=== PATIENT | male | born 1955 | race Caucasian/White ===

== ENCOUNTER 2017-04-04 09:39 | Outpatient (RCR) | payer MEDICARE, BC, OTHER ==
[~2017-04-04 09:39] MED LIST: /MUPINAS; ACET65TA OR; AMIT25TA2 OR; DIGESTIVE ADVANTAGE PO; HALOBETASOL; LISI20TA5 OR; MULTIVITAMIN PO; OMEP20TA7 OR; TRAM50TA2 OR; VITAMIN D50000 UNT OR; ZEST20TA4 OR
== END 2017-04-11 ==
LOC: M PT 09:39
PROVIDERS: ATTEND Orthopaedic Surgery
DX: Z51.89 Encounter for other specified aftercare (principal); M25.512 Pain in left shoulder
CPT/HCPCS: 97162; G8984; G8985

== ENCOUNTER 2017-04-12 09:11 | Outpatient (RCR) | payer MEDICARE, BC, OTHER | END 2017-05-11 | LOC: M PT 09:11 | PROVIDERS: ATTEND Orthopaedic Surgery | DX: Z51.89 Encounter for other specified aftercare (principal); M25.512 Pain in left shoulder | CPT/HCPCS: 97110; 97140; G0283 ==

== ENCOUNTER → 2017-04-25 | Outpatient (CLI) | payer OTHER, BC, MEDICARE ==
--- NOTE | 2017-05-05 00:03 | ECWPNPC ---
PATIENT NAME: BRANDY LINDQUIST : 1955 GENDER: MALE VISIT DATE: 04/25/2017 DISCHARGE DATE: 04/25/17 1528 VISIT LOCKED DATE TIME: PHYSICIAN: EVA BROWN RESOURCE: EVA BROWN REASON FOR APPOINTMENT 1. W/C LOW BACK HISTORY OF PRESENT ILLNESS HISTORY OF PRESENT ILLNESS: PAIN THE PATIENT DESCRIBES THE PAIN... 61 YEAR OLD MALE PATIENT WITH HISTORY OF CHRONIC BACK PAIN. PATIENT DESCRIBES THE PAIN ACHING, BURNING, SHARP, SHOOTING, AND HAVING IT ALL THE TIME WITH A PAIN SCORE OF 7-8/10 ON TODAY'S VISIT. 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 PATIENT REPORTS THAT HE WAS IN THE SUPPLY ROOM LIFTING A BOX ONTO A SHELF WHEN HE INJURED HIS BACK. PATIENT STATES THAT HE HAS TRIED PHYSICAL THERAPY IN THE PAST WITHOUT ANY IMPROVEMENT IN PAIN RELIEF. PATIENT DENIES HAVING ANY BACK SURGERY. PATIENT REPORTS THAT HE HAS TRIED GABAPENTIN IN THE PAST AND IT MADE HIM FOGGY. PATIENT REPORTS OF RADIATING PAIN DOWN BOTH LEGS WITH THE LEFT LEG RADIATING PAIN HURTING THE MOST. PATIENT REPORTS OF INCREASING PAIN IN THE BACK AND LEGS IN THE PAST THREE WEEKS THAT IS IMMOBILIZING CAUSING DIFFICULTIES WALKING AND STANDING AND DOING DAILY ACTIVITIES AND CHORES. PATIENT DENIES UNEXPLAINABLE WEIGHT LOSS, FEVER, CHILLS, NEW CHANGES ON HIS URINARY OR BOWEL CONTROL. FALL RISK SCREENING: SCREENING :NO FALLS IN THE PAST YEAR CURRENT MEDICATIONS TAKING SUCRALFATE 1 GM TABLET 1 TABLET ON AN EMPTY STOMACH ORALLY TWICE DAILY, NOTES: 10-11-161829 TAKING OMEPRAZOLE 20 MG CAPSULE DELAYED RELEASE 1 CAP ORALLY TWICE DAILY, NOTES: 10-11-161829 TAKING LISINOPRIL 20 MG TABLET 1 TABLET ORALLY ONCE A DAY, NOTES: 10-11-162199 TAKING VITAMIN D-3 1000 UNIT CAPSULE 1 CAPSULE ORALLY ONCE A DAY, NOTES: 10-11-16 1500 TAKING CYCLOBENZAPRINE HCL 5 MG TABLET 1 TABLET ORALLY THREE TIMES DAILY NEEDED, NOTES: NONE LATELY TAKING MULTIVITAMIN ADULT - TABLET ORALLY ONCE DAILY, NOTES: 10-11-16 1500 TAKING TYLENOL 325 MG CAPSULE 2 CAPSULES NEEDED ORALLY EVERY 6 HRS TAKING VALIUM 5 MG TABLET 1 TABLET ORALLY TAKE 2 TABS ON ARRIVAL TO CLINIC FOR PROCEDURE MDD=2, NOTES: 10/12/16 1002 NOT-TAKING TYLENOL EXTRA STRENGTH 500 MG TABLET 2 TABLETS NEEDED ORALLY EVERY 6 HRS NOT-TAKING TRAMADOL HCL 50 MG TABLET 1 TABLET ORALLY EVERY 6 HRS PRN PAIN MDD=4, NOTES: MADE HIM DIZZY NOT-TAKING ACETAMINOPHEN EXTRA STRENGTH 500 MG TABLET 2 TABLET NEEDED ORALLY EVERY 6 HRS NEEDED NOT-TAKING VALIUM 5 MG TABLET 1 TABLET ORALLY TAKE ON ARRIVAL TO CLINIC FOR PROCEDURE MDD=1 DISCONTINUED TYLENOL ARTHRITIS PAIN 650 MG TABLET EXTENDED RELEASE ORALLY THREE TIMES DAILY, NOTES: 10-11-162129 MEDICATION LIST REVIEWED AND RECONCILED WITH THE PATIENT PAST MEDICAL HISTORY GERD HYPERTENSION LOW BACK AFTER INJURY STRESS TEST CLEARED WITH DR OSBORNE FIBROMYLAGIA ALLERGIES ASPIRIN: FACE SWELLING: ALLERGY SULFA (FOR ALLERGY USE ONLY): NAUSEA/VOMITING: ALLERGY PLASTIC TAPE: RASH: SIDE EFFECTS PERCOCET: ITCHING: ALLERGY HYDROCODONE-ACETAMINOPHEN: ITCHIONG: ALLERGY LYRICA: DEPRESSION, ANXIETY: SIDE EFFECTS GABAPENTIN: MENTAL STATUS: SIDE EFFECTS SURGICAL HISTORY MULTIPLE SURGURIES TO LEFT LEG FAMILY HISTORY NO FAMILY HISTORY DOCUMENTED. SOCIAL HISTORY GENERAL: TOBACCO USE ARE YOU A:NONSMOKER LEARNING BARRIERS / SPECIAL NEEDS ORIENTED TO PLAN OF CARE: PATIENT, PAIN MANAGEMENT PATIENT, ORIENTED TO PLAN OF CARE: PATIENT, PAIN MANAGEMENT PATIENT. NEW PATIENT PAIN DIARY TODAY'S VISITNOTES FROM 0-10, WHAT LEVEL IS YOUR PAIN TODAY?0 PAIN CLINIC PFS, CLERGY, PUBLIC HEALTH REFERRALS PFS REFERRAL NEEDED?NO CLERGY REFERRAL NEEDED?NO PUBLIC HEALTH REFERRAL NEEDED?NO WAS THE PROVIDER NOTIFIED OF ANY PERTINENT INFO?NO PFS REFERRAL NEEDED?NO CLERGY REFERRAL NEEDED?NO PUBLIC HEALTH REFERRAL NEEDED?NO WAS THE PROVIDER NOTIFIED OF ANY PERTINENT INFO?NO HOSPITALIZATION/MAJOR DIAGNOSTIC PROCEDURE NO HOSPITALIZATION HISTORY. REVIEW OF SYSTEMS REVIEWED BY: PROVIDER: EVA BROWN MD . CONSTITUTIONAL: ANY CHANGE IN YOUR MEDICAL CONDITION? NO . CHILLS NO . FEVER NO . INFECTION: DO YOU HAVE NEW INFECTIONS? NO . DO YOU HAVE HISTORY OF MRSA? NO . MUSCULOSKELETAL: ANY NEW PATTERNS OF PAIN OR NUMBNESS? YES . GASTROENTEROLOGY: ANY NEW CHANGE IN BOWEL CONTROL? NO . GENITOURINARY: ANY NEW CHANGE IN BLADDER CONTROL? NO . IS THERE A CHANCE YOU COULD BE ? NO . HEMATOLOGY/LYMPH: DO YOU TAKE ANY BLOOD THINNERS? (FOR EXAMPLE- COUMADIN, PLAVIX, AGGRENOX, PLATEL, PRADAXA, OR XARELTO) NO . WHEN WAS YOUR LAST DOSE? DATE: TIME: . NEUROLOGY: HAVE YOU FALLEN IN THE PAST 6 MONTHS? NO . ANY NEW EXTREMITY NUMBNESS OR WEAKNESS? NO . CARDIOLOGY: DO YOU HAVE A PACEMAKER OR DEFIBRILLATOR? NO . RESPIRATORY: HAVE YOU BEEN SICK IN THE PAST WEEK? NO . FEVER NO . FLU LIKE SYMPTOMS? NO . COUGH NO . INTEGUMENTARY: DO YOU HAVE ANY RASHES OR OPEN SORES? NO . ALLERGIC/IMMUNO: ARE YOU ALLERGIC TO SHELLFISH OR IV DYE? NO . ANY NEW ALLERGIES? NO . PSYCHIATRIC: DO YOU HAVE THOUGHTS OF HURTING YOURSELF OR SOMEONE ELSE? NO . ARE YOU ABUSED, NEGLECTED, OR IN AN UNSAFE ENVIRONMENT? NO . ENDOCRINOLOGY: ARE YOU DIABETIC? NO . OTHER: DO YOU NEED ANY PRESCRIPTIONS? NO . IF YES, PLEASE LIST: ____ . ANY NEW PROBLEMS WITH YOUR MEDICATIONS? NO . WHEN DID YOU LAST EAT? ____ . WHEN DID YOU LAST DRINK? ____ . WHAT DID YOU LAST DRINK? ____ . NAME OF PERSON DRIVING YOU HOME? ____ . DO YOU HAVE ANY OTHER QUESTIONS OR CONCERNS YES LEFT LEG PAIN, NUMBNESS IN FOOT . . VITAL SIGNS WT 222.0 LBS, HT 69 IN, BMI 32.78 INDEX, BP 133/92 MM HG, HR 75 /MIN, RR 16 /MIN, TEMP 97.6 F, OXYGEN SAT % 96%, NA INITIALS [id number], REVIEWED BY: VD. EXAMINATION : PATIENT IS ALERT O X 3 AND COOPERATIVE. PATIENT AMBULATES WITH A LIMP ON THE LEFT LEG. THERE IS TENDERNESS IN THE LOW BACK. PATIENT LEFT LEG IS WEAKER AT FLEXION AND EXTENSION COMPARED TO THE RIGHT LEG. MRI DONE ON 05/20/15 SHOWS A DISC HERNIATION AT L3-L4, POST LAMINECTOMY CHANGES AT L4-L5 AND L5-S1. ASSESSMENTS INTERVERTEBRAL DISC DISORDERS WITH RADICULOPATHY, LUMBOSACRAL REGION - M51.17 (PRIMARY) TREATMENT INTERVERTEBRAL DISC DISORDERS WITH RADICULOPATHY, LUMBOSACRAL REGION NOTES: WE DISCUSSED SEVERAL ISSUES WITH MRS. LUCAS'S PAIN MANAGEMENT CASE. AT THIS TIME THE PATIENT WILL START ON GABAPENTIN FOR THE NEUROPATHIC PAIN. AFTER EXAMINING THE PATIENT AND REVIEWING THE MRI OF THE LUMBAR SPINE, PATIENT IS A GOOD CANDIDATE FOR A L5-S1 LUMBAR EPIDURAL, WE DISCUSSED THE RISK, BENEFITS, AND ALTERNATIVES AND THE PATIENT WOULD LIKE TO PROCEED. PATIENT WILL BE BOOKED PENDING APPROVAL. PATIENT WILL FOLLOW UP WITH ME IN 1 MONTH. INSTRUCTIONS WERE GIVEN, QUESTIONS WERE ANSWERED, PATIENT REPORTS UNDERSTANDING AND AGREES WITH THE PLAN. I, JASON DILLON, DOCUMENTED THE ABOVE INFORMATION ACTING A SCRIBE FOR DR. BROWN. I HAVE REVIEWED THE ABOVE DOCUMENT, WRITTEN BY JASON DILLON SCRIBE AND I VERIFY THAT IT IS ACCURATE. OTHERS START GABAPENTIN CAPSULE, 100 MG, DIRECTED, ORALLY, TID FOR PAIN MDD3, 30 DAY(S), 90, REFILLS 1 NOTES: LUMBAR EPIDURAL INJECTION: RECOVERY AT HOME MATERIAL WAS PRINTED,LUMBAR EPIDURAL INJECTION: YOUR PROCEDURE MATERIAL WAS PRINTED,LUMBAR EPIDURAL INJECTION: RECOVERY AT HOME MATERIAL WAS PRINTED. PROCEDURES PN WORKMANS' COMP OPINION IN YOUR OPINION, WAS THE INCIDENT THAT THE PATIENT DESCRIBED THE COMPETENT MEDICAL CAUSE OF THIS INJURY/ILLNESS? YES ARE THE PATIENT'S COMPLAINTS CONSISTENT WITH HIS/HER HISTORY OF THE INJURY/ILLNESS? YES IS THE PATIENT'S HISTORY OF THE INJURY/ILLNESS CONSISTENT WITH YOUR OBJECTIVE FINDING? YES WHAT IS THE PERCENTAGE OF TEMPORARY IMPAIRMENT? MODERATE TO MARKED = 66.7% IS THE PATIENT WORKING? NO DOCTOR ON SITE: EVA DEGROOT MD PROCEDURE CODES FA211 ESTABILISHED PATIENT [facility] FACILITY CHARGE G8730 PAIN ASSESS POS TOOL F/U PLAN DOC G8427 DOC MEDS VERIFIED W/PT OR RE DISPOSITION & COMMUNICATION FOLLOW UP 4 WEEKS ELECTRONICALLY SIGNED BY EVA BROWN MD ON 05/04/2017 AT 08:17 AM EDT DISCLAIMER : THIS IS A VISIT SUMMARY EXTRACTED FROM THE [employer] CHART. IT IS NOT A COPY OF THE [employer] PROGRESS NOTE. MTDD
== END | disposition home or self-care (01) ==
LOC: M PAIN 13:40
PROVIDERS: ATTEND Anesthesiology
DX: G89.29 Other chronic pain (principal); M51.17 Intervertebral disc disorders with radiculopathy, lumbosacral region; K21.9 Gastro-esophageal reflux disease without esophagitis; I10 Essential (primary) hypertension; M79.7 Fibromyalgia; Z79.899 Other long term (current) drug therapy; Z88.2 Allergy status to sulfonamides; Z88.5 Allergy status to narcotic agent; Z88.8 Allergy status to other drugs, medicaments and biological substances

== ENCOUNTER → 2017-06-13 | Outpatient (CLI) | payer OTHER, BC, MEDICARE ==
[~2017-06-13] MED LIST changes: +ISOVUE-M 300 61% 15ML VIAL (Q9967) As Ordered ONE; +LIDOCAINE 1% SDV INJ 30 ML VIAL As Ordered ONE; +diazePAM 5 MG TAB As Ordered ONE; +methylPREDNISolone SUSP 40 MG/ML (DEPO-medrol) VIAL (J1030) As Ordered ONE
--- NOTE | 2017-06-13 17:23 | REP ---
FLUOROSCOPIC GUIDED SPINAL INJECTION: The films were reviewed with Dr. Mata. The patient has a history of low back pain. The portable C-ARM was provided in the OR by Dr. Faulkner for fluoroscopic guidance. 3 intraoperative fluoroscopic spot films were obtained using last image hold technology for needle placement verification for lumbar epidural injection. The films are on the PACS system and are available for review. 4 seconds of fluoroscopic time was utilized for this procedure. Reviewed by JOSSELYN Vides 06/14/2017 05:45 PEdited and Signed by Luan Mata MD 06/14/2017 06:50 P
--- NOTE | 2017-06-26 00:34 | ECWPNPC ---
PATIENT NAME: BRANDY LINDQUIST : 1955 GENDER: MALE VISIT DATE: 06/13/2017 DISCHARGE DATE: 06/13/17 1039 VISIT LOCKED DATE TIME: PHYSICIAN: EVA BROWN RESOURCE: EVA BROWN REASON FOR APPOINTMENT 1. LESI HISTORY OF PRESENT ILLNESS HISTORY OF PRESENT ILLNESS: PAIN THE PATIENT DESCRIBES THE PAIN... FALL RISK SCREENING: SCREENING :NO FALLS IN THE PAST YEAR CURRENT MEDICATIONS TAKING SUCRALFATE 1 GM TABLET 1 TABLET ON AN EMPTY STOMACH ORALLY TWICE DAILY, NOTES: 06/12/17 1700 TAKING OMEPRAZOLE 20 MG CAPSULE DELAYED RELEASE 1 CAP ORALLY TWICE DAILY, NOTES: 06/12/17 1700 TAKING LISINOPRIL 20 MG TABLET 1 TABLET ORALLY ONCE A DAY, NOTES: 06/12/17 2200 TAKING VITAMIN D-3 1000 UNIT CAPSULE 1 CAPSULE ORALLY ONCE A DAY, NOTES: 06/10/17 1300 TAKING CYCLOBENZAPRINE HCL 5 MG TABLET 1 TABLET ORALLY THREE TIMES DAILY NEEDED, NOTES: > 2 MONTHS TAKING MULTIVITAMIN ADULT - TABLET ORALLY ONCE DAILY, NOTES: 06/10/17 1500 TAKING TYLENOL 325 MG CAPSULE 2 CAPSULES NEEDED ORALLY EVERY 6 HRS, NOTES: 06/12/17 1500 TAKING GABAPENTIN 100 MG CAPSULE DIRECTED ORALLY TID FOR PAIN MDD3, NOTES: 06/11/17 2100 TAKING TRAMADOL HCL 50 MG TABLET 1 TABLET ORALLY EVERY 6 HRS PRN PAIN MDD=4, NOTES: MADE HIM DIZZY NOT-TAKING VALIUM 5 MG TABLET 1 TABLET ORALLY TAKE 2 TABS ON ARRIVAL TO CLINIC FOR PROCEDURE MDD=2, NOTES: 10/12/16 1002 NOT-TAKING TYLENOL EXTRA STRENGTH 500 MG TABLET 2 TABLETS NEEDED ORALLY EVERY 6 HRS NOT-TAKING ACETAMINOPHEN EXTRA STRENGTH 500 MG TABLET 2 TABLET NEEDED ORALLY EVERY 6 HRS NEEDED NOT-TAKING VALIUM 5 MG TABLET 1 TABLET ORALLY TAKE ON ARRIVAL TO CLINIC FOR PROCEDURE MDD=1 MEDICATION LIST REVIEWED AND RECONCILED WITH THE PATIENT PAST MEDICAL HISTORY GERD HYPERTENSION LOW BACK AFTER INJURY STRESS TEST CLEARED WITH DR OSBORNE FIBROMYLAGIA ALLERGIES ASPIRIN: FACE SWELLING: ALLERGY SULFA (FOR ALLERGY USE ONLY): NAUSEA/VOMITING: ALLERGY PLASTIC TAPE: RASH: SIDE EFFECTS PERCOCET: ITCHING: ALLERGY HYDROCODONE-ACETAMINOPHEN: ITCHIONG: ALLERGY LYRICA: DEPRESSION, ANXIETY: SIDE EFFECTS GABAPENTIN: MENTAL STATUS: SIDE EFFECTS REVIEW OF SYSTEMS REVIEWED BY: PROVIDER: . CONSTITUTIONAL: ANY CHANGE IN YOUR MEDICAL CONDITION? YES PT REPORTS KNEE INJECTIONS X 3 AT [facility], LAST ONE 06/06. DR. BROWN NOTIFIED, OK TO PROCEED . CHILLS NO . FEVER NO . INFECTION: DO YOU HAVE NEW INFECTIONS? NO . DO YOU HAVE HISTORY OF MRSA? NO . MUSCULOSKELETAL: ANY NEW PATTERNS OF PAIN OR NUMBNESS? YES PT REPORTS NEW PAIN LEFT GROIN OVER THE PAST TWO WEEKS . GASTROENTEROLOGY: ANY NEW CHANGE IN BOWEL CONTROL? NO . GENITOURINARY: ANY NEW CHANGE IN BLADDER CONTROL? NO . IS THERE A CHANCE YOU COULD BE ? NO . HEMATOLOGY/LYMPH: DO YOU TAKE ANY BLOOD THINNERS? (FOR EXAMPLE- COUMADIN, PLAVIX, AGGRENOX, PLATEL, PRADAXA, OR XARELTO) NO . WHEN WAS YOUR LAST DOSE? DATE: TIME: . NEUROLOGY: HAVE YOU FALLEN IN THE PAST 6 MONTHS? NO . ANY NEW EXTREMITY NUMBNESS OR WEAKNESS? NO . CARDIOLOGY: DO YOU HAVE A PACEMAKER OR DEFIBRILLATOR? NO . RESPIRATORY: HAVE YOU BEEN SICK IN THE PAST WEEK? NO . FEVER NO . FLU LIKE SYMPTOMS? NO . COUGH NO . INTEGUMENTARY: DO YOU HAVE ANY RASHES OR OPEN SORES? NO . ALLERGIC/IMMUNO: ARE YOU ALLERGIC TO SHELLFISH OR IV DYE? NO . ANY NEW ALLERGIES? NO . PSYCHIATRIC: DO YOU HAVE THOUGHTS OF HURTING YOURSELF OR SOMEONE ELSE? NO . ARE YOU ABUSED, NEGLECTED, OR IN AN UNSAFE ENVIRONMENT? NO . ENDOCRINOLOGY: ARE YOU DIABETIC? NO . OTHER: DO YOU NEED ANY PRESCRIPTIONS? YES . IF YES, PLEASE LIST: ____TRAMADOL . ANY NEW PROBLEMS WITH YOUR MEDICATIONS? NO . WHEN DID YOU LAST EAT? ___06/12/171929_ . WHEN DID YOU LAST DRINK? 06/12/172199____ . WHAT DID YOU LAST DRINK? ____CRANBERRY JUICE . NAME OF PERSON DRIVING YOU HOME? ____SHARON . DO YOU HAVE ANY OTHER QUESTIONS OR CONCERNS YES QUESTION REGARDING DISCONTINUING GABAPENTIN . VITAL SIGNS WT 222 LBS, HT 69 IN, BMI 32.78 INDEX, BP 146/89 MM HG, HR 65 /MIN, RR 16 /MIN, TEMP 98.4 F, OXYGEN SAT % 97%, SAFE IN ENV? (Y/N) YES, NA INITIALS AW 0902, REVIEWED BY: LAS. ANDRADE INTERVERTEBRAL DISC DISORDERS WITH RADICULOPATHY, LUMBAR REGION - M51.16 (PRIMARY) TREATMENT OTHERS REFILL CYCLOBENZAPRINE HCL TABLET, 5 MG, 1 TABLET, ORALLY NEEDED FOR SPASMS AND PAIN, DAILY MAY REPEAT IN 5 HRS MDD2, 30 DAY(S), 45, REFILLS 2, NOTES: > 2 MONTHS REFILL TRAMADOL HCL TABLET, 50 MG, 1 TABLET, ORALLY, DAILY NEEDED FOR PAIN MDD1, 30 DAY(S), 20, REFILLS 0, NOTES: MADE HIM DIZZY PROCEDURES PRE PROCEDURE DIAGNOSIS LUMBAR DISC DISORDER WITH RADICULOPATHY POST PROCEDURE DIAGNOSIS LUMBAR DISC DISORDER WITH RADICULOPATHY PROCEDURE LUMBAR EPIDURAL STEROID INJECTION UNDER FLUOROSCOPIC GUIDANCE SURGEON DR. EVA BROWN FINANCIAL AID ADVISOR NONE ANESTHESIA LOCAL PRE PROCEDURE NOTE THE PATIENT HAS A HISTORY OF CHRONIC LOW BACK PAIN. I EVALUATE THE PATIENT AND REVIEWED THE CHART. I WENT OVER THE RISKS, ALTERNATIVES, AND BENEFITS ASSOCIATED WITH THIS PROCEDURE. THE PATIENT WOULD LIKE TO PROCEED AND GIVE CONSENT TO PERFORMED THE PROCEDURE. THE PATIENT DENIES UNEXPLAINABLE WEIGHT LOSS, FEVER, CHILLS, OR NEW CHANGES IN URINARY OR BOWEL CONTROL. DESCRIPTION OF PROCEDURE THE PATIENT WAS BROUGHT TO THE PROCEDURE ROOM AND PLACED IN THE PRONE POSITION. THE LUMBOSACRAL AREA WAS CLEANED WITH BETADINE SOLUTION AND DRAPED ASEPTICALLY. THE PROCEDURE WAS DONE UNDER STERILE CONDITIONS. I CHECKED LATERALITY AND THE LEVEL WHERE THE PROCEDURE WAS GOING TO BE PERFORMED WITH THE PATIENT AND THE SUPPORTING STAFF AT THE MOMENT OF THE TIME OUT IN THE PROCEDURE ROOM. UNDER FLUOROSCOPIC GUIDANCE, THE TARGET POINT WAS SELECTED AT THE INTERLAMINAR LEVEL OF L3-L4. LIDOCAINE WAS USED TO NUMB THE SKIN AND THE SUBCUTANEOUS TISSUE BELOW IT. EPIDURAL TUOHY NEEDLE, 17-GAUGE, WAS ADVANCED UNDER FLUOROSCOPIC GUIDANCE AND FOLLOWING PATIENT FEEDBACK UNTIL THE EPIDURAL SPACE WAS REACHED, 7 CM DEEP INTO THE SKIN BY THE LOSS OF RESISTANCE TECHNIQUE. ISOVUE M DYE 30%, 0.25 ML, WAS INJECTED SHOWING ADEQUATE SPREAD OF THE DYE. THEN, A SOLUTION OF 3 ML OF NORMAL SALINE WITH DEPO-MEDROL 60 MG WAS INJECTED SLOWLY FOLLOWING PATIENT FEEDBACK. THERE WAS NO EVIDENCE OF BLOOD, PARESTHESIA OR CEREBROSPINAL FLUID DURING THE PROCEDURE. THE PATIENT WAS SENT TO THE RECOVERY ROOM. THE PATIENT WAS MOVING THE EXTREMITIES AND DOING WELL. THERE WAS NO COMPLICATION DURING THE PROCEDURE. FLUOROSCOPY TIME WAS 4 SECONDS. POST PROCEDURE NOTE THE PATIENT WILL BE SEEN IN A FOLLOW UP IN THE NEXT FEW WEEKS. INSTRUCTIONS WERE GIVEN, QUESTIONS WERE ANSWERED, AND THE PATIENT EXPRESSED UNDERSTANDING AND AGREES WITH THE PLAN. I, HIEU HUDSON, DOCUMENTED THE ABOVE INFORMATION ACTING A SCRIBE FOR DR. BROWN. I HAVE REVIEWED THE ABOVE DOCUMENT, WRITTEN BY HIEU MOORE AND I VERIFY THAT IT IS ACCURATE PN WORKMANS' COMP OPINION IN YOUR OPINION, WAS THE INCIDENT THAT THE PATIENT DESCRIBED THE COMPETENT MEDICAL CAUSE OF THIS INJURY/ILLNESS? YES ARE THE PATIENT'S COMPLAINTS CONSISTENT WITH HIS/HER HISTORY OF THE INJURY/ILLNESS? YES IS THE PATIENT'S HISTORY OF THE INJURY/ILLNESS CONSISTENT WITH YOUR OBJECTIVE FINDING? YES WHAT IS THE PERCENTAGE OF TEMPORARY IMPAIRMENT? MODERATE TO MARKED = 66.7% IS THE PATIENT WORKING? NO DOCTOR ON SITE: EVA DEGROOT MD DIAGNOSTIC IMAGING [facility] FLUORO GUIDE SPINE INJECTION (PAIN)[id number] PROCEDURE CODES 27803 LUMBAR/SACRAL W/ IMAGING 6045F RADXPS IN END [id number] PXD DISPOSITION & COMMUNICATION FOLLOW UP 3 WEEKS ELECTRONICALLY SIGNED BY EVA BROWN MD ON 06/25/2017 AT 08:26 PM EDT DISCLAIMER : THIS IS A VISIT SUMMARY EXTRACTED FROM THE [employer] CHART. IT IS NOT A COPY OF THE [employer] PROGRESS NOTE. SOMMER
== END ==
LOC: M PAIN 09:00
PROVIDERS: ATTEND Anesthesiology
DX: G89.29 Other chronic pain (principal); M51.16 Intervertebral disc disorders with radiculopathy, lumbar region; K21.9 Gastro-esophageal reflux disease without esophagitis; I10 Essential (primary) hypertension; Z88.6 Allergy status to analgesic agent; Z88.2 Allergy status to sulfonamides; L23.1 Allergic contact dermatitis due to adhesives; Z88.5 Allergy status to narcotic agent; Z88.8 Allergy status to other drugs, medicaments and biological substances; Z79.891 Long term (current) use of opiate analgesic; Z79.899 Other long term (current) drug therapy
CPT/HCPCS: 62323; J1030; Q9967

== ENCOUNTER → 2017-07-02 | Outpatient (CLI) | payer OTHER, BC, MEDICARE ==
[~2017-07-02] MED LIST changes: -ISOVUE-M 300 61% 15ML VIAL (Q9967) As Ordered ONE; -LIDOCAINE 1% SDV INJ 30 ML VIAL As Ordered ONE; -diazePAM 5 MG TAB As Ordered ONE; -methylPREDNISolone SUSP 40 MG/ML (DEPO-medrol) VIAL (J1030) As Ordered ONE
--- NOTE | 2017-07-15 23:22 | ECWPNPC ---
PATIENT NAME: BRANDY LINDQUIST : 1955 GENDER: MALE VISIT DATE: 07/02/2017 DISCHARGE DATE: 07/02/17 0957 VISIT LOCKED DATE TIME: PHYSICIAN: RENA RAPP RESOURCE: RENA RAPP REASON FOR APPOINTMENT 1. POST PROCEDURE W/C HISTORY OF PRESENT ILLNESS HISTORY OF PRESENT ILLNESS: PAIN THE PATIENT DESCRIBES THE PAIN... FALL RISK SCREENING: SCREENING :NO FALLS IN THE PAST YEAR TODAY'S VISIT: NOTES: FOLLOWUP FOR LOW BACK. S/P LESB 06/13/17. REPORTS MINIMAL TO NO IMPROVEMENT AND THAT THE PAIN SEEMS TO BE WORSE IN THE LEFT LOWER BACK. IS HAVING A NEW LEFT HIP AREA PAIN . IS HAVING A GREAT DEAL OF DISCOMFORT OVER THE LAST FEW MONTHS. DESCRIBES THE PAIN CONSTANT, SHARP, STABBING SHOOTING , THROBBING AND SORE. PAIN IS WORSE ON THE LEFT SIDE WITH PAIN RADIATING FROM BACK INTO LEFT BUTTUCK AND DOWN THE LEFT LEG TO THE CALF. CURRENT MEDICATIONS TAKING SUCRALFATE 1 GM TABLET 1 TABLET ON AN EMPTY STOMACH ORALLY TWICE DAILY TAKING OMEPRAZOLE 20 MG CAPSULE DELAYED RELEASE 1 CAP ORALLY TWICE DAILY TAKING LISINOPRIL 20 MG TABLET 1 TABLET ORALLY ONCE A DAY TAKING VITAMIN D-3 1000 UNIT CAPSULE 1 CAPSULE ORALLY ONCE A DAY TAKING MULTIVITAMIN ADULT - TABLET ORALLY ONCE DAILY TAKING TYLENOL 325 MG CAPSULE 2 CAPSULES NEEDED ORALLY EVERY 6 HRS TAKING CYCLOBENZAPRINE HCL 5 MG TABLET 1 TABLET ORALLY NEEDED FOR SPASMS AND PAIN DAILY MAY REPEAT IN 5 HRS MDD2 TAKING TRAMADOL HCL 50 MG TABLET 1 TABLET ORALLY DAILY NEEDED FOR PAIN MDD1 NOT-TAKING GABAPENTIN 100 MG CAPSULE DIRECTED ORALLY TID FOR PAIN MDD3 NOT-TAKING VALIUM 5 MG TABLET 1 TABLET ORALLY TAKE 2 TABS ON ARRIVAL TO CLINIC FOR PROCEDURE MDD=2, NOTES: 10/12/16 1002 NOT-TAKING TYLENOL EXTRA STRENGTH 500 MG TABLET 2 TABLETS NEEDED ORALLY EVERY 6 HRS NOT-TAKING ACETAMINOPHEN EXTRA STRENGTH 500 MG TABLET 2 TABLET NEEDED ORALLY EVERY 6 HRS NEEDED NOT-TAKING VALIUM 5 MG TABLET 1 TABLET ORALLY TAKE ON ARRIVAL TO CLINIC FOR PROCEDURE MDD=1 MEDICATION LIST REVIEWED AND RECONCILED WITH THE PATIENT PAST MEDICAL HISTORY GERD HYPERTENSION LOW BACK AFTER INJURY STRESS TEST CLEARED WITH DR OSBORNE FIBROMYLAGIA ALLERGIES ASPIRIN: FACE SWELLING: ALLERGY SULFA (FOR ALLERGY USE ONLY): NAUSEA/VOMITING: ALLERGY PLASTIC TAPE: RASH: SIDE EFFECTS PERCOCET: ITCHING: ALLERGY HYDROCODONE-ACETAMINOPHEN: ITCHIONG: ALLERGY LYRICA: DEPRESSION, ANXIETY: SIDE EFFECTS GABAPENTIN: MENTAL STATUS: SIDE EFFECTS REVIEW OF SYSTEMS REVIEWED BY: PROVIDER: . CONSTITUTIONAL: ANY CHANGE IN YOUR MEDICAL CONDITION? NO . CHILLS NO . FEVER NO . INFECTION: DO YOU HAVE NEW INFECTIONS? NO . DO YOU HAVE HISTORY OF MRSA? NO . MUSCULOSKELETAL: ANY NEW PATTERNS OF PAIN OR NUMBNESS? MORE PAIN LEFT LEG / STARTS AT HIP AND CURLS AROUND INTO BUTTOCK THEN GOES DOWN LEG . GASTROENTEROLOGY: ANY NEW CHANGE IN BOWEL CONTROL? NO . GENITOURINARY: ANY NEW CHANGE IN BLADDER CONTROL? NO . IS THERE A CHANCE YOU COULD BE ? NO . HEMATOLOGY/LYMPH: DO YOU TAKE ANY BLOOD THINNERS? (FOR EXAMPLE- COUMADIN, PLAVIX, AGGRENOX, PLATEL, PRADAXA, OR XARELTO) NO . WHEN WAS YOUR LAST DOSE? DATE: TIME: . NEUROLOGY: HAVE YOU FALLEN IN THE PAST 6 MONTHS? NO . ANY NEW EXTREMITY NUMBNESS OR WEAKNESS? NO . CARDIOLOGY: DO YOU HAVE A PACEMAKER OR DEFIBRILLATOR? NO . RESPIRATORY: HAVE YOU BEEN SICK IN THE PAST WEEK? NO . FEVER NO . FLU LIKE SYMPTOMS? NO . COUGH NO . INTEGUMENTARY: DO YOU HAVE ANY RASHES OR OPEN SORES? NO . ALLERGIC/IMMUNO: ARE YOU ALLERGIC TO SHELLFISH OR IV DYE? NO . ANY NEW ALLERGIES? NO . PSYCHIATRIC: DO YOU HAVE THOUGHTS OF HURTING YOURSELF OR SOMEONE ELSE? NO . ARE YOU ABUSED, NEGLECTED, OR IN AN UNSAFE ENVIRONMENT? NO . ENDOCRINOLOGY: ARE YOU DIABETIC? NO . OTHER: DO YOU NEED ANY PRESCRIPTIONS? NO . IF YES, PLEASE LIST: ____ . ANY NEW PROBLEMS WITH YOUR MEDICATIONS? NO . WHEN DID YOU LAST EAT? ____ . WHEN DID YOU LAST DRINK? ____ . WHAT DID YOU LAST DRINK? ____ . NAME OF PERSON DRIVING YOU HOME? ____ . DO YOU HAVE ANY OTHER QUESTIONS OR CONCERNS WHAT NEXT?? . VITAL SIGNS WT 217 LBS, HT 69 IN, BMI 32.04 INDEX, BP 148/98 MM HG, HR 62 /MIN, RR 16 /MIN, TEMP 97.8 F, OXYGEN SAT % 97, REVIEWED BY: NL. EXAMINATION GENERAL EXAMINATION: LUNGS:CLEAR TO AUSCULTATION BILATERALLY. HEART:HEART RATE REGULAR. MUSCULOSKELETAL:MUSCLE STRENGTH TESTING 5/5 BILATERAL LOWER EXTREMITIES. POINT TENDERNESS LEFT SIDE LUMBAR PARASPINOUS MUSCLES AND OVER LEFT SACRUM. POINT TENDERNESS AT LEFT SACRALILIAC JOINT. TENDERNESS LEFT SIDE WITH HIP FLXION. ABLE TO RISE TO STANDING POSITION WITHOUT DIFFICULTY . POSTURE UPRIGHT. GAIT NONANTALGIC. ASSESSMENTS SACROILIITIS - M46.1 (PRIMARY) INTERVERTEBRAL DISC DISORDERS WITH RADICULOPATHY, LUMBAR REGION - M51.16 TREATMENT SACROILIITIS START PREDNISONE TABLET, 20 MG, 1 TABLET, ORALLY, TAKE 1 TAB TWICE A DAY WITH FOOD X 3 DAYS ATHEN 1/2 TAB TWICE A DAY X 3 DAYS, 30 DAY(S), 9, REFILLS 0 START DICLOFENAC SODIUM GEL, 1 %, DIRECTED, TRANSDERMAL, APPLY 4 GRAMS TO LOW BACK Q 6 HRS, 30 DAY(S), 3 TUBE, REFILLS 1 INJECTION ANESTHETIC SACROILIAC JOINTRENA RAPP 07/02/2017 9:42:17 AM > LEFT NOTES: WALK WAS TOLERATED. PROCEDURES PN WORKMANS' COMP OPINION IN YOUR OPINION, WAS THE INCIDENT THAT THE PATIENT DESCRIBED THE COMPETENT MEDICAL CAUSE OF THIS INJURY/ILLNESS? YES ARE THE PATIENT'S COMPLAINTS CONSISTENT WITH HIS/HER HISTORY OF THE INJURY/ILLNESS? YES IS THE PATIENT'S HISTORY OF THE INJURY/ILLNESS CONSISTENT WITH YOUR OBJECTIVE FINDING? YES WHAT IS THE PERCENTAGE OF TEMPORARY IMPAIRMENT? MODERATE TO MARKED = 66.7% IS THE PATIENT WORKING? NO DOCTOR ON SITE: EVA DEGROOT MD PREVENTIVE MEDICINE DISCUSSED SIJ AND PRE PROCEDURE CARE WITH PT EXPRESSING UNDERSTANDING. PROCEDURE CODES FA211 ESTABILISHED PATIENT [facility] FACILITY CHARGE DISPOSITION & COMMUNICATION FOLLOW UP 4-6 WEEKS (REASON: WC CHECK AUTH FOR LEFT SIJ) ELECTRONICALLY SIGNED BY CASSIE VACA ON 07/15/2017 AT 01:09 PM EDT DISCLAIMER : THIS IS A VISIT SUMMARY EXTRACTED FROM THE IT MOVES IT CHART. IT IS NOT A COPY OF THE IT MOVES IT PROGRESS NOTE. SOMMER
== END | disposition home or self-care (01) ==
LOC: M PAIN 09:00
PROVIDERS: ATTEND Nurse Practitioner Family
DX: G89.29 Other chronic pain (principal); M46.1 Sacroiliitis, not elsewhere classified; M51.16 Intervertebral disc disorders with radiculopathy, lumbar region; K21.9 Gastro-esophageal reflux disease without esophagitis; I10 Essential (primary) hypertension; M79.7 Fibromyalgia; Z79.899 Other long term (current) drug therapy; Z88.2 Allergy status to sulfonamides; Z88.5 Allergy status to narcotic agent; Z88.8 Allergy status to other drugs, medicaments and biological substances; L23.1 Allergic contact dermatitis due to adhesives

== ENCOUNTER → 2017-08-15 | Outpatient (CLI) | payer OTHER, BC, MEDICARE ==
[~2017-08-15] MED LIST changes: +BUPIVACAINE HCL 0.25% 30 ML VIAL As Ordered ONE; +ISOVUE-M 300 61% 15ML VIAL (Q9967) As Ordered ONE; +LIDOCAINE 1% SDV INJ 30 ML VIAL As Ordered ONE; +TRIAMCINOLONE ACETONIDE SUSP 40 MG/ML VIAL (J3301) As Ordered ONE; +diazePAM 5 MG TAB As Ordered ONE; +oxyCODONE 5MG TAB As Ordered ONE
--- NOTE | 2017-08-15 10:34 | REP ---
Partial SI joint series: Two views. History: Left SI joint injection for pain. 9 seconds of fluoroscopy time is reported. Findings: A sequence of two last image hold fluoroscopic spot radiographs of the left SI joint document needle positions and contrast injection associated with injection procedure. Signed by Ramesh Anguiano MD 08/15/2017 01:25 P
--- NOTE | 2017-08-21 00:24 | ECWPNPC ---
PATIENT NAME: BRANDY LINDQUIST : 1955 GENDER: MALE VISIT DATE: 08/15/2017 DISCHARGE DATE: 08/15/17 1025 VISIT LOCKED DATE TIME: PHYSICIAN: EVA BROWN RESOURCE: EVA BROWN REASON FOR APPOINTMENT 1. W/C LEFT SIJ HISTORY OF PRESENT ILLNESS HISTORY OF PRESENT ILLNESS: PAIN THE PATIENT DESCRIBES THE PAIN... FALL RISK SCREENING: SCREENING :NO FALLS IN THE PAST YEAR CURRENT MEDICATIONS TAKING SUCRALFATE 1 GM TABLET 1 TABLET ON AN EMPTY STOMACH ORALLY TWICE DAILY, NOTES: 08/14/17 1800 TAKING OMEPRAZOLE 20 MG CAPSULE DELAYED RELEASE 1 CAP ORALLY TWICE DAILY, NOTES: 08/14/171799 TAKING LISINOPRIL 20 MG TABLET 1 TABLET ORALLY ONCE A DAY, NOTES: 08/14/172199 TAKING VITAMIN D-3 1000 UNIT CAPSULE 1 CAPSULE ORALLY ONCE A DAY, NOTES: LAST WEEK TAKING MULTIVITAMIN ADULT - TABLET ORALLY ONCE DAILY, NOTES: 08/12/17 TAKING TYLENOL 325 MG CAPSULE 2 CAPSULES NEEDED ORALLY EVERY 6 HRS, NOTES: 08/14/172199 TAKING CYCLOBENZAPRINE HCL 5 MG TABLET 1 TABLET ORALLY NEEDED FOR SPASMS AND PAIN DAILY MAY REPEAT IN 5 HRS MDD2, NOTES: 3 WEEKS AGO TAKING TRAMADOL HCL 50 MG TABLET 1 TABLET ORALLY DAILY NEEDED FOR PAIN MDD1, NOTES: 3 WEEKS AGO TAKING PREDNISONE 20 MG TABLET 1 TABLET ORALLY TAKE 1 TAB TWICE A DAY WITH FOOD X 3 DAYS ATHEN 1/2 TAB TWICE A DAY X 3 DAYS, NOTES: FINISHED 07/09/17 NOT-TAKING DICLOFENAC SODIUM 1 % GEL DIRECTED TRANSDERMAL APPLY 4 GRAMS TO LOW BACK Q 6 HRS UNKNOWN GABAPENTIN 100 MG CAPSULE DIRECTED ORALLY TID FOR PAIN MDD3 UNKNOWN VALIUM 5 MG TABLET 1 TABLET ORALLY TAKE 2 TABS ON ARRIVAL TO CLINIC FOR PROCEDURE MDD=2, NOTES: 10/12/16 1002 UNKNOWN TYLENOL EXTRA STRENGTH 500 MG TABLET 2 TABLETS NEEDED ORALLY EVERY 6 HRS UNKNOWN ACETAMINOPHEN EXTRA STRENGTH 500 MG TABLET 2 TABLET NEEDED ORALLY EVERY 6 HRS NEEDED UNKNOWN VALIUM 5 MG TABLET 1 TABLET ORALLY TAKE ON ARRIVAL TO CLINIC FOR PROCEDURE MDD=1 MEDICATION LIST REVIEWED AND RECONCILED WITH THE PATIENT PAST MEDICAL HISTORY GERD HYPERTENSION LOW BACK AFTER INJURY STRESS TEST CLEARED WITH DR OSBORNE FIBROMYLAGIA ALLERGIES ASPIRIN: FACE SWELLING: ALLERGY SULFA (FOR ALLERGY USE ONLY): NAUSEA/VOMITING: ALLERGY PLASTIC TAPE: RASH: SIDE EFFECTS PERCOCET: ITCHING: ALLERGY HYDROCODONE-ACETAMINOPHEN: ITCHIONG: ALLERGY LYRICA: DEPRESSION, ANXIETY: SIDE EFFECTS GABAPENTIN: MENTAL STATUS: SIDE EFFECTS SURGICAL HISTORY MULTIPLE SURGURIES TO LEFT LEG SOCIAL HISTORY GENERAL: TOBACCO USE ARE YOU A:NONSMOKER LEARNING BARRIERS / SPECIAL NEEDS ORIENTED TO PLAN OF CARE: PATIENT, PAIN MANAGEMENT PATIENT, ORIENTED TO PLAN OF CARE: PATIENT, PAIN MANAGEMENT PATIENT. NEW PATIENT PAIN DIARY TODAY'S VISITNOTES FROM 0-10, WHAT LEVEL IS YOUR PAIN TODAY?0 PAIN CLINIC PFS, CLERGY, PUBLIC HEALTH REFERRALS PFS REFERRAL NEEDED?NO CLERGY REFERRAL NEEDED?NO PUBLIC HEALTH REFERRAL NEEDED?NO WAS THE PROVIDER NOTIFIED OF ANY PERTINENT INFO?NO HAS THE PATIENT BEEN EDUCATED REGARDING HIS/HER PLAN OF CARE?YES HAS THE PATIENT BEEN EDUCATED REGARDING PAIN, THE RISK FOR PAIN, THE IMPORTANCE OF EFFECTIVE PAIN MANAGEMENT, AND THE PAIN ASSESSMENT PROCESS?YES HOSPITALIZATION/MAJOR DIAGNOSTIC PROCEDURE SURGERY RELATED REVIEW OF SYSTEMS REVIEWED BY: PROVIDER: . CONSTITUTIONAL: ANY CHANGE IN YOUR MEDICAL CONDITION? NO . CHILLS NO . FEVER NO . INFECTION: DO YOU HAVE NEW INFECTIONS? NO . DO YOU HAVE HISTORY OF MRSA? NO . MUSCULOSKELETAL: ANY NEW PATTERNS OF PAIN OR NUMBNESS? NO . GASTROENTEROLOGY: ANY NEW CHANGE IN BOWEL CONTROL? NO . GENITOURINARY: ANY NEW CHANGE IN BLADDER CONTROL? NO . IS THERE A CHANCE YOU COULD BE ? NO . HEMATOLOGY/LYMPH: DO YOU TAKE ANY BLOOD THINNERS? (FOR EXAMPLE- COUMADIN, PLAVIX, AGGRENOX, PLATEL, PRADAXA, OR XARELTO) NO . WHEN WAS YOUR LAST DOSE? DATE: TIME: . NEUROLOGY: HAVE YOU FALLEN IN THE PAST 6 MONTHS? NO . ANY NEW EXTREMITY NUMBNESS OR WEAKNESS? NO . CARDIOLOGY: DO YOU HAVE A PACEMAKER OR DEFIBRILLATOR? NO . RESPIRATORY: HAVE YOU BEEN SICK IN THE PAST WEEK? NO . FEVER NO . FLU LIKE SYMPTOMS? NO . COUGH NO . INTEGUMENTARY: DO YOU HAVE ANY RASHES OR OPEN SORES? NO . ALLERGIC/IMMUNO: ARE YOU ALLERGIC TO SHELLFISH OR IV DYE? NO . ANY NEW ALLERGIES? NO . PSYCHIATRIC: DO YOU HAVE THOUGHTS OF HURTING YOURSELF OR SOMEONE ELSE? NO . ARE YOU ABUSED, NEGLECTED, OR IN AN UNSAFE ENVIRONMENT? NO . ENDOCRINOLOGY: ARE YOU DIABETIC? NO . OTHER: DO YOU NEED ANY PRESCRIPTIONS? NO . IF YES, PLEASE LIST: ____ . ANY NEW PROBLEMS WITH YOUR MEDICATIONS? NO . WHEN DID YOU LAST EAT? 08/14/17 . WHEN DID YOU LAST DRINK? 08/14/17 . WHAT DID YOU LAST DRINK? WATER . NAME OF PERSON DRIVING YOU HOME? ASHVIN . DO YOU HAVE ANY OTHER QUESTIONS OR CONCERNS NO . VITAL SIGNS WT 217 LBS, HT 69 IN, BMI 32.04 INDEX, BP 145/94 MM HG, HR 64 /MIN, RR 16 /MIN, TEMP 98.0 F, OXYGEN SAT % 96%, NA INITIALS AW 0839. ASSESSMENTS SACROILIITIS, NOT ELSEWHERE CLASSIFIED - M46.1 (PRIMARY) PROCEDURES PN SI PRE PROCEDURE DIAGNOSIS SACROILIITIS, SACROILIAC JOINT DYSFUNCTION POST PROCEDURE DIAGNOSIS SACROILIITIS, SACROILIAC JOINT DYSFUNCTION PROCEDURE LEFT SACROILIAC JOINT BLOCK SURGEON DR. EVA BROWN ENERGY DIRECTOR NONE ANESTHESIA LOCAL PRE PROCEDURE NOTE PATIENT WITH HISTORY OF CHRONIC LOW BACK PAIN. I EVALUATED THE PATIENT AND REVIEWED THE CHART. I WENT OVER THE RISKS, ALTERNATIVES, AND BENEFITS ASSOCIATED WITH THIS PROCEDURE. THE PATIENT WOULD LIKE TO PROCEED AND GAVE CONSENT TO PERFORM THE PROCEDURE. THE PATIENT DENIES UNEXPLAINABLE WEIGHT LOSS, FEVER, CHILLS, OR NEW CHANGES IN URINARY OR BOWEL CONTROL DESCRIPTION OF PROCEDURE THE PATIENT WAS BROUGHT TO THE PROCEDURE ROOM AND PLACED IN THE PRONE POSITION. THE LUMBOSACRAL AREA WAS CLEANED WITH CHLORAPREP SOLUTION AND DRAPED ASEPTICALLY. THE PROCEDURE WAS DONE UNDER STERILE CONDITIONS. I CHECKED LATERALITY AND THE LEVEL WHERE THE PROCEDURE WAS GOING TO BE PERFORMED WITH THE PATIENT AND THE SUPPORTING STAFF AT THE MOMENT OF THE TIME OUT IN THE PROCEDURE ROOM. UNDER FLUOROSCOPIC GUIDANCE, TARGET POINT WAS SELECTED AT THE LOWER BORDER OF THE LEFT SACROILIAC JOINT. TARGET POINT WAS SELECTED AFTER MEDIAL ROTATION AND TILT OF THE MAGNIFIER OF THE C-ARM. LIDOCAINE WAS USED TO NUMB THE SKIN AND SUBCUTANEOUS TISSUE BELOW IT. A SPINAL NEEDLE, 22-GAUGE, WAS ADVANCED UNDER FLUOROSCOPIC GUIDANCE AND FOLLOWING PATIENT FEEDBACK UNTIL THE TARGET AREA WAS TOUCHED. THE POSITION OF THE NEEDLE WAS VERIFIED WITH AP AND LATERAL VIEWS. AFTER PROPER POSITION OF THE NEEDLE WAS ACHIEVED, ISOVUE M DYE 30%, 0.25 ML, WAS INJECTED SHOWING SPREAD OF THE DYE. THEN, A SOLUTION OF 20 MG OF KENALOG WAS INJECTED IN RIGHT JOINT WITH 3 ML OF BUPIVACAINE 0.125%. THERE WAS NO EVIDENCE OF BLOOD, PARESTHESIA OR CEREBROSPINAL FLUID DURING THE PROCEDURE. THE PATIENT WAS SENT TO THE RECOVERY ROOM. THE PATIENT WAS MOVING THE EXTREMITIES AND DOING WELL. THERE WAS NO COMPLICATION DURING THE PROCEDURE. FLUOROSCOPY TIME WAS 9 SECONDS POST PROCEDURE NOTE THE PATIENT WILL BE SEEN IN A FOLLOW UP IN THE NEXT FEW WEEKS. INSTRUCTIONS WERE GIVEN, QUESTIONS WERE ANSWERED, AND THE PATIENT EXPRESSED UNDERSTANDING AND AGREED WITH THE PLAN. I, HIEU HUDSON, DOCUMENTED THE ABOVE INFORMATION ACTING A SCRIBE FOR DR. BROWN. I HAVE REVIEWED THE ABOVE DOCUMENT, WRITTEN BY HIEU CHANDLERIBTino AND I VERIFY THAT IT IS ACCURATE. PN WORKMANS' COMP OPINION IN YOUR OPINION, WAS THE INCIDENT THAT THE PATIENT DESCRIBED THE COMPETENT MEDICAL CAUSE OF THIS INJURY/ILLNESS? YES ARE THE PATIENT'S COMPLAINTS CONSISTENT WITH HIS/HER HISTORY OF THE INJURY/ILLNESS? YES IS THE PATIENT'S HISTORY OF THE INJURY/ILLNESS CONSISTENT WITH YOUR OBJECTIVE FINDING? YES WHAT IS THE PERCENTAGE OF TEMPORARY IMPAIRMENT? MODERATE TO MARKED = 66.7% IS THE PATIENT WORKING? NO DOCTOR ON SITE: EVA DEGROOT MD DIAGNOSTIC IMAGING [facility] FLUORO GUIDANCE (PAIN)[id number] PROCEDURE CODES 82038 INJECT SACROILIAC JOINT, MODIFIERS: LT 6045F RADXPS IN END [id number] PXD DISPOSITION & COMMUNICATION FOLLOW UP 3 WEEKS ELECTRONICALLY SIGNED BY EVA BROWN MD ON 08/20/2017 AT 03:40 PM EDT DISCLAIMER : THIS IS A VISIT SUMMARY EXTRACTED FROM THE [employer] CHART. IT IS NOT A COPY OF THE [employer] PROGRESS NOTE. MTDD
== END ==
LOC: M PAIN 08:45
PROVIDERS: ATTEND Anesthesiology
DX: G89.29 Other chronic pain (principal); M46.1 Sacroiliitis, not elsewhere classified; M54.5 Low back pain; I10 Essential (primary) hypertension; K21.9 Gastro-esophageal reflux disease without esophagitis; Z79.891 Long term (current) use of opiate analgesic; Z79.899 Other long term (current) drug therapy; Z88.6 Allergy status to analgesic agent; Z88.2 Allergy status to sulfonamides; Z88.8 Allergy status to other drugs, medicaments and biological substances; Z88.5 Allergy status to narcotic agent; Z91.048 Other nonmedicinal substance allergy status
CPT/HCPCS: G0260; J3301; Q9967

== ENCOUNTER → 2017-09-12 | Outpatient (CLI) | payer OTHER ==
[~2017-09-12] MED LIST changes: -BUPIVACAINE HCL 0.25% 30 ML VIAL As Ordered ONE; -ISOVUE-M 300 61% 15ML VIAL (Q9967) As Ordered ONE; -LIDOCAINE 1% SDV INJ 30 ML VIAL As Ordered ONE; -TRIAMCINOLONE ACETONIDE SUSP 40 MG/ML VIAL (J3301) As Ordered ONE; -diazePAM 5 MG TAB As Ordered ONE; -oxyCODONE 5MG TAB As Ordered ONE
--- NOTE | 2017-10-11 02:18 | ECWPNPC ---
PATIENT NAME: BRANDY LINDQUIST : 1955 GENDER: MALE VISIT DATE: 09/12/2017 DISCHARGE DATE: 09/12/17 0957 VISIT LOCKED DATE TIME: PHYSICIAN: RENA RAPP RESOURCE: RENA RAPP REASON FOR APPOINTMENT 1. W/C POST PROCEDURE HISTORY OF PRESENT ILLNESS HISTORY OF PRESENT ILLNESS: PAIN THE PATIENT DESCRIBES THE PAIN... FALL RISK SCREENING: SCREENING :NO FALLS IN THE PAST YEAR TODAY'S VISIT: NOTES: WORKERS COMP FOLLOWUP FOR LOW BACK PAIN.DOI: 12/15/2004. RATES PAIN TODAY 05/21. DESCRIBES PAIN CONSTANT AND SHARP WITH PAIN LOCATED ACROSS THE LOW BACK AND RADIATING INTO LEFT BUTTUCK AND DOWN LEFT LEG TO LEVEL OF MID CALF. . IS S/P LEFT SIJ INJECTION COMPLETED ON 08/15/17. THIS DECREASED PAIN AND SHARP SENSATION WHICH RADIATED TO LEFT HIP. HAS IMPROVED SLEEP BUT NOT ABILITY TO WALK OR SIT WITH COMFORT. HAD RECENT FALL DUE TO WEAKNESS IN LEFT FOOT AND LEG. THIS PRODUCED INCREASED BACK PAIN WHICH EVENTUALLY RETURNED TO BASELINE. . CURRENT MEDICATIONS TAKING SUCRALFATE 1 GM TABLET 1 TABLET ON AN EMPTY STOMACH ORALLY TWICE DAILY TAKING OMEPRAZOLE 20 MG CAPSULE DELAYED RELEASE 1 CAP ORALLY TWICE DAILY TAKING LISINOPRIL 20 MG TABLET 1 TABLET ORALLY ONCE A DAY TAKING VITAMIN D-3 1000 UNIT CAPSULE 1 CAPSULE ORALLY ONCE A DAY TAKING MULTIVITAMIN ADULT - TABLET ORALLY ONCE DAILY TAKING TYLENOL 325 MG CAPSULE 2 CAPSULES NEEDED ORALLY EVERY 6 HRS TAKING CYCLOBENZAPRINE HCL 5 MG TABLET 1 TABLET ORALLY NEEDED FOR SPASMS AND PAIN DAILY MAY REPEAT IN 5 HRS MDD2 TAKING TRAMADOL HCL 50 MG TABLET 1 TABLET ORALLY DAILY NEEDED FOR PAIN MDD1 NOT-TAKING PREDNISONE 20 MG TABLET 1 TABLET ORALLY TAKE 1 TAB TWICE A DAY WITH FOOD X 3 DAYS ATHEN 1/2 TAB TWICE A DAY X 3 DAYS, NOTES: FINISHED 07/09/17 NOT-TAKING DICLOFENAC SODIUM 1 % GEL DIRECTED TRANSDERMAL APPLY 4 GRAMS TO LOW BACK Q 6 HRS NOT-TAKING GABAPENTIN 100 MG CAPSULE DIRECTED ORALLY TID FOR PAIN MDD3 NOT-TAKING VALIUM 5 MG TABLET 1 TABLET ORALLY TAKE 2 TABS ON ARRIVAL TO CLINIC FOR PROCEDURE MDD=2, NOTES: 10/12/16 1002 NOT-TAKING TYLENOL EXTRA STRENGTH 500 MG TABLET 2 TABLETS NEEDED ORALLY EVERY 6 HRS NOT-TAKING ACETAMINOPHEN EXTRA STRENGTH 500 MG TABLET 2 TABLET NEEDED ORALLY EVERY 6 HRS NEEDED NOT-TAKING VALIUM 5 MG TABLET 1 TABLET ORALLY TAKE ON ARRIVAL TO CLINIC FOR PROCEDURE MDD=1 MEDICATION LIST REVIEWED AND RECONCILED WITH THE PATIENT PAST MEDICAL HISTORY GERD HYPERTENSION LOW BACK AFTER INJURY STRESS TEST CLEARED WITH DR OSBORNE FIBROMYLAGIA ALLERGIES ASPIRIN: FACE SWELLING: ALLERGY SULFA (FOR ALLERGY USE ONLY): NAUSEA/VOMITING: ALLERGY PLASTIC TAPE: RASH: SIDE EFFECTS PERCOCET: ITCHING: ALLERGY HYDROCODONE-ACETAMINOPHEN: ITCHIONG: ALLERGY LYRICA: DEPRESSION, ANXIETY: SIDE EFFECTS GABAPENTIN: MENTAL STATUS: SIDE EFFECTS SOCIAL HISTORY GENERAL: TOBACCO USE ARE YOU A:NONSMOKER ALCOHOL SCREENING POINTS4 INTERPRETATIONPOSITIVE RECREATIONAL DRUG USE DRUG USE?NO BAPTISM [id number] MANDAEISM LANGUAGE LANGUAGES SPOKEN:[place] LEARNING BARRIERS / SPECIAL NEEDS BARRIERS TO LEARNING?NO HEARING IMPAIRED?NO VISION IMPAIRED?YES :CORRECTIVE LENSES COGNITIVELY IMPAIRED?NO READINESS TO LEARN?YES LEARNING PREFERENCES?NO LEARNING CAPABILITIES PRESENT?YES EMOTIONAL BARRIERS?NO SPECIAL DEVICES?NO DULITE MACHINE BLUER NEEDED?NO NEW PATIENT PAIN DIARY TODAY'S VISITNOTES FROM 0-10, WHAT LEVEL IS YOUR PAIN TODAY?0 PAIN CLINIC PFS, CLERGY, PUBLIC HEALTH REFERRALS PFS REFERRAL NEEDED?NO CLERGY REFERRAL NEEDED?NO PUBLIC HEALTH REFERRAL NEEDED?NO WAS THE PROVIDER NOTIFIED OF ANY PERTINENT INFO?NO HAS THE PATIENT BEEN EDUCATED REGARDING HIS/HER PLAN OF CARE?YES HAS THE PATIENT BEEN EDUCATED REGARDING PAIN, THE RISK FOR PAIN, THE IMPORTANCE OF EFFECTIVE PAIN MANAGEMENT, AND THE PAIN ASSESSMENT PROCESS?YES REVIEW OF SYSTEMS REVIEWED BY: PROVIDER: RENA LEVIN . CONSTITUTIONAL: ANY CHANGE IN YOUR MEDICAL CONDITION? NO . CHILLS NO . FEVER NO . INFECTION: DO YOU HAVE NEW INFECTIONS? NO . DO YOU HAVE HISTORY OF MRSA? NO . MUSCULOSKELETAL: ANY NEW PATTERNS OF PAIN OR NUMBNESS? NO . GASTROENTEROLOGY: ANY NEW CHANGE IN BOWEL CONTROL? NO . GENITOURINARY: ANY NEW CHANGE IN BLADDER CONTROL? NO . IS THERE A CHANCE YOU COULD BE ? NO . HEMATOLOGY/LYMPH: DO YOU TAKE ANY BLOOD THINNERS? (FOR EXAMPLE- COUMADIN, PLAVIX, AGGRENOX, PLATEL, PRADAXA, OR XARELTO) NO . WHEN WAS YOUR LAST DOSE? DATE: TIME: . NEUROLOGY: HAVE YOU FALLEN IN THE PAST 6 MONTHS? YES . ANY NEW EXTREMITY NUMBNESS OR WEAKNESS? NO . CARDIOLOGY: DO YOU HAVE A PACEMAKER OR DEFIBRILLATOR? NO . RESPIRATORY: HAVE YOU BEEN SICK IN THE PAST WEEK? NO . FEVER NO . FLU LIKE SYMPTOMS? NO . COUGH NO . INTEGUMENTARY: DO YOU HAVE ANY RASHES OR OPEN SORES? NO . ALLERGIC/IMMUNO: ARE YOU ALLERGIC TO SHELLFISH OR IV DYE? NO . ANY NEW ALLERGIES? NO . PSYCHIATRIC: DO YOU HAVE THOUGHTS OF HURTING YOURSELF OR SOMEONE ELSE? NO . ARE YOU ABUSED, NEGLECTED, OR IN AN UNSAFE ENVIRONMENT? NO . ENDOCRINOLOGY: ARE YOU DIABETIC? NO . OTHER: DO YOU NEED ANY PRESCRIPTIONS? NO . IF YES, PLEASE LIST: ____ . ANY NEW PROBLEMS WITH YOUR MEDICATIONS? NO . WHEN DID YOU LAST EAT? ____ . WHEN DID YOU LAST DRINK? ____ . WHAT DID YOU LAST DRINK? ____ . NAME OF PERSON DRIVING YOU HOME? ____ . DO YOU HAVE ANY OTHER QUESTIONS OR CONCERNS NO . VITAL SIGNS WT 213.6 LBS, HT 69 IN, BMI 31.54 INDEX, BP 145/87 MM HG, HR 72 /MIN, RR 16 /MIN, TEMP 96.8 F, OXYGEN SAT % 96%, SAFE IN ENV? (Y/N) YES, NA INITIALS TL 0907, REVIEWED BY: CS. EXAMINATION GENERAL EXAMINATION: PSYCHALERT , ORIENTED X 3 , APPROPRIATE MOOD AND AFFECT . LUNGS:CLEAR TO AUSCULTATION BILATERALLY. HEART:HEART RATE REGULAR. MUSCULOSKELETAL:POINT TENDERNESS OVER LEFT LUMBOSACRAL AXIS AND SACRUM, PIRIFORMIS. MUSCLE STRENGTH TESTING, 4/5 LEFT LOWER EXTREMITY, 5/5/ RIGHT LOWER EXTREMITY. GAIT. ANTALGIC . ASSESSMENTS SACROILIITIS - M46.1 (PRIMARY) INTERVERTEBRAL DISC DISORDERS WITH RADICULOPATHY, LUMBAR REGION - M51.16 TREATMENT SACROILIITIS TRANSFORAMINAL LUMB RENA BARNETT 09/12/2017 9:38:01 AM > LEFT L4-5, LEFT L5-S1 NOTES: WALK DAILY AT LEAST 150 FEET. DO EVERCISES AND STRETCHES. HEAT/ICE TO LOW BACK. PROCEDURES PN WORKMANS' COMP OPINION IN YOUR OPINION, WAS THE INCIDENT THAT THE PATIENT DESCRIBED THE COMPETENT MEDICAL CAUSE OF THIS INJURY/ILLNESS? YES ARE THE PATIENT'S COMPLAINTS CONSISTENT WITH HIS/HER HISTORY OF THE INJURY/ILLNESS? YES IS THE PATIENT'S HISTORY OF THE INJURY/ILLNESS CONSISTENT WITH YOUR OBJECTIVE FINDING? YES WHAT IS THE PERCENTAGE OF TEMPORARY IMPAIRMENT? MODERATE TO MARKED = 66.7% IS THE PATIENT WORKING? NO DOCTOR ON SITE: EVA DEGROOT MD PREVENTIVE MEDICINE PAIN CLINIC TEACHING: PROCEDURE TEACHING PRE-PROCEDURE TEACHING DONE. QUESTIONS ANSWERED AND PATIENT VERBALIZES UNDERSTANDING.. PROCEDURE CODES FA211 ESTABILISHED PATIENT [facility] CHARGE DISPOSITION & COMMUNICATION FOLLOW UP IN 6 WEEKS (REASON: WC CHECK AUTH FOR LEFT TRANSFORAMINAL L4-5 AND L5-S1) ELECTRONICALLY SIGNED BY CASSIE VACA ON 10/08/2017 AT 08:51 AM EST DISCLAIMER : THIS IS A VISIT SUMMARY EXTRACTED FROM THE [employer] CHART. IT IS NOT A COPY OF THE [employer] PROGRESS NOTE. SOMMER
== END | disposition home or self-care (01) ==
LOC: M PAIN 09:00
PROVIDERS: ATTEND Nurse Practitioner Family
DX: G89.29 Other chronic pain (principal); M46.1 Sacroiliitis, not elsewhere classified; M51.16 Intervertebral disc disorders with radiculopathy, lumbar region; K21.9 Gastro-esophageal reflux disease without esophagitis; I10 Essential (primary) hypertension; M79.7 Fibromyalgia; Z79.899 Other long term (current) drug therapy; Z88.2 Allergy status to sulfonamides; Z88.5 Allergy status to narcotic agent; Z88.8 Allergy status to other drugs, medicaments and biological substances; L23.1 Allergic contact dermatitis due to adhesives

== ENCOUNTER → 2017-11-14 | Outpatient (CLI) | payer OTHER ==
[~2017-11-14] MED LIST changes: -/MUPINAS; -ACET65TA OR; -AMIT25TA2 OR; +BUPIVACAINE HCL 0.25% 30 ML VIAL As Ordered; -DIGESTIVE ADVANTAGE PO; -HALOBETASOL; +ISOVUE-M 300 61% 15ML VIAL (Q9967) As Ordered; +LIDOCAINE 1% SDV INJ 30 ML VIAL As Ordered; -LISI20TA5 OR; +MIDAZOLAM INJ 2 MG/2 ML VIAL (J2250) As Ordered; -MULTIVITAMIN PO; -OMEP20TA7 OR; -TRAM50TA2 OR; -VITAMIN D50000 UNT OR; -ZEST20TA4 OR; +dexameTHASONE 10 MG/1 ML VIAL PRES.FREE (J1100) As Ordered; +diphenhydrAMINE INJ 50MG/ML VIAL (J1200) As Ordered; +fentaNYL 100 MCG/2 ML INJECTION (J3010) As Ordered
== END ==
LOC: M PAIN 14:00
DX: G89.29 Other chronic pain (principal); M51.16 Intervertebral disc disorders with radiculopathy, lumbar region; M51.17 Intervertebral disc disorders with radiculopathy, lumbosacral region; K21.9 Gastro-esophageal reflux disease without esophagitis; I10 Essential (primary) hypertension; M79.7 Fibromyalgia; Z88.2 Allergy status to sulfonamides; Z88.6 Allergy status to analgesic agent; Z88.5 Allergy status to narcotic agent; Z88.8 Allergy status to other drugs, medicaments and biological substances; Z91.048 Other nonmedicinal substance allergy status; Z79.899 Other long term (current) drug therapy
CPT/HCPCS: J1100

== ENCOUNTER → 2017-11-28 | Outpatient (CLI) | payer OTHER | LOC: M PAIN 08:45 | DX: M51.16 Intervertebral disc disorders with radiculopathy, lumbar region (principal); M51.17 Intervertebral disc disorders with radiculopathy, lumbosacral region; I10 Essential (primary) hypertension; K21.9 Gastro-esophageal reflux disease without esophagitis; Z79.891 Long term (current) use of opiate analgesic; Z79.899 Other long term (current) drug therapy; Z88.8 Allergy status to other drugs, medicaments and biological substances; Z91.048 Other nonmedicinal substance allergy status | CPT/HCPCS: G0463 ==

== ENCOUNTER → 2017-12-12 | Outpatient (REF) | payer MEDICARE, OTHER ==
[2017-12-12 13:37] LABS: APPEARANCE, URINE CLEAR (CLEAR); BACTERIA, URINE AUTO NEGATIVE (NEGATIVE); BILIRUBIN, URINE AUTO NEGATIVE (NEGATIVE); BLOOD, URINE BLOOD NEGATIVE (NEGATIVE); COLOR, URINE YELLOW (YELLOW); GLUCOSE, URINE (UA) AUTO NEGATIVE (NEGATIVE); KETONE, URINE AUTO NEGATIVE (NEGATIVE); LEUKOCYTE ESTERASE, URINE AUTO NEGATIVE (NEGATIVE); NITRITE, URINE AUTO NEGATIVE (NEGATIVE); PROTEIN, URINE AUTO NEGATIVE (NEGATIVE); RBC, URINE AUTO 0 /HPF (0-3); SQUAMOUS EPITHELIAL CELL UR AU 0 /HPF (0-6); UROBILINOGEN, URINE AUTO 0.2 mg/dL (0.0-2.0); WBC, URINE AUTO 0 /HPF (0-3)
== END ==
LOC: M SMT 13:00
DX: R35.0 Frequency of micturition (principal)
CPT/HCPCS: 81001

== ENCOUNTER → 2018-01-16 | Outpatient (CLI) | payer OTHER ==
[~2018-01-16] MED LIST changes: -MIDAZOLAM INJ 2 MG/2 ML VIAL (J2250) As Ordered; +TRIAMCINOLONE ACETONIDE SUSP 40 MG/ML VIAL (J3301) As Ordered; -dexameTHASONE 10 MG/1 ML VIAL PRES.FREE (J1100) As Ordered; +diazePAM 5 MG TAB As Ordered; -diphenhydrAMINE INJ 50MG/ML VIAL (J1200) As Ordered; -fentaNYL 100 MCG/2 ML INJECTION (J3010) As Ordered
== END ==
LOC: M PAIN 08:45
DX: G89.29 Other chronic pain (principal); M47.816 Spondylosis without myelopathy or radiculopathy, lumbar region; M47.817 Spondylosis without myelopathy or radiculopathy, lumbosacral region; K21.9 Gastro-esophageal reflux disease without esophagitis; I10 Essential (primary) hypertension; M79.7 Fibromyalgia; N40.0 Benign prostatic hyperplasia without lower urinary tract symptoms; Z79.891 Long term (current) use of opiate analgesic; Z79.899 Other long term (current) drug therapy; Z88.6 Allergy status to analgesic agent; Z88.2 Allergy status to sulfonamides; Z88.5 Allergy status to narcotic agent; Z88.8 Allergy status to other drugs, medicaments and biological substances; Z91.048 Other nonmedicinal substance allergy status
CPT/HCPCS: J3301

== ENCOUNTER → 2018-01-30 | Outpatient (CLI) | payer MEDICARE, BC, OTHER ==
[2018-01-30 13:25] LABS: PSA SCREENING 0.47 NG/ML (< 4.0)
== END ==
LOC: M SMT 09:54
DX: Z12.5 Encounter for screening for malignant neoplasm of prostate (principal)
CPT/HCPCS: G0103

== ENCOUNTER → 2018-06-03 | Outpatient (CLI) | payer MEDICARE, BC, OTHER | LOC: M WHC 09:39 | DX: R39.9 Unspecified symptoms and signs involving the genitourinary system (principal); N40.0 Benign prostatic hyperplasia without lower urinary tract symptoms | CPT/HCPCS: 76857 ==

== ENCOUNTER → 2018-06-05 | Outpatient (CLI) | payer OTHER, MEDICARE | LOC: M PAIN 10:45 | DX: M47.816 Spondylosis without myelopathy or radiculopathy, lumbar region (principal); M47.817 Spondylosis without myelopathy or radiculopathy, lumbosacral region; G89.29 Other chronic pain; K21.9 Gastro-esophageal reflux disease without esophagitis; I10 Essential (primary) hypertension; M79.7 Fibromyalgia; Z79.899 Other long term (current) drug therapy; Z88.2 Allergy status to sulfonamides; Z88.5 Allergy status to narcotic agent; Z88.6 Allergy status to analgesic agent; Z88.8 Allergy status to other drugs, medicaments and biological substances; Z91.09 Other allergy status, other than to drugs and biological substances | CPT/HCPCS: G0463 ==

== ENCOUNTER → 2018-09-04 | Outpatient (CLI) | payer OTHER, MEDICARE | LOC: M PAIN 09:00 | DX: M47.816 Spondylosis without myelopathy or radiculopathy, lumbar region (principal); M47.817 Spondylosis without myelopathy or radiculopathy, lumbosacral region; K21.9 Gastro-esophageal reflux disease without esophagitis; I10 Essential (primary) hypertension; M79.7 Fibromyalgia; Z79.899 Other long term (current) drug therapy; Z88.2 Allergy status to sulfonamides; Z88.5 Allergy status to narcotic agent; Z88.6 Allergy status to analgesic agent; Z88.8 Allergy status to other drugs, medicaments and biological substances; Z91.09 Other allergy status, other than to drugs and biological substances | CPT/HCPCS: G0463 ==

== ENCOUNTER → 2018-10-29 | Outpatient (CLI) | payer MEDICARE, BC, OTHER ==
[~2018-10-29] MED LIST changes: +/MUPINAS; +ACET65TA OR; +AMIT25TA2 OR; -BUPIVACAINE HCL 0.25% 30 ML VIAL As Ordered; +DIGESTIVE ADVANTAGE PO; +HALOBETASOL; -ISOVUE-M 300 61% 15ML VIAL (Q9967) As Ordered; -LIDOCAINE 1% SDV INJ 30 ML VIAL As Ordered; +LISI20TA5 OR; +MULTIVITAMIN PO; +OMEP20TA7 OR; +TRAM50TA2 OR; -TRIAMCINOLONE ACETONIDE SUSP 40 MG/ML VIAL (J3301) As Ordered; +VITAMIN D50000 UNT OR; +ZEST20TA4 OR; -diazePAM 5 MG TAB As Ordered
== END ==
LOC: M SMT 11:50
PROVIDERS: ATTEND Physician Assistant
DX: M25.531 Pain in right wrist (principal)

== ENCOUNTER → 2018-12-06 | Outpatient (CLI) | payer OTHER, MEDICARE ==
--- NOTE | 2018-12-23 00:41 | ECWPNPC ---
PATIENT NAME: BRANDY LINDQUIST : 1955 GENDER: MALE VISIT DATE: 12/06/2018 DISCHARGE DATE: 12/06/18 0939 VISIT LOCKED DATE TIME: PHYSICIAN: EVA BROWN MD RESOURCE: EVA BROWN MD REASON FOR APPOINTMENT 1. W/C HISTORY OF PRESENT ILLNESS HISTORY OF PRESENT ILLNESS: PAIN THE PATIENT DESCRIBES THE PAIN... 63 YEAR OLD MALE PATIENT WITH A HISTORY OF CHRONIC LOW BACK PAIN. THE PATIENT DESCRIBES THE PAIN SORE, SHARP, AND CONTINUOUS WITH A PAIN SCORE OF 6-8/10 DEPENDING ON PHYSICAL ACTIVITY. 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 THE PATIENT SAYS THE PAIN STARTS IN HIS LOW BACK AND RADIATES DOWN HIS LEFT LEG. THE PATIENT IS CURRENTLY USING TRAMADOL NEEDED, CYCLOBENZAPRINE, AND TYLENOL TO AID IN PAIN RELIEF. THE PATIENT SAYS THAT THE USE OF THESE MEDICATIONS HELPS HIM REMAIN MOBILE AND FUNCTIONAL. PATIENT DENIES UNEXPLAINABLE WEIGHT LOSS, FEVER, CHILLS, NEW CHANGES ON HIS URINARY OR BOWEL CONTROL. FALL RISK SCREENING: SCREENING :NO FALLS IN THE PAST YEAR CURRENT MEDICATIONS TAKING SUCRALFATE 1 GM TABLET 1 TABLET ON AN EMPTY STOMACH ORALLY TWICE DAILY TAKING OMEPRAZOLE 20 MG CAPSULE DELAYED RELEASE 1 CAP ORALLY TWICE DAILY TAKING LISINOPRIL 20 MG TABLET 1 TABLET ORALLY ONCE A DAY TAKING VITAMIN D-3 1000 UNIT CAPSULE 2 CAPSULE ORALLY ONCE A DAY TAKING MULTIVITAMIN ADULT - TABLET ORALLY ONCE DAILY TAKING CYCLOBENZAPRINE HCL 5 MG TABLET 1 TABLET ORALLY NEEDED FOR SPASMS AND PAIN DAILY MAY REPEAT IN 5 HRS MDD2 TAKING TRAMADOL HCL 50 MG TABLET 1 TABLET ORALLY DAILY NEEDED FOR PAIN MDD1 TAKING TYLENOL 8 HOUR ARTHRITIS PAIN 650 MG TABLET EXTENDED RELEASE 2 TABLETS NEEDED ORALLY EVERY 8 HRS NOT-TAKING KEFLEX 500 MG CAPSULE 1 CAPSULE ORALLY TO START ONE HOUR BEFORE REZUM PROCEDURE EVERY 12 HRS NOT-TAKING CIPROFLOXACIN HCL 500 MG TABLET 1 TABLET 1 HOUR PRIOR TO YOUR CYSTOSCOPY ORALLY ONCE NOT-TAKING CIPRO 500 MG TABLET 1 TABLET ORALLY TWICE A DAY NOT-TAKING MYRBETRIQ 50 MG TABLET 1 TABLET ORALLY ONCE A DAY, NOTES: HAS NOT STARTED NOT-TAKING VIAGRA 25 MG TABLET 1 TABLET NEEDED ORALLY ONCE A DAY NOT-TAKING TYLENOL 325 MG CAPSULE 2 CAPSULES NEEDED ORALLY EVERY 6 HRS, NOTES: 11/12/17 1200 NOT-TAKING PREDNISONE 20 MG TABLET 1 TABLET ORALLY TAKE 1 TAB TWICE A DAY WITH FOOD X 3 DAYS ATHEN 1/2 TAB TWICE A DAY X 3 DAYS, NOTES: FINISHED 07/09/17 NOT-TAKING DICLOFENAC SODIUM 1 % GEL DIRECTED TRANSDERMAL APPLY 4 GRAMS TO LOW BACK Q 6 HRS NOT-TAKING GABAPENTIN 100 MG CAPSULE DIRECTED ORALLY TID FOR PAIN MDD3 NOT-TAKING VALIUM 5 MG TABLET 1 TABLET ORALLY TAKE 2 TABS ON ARRIVAL TO CLINIC FOR PROCEDURE MDD=2, NOTES: 10/12/16 1002 NOT-TAKING ACETAMINOPHEN EXTRA STRENGTH 500 MG TABLET 2 TABLET NEEDED ORALLY EVERY 6 HRS NEEDED, NOTES: DUPLICATE NOT-TAKING VALIUM 5 MG TABLET 1 TABLET ORALLY TAKE ON ARRIVAL TO CLINIC FOR PROCEDURE MDD=1, NOTES: DUPLICATE DISCONTINUED TYLENOL EXTRA STRENGTH 500 MG TABLET 2 TABLETS NEEDED ORALLY EVERY 6 HRS MEDICATION LIST REVIEWED AND RECONCILED WITH THE PATIENT PAST MEDICAL HISTORY GERD HYPERTENSION LOW BACK AFTER INJURY STRESS TEST CLEARED WITH DR OSBORNE FIBROMYLAGIA BPH ED ALLERGIES ASPIRIN: FACE SWELLING: ALLERGY SULFA (FOR ALLERGY USE ONLY): NAUSEA/VOMITING: ALLERGY PLASTIC TAPE: RASH: SIDE EFFECTS LYRICA: DEPRESSION, ANXIETY: SIDE EFFECTS GABAPENTIN: MENTAL STATUS: SIDE EFFECTS OXYBUTYNIN: DIARRHEA/ SEVERE STOMACH UPSET: SIDE EFFECTS DARIFENACIN HYDROBROMIDE: HEADACHE / STOMACH UPSET: SIDE EFFECTS MYRBETRIQ: SEVERE HEARTBURN / HEADACHE: SIDE EFFECTS CIPRO: HEADACHE/DIZZY: SIDE EFFECTS OXYCODONE HCL: ITCHING: SIDE EFFECTS HYDROCODONE: ITCHING: SIDE EFFECTS SURGICAL HISTORY MULTIPLE SURGURIES TO LEFT LEG FAMILY HISTORY FATHER: , DIAGNOSED WITH DIABETES, HYPERTENSION, HEART DISEASE MOTHER: ALIVE, DIAGNOSED WITH HYPERTENSION 2 SISTER(S) - HEALTHY. 1 SON(S) , 1 DAUGHTER(S) - HEALTHY. DENIES FAMILY HISTORY OF UROLOGICAL DISEASES. SOCIAL HISTORY GENERAL: TOBACCO USE ARE YOU A: NONSMOKER. ALCOHOL SCREENING DID YOU HAVE A DRINK CONTAINING ALCOHOL IN THE PAST YEAR?YES HOW OFTEN DID YOU HAVE A DRINK CONTAINING ALCOHOL IN THE PAST YEAR?TWO TO FOUR TIMES A MONTH (2 POINTS) HOW OFTEN DID YOU HAVE SIX OR MORE DRINKS ON ONE OCCASION IN THE PAST YEAR?LESS THAN MONTHLY (1 POINT) POINTS4 INTERPRETATIONPOSITIVE HOW MANY DRINKS DID YOU HAVE ON A TYPICAL DAY WHEN YOU WERE DRINKING IN THE PAST YEAR?3 OR 4 (1 POINT) RECREATIONAL DRUG USE DRUG USE?NO CAFFEINE CAFFEINE USE?YES COFFEE = 2-3 PER DAY TRIES TO DRINK DECAF SEXUAL HX HAD SEX IN THE LAST 12 MONTHS (VAGINAL, ORAL, OR ANAL)?YES WITHWOMEN ONLY USE PROTECTION?NO HAVE YOU EVER HAD AN STD?NO DRUZE [id number] RASTAFARIAN NO RESTORATION BELIEFS THAT WOULD IMPACT HEALTH CARE. LANGUAGE LANGUAGES SPOKEN:[place] ISLANDER LEARNING BARRIERS / SPECIAL NEEDS BARRIERS TO LEARNING?NO HEARING IMPAIRED?NO VISION IMPAIRED?YES :CORRECTIVE LENSES COGNITIVELY IMPAIRED?NO READINESS TO LEARN?YES LEARNING PREFERENCES?NO LEARNING CAPABILITIES PRESENT?YES EMOTIONAL BARRIERS?NO SPECIAL DEVICES?NO INTERNATIONAL ACCOUNT REPRESENTATIVE NEEDED?NO DOMESTIC VIOLENCE DO YOU FEEL SAFE IN YOUR ENVIRONMENT?YES DIET: REGULAR. EXERCISE: NO REGULAR EXERCISE. MARITAL STATUS: . NEW PATIENT PAIN DIARY FROM 0-10, WHAT LEVEL IS YOUR PAIN TODAY?6.5 PAIN CLINIC PFS, CLERGY, PUBLIC HEALTH REFERRALS PFS REFERRAL NEEDED?NO CLERGY REFERRAL NEEDED?NO PUBLIC HEALTH REFERRAL NEEDED?NO WAS THE PROVIDER NOTIFIED OF ANY PERTINENT INFO?NO HAS THE PATIENT BEEN EDUCATED REGARDING HIS/HER PLAN OF CARE?YES HAS THE PATIENT BEEN EDUCATED REGARDING PAIN, THE RISK FOR PAIN, THE IMPORTANCE OF EFFECTIVE PAIN MANAGEMENT, AND THE PAIN ASSESSMENT PROCESS?YES ADVANCE DIRECTIVE ADVANCE DIRECTIVE DISCUSSED WITH PATIENT:YES ASHVIN LINDQUIST IS HIS HCP HOSPITALIZATION/MAJOR DIAGNOSTIC PROCEDURE SURGERY RELATED REVIEW OF SYSTEMS REVIEWED BY: PROVIDER: EVA BROWN MD . CONSTITUTIONAL: ANY CHANGE IN YOUR MEDICAL CONDITION? NO . CHILLS NO . FEVER NO . INFECTION: DO YOU HAVE NEW INFECTIONS? NO . DO YOU HAVE HISTORY OF MRSA? NO . MUSCULOSKELETAL: ANY NEW PATTERNS OF PAIN OR NUMBNESS? NO . GASTROENTEROLOGY: ANY NEW CHANGE IN BOWEL CONTROL? NO . GENITOURINARY: ANY NEW CHANGE IN BLADDER CONTROL? NO . IS THERE A CHANCE YOU COULD BE ? NO . HEMATOLOGY/LYMPH: DO YOU TAKE ANY BLOOD THINNERS? (FOR EXAMPLE- COUMADIN, PLAVIX, AGGRENOX, PLATEL, PRADAXA, OR XARELTO) NO . WHEN WAS YOUR LAST DOSE? DATE: TIME: . NEUROLOGY: HAVE YOU FALLEN IN THE PAST 12 MONTHS? NO . ANY NEW EXTREMITY NUMBNESS OR WEAKNESS? NO . CARDIOLOGY: DO YOU HAVE A PACEMAKER OR DEFIBRILLATOR? NO . RESPIRATORY: HAVE YOU BEEN SICK IN THE PAST WEEK? NO . FEVER NO . FLU LIKE SYMPTOMS? NO . COUGH NO . INTEGUMENTARY: DO YOU HAVE ANY RASHES OR OPEN SORES? NO . ALLERGIC/IMMUNO: ARE YOU ALLERGIC TO IV DYE? NO . ANY NEW ALLERGIES? NO . PSYCHIATRIC: DO YOU HAVE THOUGHTS OF HURTING YOURSELF OR SOMEONE ELSE? NO . ARE YOU ABUSED, NEGLECTED, OR IN AN UNSAFE ENVIRONMENT? NO . ENDOCRINOLOGY: ARE YOU DIABETIC? NO . OTHER: DO YOU NEED ANY PRESCRIPTIONS? CYCLOBENZAPRINE AND TRAMDOL . IF YES, PLEASE LIST: ____ . ANY NEW PROBLEMS WITH YOUR MEDICATIONS? NO . WHEN DID YOU LAST EAT? ____ . WHEN DID YOU LAST DRINK? ____ . WHAT DID YOU LAST DRINK? ____ . NAME OF PERSON DRIVING YOU HOME? ____ . DO YOU HAVE ANY OTHER QUESTIONS OR CONCERNS NO . VITAL SIGNS WT 217.2 LBS, HT 69 IN, BMI 32.07 INDEX, BP 152/99 MM HG, HR 66 /MIN, RR 18 /MIN, TEMP 98.4 F, OXYGEN SAT % 97%, NA INITIALS AW 0842. EXAMINATION GENERAL EXAMINATION: PATIENT IS ALERT O X 3 AND COOPERATIVE. LEFT LEG IS WEAKER AT EXTENSION AND FLEXION. MRI OF THE LUMBAR SPINE DONE ON 05/31/2017 SHOWS BULGING DISCS AND STENOSIS AT MULTIPLE LEVELS. ASSESSMENTS INTERVERTEBRAL DISC DISORDER WITH RADICULOPATHY OF LUMBAR REGION - M51.16 (PRIMARY) TREATMENT INTERVERTEBRAL DISC DISORDER WITH RADICULOPATHY OF LUMBAR REGION CLINICAL NOTES: WE DISCUSSED SEVERAL ISSUES WITH MR. LINDQUIST'S PAIN MANAGEMENT CASE. THE PATIENT WILL CONTINUE WITH THE SAME MEDICATION REGIMENT. ISTOP _[id number] WAS REVIEWED. THE PATIENT WILL FOLLOW UP IN 3 MONTHS. INSTRUCTIONS WERE GIVEN, QUESTIONS WERE ANSWERED, PATIENT REPORTS UNDERSTANDING AND AGREES WITH THE PLAN. I, KRUPA BALDERRAMA, DOCUMENTED THE ABOVE INFORMATION ACTING A SCRIBE FOR DR. BROWN. I HAVE REVIEWED THE ABOVE DOCUMENT, WRITTEN BY KRUPA BALDERRAMA SCRIBTino AND I VERIFY THAT IT IS ACCURATE. OTHERS REFILL CYCLOBENZAPRINE HCL TABLET, 5 MG, 1 TABLET, ORALLY NEEDED FOR SPASMS AND PAIN, DAILY MAY REPEAT IN 5 HRS MDD2, 30 DAY(S), 45, REFILLS 2 REFILL TRAMADOL HCL TABLET, 50 MG, 1 TABLET, ORALLY, DAILY NEEDED FOR PAIN MDD1, 30 DAY(S), 20, REFILLS 0 PROCEDURES PN WORKMANS' COMP OPINION IN YOUR OPINION, WAS THE INCIDENT THAT THE PATIENT DESCRIBED THE COMPETENT MEDICAL CAUSE OF THIS INJURY/ILLNESS? YES ARE THE PATIENT'S COMPLAINTS CONSISTENT WITH HIS/HER HISTORY OF THE INJURY/ILLNESS? YES IS THE PATIENT'S HISTORY OF THE INJURY/ILLNESS CONSISTENT WITH YOUR OBJECTIVE FINDING? YES WHAT IS THE PERCENTAGE OF TEMPORARY IMPAIRMENT? MODERATE TO MARKED = 66.7% IS THE PATIENT WORKING? NO DOCTOR ON SITE: EVA DEGROOT MD PROCEDURE CODES FA211 ESTABILISHED PATIENT [facility] FACILITY CHARGE [id number] CURRENT MEDS W/DOSAGES DOCUMENTED [id number] PAIN ASSESS POS TOOL F/U PLAN DOC DISPOSITION & COMMUNICATION FOLLOW UP 3 MONTHS (REASON: W/C LOW BACK) ELECTRONICALLY SIGNED BY EVA BROWN MD, MD ON 12/22/2018 AT 03:13 PM EST DISCLAIMER : THIS IS A VISIT SUMMARY EXTRACTED FROM THE [employer] CHART. IT IS NOT A COPY OF THE [employer] PROGRESS NOTE. LESAD
== END ==
LOC: M PAIN 08:30
PROVIDERS: ATTEND Anesthesiology
DX: M51.16 Intervertebral disc disorders with radiculopathy, lumbar region (principal); G89.29 Other chronic pain; I10 Essential (primary) hypertension; K21.9 Gastro-esophageal reflux disease without esophagitis; M79.7 Fibromyalgia; Z79.899 Other long term (current) drug therapy; Z88.2 Allergy status to sulfonamides; Z88.5 Allergy status to narcotic agent; Z88.6 Allergy status to analgesic agent; Z88.8 Allergy status to other drugs, medicaments and biological substances; Z91.09 Other allergy status, other than to drugs and biological substances

== ENCOUNTER → 2019-07-01 | Outpatient (CLI) | payer OTHER, MEDICARE ==
[~2019-07-01] MED LIST changes: -/MUPINAS; +BACT2OIN12
--- NOTE | 2019-07-17 02:44 | ECWPNPC ---
PATIENT NAME: BRANDY LINDQUIST : 1955 GENDER: MALE VISIT DATE: 07/01/2019 DISCHARGE DATE: 07/01/19 1052 VISIT LOCKED DATE TIME: PHYSICIAN: MORENA JEAN RESOURCE: MORENA JEAN REASON FOR APPOINTMENT 1. W/C LOW BACK HISTORY OF PRESENT ILLNESS HISTORY OF PRESENT ILLNESS: PAIN THE PATIENT DESCRIBES THE PAIN... THE PATIENT DESCRIBES THE PAIN... 63 YEAR OLD MALE PATIENT WITH A HISTORY OF CHRONIC LOW BACK PAIN. THE PATIENT DESCRIBES THE PAIN SORE, SHARP, AND CONTINUOUS WITH A PAIN SCORE OF 6-8/10 DEPENDING ON PHYSICAL ACTIVITY. 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 THE PATIENT SAYS THE PAIN STARTS IN HIS LOW BACK AND RADIATES DOWN HIS LEFT LEG. THE PATIENT IS CURRENTLY USING TRAMADOL NEEDED, CYCLOBENZAPRINE, AND TYLENOL TO AID IN PAIN RELIEF. THE PATIENT SAYS THAT THE USE OF THESE MEDICATIONS HELPS HIM REMAIN MOBILE AND FUNCTIONAL. PATIENT DENIES UNEXPLAINABLE WEIGHT LOSS, FEVER, CHILLS, NEW CHANGES ON HIS URINARY OR BOWEL CONTROL. RATING PAIN VAS 6/10.CHIEF AREA OF PAIN IS LEFT LOW BACK WITH RADIATION INTO LEFT LEG.DISCUSSED TREATMENT OPTIONS TO INCLUDE INJECTIONS IE LEFT SIJ BUT PATIENT WOULD LIKE TO HOLD OFF AND POSSIBLY DISCUSS AT F/U IN 3 MONTHS. FALL RISK SCREENING: SCREENING :NO FALLS REPORTED IN THE LAST YEAR CURRENT MEDICATIONS TAKING CYCLOBENZAPRINE HCL 5 MG TABLET 1 TABLET ORALLY NEEDED FOR SPASMS AND PAIN DAILY MAY REPEAT IN 5 HRS MDD2 TAKING TRAMADOL HCL 50 MG TABLET 1 TABLET ORALLY DAILY NEEDED FOR PAIN MDD1 TAKING SUCRALFATE 1 GM TABLET 1 TABLET ON AN EMPTY STOMACH ORALLY TWICE DAILY TAKING OMEPRAZOLE 20 MG CAPSULE DELAYED RELEASE 1 CAP ORALLY TWICE DAILY TAKING LISINOPRIL 20 MG TABLET 1 TABLET ORALLY ONCE A DAY TAKING TYLENOL 8 HOUR ARTHRITIS PAIN 650 MG TABLET EXTENDED RELEASE 2 TABLETS NEEDED ORALLY EVERY 8 HRS NOT-TAKING VITAMIN D-3 1000 UNIT CAPSULE 2 CAPSULE ORALLY ONCE A DAY NOT-TAKING MULTIVITAMIN ADULT - TABLET ORALLY ONCE DAILY NOT-TAKING KEFLEX 500 MG CAPSULE 1 CAPSULE ORALLY TO START ONE HOUR BEFORE REZUM PROCEDURE EVERY 12 HRS NOT-TAKING CIPROFLOXACIN HCL 500 MG TABLET 1 TABLET 1 HOUR PRIOR TO YOUR CYSTOSCOPY ORALLY ONCE NOT-TAKING CIPRO 500 MG TABLET 1 TABLET ORALLY TWICE A DAY NOT-TAKING MYRBETRIQ 50 MG TABLET 1 TABLET ORALLY ONCE A DAY, NOTES: HAS NOT STARTED NOT-TAKING VIAGRA 25 MG TABLET 1 TABLET NEEDED ORALLY ONCE A DAY NOT-TAKING TYLENOL 325 MG CAPSULE 2 CAPSULES NEEDED ORALLY EVERY 6 HRS, NOTES: 11/12/17 1200 NOT-TAKING PREDNISONE 20 MG TABLET 1 TABLET ORALLY TAKE 1 TAB TWICE A DAY WITH FOOD X 3 DAYS ATHEN 1/2 TAB TWICE A DAY X 3 DAYS, NOTES: FINISHED 07/09/17 NOT-TAKING DICLOFENAC SODIUM 1 % GEL DIRECTED TRANSDERMAL APPLY 4 GRAMS TO LOW BACK Q 6 HRS NOT-TAKING GABAPENTIN 100 MG CAPSULE DIRECTED ORALLY TID FOR PAIN MDD3 NOT-TAKING VALIUM 5 MG TABLET 1 TABLET ORALLY TAKE 2 TABS ON ARRIVAL TO CLINIC FOR PROCEDURE MDD=2, NOTES: 10/12/16 1002 NOT-TAKING ACETAMINOPHEN EXTRA STRENGTH 500 MG TABLET 2 TABLET NEEDED ORALLY EVERY 6 HRS NEEDED, NOTES: DUPLICATE NOT-TAKING VALIUM 5 MG TABLET 1 TABLET ORALLY TAKE ON ARRIVAL TO CLINIC FOR PROCEDURE MDD=1, NOTES: DUPLICATE MEDICATION LIST REVIEWED AND RECONCILED WITH THE PATIENT PAST MEDICAL HISTORY GERD HYPERTENSION LOW BACK AFTER INJURY STRESS TEST CLEARED WITH DR OSBORNE FIBROMYLAGIA BPH ED CARPAL TUNNEL BILATERALLY ALLERGIES ASPIRIN: FACE SWELLING - ALLERGY SULFA (FOR ALLERGY USE ONLY): NAUSEA/VOMITING - ALLERGY PLASTIC TAPE: RASH - SIDE EFFECTS LYRICA: DEPRESSION, ANXIETY - SIDE EFFECTS GABAPENTIN: MENTAL STATUS - SIDE EFFECTS OXYBUTYNIN: DIARRHEA/ SEVERE STOMACH UPSET - SIDE EFFECTS DARIFENACIN HYDROBROMIDE: HEADACHE / STOMACH UPSET - SIDE EFFECTS MYRBETRIQ: SEVERE HEARTBURN / HEADACHE - SIDE EFFECTS CIPRO: HEADACHE/DIZZY - SIDE EFFECTS OXYCODONE HCL: ITCHING - SIDE EFFECTS HYDROCODONE: ITCHING - SIDE EFFECTS SURGICAL HISTORY MULTIPLE SURGURIES TO LEFT LEG FAMILY HISTORY FATHER: , DIAGNOSED WITH HYPERTENSION, HEART DISEASE, DIABETES MOTHER: ALIVE, HYPERTENSION SIBLINGS: ALIVE, BOTH SISTERS HISTORY OF CANCER 2 SISTER(S) - HEALTHY. 1 SON(S) , 1 DAUGHTER(S) - HEALTHY. DENIES FAMILY HISTORY OF UROLOGICAL DISEASES. SOCIAL HISTORY GENERAL: TOBACCO USE ARE YOU A: NONSMOKER. DIET: REGULAR. LANGUAGE LANGUAGES SPOKEN:CZECH DOMESTIC VIOLENCE DO YOU FEEL SAFE IN YOUR ENVIRONMENT?YES NEW PATIENT PAIN DIARY FROM 0-10, WHAT LEVEL IS YOUR PAIN TODAY?6 RECREATIONAL DRUG USE DRUG USE?NO EXERCISE: NO REGULAR EXERCISE. LEARNING BARRIERS / SPECIAL NEEDS BARRIERS TO LEARNING?NO HEARING IMPAIRED?NO VISION IMPAIRED?YES :CORRECTIVE LENSES COGNITIVELY IMPAIRED?NO READINESS TO LEARN?YES LEARNING PREFERENCES?NO LEARNING CAPABILITIES PRESENT?YES EMOTIONAL BARRIERS?NO SPECIAL DEVICES?NO ARTIFICIAL MARBLE WORKER NEEDED?NO PAIN CLINIC PFS, CLERGY, PUBLIC HEALTH REFERRALS PFS REFERRAL NEEDED?NO CLERGY REFERRAL NEEDED?NO PUBLIC HEALTH REFERRAL NEEDED?NO WAS THE PROVIDER NOTIFIED OF ANY PERTINENT INFO?NO HAS THE PATIENT BEEN EDUCATED REGARDING HIS/HER PLAN OF CARE?YES HAS THE PATIENT BEEN EDUCATED REGARDING PAIN, THE RISK FOR PAIN, THE IMPORTANCE OF EFFECTIVE PAIN MANAGEMENT, AND THE PAIN ASSESSMENT PROCESS?YES CAFFEINE CAFFEINE USE?YES COFFEE = 2-3 PER DAY TRIES TO DRINK DECAF ADVANCE DIRECTIVE ADVANCE DIRECTIVE DISCUSSED WITH PATIENT:YES ASHVIN LINDQUIST IS HIS HCP [facility] [id number] ORTHODOXY NO FAITH BELIEFS THAT WOULD IMPACT HEALTH CARE. MARITAL STATUS: . ALCOHOL SCREENING DID YOU HAVE A DRINK CONTAINING ALCOHOL IN THE PAST YEAR?YES HOW OFTEN DID YOU HAVE A DRINK CONTAINING ALCOHOL IN THE PAST YEAR?TWO TO FOUR TIMES A MONTH (2 POINTS) HOW OFTEN DID YOU HAVE SIX OR MORE DRINKS ON ONE OCCASION IN THE PAST YEAR?LESS THAN MONTHLY (1 POINT) POINTS4 INTERPRETATIONPOSITIVE HOW MANY DRINKS DID YOU HAVE ON A TYPICAL DAY WHEN YOU WERE DRINKING IN THE PAST YEAR?3 OR 4 (1 POINT) SEXUAL HX HAD SEX IN THE LAST 12 MONTHS (VAGINAL, ORAL, OR ANAL)?YES WITHWOMEN ONLY USE PROTECTION?NO HAVE YOU EVER HAD AN STD?NO HOSPITALIZATION/MAJOR DIAGNOSTIC PROCEDURE SURGERY RELATED REVIEW OF SYSTEMS REVIEWED BY: PROVIDER: MORENA LEVIN . CONSTITUTIONAL: ANY CHANGE IN YOUR MEDICAL CONDITION? NO . CHILLS NO . FEVER NO . INFECTION: DO YOU HAVE NEW INFECTIONS? NO . DO YOU HAVE HISTORY OF MRSA? NO . MUSCULOSKELETAL: ANY NEW PATTERNS OF PAIN OR NUMBNESS? NO . GASTROENTEROLOGY: ANY NEW CHANGE IN BOWEL CONTROL? NO . GENITOURINARY: ANY NEW CHANGE IN BLADDER CONTROL? NO . IS THERE A CHANCE YOU COULD BE ? NO . HEMATOLOGY/LYMPH: DO YOU TAKE ANY BLOOD THINNERS? (FOR EXAMPLE- COUMADIN, PLAVIX, AGGRENOX, PLATEL, PRADAXA, OR XARELTO) NO . WHEN WAS YOUR LAST DOSE? DATE: TIME: . NEUROLOGY: HAVE YOU FALLEN IN THE PAST 12 MONTHS? NO . ANY NEW EXTREMITY NUMBNESS OR WEAKNESS? YES . CARDIOLOGY: DO YOU HAVE A PACEMAKER OR DEFIBRILLATOR? NO . RESPIRATORY: HAVE YOU BEEN SICK IN THE PAST WEEK? NO . FEVER NO . FLU LIKE SYMPTOMS? NO . COUGH NO . INTEGUMENTARY: DO YOU HAVE ANY RASHES OR OPEN SORES? NO . ALLERGIC/IMMUNO: ARE YOU ALLERGIC TO IV DYE? NO . ANY NEW ALLERGIES? NO . PSYCHIATRIC: DO YOU HAVE THOUGHTS OF HURTING YOURSELF OR SOMEONE ELSE? NO . ARE YOU ABUSED, NEGLECTED, OR IN AN UNSAFE ENVIRONMENT? NO . ENDOCRINOLOGY: ARE YOU DIABETIC? NO . OTHER: DO YOU NEED ANY PRESCRIPTIONS? NO . IF YES, PLEASE LIST: ____ . ANY NEW PROBLEMS WITH YOUR MEDICATIONS? NO . WHEN DID YOU LAST EAT? ____ . WHEN DID YOU LAST DRINK? ____ . WHAT DID YOU LAST DRINK? ____ . NAME OF PERSON DRIVING YOU HOME? ____ . DO YOU HAVE ANY OTHER QUESTIONS OR CONCERNS NO . VITAL SIGNS WT 210 LBS, HT 69 IN, BMI 31.01 INDEX, BP 150/91 MM HG, HR 61 /MIN, RR 18 /MIN, TEMP 97.2 F, OXYGEN SAT % 98%, NA INITIALS AW 0957, REVIEWED BY: LS. EXAMINATION GENERAL EXAMINATION: GENERALAWAKE,ALERT ,PLEAASANT . PSYCHAFFECT NORMAL . LUNGS:LUNG GUSMAN ARE CLEAR TO AUSCULTATION BILATERALLY. GOOD MOVEMENT OF AIR . HEART:S1, S2 IN A REGULAR RATE AND RHYTHM. NO SIGNIFICANT MURMURS, RUBS OR GALLOPS NOTED . ASSESSMENTS INTERVERTEBRAL DISC DISORDER WITH RADICULOPATHY OF LUMBAR REGION - M51.16 (PRIMARY) TREATMENT INTERVERTEBRAL DISC DISORDER WITH RADICULOPATHY OF LUMBAR REGION NOTES: CONTINUE CONSERVATIVE CARE. PROCEDURES PN WORKMANS' COMP OPINION IN YOUR OPINION, WAS THE INCIDENT THAT THE PATIENT DESCRIBED THE COMPETENT MEDICAL CAUSE OF THIS INJURY/ILLNESS? YES ARE THE PATIENT'S COMPLAINTS CONSISTENT WITH HIS/HER HISTORY OF THE INJURY/ILLNESS? YES IS THE PATIENT'S HISTORY OF THE INJURY/ILLNESS CONSISTENT WITH YOUR OBJECTIVE FINDING? YES WHAT IS THE PERCENTAGE OF TEMPORARY IMPAIRMENT? MODERATE TO MARKED = 66.7% IS THE PATIENT WORKING? NO DOCTOR ON SITE: EVA DEGROOT MD PROCEDURE CODES FA211 ESTABILISHED PATIENT [facility] FACILITY CHARGE DISPOSITION & COMMUNICATION FOLLOW UP 3 MONTHS W ROXY (REASON: W/C LBP) ELECTRONICALLY SIGNED BY OLLIE PERRY ON 07/16/2019 AT 04:18 PM EDT DISCLAIMER : THIS IS A VISIT SUMMARY EXTRACTED FROM THE [employer] CHART. IT IS NOT A COPY OF THE [employer] PROGRESS NOTE. SOMMER
== END ==
LOC: M PAIN 10:00
PROVIDERS: ATTEND Nurse Practitioner Family
DX: M51.16 Intervertebral disc disorders with radiculopathy, lumbar region (principal); G89.29 Other chronic pain; K21.9 Gastro-esophageal reflux disease without esophagitis; I10 Essential (primary) hypertension; M79.7 Fibromyalgia; Z88.2 Allergy status to sulfonamides; Z88.5 Allergy status to narcotic agent; Z88.6 Allergy status to analgesic agent; Z88.8 Allergy status to other drugs, medicaments and biological substances; Z91.09 Other allergy status, other than to drugs and biological substances; Z79.899 Other long term (current) drug therapy

== ENCOUNTER 2019-08-26 11:40 | Emergency (ER) | payer MEDICARE, OTHER ==
[~2019-08-26] VITALS: Ht 172.7 cm; Wt 100.0 kg
[2019-08-26] MEDS ORDERED: SUCR1TAB56 PO (11:46)
[2019-08-26] MEDS ORDERED: predniSONE 20 MG TAB PO ONE (13:00)
[2019-08-26] MEDS ORDERED: MORPHINE 10 MG/ML 1ML VIAL (J2270) IM ONE (13:00)
--- NOTE | 2019-08-26 13:44 | REP ---
CT lumbar spine: 08/26/2019. Indication: Lumbar trauma. Comparison: MRI lumbar spine dated 09/07/2006. Findings: There is no acute fracture, subluxation or dislocation. Vertebral body alignment is within anatomical limits. Disc space narrowing is noted particularly at L2/L3 and L5/S1. No acute soft tissue injuries are detected. Aortoiliac atherosclerotic disease is present. Multilevel spondylosis is present without severe spinal canal narrowing detected. Neural foraminal narrowing is most pronounced on the right at L5/S1. Multiple small chronic appearing Schmorl's nodes are present most pronounced within the superior aspect of L3 . Impression: No acute post traumatic injury of the lumbar spine detected. Electronically Signed by Rosendo Jennings DO 08/26/2019 01:36 P
[2019-08-26] MEDS ORDERED: PRED10TA2 PO (14:07)
[2019-08-26 14:18] VITALS: BP 166/92
== END 2019-08-26 14:17 | disposition home or self-care (01) ==
LOC: M ED 11:40
DX: G89.29 Other chronic pain (principal); M54.5 Low back pain; I10 Essential (primary) hypertension; K21.9 Gastro-esophageal reflux disease without esophagitis; Z87.891 Personal history of nicotine dependence; Z79.899 Other long term (current) drug therapy; Z88.2 Allergy status to sulfonamides; Z88.8 Allergy status to other drugs, medicaments and biological substances; Z88.5 Allergy status to narcotic agent
CPT/HCPCS: 72131; 81001; 96372; 99283; J2270

== ENCOUNTER → 2019-09-02 | Outpatient (CLI) | payer OTHER ==
[~2019-09-02] MED LIST changes: +PRED10TA2 PO; +SUCR1TAB56 PO
--- NOTE | 2019-09-16 00:29 | ECWPNPC ---
PATIENT NAME: BRANDY LINDQUIST : 1955 GENDER: MALE VISIT DATE: 09/02/2019 DISCHARGE DATE: 09/02/19 1533 VISIT LOCKED DATE TIME: PHYSICIAN: MORENA JEAN RESOURCE: MORENA JEAN REASON FOR APPOINTMENT 1. W/C INCREASED PAIN-OK PER ARIK HISTORY OF PRESENT ILLNESS HISTORY OF PRESENT ILLNESS: PAIN THE PATIENT DESCRIBES THE PAIN... THE PATIENT DESCRIBES THE PAIN... THE PATIENT DESCRIBES THE PAIN... PAIN THE PATIENT DESCRIBES THE PAIN... THE PATIENT DESCRIBES THE PAIN... THE PATIENT DESCRIBES THE PAIN... 63 YEAR OLD MALE PATIENT WITH A HISTORY OF CHRONIC LOW BACK PAIN. THE PATIENT DESCRIBES THE PAIN SORE, SHARP, AND CONTINUOUS WITH A PAIN SCORE OF 6-8/10 DEPENDING ON PHYSICAL ACTIVITY. 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 THE PATIENT SAYS THE PAIN STARTS IN HIS LOW BACK AND RADIATES DOWN HIS LEFT LEG. THE PATIENT IS CURRENTLY USING TRAMADOL NEEDED, CYCLOBENZAPRINE, AND TYLENOL TO AID IN PAIN RELIEF. THE PATIENT SAYS THAT THE USE OF THESE MEDICATIONS HELPS HIM REMAIN MOBILE AND FUNCTIONAL. PATIENT DENIES UNEXPLAINABLE WEIGHT LOSS, FEVER, CHILLS, NEW CHANGES ON HIS URINARY OR BOWEL CONTROL. RATING PAIN VAS 6/10.CHIEF AREA OF PAIN IS LEFT LOW BACK WITH RADIATION INTO LEFT LEG.DISCUSSED TREATMENT OPTIONS TO INCLUDE INJECTIONS IE LEFT SIJ BUT PATIENT WOULD LIKE TO HOLD OFF AND POSSIBLY DISCUSS AT F/U IN 3 MONTHS. FALL RISK SCREENING: SCREENING :NO FALLS REPORTED IN THE LAST YEAR CURRENT MEDICATIONS TAKING CYCLOBENZAPRINE HCL 5 MG TABLET 1 TABLET ORALLY NEEDED FOR SPASMS AND PAIN DAILY MAY REPEAT IN 5 HRS MDD2 TAKING TRAMADOL HCL 50 MG TABLET 1 TABLET ORALLY DAILY NEEDED FOR PAIN MDD1 TAKING SUCRALFATE 1 GM TABLET 1 TABLET ON AN EMPTY STOMACH ORALLY TWICE DAILY TAKING OMEPRAZOLE 20 MG CAPSULE DELAYED RELEASE 1 CAP ORALLY TWICE DAILY TAKING LISINOPRIL 20 MG TABLET 1 TABLET ORALLY ONCE A DAY TAKING TYLENOL 8 HOUR ARTHRITIS PAIN 650 MG TABLET EXTENDED RELEASE 2 TABLETS NEEDED ORALLY EVERY 8 HRS NOT-TAKING VITAMIN D-3 1000 UNIT CAPSULE 2 CAPSULE ORALLY ONCE A DAY NOT-TAKING MULTIVITAMIN ADULT - TABLET ORALLY ONCE DAILY NOT-TAKING KEFLEX 500 MG CAPSULE 1 CAPSULE ORALLY TO START ONE HOUR BEFORE REZUM PROCEDURE EVERY 12 HRS NOT-TAKING CIPROFLOXACIN HCL 500 MG TABLET 1 TABLET 1 HOUR PRIOR TO YOUR CYSTOSCOPY ORALLY ONCE NOT-TAKING CIPRO 500 MG TABLET 1 TABLET ORALLY TWICE A DAY NOT-TAKING MYRBETRIQ 50 MG TABLET 1 TABLET ORALLY ONCE A DAY, NOTES: HAS NOT STARTED NOT-TAKING VIAGRA 25 MG TABLET 1 TABLET NEEDED ORALLY ONCE A DAY NOT-TAKING TYLENOL 325 MG CAPSULE 2 CAPSULES NEEDED ORALLY EVERY 6 HRS, NOTES: 11/12/17 1200 NOT-TAKING PREDNISONE 20 MG TABLET 1 TABLET ORALLY TAKE 1 TAB TWICE A DAY WITH FOOD X 3 DAYS ATHEN /2 TAB TWICE A DAY X 3 DAYS, NOTES: FINISHED 07/09/17 NOT-TAKING DICLOFENAC SODIUM 1 % GEL DIRECTED TRANSDERMAL APPLY 4 GRAMS TO LOW BACK Q 6 HRS NOT-TAKING GABAPENTIN 100 MG CAPSULE DIRECTED ORALLY TID FOR PAIN MDD3 NOT-TAKING VALIUM 5 MG TABLET 1 TABLET ORALLY TAKE 2 TABS ON ARRIVAL TO CLINIC FOR PROCEDURE MDD=2, NOTES: 10/12/16 1002 NOT-TAKING ACETAMINOPHEN EXTRA STRENGTH 500 MG TABLET 2 TABLET NEEDED ORALLY EVERY 6 HRS NEEDED, NOTES: DUPLICATE NOT-TAKING VALIUM 5 MG TABLET 1 TABLET ORALLY TAKE ON ARRIVAL TO CLINIC FOR PROCEDURE MDD=1, NOTES: DUPLICATE MEDICATION LIST REVIEWED AND RECONCILED WITH THE PATIENT PAST MEDICAL HISTORY GERD HYPERTENSION LOW BACK AFTER INJURY STRESS TEST CLEARED WITH DR OSBORNE FIBROMYLAGIA BPH ED CARPAL TUNNEL BILATERALLY ALLERGIES ASPIRIN: FACE SWELLING - ALLERGY SULFA (FOR ALLERGY USE ONLY): NAUSEA/VOMITING - ALLERGY PLASTIC TAPE: RASH - SIDE EFFECTS LYRICA: DEPRESSION, ANXIETY - SIDE EFFECTS GABAPENTIN: MENTAL STATUS - SIDE EFFECTS OXYBUTYNIN: DIARRHEA/ SEVERE STOMACH UPSET - SIDE EFFECTS DARIFENACIN HYDROBROMIDE: HEADACHE / STOMACH UPSET - SIDE EFFECTS MYRBETRIQ: SEVERE HEARTBURN / HEADACHE - SIDE EFFECTS CIPRO: HEADACHE/DIZZY - SIDE EFFECTS OXYCODONE HCL: ITCHING - SIDE EFFECTS HYDROCODONE: ITCHING - SIDE EFFECTS SURGICAL HISTORY MULTIPLE SURGURIES TO LEFT LEG FAMILY HISTORY FATHER: , DIAGNOSED WITH DIABETES, HYPERTENSION, UNSPECIFIED HEART DISEASE MOTHER: ALIVE, HYPERTENSION SIBLINGS: ALIVE, BOTH SISTERS HISTORY OF CANCER 2 SISTER(S) - HEALTHY. 1 SON(S) , 1 DAUGHTER(S) - HEALTHY. DENIES FAMILY HISTORY OF UROLOGICAL DISEASES. SOCIAL HISTORY GENERAL: TOBACCO USE ARE YOU A: NONSMOKER. DIET: REGULAR. LANGUAGE LANGUAGES SPOKEN:SETSWANA DOMESTIC VIOLENCE DO YOU FEEL SAFE IN YOUR ENVIRONMENT?YES NEW PATIENT PAIN DIARY FROM 0-10, WHAT LEVEL IS YOUR PAIN TODAY?6 RECREATIONAL DRUG USE DRUG USE?NO EXERCISE: NO REGULAR EXERCISE. LEARNING BARRIERS / SPECIAL NEEDS BARRIERS TO LEARNING?NO HEARING IMPAIRED?NO VISION IMPAIRED?YES COGNITIVELY IMPAIRED?NO :CORRECTIVE LENSES READINESS TO LEARN?YES LEARNING PREFERENCES?NO LEARNING CAPABILITIES PRESENT?YES EMOTIONAL BARRIERS?NO SPECIAL DEVICES?NO ADJUNCT SPANISH INSTRUCTOR NEEDED?NO PAIN CLINIC PFS, CLERGY, PUBLIC HEALTH REFERRALS PFS REFERRAL NEEDED?NO CLERGY REFERRAL NEEDED?NO PUBLIC HEALTH REFERRAL NEEDED?NO WAS THE PROVIDER NOTIFIED OF ANY PERTINENT INFO?NO HAS THE PATIENT BEEN EDUCATED REGARDING HIS/HER PLAN OF CARE?YES HAS THE PATIENT BEEN EDUCATED REGARDING PAIN, THE RISK FOR PAIN, THE IMPORTANCE OF EFFECTIVE PAIN MANAGEMENT, AND THE PAIN ASSESSMENT PROCESS?YES LATEX QUESTIONNAIRE LATEX ALLERGY : HAVE YOU EVER DEVELOPED ANY TYPE OF REACTION AFTER HANDLING LATEX PRODUCTS SUCH RUBBER GLOVES, CONDOMS, DIAPHRAGMS, BALLOONS, SOCKS, OR UNDERWEAR?NO JUST PLASTIC TAPE LATEX ALLERGY : HAVE YOU EVER DEVELOPED ANY TYPE OF REACTION DURING OR AFTER DENTAL APPOINTMENT, VAGINAL/RECTAL EXAMINATION, SURGICAL PROCEDURE, OR ANY OTHER EXPOSURE?NO LATEX RISK : HAVE YOU EVER HAD ANY DIFFICULTY BREATHING OR HIVES AFTER EATING OR HANDLING ANY FRUITS, OR VEGETABLES; SUCH KIWI, BANANAS, STONE FRUITS, OR CHESTNUTSNO LATEX RISK : DO YOU HAVE A PREVIOUS PERSONAL HISTORY OF MORE THAN NINE SURGERIES, SPINA BIFIDA, OR REPEATED CATHERIZATIONS? NO LATEX RISK : ARE YOU FREQUENTLY EXPOSED TO LATEX PRODUCTS IN YOUR OCCUPATION?NO DATE ASKED : 09/02/2019 CAFFEINE CAFFEINE USE?YES COFFEE = 2-3 PER DAY TRIES TO DRINK DECAF ADVANCE DIRECTIVE ADVANCE DIRECTIVE DISCUSSED WITH PATIENT:YES ASHVIN LINDQUIST IS HIS HCP DRUZE [id number] EPISCOPAL NO GNOSTICISM BELIEFS THAT WOULD IMPACT HEALTH CARE. MARITAL STATUS: . ALCOHOL SCREENING DID YOU HAVE A DRINK CONTAINING ALCOHOL IN THE PAST YEAR?YES HOW OFTEN DID YOU HAVE SIX OR MORE DRINKS ON ONE OCCASION IN THE PAST YEAR?LESS THAN MONTHLY (1 POINT) HOW MANY DRINKS DID YOU HAVE ON A TYPICAL DAY WHEN YOU WERE DRINKING IN THE PAST YEAR?3 OR 4 (1 POINT) HOW OFTEN DID YOU HAVE A DRINK CONTAINING ALCOHOL IN THE PAST YEAR?TWO TO FOUR TIMES A MONTH (2 POINTS) POINTS4 INTERPRETATIONPOSITIVE SEXUAL HX HAD SEX IN THE LAST 12 MONTHS (VAGINAL, ORAL, OR ANAL)?YES WITHWOMEN ONLY USE PROTECTION?NO HAVE YOU EVER HAD AN STD?NO REVIEWED WITH PATIENT 09/02/19 9933 JS. HOSPITALIZATION/MAJOR DIAGNOSTIC PROCEDURE SURGERY RELATED REVIEW OF SYSTEMS REVIEWED BY: PROVIDER: MORENA LEVIN . CONSTITUTIONAL: ANY CHANGE IN YOUR MEDICAL CONDITION? NO . CHILLS NO . FEVER NO . INFECTION: DO YOU HAVE NEW INFECTIONS? NO . DO YOU HAVE HISTORY OF MRSA? NO . MUSCULOSKELETAL: ANY NEW PATTERNS OF PAIN OR NUMBNESS? YES, STATES NEW PAIN TO LEFT GROIN AND HIP/LOW BACK, RADIATING DOWN LEFT LEG. THINKS HE MAY HAVE PULLED SOMETHING IN HIS GROIN, FEELS LIKE THERE IS A KNOT IN HIS LEFT LOW BACK. WENT TO THE ER LAST SUNDAY AND THEY PRESCRIBED HIM PREDNISONE, VERY LITTLE RELIEF WITH THIS . GASTROENTEROLOGY: ANY NEW CHANGE IN BOWEL CONTROL? NO . GENITOURINARY: ANY NEW CHANGE IN BLADDER CONTROL? YES, URINARY URGENCY . IS THERE A CHANCE YOU COULD BE ? NO . HEMATOLOGY/LYMPH: DO YOU TAKE ANY BLOOD THINNERS? (FOR EXAMPLE- COUMADIN, PLAVIX, AGGRENOX, PLATEL, PRADAXA, OR XARELTO) NO . WHEN WAS YOUR LAST DOSE? DATE: TIME: . NEUROLOGY: HAVE YOU FALLEN IN THE PAST 12 MONTHS? NO . ANY NEW EXTREMITY NUMBNESS OR WEAKNESS? YES, STATES WEAKNESS TO LEFT LEG SINCE LAST SUNDAY . CARDIOLOGY: DO YOU HAVE A PACEMAKER OR DEFIBRILLATOR? NO . RESPIRATORY: HAVE YOU BEEN SICK IN THE PAST WEEK? NO . FEVER NO . FLU LIKE SYMPTOMS? NO . COUGH NO . INTEGUMENTARY: DO YOU HAVE ANY RASHES OR OPEN SORES? NO . ALLERGIC/IMMUNO: ARE YOU ALLERGIC TO IV DYE? NO . ANY NEW ALLERGIES? NO . PSYCHIATRIC: DO YOU HAVE THOUGHTS OF HURTING YOURSELF OR SOMEONE ELSE? NO . ARE YOU ABUSED, NEGLECTED, OR IN AN UNSAFE ENVIRONMENT? NO . ENDOCRINOLOGY: ARE YOU DIABETIC? NO . OTHER: DO YOU NEED ANY PRESCRIPTIONS? NO . IF YES, PLEASE LIST: ____ . ANY NEW PROBLEMS WITH YOUR MEDICATIONS? NO . WHEN DID YOU LAST EAT? ____ . WHEN DID YOU LAST DRINK? ____ . WHAT DID YOU LAST DRINK? ____ . NAME OF PERSON DRIVING YOU HOME? ____ . DO YOU HAVE ANY OTHER QUESTIONS OR CONCERNS YES, WENT TO THE ER LAST SUNDAY AND THEY PRESCRIBED HIM PREDNISONE, VERY LITTLE RELIEF WITH THIS. STATES THIS IS THE WORSE PAIN HE HAS EVER HAD, CAN'T GET COMFORTABLE IN ANY POSITION. IF HE SITS DOWN FOR MORE THAN 5 OR 10 MINUTES IT IS VERY DIFFICULT FOR HIM TO GET BACK UP . VITAL SIGNS WT 208.2 LBS, HT 69 IN, BMI 30.74 INDEX, BP 161/92 MM HG, HR 85 /MIN, RR 17 /MIN, TEMP 97.6 F, OXYGEN SAT % 97%, SAFE IN ENV? (Y/N) YES, NA INITIALS SC 14:13, REVIEWED BY: ARCADIO. EXAMINATION GENERAL EXAMINATION: GENERAL AWAKE,ALERT ,PLEAASANT . PSYCH AFFECT NORMAL . LUNGS: LUNG GUSMAN ARE CLEAR TO AUSCULTATION BILATERALLY. GOOD MOVEMENT OF AIR . HEART: S1, S2 IN A REGULAR RATE AND RHYTHM. NO SIGNIFICANT MURMURS, RUBS OR GALLOPS NOTED . MUSCULOSKELETAL:SLIGHT WEAKNESS NOTED OVER LEFT LEG.. LUMBAR SACRAL SPINE PALPATION: + FOR PAIN OVER L/S SPINE. + FOR PAIN OVER L/S PARASPINALS POSITIVE SLR OVER LEFT LEG. NEUROLOGIC EXAM: NORMAL SENSATION LIGHT TOUCH BILAT. LOWER EXTREMITIES. DIAGNOSTIC TESTS REVIEWED MRI LS SPINE-05/31/17-REVIEWED. ASSESSMENTS INTERVERTEBRAL DISC DISORDERS WITH RADICULOPATHY, LUMBAR REGION - M51.16 (PRIMARY) TREATMENT INTERVERTEBRAL DISC DISORDERS WITH RADICULOPATHY, LUMBAR REGION CONTINUE CYCLOBENZAPRINE HCL TABLET, 5 MG, 1 TABLET, ORALLY NEEDED FOR SPASMS AND PAIN, DAILY MAY REPEAT IN 5 HRS MDD2 REFILL TRAMADOL HCL TABLET, 50 MG, 1 TABLET, ORALLY, DAILY NEEDED FOR PAIN MDD1, 30 DAY(S), 20, REFILLS 0 NOTES: L3/4 LESI LEFT W/C. PROCEDURES PN WORKMANS' COMP OPINION IN YOUR OPINION, WAS THE INCIDENT THAT THE PATIENT DESCRIBED THE COMPETENT MEDICAL CAUSE OF THIS INJURY/ILLNESS? YES ARE THE PATIENT'S COMPLAINTS CONSISTENT WITH HIS/HER HISTORY OF THE INJURY/ILLNESS? YES IS THE PATIENT'S HISTORY OF THE INJURY/ILLNESS CONSISTENT WITH YOUR OBJECTIVE FINDING? YES WHAT IS THE PERCENTAGE OF TEMPORARY IMPAIRMENT? MODERATE TO MARKED = 66.7% IS THE PATIENT WORKING? NO DOCTOR ON SITE: EVA DEGROOT MD PREVENTIVE MEDICINE PAIN CLINIC TEACHING: PROCEDURE TEACHING PRINTED AND REVIEWED INFORMATION ON LUMBAR EPIDURAL STEROID INJECTION WITH PATIENT. ALSO REVIEWED PRE-PROCEDURE INSTRUCTIONS. PATIENT VERBALIZED AN UNDERSTANDING. WALKER NGUYỄN Tami 09/02/2019 3:34:28 PM > . PROCEDURE CODES FA211 ESTABILISHED PATIENT [facility] CHARGE DISPOSITION & COMMUNICATION FOLLOW UP POST (REASON: L3/4 LESI LEFT W/C) ELECTRONICALLY SIGNED BY OLLIE PERRY ON 09/15/2019 AT 03:50 PM EST DISCLAIMER : THIS IS A VISIT SUMMARY EXTRACTED FROM THE [employer] CHART. IT IS NOT A COPY OF THE [facility] [place] PROGRESS NOTE. SOMMER
== END ==
LOC: M PAIN 13:45
PROVIDERS: ATTEND Nurse Practitioner Family
DX: M51.16 Intervertebral disc disorders with radiculopathy, lumbar region (principal); G89.29 Other chronic pain; K21.9 Gastro-esophageal reflux disease without esophagitis; I10 Essential (primary) hypertension; M79.7 Fibromyalgia; Z88.1 Allergy status to other antibiotic agents; Z88.2 Allergy status to sulfonamides; Z88.5 Allergy status to narcotic agent; Z88.6 Allergy status to analgesic agent; Z88.8 Allergy status to other drugs, medicaments and biological substances; Z91.09 Other allergy status, other than to drugs and biological substances; Z79.899 Other long term (current) drug therapy

== ENCOUNTER → 2019-10-02 | Outpatient (CLI) | payer OTHER ==
[~2019-10-02] MED LIST changes: +ISOVUE-M 300 61% 15ML VIAL (Q9967) As Ordered ONE; +LIDOCAINE 1% SDV INJ 30 ML VIAL As Ordered ONE; +diazePAM 5 MG TAB As Ordered ONE; +methylPREDNISolone SUSP 40 MG/ML (DEPO-medrol) VIAL (J1030) As Ordered ONE
--- NOTE | 2019-10-02 13:08 | REP ---
Two fluoroscopic images: 10/02/2019. Indication: Operative/procedural guidance. Findings: Two spot fluoroscopic images were obtained for operative/procedural guidance. Please see operative/procedural report for details. Impression: Fluoroscopy provided for operative/procedural guidance. 10 seconds of fluoroscopy time was utilized. Electronically Signed by Rosendo Jennings DO 10/02/2019 01:00 P
--- NOTE | 2019-10-22 03:17 | ECWPNPC ---
PATIENT NAME: BRANDY LINDQUIST : 1955 GENDER: MALE VISIT DATE: 10/02/2019 DISCHARGE DATE: 10/02/19 1319 VISIT LOCKED DATE TIME: PHYSICIAN: EVA BROWN MD RESOURCE: EVA BROWN MD REASON FOR APPOINTMENT 1. W/C L3/4 LESI HISTORY OF PRESENT ILLNESS HISTORY OF PRESENT ILLNESS: PAIN THE PATIENT DESCRIBES THE PAIN... FALL RISK SCREENING: SCREENING :NO FALLS REPORTED IN THE LAST YEAR CURRENT MEDICATIONS TAKING SUCRALFATE 1 GM TABLET 1 TABLET ON AN EMPTY STOMACH ORALLY TWICE DAILY, NOTES: 10/01/19 1800 TAKING OMEPRAZOLE 20 MG CAPSULE DELAYED RELEASE 1 CAP ORALLY TWICE DAILY, NOTES: 10/01/19 1800 TAKING LISINOPRIL 20 MG TABLET 1 TABLET ORALLY ONCE A DAY, NOTES: 10/01/190 TAKING CYCLOBENZAPRINE HCL 5 MG TABLET 1 TABLET ORALLY NEEDED FOR SPASMS AND PAIN DAILY MAY REPEAT IN 5 HRS MDD2, NOTES: > 3 WEEKS TAKING TRAMADOL HCL 50 MG TABLET 1 TABLET ORALLY DAILY NEEDED FOR PAIN MDD1, NOTES: > 3 WEEKS TAKING VITAMIN D-3 1000 UNIT CAPSULE 2 CAPSULE ORALLY ONCE A DAY, NOTES: 10/02/19 NOT-TAKING TYLENOL 8 HOUR ARTHRITIS PAIN 650 MG TABLET EXTENDED RELEASE 2 TABLETS NEEDED ORALLY EVERY 8 HRS NOT-TAKING MULTIVITAMIN ADULT - TABLET ORALLY ONCE DAILY NOT-TAKING KEFLEX 500 MG CAPSULE 1 CAPSULE ORALLY TO START ONE HOUR BEFORE REZUM PROCEDURE EVERY 12 HRS NOT-TAKING CIPROFLOXACIN HCL 500 MG TABLET 1 TABLET 1 HOUR PRIOR TO YOUR CYSTOSCOPY ORALLY ONCE NOT-TAKING CIPRO 500 MG TABLET 1 TABLET ORALLY TWICE A DAY NOT-TAKING MYRBETRIQ 50 MG TABLET 1 TABLET ORALLY ONCE A DAY, NOTES: HAS NOT STARTED NOT-TAKING VIAGRA 25 MG TABLET 1 TABLET NEEDED ORALLY ONCE A DAY NOT-TAKING TYLENOL 325 MG CAPSULE 2 CAPSULES NEEDED ORALLY EVERY 6 HRS, NOTES: 11/12/17 1200 NOT-TAKING PREDNISONE 20 MG TABLET 1 TABLET ORALLY TAKE 1 TAB TWICE A DAY WITH FOOD X 3 DAYS ATHEN 1/2 TAB TWICE A DAY X 3 DAYS, NOTES: FINISHED 07/09/17 NOT-TAKING DICLOFENAC SODIUM 1 % GEL DIRECTED TRANSDERMAL APPLY 4 GRAMS TO LOW BACK Q 6 HRS NOT-TAKING GABAPENTIN 100 MG CAPSULE DIRECTED ORALLY TID FOR PAIN MDD3 NOT-TAKING VALIUM 5 MG TABLET 1 TABLET ORALLY TAKE 2 TABS ON ARRIVAL TO CLINIC FOR PROCEDURE MDD=2, NOTES: 10/12/16 1002 NOT-TAKING ACETAMINOPHEN EXTRA STRENGTH 500 MG TABLET 2 TABLET NEEDED ORALLY EVERY 6 HRS NEEDED, NOTES: 10/02/19 0800 NOT-TAKING VALIUM 5 MG TABLET 1 TABLET ORALLY TAKE ON ARRIVAL TO CLINIC FOR PROCEDURE MDD=1, NOTES: DUPLICATE MEDICATION LIST REVIEWED AND RECONCILED WITH THE PATIENT PAST MEDICAL HISTORY GERD HYPERTENSION LOW BACK AFTER INJURY STRESS TEST CLEARED WITH DR OSBORNE FIBROMYLAGIA BPH ED CARPAL TUNNEL BILATERALLY ALLERGIES ASPIRIN: FACE SWELLING - ALLERGY SULFA (FOR ALLERGY USE ONLY): NAUSEA/VOMITING - ALLERGY PLASTIC TAPE: RASH - SIDE EFFECTS LYRICA: DEPRESSION, ANXIETY - SIDE EFFECTS GABAPENTIN: MENTAL STATUS - SIDE EFFECTS OXYBUTYNIN: DIARRHEA/ SEVERE STOMACH UPSET - SIDE EFFECTS DARIFENACIN HYDROBROMIDE: HEADACHE / STOMACH UPSET - SIDE EFFECTS MYRBETRIQ: SEVERE HEARTBURN / HEADACHE - SIDE EFFECTS CIPRO: HEADACHE/DIZZY - SIDE EFFECTS OXYCODONE HCL: ITCHING - SIDE EFFECTS HYDROCODONE: ITCHING - SIDE EFFECTS SURGICAL HISTORY MULTIPLE SURGURIES TO LEFT LEG FAMILY HISTORY FATHER: , DIAGNOSED WITH DIABETES, HYPERTENSION, UNSPECIFIED HEART DISEASE MOTHER: ALIVE, HYPERTENSION SIBLINGS: ALIVE, BOTH SISTERS HISTORY OF CANCER 2 SISTER(S) - HEALTHY. 1 SON(S) , 1 DAUGHTER(S) - HEALTHY. DENIES FAMILY HISTORY OF UROLOGICAL DISEASES. SOCIAL HISTORY GENERAL: TOBACCO USE ARE YOU A: NONSMOKER. DIET: REGULAR. LANGUAGE LANGUAGES SPOKEN:ICELANDIC DOMESTIC VIOLENCE DO YOU FEEL SAFE IN YOUR ENVIRONMENT?YES NEW PATIENT PAIN DIARY FROM 0-10, WHAT LEVEL IS YOUR PAIN TODAY?6 RECREATIONAL DRUG USE DRUG USE?NO EXERCISE: NO REGULAR EXERCISE. LEARNING BARRIERS / SPECIAL NEEDS BARRIERS TO LEARNING?NO HEARING IMPAIRED?NO VISION IMPAIRED?YES COGNITIVELY IMPAIRED?NO :CORRECTIVE LENSES READINESS TO LEARN?YES LEARNING PREFERENCES?NO LEARNING CAPABILITIES PRESENT?YES EMOTIONAL BARRIERS?NO SPECIAL DEVICES?NO SCOOPING MACHINE TENDER NEEDED?NO PAIN CLINIC PFS, CLERGY, PUBLIC HEALTH REFERRALS PFS REFERRAL NEEDED?NO CLERGY REFERRAL NEEDED?NO PUBLIC HEALTH REFERRAL NEEDED?NO WAS THE PROVIDER NOTIFIED OF ANY PERTINENT INFO?NO HAS THE PATIENT BEEN EDUCATED REGARDING HIS/HER PLAN OF CARE?YES HAS THE PATIENT BEEN EDUCATED REGARDING PAIN, THE RISK FOR PAIN, THE IMPORTANCE OF EFFECTIVE PAIN MANAGEMENT, AND THE PAIN ASSESSMENT PROCESS?YES LATEX QUESTIONNAIRE LATEX ALLERGY : HAVE YOU EVER DEVELOPED ANY TYPE OF REACTION AFTER HANDLING LATEX PRODUCTS SUCH RUBBER GLOVES, CONDOMS, DIAPHRAGMS, BALLOONS, SOCKS, OR UNDERWEAR?NO JUST PLASTIC TAPE LATEX ALLERGY : HAVE YOU EVER DEVELOPED ANY TYPE OF REACTION DURING OR AFTER DENTAL APPOINTMENT, VAGINAL/RECTAL EXAMINATION, SURGICAL PROCEDURE, OR ANY OTHER EXPOSURE?NO DATE ASKED : 09/02/2019 LATEX RISK : HAVE YOU EVER HAD ANY DIFFICULTY BREATHING OR HIVES AFTER EATING OR HANDLING ANY FRUITS, OR VEGETABLES; SUCH KIWI, BANANAS, STONE FRUITS, OR CHESTNUTSNO LATEX RISK : DO YOU HAVE A PREVIOUS PERSONAL HISTORY OF MORE THAN NINE SURGERIES, SPINA BIFIDA, OR REPEATED CATHERIZATIONS? NO LATEX RISK : ARE YOU FREQUENTLY EXPOSED TO LATEX PRODUCTS IN YOUR OCCUPATION?NO CAFFEINE CAFFEINE USE?YES COFFEE = 2-3 PER DAY TRIES TO DRINK DECAF ADVANCE DIRECTIVE ADVANCE DIRECTIVE DISCUSSED WITH PATIENT:YES ASHVIN LINDQUIST IS HIS HCP CONGREGATION [id number] HOAHAOISM NO UATSDIN BELIEFS THAT WOULD IMPACT HEALTH CARE. MARITAL STATUS: . ALCOHOL SCREENING DID YOU HAVE A DRINK CONTAINING ALCOHOL IN THE PAST YEAR?YES HOW OFTEN DID YOU HAVE SIX OR MORE DRINKS ON ONE OCCASION IN THE PAST YEAR?LESS THAN MONTHLY (1 POINT) HOW MANY DRINKS DID YOU HAVE ON A TYPICAL DAY WHEN YOU WERE DRINKING IN THE PAST YEAR?3 OR 4 (1 POINT) HOW OFTEN DID YOU HAVE A DRINK CONTAINING ALCOHOL IN THE PAST YEAR?TWO TO FOUR TIMES A MONTH (2 POINTS) POINTS4 INTERPRETATIONPOSITIVE SEXUAL HX HAD SEX IN THE LAST 12 MONTHS (VAGINAL, ORAL, OR ANAL)?YES WITHWOMEN ONLY USE PROTECTION?NO HAVE YOU EVER HAD AN STD?NO REVIEWED WITH PATIENT 09/02/19 1448 JSREVIEWED WITH PATIENT 10/02/19 1114 LAS. HOSPITALIZATION/MAJOR DIAGNOSTIC PROCEDURE SURGERY RELATED REVIEW OF SYSTEMS REVIEWED BY: PROVIDER: . CONSTITUTIONAL: ANY CHANGE IN YOUR MEDICAL CONDITION? NO . CHILLS NO . FEVER NO . INFECTION: DO YOU HAVE NEW INFECTIONS? NO . DO YOU HAVE HISTORY OF MRSA? NO . MUSCULOSKELETAL: ANY NEW PATTERNS OF PAIN OR NUMBNESS? YES PT REPORTS PAIN IS NOW RADIATING DOWN LEFT HIP, WENT TO ED 08/26 FOR THIS, TREATED WITH MORPHINE INJECTION, DID A CT SCAN WHICH WAS NEGATIVE PER PATIENT . GASTROENTEROLOGY: ANY NEW CHANGE IN BOWEL CONTROL? NO . GENITOURINARY: ANY NEW CHANGE IN BLADDER CONTROL? NO . IS THERE A CHANCE YOU COULD BE ? NO . HEMATOLOGY/LYMPH: DO YOU TAKE ANY BLOOD THINNERS? (FOR EXAMPLE- COUMADIN, PLAVIX, AGGRENOX, PLATEL, PRADAXA, OR XARELTO) NO . WHEN WAS YOUR LAST DOSE? DATE: TIME: . NEUROLOGY: HAVE YOU FALLEN IN THE PAST 12 MONTHS? NO . ANY NEW EXTREMITY NUMBNESS OR WEAKNESS? NO . CARDIOLOGY: DO YOU HAVE A PACEMAKER OR DEFIBRILLATOR? NO . RESPIRATORY: HAVE YOU BEEN SICK IN THE PAST WEEK? NO . FEVER NO . FLU LIKE SYMPTOMS? NO . COUGH NO . INTEGUMENTARY: DO YOU HAVE ANY RASHES OR OPEN SORES? NO . ALLERGIC/IMMUNO: ARE YOU ALLERGIC TO IV DYE? NO . ANY NEW ALLERGIES? NO . PSYCHIATRIC: DO YOU HAVE THOUGHTS OF HURTING YOURSELF OR SOMEONE ELSE? NO . ARE YOU ABUSED, NEGLECTED, OR IN AN UNSAFE ENVIRONMENT? NO . ENDOCRINOLOGY: ARE YOU DIABETIC? NO . OTHER: DO YOU NEED ANY PRESCRIPTIONS? NO . IF YES, PLEASE LIST: ____ . ANY NEW PROBLEMS WITH YOUR MEDICATIONS? NO . WHEN DID YOU LAST EAT? ____10/01/19 2400 . WHEN DID YOU LAST DRINK? ____10/02/19 0815 . WHAT DID YOU LAST DRINK? ____WATER . NAME OF PERSON DRIVING YOU HOME? ____SHARON . DO YOU HAVE ANY OTHER QUESTIONS OR CONCERNS NO PT HAS NOT HAD ANY VACCINES IN THE PAST 30 DAYS . VITAL SIGNS WT 211.6 LBS, HT 69 IN, BMI 31.24 INDEX, BP 179/96 MM HG, HR 64 /MIN, RR 18 /MIN, TEMP 97.6 F, OXYGEN SAT % 99%, NA INITIALS AW 1046. ASSESSMENTS INTERVERTEBRAL DISC DISORDERS WITH RADICULOPATHY, LUMBAR REGION - M51.16 (PRIMARY) TREATMENT INTERVERTEBRAL DISC DISORDERS WITH RADICULOPATHY, LUMBAR REGION [facility] FLUORO GUIDE SPINE INJECTION (PAIN)[id number] PROCEDURES PN WORKMANS' COMP OPINION IN YOUR OPINION, WAS THE INCIDENT THAT THE PATIENT DESCRIBED THE COMPETENT MEDICAL CAUSE OF THIS INJURY/ILLNESS? YES ARE THE PATIENT'S COMPLAINTS CONSISTENT WITH HIS/HER HISTORY OF THE INJURY/ILLNESS? YES IS THE PATIENT'S HISTORY OF THE INJURY/ILLNESS CONSISTENT WITH YOUR OBJECTIVE FINDING? YES WHAT IS THE PERCENTAGE OF TEMPORARY IMPAIRMENT? MODERATE TO MARKED = 66.7% IS THE PATIENT WORKING? NO DOCTOR ON SITE: EVA DEGROOT MD PRE PROCEDURE DIAGNOSIS LUMBAR DISC DISORDER WITH RADICULOPATHY POST PROCEDURE DIAGNOSIS LUMBAR DISC DISORDER WITH RADICULOPATHY PROCEDURE LUMBAR EPIDURAL STEROID INJECTION UNDER FLUOROSCOPIC GUIDANCE SURGEON DR. EVA BROWN GENERAL MAINTENANCE TECHNICIAN NONE ANESTHESIA LOCAL PRE PROCEDURE NOTE THE PATIENT HAS A HISTORY OF CHRONIC LOW BACK PAIN. I EVALUATED THE PATIENT AND REVIEWED THE CHART. I WENT OVER THE RISKS, ALTERNATIVES, AND BENEFITS ASSOCIATED WITH THIS PROCEDURE. THE PATIENT WOULD LIKE TO PROCEED AND GIVES CONSENT TO PERFORM THE PROCEDURE. THE PATIENT DENIES UNEXPLAINABLE WEIGHT LOSS, FEVER, CHILLS, OR NEW CHANGES IN URINARY OR BOWEL CONTROL. DESCRIPTION OF PROCEDURE THE PATIENT WAS BROUGHT TO THE PROCEDURE ROOM AND PLACED IN THE PRONE POSITION. THE LUMBOSACRAL AREA WAS CLEANED WITH BETADINE SOLUTION AND DRAPED ASEPTICALLY. THE PROCEDURE WAS DONE UNDER STERILE CONDITIONS. I CHECKED LATERALITY AND THE LEVEL WHERE THE PROCEDURE WAS GOING TO BE PERFORMED WITH THE PATIENT AND THE SUPPORTING STAFF AT THE MOMENT OF THE TIME OUT IN THE PROCEDURE ROOM. UNDER FLUOROSCOPIC GUIDANCE, THE TARGET POINT WAS SELECTED AT THE INTERLAMINAR LEVEL OF L3-L4. LIDOCAINE WAS USED TO NUMB THE SKIN AND THE SUBCUTANEOUS TISSUE BELOW IT. EPIDURAL TUOHY NEEDLE, 17-GAUGE, WAS ADVANCED UNDER FLUOROSCOPIC GUIDANCE AND FOLLOWING PATIENT FEEDBACK UNTIL THE EPIDURAL SPACE WAS REACHED, 7 CM DEEP INTO THE SKIN BY THE LOSS OF RESISTANCE TECHNIQUE. ISOVUE M DYE 30%, 0.25 ML, WAS INJECTED SHOWING ADEQUATE SPREAD OF THE DYE. THEN, A SOLUTION OF 3 ML OF NORMAL SALINE WITH DEPO-MEDROL 60 MG WAS INJECTED SLOWLY FOLLOWING PATIENT FEEDBACK. THERE WAS NO EVIDENCE OF BLOOD, PARESTHESIA OR CEREBROSPINAL FLUID DURING THE PROCEDURE. THE PATIENT WAS SENT TO THE RECOVERY ROOM. THE PATIENT WAS MOVING THE EXTREMITIES AND DOING WELL. THERE WAS NO COMPLICATION DURING THE PROCEDURE. FLUOROSCOPY TIME WAS 10 SECONDS. POST PROCEDURE NOTE THE PATIENT WILL BE SEEN IN A FOLLOW UP IN THE NEXT FEW WEEKS. I AM LOOKING FOR LONG LASTING PAIN RELIEF WITH THIS PROCEDURE FOR THE PATIENT. INSTRUCTIONS WERE GIVEN, QUESTIONS WERE ANSWERED, AND THE PATIENT EXPRESSED UNDERSTANDING AND AGREES WITH THE PLAN. I, JEREMY GUTIÉRREZ, DOCUMENTED THE ABOVE INFORMATION ACTING A SCRIBE FOR DR. BROWN. I HAVE REVIEWED THE ABOVE DOCUMENT, WRITTEN BY JEREMY HEMRIC SCRIBE AND I VERIFY THAT IT IS ACCURATE. PROCEDURE CODES 45753 LUMBAR/SACRAL W/ IMAGING [id number] RADXPS IN END [id number] PXD DISPOSITION & COMMUNICATION FOLLOW UP 2 WEEKS ELECTRONICALLY SIGNED BY EVA BROWN MD, MD ON 10/21/2019 AT 04:47 PM EST DISCLAIMER : THIS IS A VISIT SUMMARY EXTRACTED FROM THE [employer] CHART. IT IS NOT A COPY OF THE [employer] PROGRESS NOTE. MTDD
== END ==
LOC: M PAIN 10:45
PROVIDERS: ATTEND Anesthesiology
DX: M51.16 Intervertebral disc disorders with radiculopathy, lumbar region (principal); K21.9 Gastro-esophageal reflux disease without esophagitis; I10 Essential (primary) hypertension; M79.7 Fibromyalgia; Z88.1 Allergy status to other antibiotic agents; Z88.2 Allergy status to sulfonamides; Z88.5 Allergy status to narcotic agent; Z88.6 Allergy status to analgesic agent; Z88.8 Allergy status to other drugs, medicaments and biological substances; Z91.040 Latex allergy status; Z91.09 Other allergy status, other than to drugs and biological substances; Z79.899 Other long term (current) drug therapy
CPT/HCPCS: 62323; J1030; Q9967

== ENCOUNTER → 2019-10-22 | Outpatient (CLI) | payer OTHER ==
[~2019-10-22] MED LIST changes: -ISOVUE-M 300 61% 15ML VIAL (Q9967) As Ordered ONE; -LIDOCAINE 1% SDV INJ 30 ML VIAL As Ordered ONE; -diazePAM 5 MG TAB As Ordered ONE; -methylPREDNISolone SUSP 40 MG/ML (DEPO-medrol) VIAL (J1030) As Ordered ONE
--- NOTE | 2019-10-24 03:46 | ECWPNPC ---
PATIENT NAME: BRANDY LINDQUIST : 1955 GENDER: MALE VISIT DATE: 10/22/2019 DISCHARGE DATE: 10/22/19 1236 VISIT LOCKED DATE TIME: PHYSICIAN: ROXY OCHOA RESOURCE: ROXY OCHOA REASON FOR APPOINTMENT 1. W/C POST LESI HISTORY OF PRESENT ILLNESS HISTORY OF PRESENT ILLNESS: PAIN THE PATIENT DESCRIBES THE PAIN... THE PATIENT DESCRIBES THE PAIN... THE PATIENT DESCRIBES THE PAIN... 63 YEAR OLD MALE PATIENT WITH A HISTORY OF CHRONIC LOW BACK PAIN. THE PATIENT DESCRIBES THE PAIN SORE, SHARP,TENDER, AND CONTINUOUS WITH A PAIN SCORE OF 6/10 DEPENDING ON PHYSICAL ACTIVITY. 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 THE PATIENT SAYS THE PAIN STARTS IN HIS LOW BACK AND RADIATES DOWN HIS LEFT LEG. THE PATIENT IS CURRENTLY USING TRAMADOL NEEDED, CYCLOBENZAPRINE, AND TYLENOL TO AID IN PAIN RELIEF. THE PATIENT SAYS THAT THE USE OF THESE MEDICATIONS HELPS HIM REMAIN MOBILE AND FUNCTIONAL. PATIENT DENIES UNEXPLAINABLE WEIGHT LOSS, FEVER, CHILLS, NEW CHANGES ON HIS URINARY OR BOWEL CONTROL. PATIENT HAD A TRANSFORAMINAL DONE IN 11/2017 AND REPORTS DECREASED PAIN AND INCREASED FUNCTIONALITY WITH PROCEDURE AND WOULD LIKE TO HAVE A REPEAT DONE TO ATTAIN THE SAME GOALS. FALL RISK SCREENING: SCREENING :NO FALLS REPORTED IN THE LAST YEAR CURRENT MEDICATIONS TAKING SUCRALFATE 1 GM TABLET 1 TABLET ON AN EMPTY STOMACH ORALLY TWICE DAILY TAKING OMEPRAZOLE 20 MG CAPSULE DELAYED RELEASE 1 CAP ORALLY TWICE DAILY TAKING LISINOPRIL 20 MG TABLET 1 TABLET ORALLY ONCE A DAY TAKING CYCLOBENZAPRINE HCL 5 MG TABLET 1 TABLET ORALLY NEEDED FOR SPASMS AND PAIN DAILY MAY REPEAT IN 5 HRS MDD2 TAKING TRAMADOL HCL 50 MG TABLET 1 TABLET ORALLY DAILY NEEDED FOR PAIN MDD1 TAKING VITAMIN D-3 1000 UNIT CAPSULE 2 CAPSULE ORALLY ONCE A DAY TAKING TYLENOL 8 HOUR ARTHRITIS PAIN 650 MG TABLET EXTENDED RELEASE 2 TABLETS NEEDED ORALLY EVERY 8 HRS NOT-TAKING MULTIVITAMIN ADULT - TABLET ORALLY ONCE DAILY NOT-TAKING KEFLEX 500 MG CAPSULE 1 CAPSULE ORALLY TO START ONE HOUR BEFORE REZUM PROCEDURE EVERY 12 HRS NOT-TAKING CIPROFLOXACIN HCL 500 MG TABLET 1 TABLET 1 HOUR PRIOR TO YOUR CYSTOSCOPY ORALLY ONCE NOT-TAKING CIPRO 500 MG TABLET 1 TABLET ORALLY TWICE A DAY NOT-TAKING MYRBETRIQ 50 MG TABLET 1 TABLET ORALLY ONCE A DAY, NOTES: HAS NOT STARTED NOT-TAKING VIAGRA 25 MG TABLET 1 TABLET NEEDED ORALLY ONCE A DAY NOT-TAKING TYLENOL 325 MG CAPSULE 2 CAPSULES NEEDED ORALLY EVERY 6 HRS, NOTES: 11/12/17 1200 NOT-TAKING PREDNISONE 20 MG TABLET 1 TABLET ORALLY TAKE 1 TAB TWICE A DAY WITH FOOD X 3 DAYS ATHEN 1/2 TAB TWICE A DAY X 3 DAYS, NOTES: FINISHED 07/09/17 NOT-TAKING DICLOFENAC SODIUM 1 % GEL DIRECTED TRANSDERMAL APPLY 4 GRAMS TO LOW BACK Q 6 HRS NOT-TAKING GABAPENTIN 100 MG CAPSULE DIRECTED ORALLY TID FOR PAIN MDD3 NOT-TAKING VALIUM 5 MG TABLET 1 TABLET ORALLY TAKE 2 TABS ON ARRIVAL TO CLINIC FOR PROCEDURE MDD=2, NOTES: 10/12/16 1002 NOT-TAKING ACETAMINOPHEN EXTRA STRENGTH 500 MG TABLET 2 TABLET NEEDED ORALLY EVERY 6 HRS NEEDED, NOTES: 10/02/19 0800 NOT-TAKING VALIUM 5 MG TABLET 1 TABLET ORALLY TAKE ON ARRIVAL TO CLINIC FOR PROCEDURE MDD=1, NOTES: DUPLICATE MEDICATION LIST REVIEWED AND RECONCILED WITH THE PATIENT PAST MEDICAL HISTORY GERD HYPERTENSION LOW BACK AFTER INJURY STRESS TEST CLEARED WITH DR OSBORNE FIBROMYLAGIA BPH ED CARPAL TUNNEL BILATERALLY ALLERGIES ASPIRIN: FACE SWELLING - ALLERGY SULFA (FOR ALLERGY USE ONLY): NAUSEA/VOMITING - ALLERGY PLASTIC TAPE: RASH - SIDE EFFECTS LYRICA: DEPRESSION, ANXIETY - SIDE EFFECTS GABAPENTIN: MENTAL STATUS - SIDE EFFECTS OXYBUTYNIN: DIARRHEA/ SEVERE STOMACH UPSET - SIDE EFFECTS DARIFENACIN HYDROBROMIDE: HEADACHE / STOMACH UPSET - SIDE EFFECTS MYRBETRIQ: SEVERE HEARTBURN / HEADACHE - SIDE EFFECTS CIPRO: HEADACHE/DIZZY - SIDE EFFECTS OXYCODONE HCL: ITCHING - SIDE EFFECTS HYDROCODONE: ITCHING - SIDE EFFECTS SURGICAL HISTORY MULTIPLE SURGURIES TO LEFT LEG FAMILY HISTORY FATHER: , DIAGNOSED WITH DIABETES, HYPERTENSION, UNSPECIFIED HEART DISEASE MOTHER: ALIVE, HYPERTENSION SIBLINGS: ALIVE, BOTH SISTERS HISTORY OF CANCER 2 SISTER(S) - HEALTHY. 1 SON(S) , 1 DAUGHTER(S) - HEALTHY. DENIES FAMILY HISTORY OF UROLOGICAL DISEASES. SOCIAL HISTORY GENERAL: TOBACCO USE ARE YOU A: NONSMOKER. DIET: REGULAR. LANGUAGE LANGUAGES SPOKEN:DANISH DOMESTIC VIOLENCE DO YOU FEEL SAFE IN YOUR ENVIRONMENT?YES RECREATIONAL DRUG USE DRUG USE?NO EXERCISE: NO REGULAR EXERCISE. LEARNING BARRIERS / SPECIAL NEEDS BARRIERS TO LEARNING?NO HEARING IMPAIRED?NO VISION IMPAIRED?YES COGNITIVELY IMPAIRED?NO :CORRECTIVE LENSES READINESS TO LEARN?YES LEARNING PREFERENCES?NO LEARNING CAPABILITIES PRESENT?YES EMOTIONAL BARRIERS?NO SPECIAL DEVICES?NO CONTENT STRATEGY LEAD NEEDED?NO PAIN CLINIC PFS, CLERGY, PUBLIC HEALTH REFERRALS PFS REFERRAL NEEDED?NO CLERGY REFERRAL NEEDED?NO PUBLIC HEALTH REFERRAL NEEDED?NO WAS THE PROVIDER NOTIFIED OF ANY PERTINENT INFO?NO HAS THE PATIENT BEEN EDUCATED REGARDING HIS/HER PLAN OF CARE?YES HAS THE PATIENT BEEN EDUCATED REGARDING PAIN, THE RISK FOR PAIN, THE IMPORTANCE OF EFFECTIVE PAIN MANAGEMENT, AND THE PAIN ASSESSMENT PROCESS?YES LATEX QUESTIONNAIRE LATEX ALLERGY : HAVE YOU EVER DEVELOPED ANY TYPE OF REACTION AFTER HANDLING LATEX PRODUCTS SUCH RUBBER GLOVES, CONDOMS, DIAPHRAGMS, BALLOONS, SOCKS, OR UNDERWEAR?NO JUST PLASTIC TAPE LATEX ALLERGY : HAVE YOU EVER DEVELOPED ANY TYPE OF REACTION DURING OR AFTER DENTAL APPOINTMENT, VAGINAL/RECTAL EXAMINATION, SURGICAL PROCEDURE, OR ANY OTHER EXPOSURE?NO LATEX RISK : HAVE YOU EVER HAD ANY DIFFICULTY BREATHING OR HIVES AFTER EATING OR HANDLING ANY FRUITS, OR VEGETABLES; SUCH KIWI, BANANAS, STONE FRUITS, OR CHESTNUTSNO LATEX RISK : DO YOU HAVE A PREVIOUS PERSONAL HISTORY OF MORE THAN NINE SURGERIES, SPINA BIFIDA, OR REPEATED CATHERIZATIONS? NO LATEX RISK : ARE YOU FREQUENTLY EXPOSED TO LATEX PRODUCTS IN YOUR OCCUPATION?NO DATE ASKED : 10/22/2019 CAFFEINE CAFFEINE USE?YES COFFEE = 2-3 PER DAY TRIES TO DRINK DECAF ADVANCE DIRECTIVE ADVANCE DIRECTIVE DISCUSSED WITH PATIENT:YES ASHVIN LINDQUIST IS HIS HCP JEWISH [id number] [place] NO [employer] BELIEFS THAT WOULD IMPACT HEALTH CARE. MARITAL STATUS: . ALCOHOL SCREENING DID YOU HAVE A DRINK CONTAINING ALCOHOL IN THE PAST YEAR?YES HOW OFTEN DID YOU HAVE SIX OR MORE DRINKS ON ONE OCCASION IN THE PAST YEAR?LESS THAN MONTHLY (1 POINT) HOW MANY DRINKS DID YOU HAVE ON A TYPICAL DAY WHEN YOU WERE DRINKING IN THE PAST YEAR?3 OR 4 (1 POINT) HOW OFTEN DID YOU HAVE A DRINK CONTAINING ALCOHOL IN THE PAST YEAR?TWO TO FOUR TIMES A MONTH (2 POINTS) POINTS4 INTERPRETATIONPOSITIVE SEXUAL HX HAD SEX IN THE LAST 12 MONTHS (VAGINAL, ORAL, OR ANAL)?YES WITHWOMEN ONLY USE PROTECTION?NO HAVE YOU EVER HAD AN STD?NO REVIEWED WITH PATIENT 09/02/19 1448 JSREVIEWED WITH PATIENT 10/02/19 1114 LAS REVIEWED WITH PATIENT 10/22/19 1216 BV. HOSPITALIZATION/MAJOR DIAGNOSTIC PROCEDURE SURGERY RELATED REVIEW OF SYSTEMS REVIEWED BY: PROVIDER: ANA PAULA MATTHEWS . CONSTITUTIONAL: ANY CHANGE IN YOUR MEDICAL CONDITION? NO . CHILLS NO . FEVER NO . INFECTION: DO YOU HAVE NEW INFECTIONS? NO . DO YOU HAVE HISTORY OF MRSA? NO . MUSCULOSKELETAL: ANY NEW PATTERNS OF PAIN OR NUMBNESS? NO . GASTROENTEROLOGY: ANY NEW CHANGE IN BOWEL CONTROL? NO . GENITOURINARY: ANY NEW CHANGE IN BLADDER CONTROL? NO . IS THERE A CHANCE YOU COULD BE ? NO . HEMATOLOGY/LYMPH: DO YOU TAKE ANY BLOOD THINNERS? (FOR EXAMPLE- COUMADIN, PLAVIX, AGGRENOX, PLATEL, PRADAXA, OR XARELTO) NO . WHEN WAS YOUR LAST DOSE? DATE: TIME: . NEUROLOGY: HAVE YOU FALLEN IN THE PAST 12 MONTHS? NO . ANY NEW EXTREMITY NUMBNESS OR WEAKNESS? NO . CARDIOLOGY: DO YOU HAVE A PACEMAKER OR DEFIBRILLATOR? NO . RESPIRATORY: HAVE YOU BEEN SICK IN THE PAST WEEK? NO . FEVER NO . FLU LIKE SYMPTOMS? NO . COUGH NO . INTEGUMENTARY: DO YOU HAVE ANY RASHES OR OPEN SORES? NO . ALLERGIC/IMMUNO: ARE YOU ALLERGIC TO IV DYE? NO . ANY NEW ALLERGIES? NO . PSYCHIATRIC: DO YOU HAVE THOUGHTS OF HURTING YOURSELF OR SOMEONE ELSE? NO . ARE YOU ABUSED, NEGLECTED, OR IN AN UNSAFE ENVIRONMENT? NO . ENDOCRINOLOGY: ARE YOU DIABETIC? NO . OTHER: DO YOU NEED ANY PRESCRIPTIONS? NO . IF YES, PLEASE LIST: ____ . ANY NEW PROBLEMS WITH YOUR MEDICATIONS? NO . WHEN DID YOU LAST EAT? ____ . WHEN DID YOU LAST DRINK? ____ . WHAT DID YOU LAST DRINK? ____ . NAME OF PERSON DRIVING YOU HOME? ____ . DO YOU HAVE ANY OTHER QUESTIONS OR CONCERNS NO . VITAL SIGNS WT 212.4 LBS, HT 69 IN, BMI 31.36 INDEX, BP 142/98 MM HG, HR 67 /MIN, RR 18 /MIN, TEMP 97.3 F, OXYGEN SAT % 100%, NA INITIALS AW 1138, REVIEWED BY: BV. EXAMINATION GENERAL EXAMINATION: GENERALNO ACUTE DISTRESS, WELL NOURISHED AND HYDRATED. PSYCHAPPROPRIATE MOOD AND AFFECT . LUNGS:CLEAR TO AUSCULTATION BILATERALLY, NO WHEEZES, RHONCHI, RALES. HEART:NO MURMURS, REGULAR RATE AND RHYTHM. BACK:POINT TENDER ALONG LUMBAR SPINE, SURROUNDING SKIN SHOWS NO ERYTHEMA, ECCHYMOSIS, INCREASED WARMTH, AND/OR SKIN ERUPTIONS NOTED. POSITIVE MODIFIED SLR RIGHT GREATER THAN LEFT . MUSCULOSKELETAL:EQUAL STRENGTH OF LOWER EXTREMITIES BILATERALLY . 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 CLINICAL NOTES: 64-YEAR-OLD MALE IN FOR POST LESI FOLLOW-UP GIVEN PRESENTING SYMPTOMS AND RESULTS OF PHYSICAL EXAMINATION RECOMMENDED TRANSFORAMINAL L5-S1 WITH IV SEDATION AND POST PROCEDURAL FOLLOW-UP. PATIENT HAS EXPRESSED UNDERSTANDING OF AND WAS IN AGREEMENT WITH TREATMENT PLAN. GIVEN TIME TO ASK QUESTIONS AND EXPRESS CONCERNS., ISTOP REGISTRY REVIEWED AND DEMONSTRATES COMPLLIANCE. (REF #[id number] ) BRINGS IN MEDICATIONS WHICH IS APPROPRIATE FOR WHAT WAS DISPENSED. RECENT URINE TOXICOLOGY REVIEWED. NO UNAUTHORIZED MEDICATIONS. NO ILLICIT SUBSTANCES AND PRESCRIBED MEDICATIONS WERE PRESENT. PROCEDURES PN WORKMANS' COMP OPINION IN YOUR OPINION, WAS THE INCIDENT THAT THE PATIENT DESCRIBED THE COMPETENT MEDICAL CAUSE OF THIS INJURY/ILLNESS? YES ARE THE PATIENT'S COMPLAINTS CONSISTENT WITH HIS/HER HISTORY OF THE INJURY/ILLNESS? YES IS THE PATIENT'S HISTORY OF THE INJURY/ILLNESS CONSISTENT WITH YOUR OBJECTIVE FINDING? YES WHAT IS THE PERCENTAGE OF TEMPORARY IMPAIRMENT? MODERATE TO MARKED = 66.7% IS THE PATIENT WORKING? NO DOCTOR ON SITE: EVA DEGROOT MD PREVENTIVE MEDICINE PAIN CLINIC TEACHING: PROCEDURE TEACHING PT GIVEN WRITTEN AND VERBAL EDUCATION ON TRANSFORAMINAL INJECTION. PT ALSO GIVEN WRITTEN AND VERBAL PRE PROCEDURE INSTRUCTIONS. PT VERBALIZES UNDERSTANDING OF ALL EDUCATION AND INSTRUCTIONS. AMOL MAURICIO 10/22/2019 12:23:33 PM > . PROCEDURE CODES FA211 ESTABILISHED PATIENT [facility] CHARGE DISPOSITION & COMMUNICATION FOLLOW UP POSTPROCEDURE (REASON: TRANSFORAMINAL L5-S1 WITH IV SEDATION) ELECTRONICALLY SIGNED BY OLLIE LOPEZ ON 10/23/2019 AT 08:49 AM EST DISCLAIMER : THIS IS A VISIT SUMMARY EXTRACTED FROM THE [employer] CHART. IT IS NOT A COPY OF THE [facility] PROGRESS NOTE. MTDD
== END ==
LOC: M PAIN 11:15
PROVIDERS: ATTEND Family Medicine
DX: M51.14 Intervertebral disc disorders with radiculopathy, thoracic region (principal); G89.29 Other chronic pain; K21.9 Gastro-esophageal reflux disease without esophagitis; I10 Essential (primary) hypertension; M79.7 Fibromyalgia; Z88.1 Allergy status to other antibiotic agents; Z88.2 Allergy status to sulfonamides; Z88.5 Allergy status to narcotic agent; Z88.6 Allergy status to analgesic agent; Z88.8 Allergy status to other drugs, medicaments and biological substances; Z91.09 Other allergy status, other than to drugs and biological substances; Z79.899 Other long term (current) drug therapy

== ENCOUNTER → 2019-11-19 | Outpatient (REF) | payer OTHER ==
[2019-11-19 14:29] LABS: APPEARANCE, URINE CLEAR (CLEAR); BACTERIA, URINE AUTO NEGATIVE (NEGATIVE); BILIRUBIN, URINE AUTO NEGATIVE (NEGATIVE); BLOOD, URINE BLOOD 1+ (NEGATIVE); COLOR, URINE YELLOW (YELLOW); GLUCOSE, URINE (UA) AUTO NEGATIVE (NEGATIVE); KETONE, URINE AUTO NEGATIVE (NEGATIVE); LEUKOCYTE ESTERASE, URINE AUTO NEGATIVE (NEGATIVE); MUCUS, URINE SMALL (NEGATIVE); NITRITE, URINE AUTO NEGATIVE (NEGATIVE); PROTEIN, URINE AUTO NEGATIVE (NEGATIVE); RBC, URINE AUTO 2 /HPF (0-3); SPECIFIC GRAVITY URINE AUTO 1.029 (1.002-1.035); SQUAMOUS EPITHELIAL CELL UR AU 0 /HPF (0-6); UROBILINOGEN, URINE AUTO 0.2 mg/dL (0.0-2.0); WBC, URINE AUTO 1 /HPF (0-3)
== END ==
LOC: M LAB REF 12:26
PROVIDERS: ATTEND Family Medicine
DX: R31.9 Hematuria, unspecified (principal)

== ENCOUNTER → 2019-12-03 | Outpatient (CLI) | payer MEDICARE, OTHER | LOC: M PLALAB 12:37 | PROVIDERS: ATTEND Nurse Practitioner Family | DX: Z12.5 Encounter for screening for malignant neoplasm of prostate (principal) | CPT/HCPCS: 36415; G0103 ==

== ENCOUNTER → 2019-12-09 | Outpatient (CLI) | payer MEDICARE, BC, OTHER ==
[~2019-12-09] MED LIST changes: +ISOVUE-370 76% 100ML VIAL (Q9967) As Ordered ONE
--- NOTE | 2019-12-09 13:18 | REP ---
Ultrasound for testicular discomfort: The right testis measures 4.7 x 2.7 x 3.5 cm. Left testis measures 4.8 x 2.6 x 3.2 cm. The testes are normal size. There are no testicular masses or cysts. There is vascular flow in both testes. The Doppler resistive index of the parenchymal arteries in the right testis is 0.57 and left testis 0.57. The right and left epididymi are unremarkable. Impression: Essentially negative scrotal ultrasound. Electronically Signed by Greyson Kam MD 12/09/2019 01:09 P
--- NOTE | 2019-12-09 13:26 | REP ---
CT of the abdomen and pelvis without and with IV contrast with multiphase imaging after IV contrast, CT urogram protocol for testicular discomfort: There are no comparisons. The visualized lung wooten are unremarkable. The hepatic parenchyma, gallbladder, pancreas and spleen are normal size and unremarkable. The adrenals are unremarkable. There are no renal solid or cystic masses. There is no hydronephrosis. There are no renal calculi. There is no perinephric stranding. The abdominal aorta is unremarkable. The bowel and mesentery are unremarkable. Pelvis: The appendix is unremarkable. The pelvic bowel loops are unremarkable. There is no ascites or adenopathy. The bladder is unremarkable. There is degenerative disc disease in the lumbar spine at multiple levels from L2-S1. Impression: Essentially negative CT study of the abdomen and pelvis except for multilevel lumbar degenerative disc disease. Electronically Signed by Greyson Kam MD 12/09/2019 01:18 P
== END ==
LOC: M RAD 10:29
PROVIDERS: ATTEND Nurse Practitioner Family
DX: N50.819 Testicular pain, unspecified (principal)
CPT/HCPCS: 74178; 76870; 93976; Q9967

== ENCOUNTER → 2019-12-19 | Outpatient (CLI) | payer OTHER, MEDICARE ==
[~2019-12-19] MED LIST changes: -ISOVUE-370 76% 100ML VIAL (Q9967) As Ordered ONE
--- NOTE | 2019-12-26 03:28 | ECWPNPC ---
PATIENT NAME: BRANDY LINDQUIST : 1955 GENDER: MALE VISIT DATE: 12/19/2019 DISCHARGE DATE: 12/19/19 1101 VISIT LOCKED DATE TIME: PHYSICIAN: EVA BROWN MD RESOURCE: EVA BROWN MD REASON FOR APPOINTMENT 1. W/C, PRE-SEDATE HISTORY OF PRESENT ILLNESS HISTORY OF PRESENT ILLNESS: PAIN THE PATIENT DESCRIBES THE PAIN... 64 YEAR OLD MALE PATIENT WITH A HISTORY OF CHRONIC LOW BACK AND LEG PAIN. THE PATIENT DESCRIBES THE PAIN ACHING, SORE, TENDER, SHARP, AND CONTINUOUS WITH A PAIN SCORE OF 5-9/10 DEPENDING ON PHYSICAL ACTIVITY. 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 THE PATIENT SAYS HIS PAIN BEGINS IN HIS LOW BACK AND RADIATES DOWN MAINLY HIS LEFT LEG. THE PATIENT SAYS HIS PAIN IS AFFECTING HIS ABILITY TO PERFORM HIS DAILY ACTIVITIES SUCH WALKING, GROCERY SHOPPING, AND CLEANING HIS HOUSE. THE PATIENT RECEIVED A LUMBAR EPIDURAL ON 10/02/2019, WHICH HE SAYS HELPED WITH HIS BACK AND LEG PAIN. PATIENT DENIES UNEXPLAINABLE WEIGHT LOSS, FEVER, CHILLS, NEW CHANGES ON HIS URINARY OR BOWEL CONTROL. FALL RISK SCREENING: SCREENING :NO FALLS REPORTED IN THE LAST YEAR CURRENT MEDICATIONS TAKING SUCRALFATE 1 GM TABLET 1 TABLET ON AN EMPTY STOMACH ORALLY TWICE DAILY TAKING OMEPRAZOLE 20 MG CAPSULE DELAYED RELEASE 1 CAP ORALLY TWICE DAILY TAKING LISINOPRIL 20 MG TABLET 1 TABLET ORALLY ONCE A DAY TAKING CYCLOBENZAPRINE HCL 5 MG TABLET 1 TABLET ORALLY NEEDED FOR SPASMS AND PAIN DAILY MAY REPEAT IN 5 HRS MDD2 TAKING TRAMADOL HCL 50 MG TABLET 1 TABLET ORALLY DAILY NEEDED FOR PAIN MDD1 TAKING VITAMIN D-3 1000 UNIT CAPSULE 2 CAPSULE ORALLY ONCE A DAY TAKING TYLENOL 8 HOUR ARTHRITIS PAIN 650 MG TABLET EXTENDED RELEASE 2 TABLETS NEEDED ORALLY EVERY 8 HRS NOT-TAKING KEFLEX 500 MG CAPSULE 1 CAPSULE 1 HOUR PRIOR TO YOUR CYSTOSCOPY ORALLY ONCE NOT-TAKING MULTIVITAMIN ADULT - TABLET ORALLY ONCE DAILY NOT-TAKING KEFLEX 500 MG CAPSULE 1 CAPSULE ORALLY TO START ONE HOUR BEFORE REZUM PROCEDURE EVERY 12 HRS NOT-TAKING CIPROFLOXACIN HCL 500 MG TABLET 1 TABLET 1 HOUR PRIOR TO YOUR CYSTOSCOPY ORALLY ONCE NOT-TAKING CIPRO 500 MG TABLET 1 TABLET ORALLY TWICE A DAY NOT-TAKING MYRBETRIQ 50 MG TABLET 1 TABLET ORALLY ONCE A DAY, NOTES: HAS NOT STARTED NOT-TAKING VIAGRA 25 MG TABLET 1 TABLET NEEDED ORALLY ONCE A DAY NOT-TAKING TYLENOL 325 MG CAPSULE 2 CAPSULES NEEDED ORALLY EVERY 6 HRS, NOTES: 11/12/17 1200 NOT-TAKING PREDNISONE 20 MG TABLET 1 TABLET ORALLY TAKE 1 TAB TWICE A DAY WITH FOOD X 3 DAYS ATHEN 1/2 TAB TWICE A DAY X 3 DAYS, NOTES: FINISHED 07/09/17 NOT-TAKING DICLOFENAC SODIUM 1 % GEL DIRECTED TRANSDERMAL APPLY 4 GRAMS TO LOW BACK Q 6 HRS NOT-TAKING GABAPENTIN 100 MG CAPSULE DIRECTED ORALLY TID FOR PAIN MDD3 NOT-TAKING VALIUM 5 MG TABLET 1 TABLET ORALLY TAKE 2 TABS ON ARRIVAL TO CLINIC FOR PROCEDURE MDD=2, NOTES: 10/12/16 1002 NOT-TAKING ACETAMINOPHEN EXTRA STRENGTH 500 MG TABLET 2 TABLET NEEDED ORALLY EVERY 6 HRS NEEDED, NOTES: 10/02/19 0800 NOT-TAKING VALIUM 5 MG TABLET 1 TABLET ORALLY TAKE ON ARRIVAL TO CLINIC FOR PROCEDURE MDD=1, NOTES: DUPLICATE MEDICATION LIST REVIEWED AND RECONCILED WITH THE PATIENT PAST MEDICAL HISTORY GERD HYPERTENSION LOW BACK AFTER INJURY STRESS TEST CLEARED WITH DR OSBORNE FIBROMYLAGIA BPH ED CARPAL TUNNEL BILATERALLY ALLERGIES ASPIRIN: FACE SWELLING - ALLERGY SULFA (FOR ALLERGY USE ONLY): NAUSEA/VOMITING - ALLERGY PLASTIC TAPE: RASH - SIDE EFFECTS LYRICA: DEPRESSION, ANXIETY - SIDE EFFECTS GABAPENTIN: MENTAL STATUS - SIDE EFFECTS OXYBUTYNIN: DIARRHEA/ SEVERE STOMACH UPSET - SIDE EFFECTS DARIFENACIN HYDROBROMIDE: HEADACHE / STOMACH UPSET - SIDE EFFECTS MYRBETRIQ: SEVERE HEARTBURN / HEADACHE - SIDE EFFECTS CIPRO: HEADACHE/DIZZY - SIDE EFFECTS OXYCODONE HCL: ITCHING - SIDE EFFECTS HYDROCODONE: ITCHING - SIDE EFFECTS SURGICAL HISTORY MULTIPLE SURGURIES TO LEFT LEG LEFT KNEE ARTHOSCOPIC 2005 FAMILY HISTORY FATHER: , DIAGNOSED WITH UNSPECIFIED HEART DISEASE, HYPERTENSION, DIABETES MOTHER: ALIVE, HYPERTENSION SIBLINGS: ALIVE, BOTH SISTERS HISTORY OF CANCER 2 SISTER(S) - HEALTHY. 1 SON(S) , 1 DAUGHTER(S) - HEALTHY. DENIES FAMILY HISTORY OF UROLOGICAL DISEASES. SOCIAL HISTORY GENERAL: TOBACCO USE ARE YOU A: NONSMOKER. DIET: REGULAR. LANGUAGE LANGUAGES SPOKEN:KITTITIAN DOMESTIC VIOLENCE DO YOU FEEL SAFE IN YOUR ENVIRONMENT?YES RECREATIONAL DRUG USE DRUG USE?NO EXERCISE: NO REGULAR EXERCISE. LEARNING BARRIERS / SPECIAL NEEDS BARRIERS TO LEARNING?NO HEARING IMPAIRED?NO VISION IMPAIRED?YES COGNITIVELY IMPAIRED?NO :CORRECTIVE LENSES READINESS TO LEARN?YES LEARNING PREFERENCES?NO LEARNING CAPABILITIES PRESENT?YES EMOTIONAL BARRIERS?NO SPECIAL DEVICES?NO SENIOR LEAD JAVA DEVELOPER NEEDED?NO PAIN CLINIC PFS, CLERGY, PUBLIC HEALTH REFERRALS PFS REFERRAL NEEDED?NO CLERGY REFERRAL NEEDED?NO PUBLIC HEALTH REFERRAL NEEDED?NO WAS THE PROVIDER NOTIFIED OF ANY PERTINENT INFO?NO HAS THE PATIENT BEEN EDUCATED REGARDING HIS/HER PLAN OF CARE?YES HAS THE PATIENT BEEN EDUCATED REGARDING PAIN, THE RISK FOR PAIN, THE IMPORTANCE OF EFFECTIVE PAIN MANAGEMENT, AND THE PAIN ASSESSMENT PROCESS?YES LATEX QUESTIONNAIRE LATEX ALLERGY : HAVE YOU EVER DEVELOPED ANY TYPE OF REACTION AFTER HANDLING LATEX PRODUCTS SUCH RUBBER GLOVES, CONDOMS, DIAPHRAGMS, BALLOONS, SOCKS, OR UNDERWEAR?NO JUST PLASTIC TAPE LATEX ALLERGY : HAVE YOU EVER DEVELOPED ANY TYPE OF REACTION DURING OR AFTER DENTAL APPOINTMENT, VAGINAL/RECTAL EXAMINATION, SURGICAL PROCEDURE, OR ANY OTHER EXPOSURE?NO DATE ASKED : 12/01/2019 LATEX RISK : HAVE YOU EVER HAD ANY DIFFICULTY BREATHING OR HIVES AFTER EATING OR HANDLING ANY FRUITS, OR VEGETABLES; SUCH KIWI, BANANAS, STONE FRUITS, OR CHESTNUTSNO LATEX RISK : DO YOU HAVE A PREVIOUS PERSONAL HISTORY OF MORE THAN NINE SURGERIES, SPINA BIFIDA, OR REPEATED CATHERIZATIONS? NO LATEX RISK : ARE YOU FREQUENTLY EXPOSED TO LATEX PRODUCTS IN YOUR OCCUPATION?NO CAFFEINE CAFFEINE USE?YES COFFEE = 2-3 PER DAY TRIES TO DRINK DECAF ADVANCE DIRECTIVE ADVANCE DIRECTIVE DISCUSSED WITH PATIENT:YES ASHVIN LINDQUIST IS HIS HCP WORSHIP [id number] RESTORATIONISM NO ZOROASTRIANISM BELIEFS THAT WOULD IMPACT HEALTH CARE. MARITAL STATUS: . ALCOHOL SCREENING DID YOU HAVE A DRINK CONTAINING ALCOHOL IN THE PAST YEAR?YES HOW OFTEN DID YOU HAVE SIX OR MORE DRINKS ON ONE OCCASION IN THE PAST YEAR?LESS THAN MONTHLY (1 POINT) HOW MANY DRINKS DID YOU HAVE ON A TYPICAL DAY WHEN YOU WERE DRINKING IN THE PAST YEAR?3 OR 4 (1 POINT) HOW OFTEN DID YOU HAVE A DRINK CONTAINING ALCOHOL IN THE PAST YEAR?TWO TO FOUR TIMES A MONTH (2 POINTS) POINTS4 INTERPRETATIONPOSITIVE SEXUAL HX HAD SEX IN THE LAST 12 MONTHS (VAGINAL, ORAL, OR ANAL)?YES WITHWOMEN ONLY USE PROTECTION?NO HAVE YOU EVER HAD AN STD?NO REVIEWED WITH PATIENT 09/02/19 1448 JSREVIEWED WITH PATIENT 10/02/19 1114 LAS REVIEWED WITH PATIENT 10/22/19 1216 BV. HOSPITALIZATION/MAJOR DIAGNOSTIC PROCEDURE SURGERY RELATED REVIEW OF SYSTEMS REVIEWED BY: PROVIDER: EVA BROWN MD . CONSTITUTIONAL: ANY CHANGE IN YOUR MEDICAL CONDITION? NO . CHILLS NO . FEVER NO . INFECTION: DO YOU HAVE NEW INFECTIONS? NO . DO YOU HAVE HISTORY OF MRSA? NO . MUSCULOSKELETAL: ANY NEW PATTERNS OF PAIN OR NUMBNESS? NO . GASTROENTEROLOGY: ANY NEW CHANGE IN BOWEL CONTROL? NO . GENITOURINARY: ANY NEW CHANGE IN BLADDER CONTROL? NO . IS THERE A CHANCE YOU COULD BE ? NO . HEMATOLOGY/LYMPH: DO YOU TAKE ANY BLOOD THINNERS? (FOR EXAMPLE- COUMADIN, PLAVIX, AGGRENOX, PLATEL, PRADAXA, OR XARELTO) NO . WHEN WAS YOUR LAST DOSE? DATE: TIME: . NEUROLOGY: HAVE YOU FALLEN IN THE PAST 12 MONTHS? NO . ANY NEW EXTREMITY NUMBNESS OR WEAKNESS? NO . CARDIOLOGY: DO YOU HAVE A PACEMAKER OR DEFIBRILLATOR? NO . RESPIRATORY: HAVE YOU BEEN SICK IN THE PAST WEEK? NO . FEVER NO . FLU LIKE SYMPTOMS? NO . COUGH NO . INTEGUMENTARY: DO YOU HAVE ANY RASHES OR OPEN SORES? NO . ALLERGIC/IMMUNO: ARE YOU ALLERGIC TO IV DYE? NO . ANY NEW ALLERGIES? NO . PSYCHIATRIC: DO YOU HAVE THOUGHTS OF HURTING YOURSELF OR SOMEONE ELSE? NO . ARE YOU ABUSED, NEGLECTED, OR IN AN UNSAFE ENVIRONMENT? NO . ENDOCRINOLOGY: ARE YOU DIABETIC? NO . OTHER: DO YOU NEED ANY PRESCRIPTIONS? NO . IF YES, PLEASE LIST: ____ . ANY NEW PROBLEMS WITH YOUR MEDICATIONS? NO . WHEN DID YOU LAST EAT? ____ . WHEN DID YOU LAST DRINK? ____ . WHAT DID YOU LAST DRINK? ____ . NAME OF PERSON DRIVING YOU HOME? ____ . DO YOU HAVE ANY OTHER QUESTIONS OR CONCERNS NO . VITAL SIGNS WT 275.0 LBS, HT 69 IN, BMI 40.61 INDEX, BP 150/101 MM HG, HR 87 /MIN, RR 18 /MIN, TEMP 96.0 F, OXYGEN SAT % 97%, SAFE IN ENV? (Y/N) YES, NA INITIALS AW 1003, REVIEWED BY: KG. EXAMINATION GENERAL EXAMINATION: PATIENT IS ALERT O X 3 AND COOPERATIVE. LUNGS CLEAR, TO AUSCULTATION. HEART: NO MURMURS OR GALLOPS; FACIAL CRANIAL NERVES ARE GROSSLY NORMAL. GOOD SYMMETRY OF FACIAL MUSCLE MOVEMENT. NORMAL VISUAL GUSMAN. ANTALGIC GAIT. PATIENT IS LIMPING FROM HIS LEFT LEG, WHICH IS WEAKER AT EXTENSION AND FLEXION. STRAIGHT LEG RAISE OF THE LEFT LEG IS POSITIVE AT 45 DEGREES FOR RADICULOPATHY. MRI OF THE LUMBAR SPINE DONE ON 05/31/2017 SHOWS BULGING DISC AND CENTRAL CANAL STENOSIS AT MULTIPLE LEVELS AND COMPRESSION OF L4 NERVE IN THE NEURAL FORAMINA. ASSESSMENTS INTERVERTEBRAL DISC DISORDERS WITH RADICULOPATHY, LUMBAR REGION - M51.16 (PRIMARY) TREATMENT INTERVERTEBRAL DISC DISORDERS WITH RADICULOPATHY, LUMBAR REGION CLINICAL NOTES: WE DISCUSSED SEVERAL ISSUES WITH MR. LINDQUIST'S PAIN MANAGEMENT CASE. DUE TO THE LUMBAR RADICULOPATHY, I WOULD LIKE TO MOVE FORWARD WITH A TRANSFORAMINAL L5-S1 LUMBAR EPIDURAL STEROID INJECTION AT THIS TIME. THE PATIENT WOULD LIKE TO MOVE FORWARD WITH IV SEDATION DUE TO DISCOMFORT, PAIN, AND ANXIETY ASSOCIATED WITH THE PROCEDURE. WE DISCUSSED THE BENEFITS, RISKS, AND ALTERNATIVES OF THE INJECTION AND THE PATIENT WOULD LIKE TO PROCEED. I AM LOOKING FOR LONG LASTING PAIN RELIEF FROM THIS INJECTION FOR THE PATIENT. THE PATIENT WILL FOLLOW UP IN SEVERAL WEEKS AFTER HIS INJECTION TO SEE HOW IT IS HELPING WITH HIS PAIN. DEPENDING ON THE EPIDURAL RESULTS, I MAY CONSIDER REQUESTING FOR AN UPDATED LUMBAR EPIDURAL IN THE FUTURE. INSTRUCTIONS WERE GIVEN, QUESTIONS WERE ANSWERED, PATIENT REPORTS UNDERSTANDING AND AGREES WITH THE PLAN. I, JEREMY GUTIÉRREZ, DOCUMENTED THE ABOVE INFORMATION ACTING A SCRIBE FOR DR. BROWN. I HAVE REVIEWED THE ABOVE DOCUMENT, WRITTEN BY JEREMY GUTIÉRREZ SCRIBTino AND I VERIFY THAT IT IS ACCURATE. . PROCEDURES PN WORKMANS' COMP OPINION IN YOUR OPINION, WAS THE INCIDENT THAT THE PATIENT DESCRIBED THE COMPETENT MEDICAL CAUSE OF THIS INJURY/ILLNESS? YES ARE THE PATIENT'S COMPLAINTS CONSISTENT WITH HIS/HER HISTORY OF THE INJURY/ILLNESS? YES IS THE PATIENT'S HISTORY OF THE INJURY/ILLNESS CONSISTENT WITH YOUR OBJECTIVE FINDING? YES WHAT IS THE PERCENTAGE OF TEMPORARY IMPAIRMENT? MODERATE TO MARKED = 66.7% IS THE PATIENT WORKING? NO DOCTOR ON SITE: EVA DEGROOT MD PROCEDURE CODES G8427 CURRENT MEDS W/DOSAGES DOCUMENTED [id number] PAIN ASSESS POS TOOL F/U PLAN DOC FA211 ESTABILISHED PATIENT [facility] CHARGE DISPOSITION & COMMUNICATION FOLLOW UP 3 WEEKS (REASON: LESI W/ IV SEDATE) ELECTRONICALLY SIGNED BY EVA BROWN MD, MD ON 12/25/2019 AT 01:55 PM EST DISCLAIMER : THIS IS A VISIT SUMMARY EXTRACTED FROM THE [employer] CHART. IT IS NOT A COPY OF THE [employer] PROGRESS NOTE. MTDD
== END ==
LOC: M PAIN 10:00
PROVIDERS: ATTEND Anesthesiology
DX: M51.16 Intervertebral disc disorders with radiculopathy, lumbar region (principal); G89.29 Other chronic pain; K21.9 Gastro-esophageal reflux disease without esophagitis; I10 Essential (primary) hypertension; M79.7 Fibromyalgia; Z88.1 Allergy status to other antibiotic agents; Z88.2 Allergy status to sulfonamides; Z88.5 Allergy status to narcotic agent; Z88.6 Allergy status to analgesic agent; Z88.8 Allergy status to other drugs, medicaments and biological substances; Z91.09 Other allergy status, other than to drugs and biological substances; E66.01 Morbid (severe) obesity due to excess calories; Z68.41 Body mass index [BMI] 40.0-44.9, adult; Z79.899 Other long term (current) drug therapy

== ENCOUNTER → 2019-12-25 | Outpatient (CLI) | payer OTHER, MEDICARE ==
[~2019-12-25] MED LIST changes: +BUPIVACAINE HCL 0.25% 30 ML VIAL As Ordered ONE; +ISOVUE-M 300 61% 15ML VIAL (Q9967) As Ordered ONE; +LIDOCAINE 1% SDV INJ 30 ML VIAL As Ordered ONE; +MIDAZOLAM INJ 2 MG/2 ML VIAL (J2250) As Ordered ONE; +dexameTHASONE 10 MG/1 ML VIAL PRES.FREE (J1100) As Ordered ONE; +fentaNYL 100 MCG/2 ML INJECTION (J3010) As Ordered ONE
--- NOTE | 2019-12-25 13:08 | REP ---
Partial lumbar spine series: 65 views . History: Injection procedure for pain. 1 minute 55 seconds of fluoroscopy time is reported. Findings: A sequence of 65 fluoroscopically obtained last image hold procedural spot radiographs of the lumbar spine document needle position and contrast injection associated with injection procedure. Electronically Signed by Ramesh Anguiano MD 12/25/2019 01:00 P
--- NOTE | 2020-01-13 06:01 | ECWPNPC ---
PATIENT NAME: BRANDY LINDQUIST : 1955 GENDER: MALE VISIT DATE: 12/25/2019 DISCHARGE DATE: 12/25/19 1314 VISIT LOCKED DATE TIME: PHYSICIAN: EVA BROWN MD RESOURCE: EVA BROWN MD REASON FOR APPOINTMENT 1. W/C, TRANSFORAMINAL HISTORY OF PRESENT ILLNESS HISTORY OF PRESENT ILLNESS: PAIN THE PATIENT DESCRIBES THE PAIN... FALL RISK SCREENING: SCREENING :NO FALLS REPORTED IN THE LAST YEAR CURRENT MEDICATIONS TAKING SUCRALFATE 1 GM TABLET 1 TABLET ON AN EMPTY STOMACH ORALLY TWICE DAILY, NOTES: 12-24-192099 TAKING OMEPRAZOLE 20 MG CAPSULE DELAYED RELEASE 1 CAP ORALLY TWICE DAILY, NOTES: 12-24-19 1800 TAKING LISINOPRIL 20 MG TABLET 1 TABLET ORALLY ONCE A DAY, NOTES: 12-24-192199 TAKING CYCLOBENZAPRINE HCL 5 MG TABLET 1 TABLET ORALLY NEEDED FOR SPASMS AND PAIN DAILY MAY REPEAT IN 5 HRS MDD2, NOTES: NOT LATELY TAKING TRAMADOL HCL 50 MG TABLET 1 TABLET ORALLY DAILY NEEDED FOR PAIN MDD1, NOTES: BEEN A WHILE TAKING VITAMIN D-3 1000 UNIT CAPSULE 2 CAPSULE ORALLY ONCE A DAY, NOTES: 12-24-19 0800 TAKING TYLENOL 8 HOUR ARTHRITIS PAIN 650 MG TABLET EXTENDED RELEASE 2 TABLETS NEEDED ORALLY EVERY 8 HRS, NOTES: 12-25-19 0700 NOT-TAKING KEFLEX 500 MG CAPSULE 1 CAPSULE 1 HOUR PRIOR TO YOUR CYSTOSCOPY ORALLY ONCE NOT-TAKING MULTIVITAMIN ADULT - TABLET ORALLY ONCE DAILY NOT-TAKING KEFLEX 500 MG CAPSULE 1 CAPSULE ORALLY TO START ONE HOUR BEFORE REZUM PROCEDURE EVERY 12 HRS NOT-TAKING CIPROFLOXACIN HCL 500 MG TABLET 1 TABLET 1 HOUR PRIOR TO YOUR CYSTOSCOPY ORALLY ONCE NOT-TAKING CIPRO 500 MG TABLET 1 TABLET ORALLY TWICE A DAY NOT-TAKING MYRBETRIQ 50 MG TABLET 1 TABLET ORALLY ONCE A DAY, NOTES: HAS NOT STARTED NOT-TAKING VIAGRA 25 MG TABLET 1 TABLET NEEDED ORALLY ONCE A DAY NOT-TAKING TYLENOL 325 MG CAPSULE 2 CAPSULES NEEDED ORALLY EVERY 6 HRS, NOTES: 11/12/17 1200 NOT-TAKING PREDNISONE 20 MG TABLET 1 TABLET ORALLY TAKE 1 TAB TWICE A DAY WITH FOOD X 3 DAYS ATHEN 1/2 TAB TWICE A DAY X 3 DAYS, NOTES: FINISHED 07/09/17 NOT-TAKING DICLOFENAC SODIUM 1 % GEL DIRECTED TRANSDERMAL APPLY 4 GRAMS TO LOW BACK Q 6 HRS NOT-TAKING GABAPENTIN 100 MG CAPSULE DIRECTED ORALLY TID FOR PAIN MDD3 NOT-TAKING VALIUM 5 MG TABLET 1 TABLET ORALLY TAKE 2 TABS ON ARRIVAL TO CLINIC FOR PROCEDURE MDD=2, NOTES: 10/12/16 1002 NOT-TAKING ACETAMINOPHEN EXTRA STRENGTH 500 MG TABLET 2 TABLET NEEDED ORALLY EVERY 6 HRS NEEDED, NOTES: 10/02/19 0800 UNKNOWN VALIUM 5 MG TABLET 1 TABLET ORALLY TAKE ON ARRIVAL TO CLINIC FOR PROCEDURE MDD=1, NOTES: DUPLICATE MEDICATION LIST REVIEWED AND RECONCILED WITH THE PATIENT PAST MEDICAL HISTORY GERD HYPERTENSION LOW BACK AFTER INJURY STRESS TEST CLEARED WITH DR OSBORNE FIBROMYLAGIA BPH ED CARPAL TUNNEL BILATERALLY ALLERGIES ASPIRIN: FACE SWELLING - ALLERGY SULFA (FOR ALLERGY USE ONLY): NAUSEA/VOMITING - ALLERGY PLASTIC TAPE: RASH - SIDE EFFECTS LYRICA: DEPRESSION, ANXIETY - SIDE EFFECTS GABAPENTIN: MENTAL STATUS - SIDE EFFECTS OXYBUTYNIN: DIARRHEA/ SEVERE STOMACH UPSET - SIDE EFFECTS DARIFENACIN HYDROBROMIDE: HEADACHE / STOMACH UPSET - SIDE EFFECTS MYRBETRIQ: SEVERE HEARTBURN / HEADACHE - SIDE EFFECTS CIPRO: HEADACHE/DIZZY - SIDE EFFECTS OXYCODONE HCL: ITCHING - SIDE EFFECTS HYDROCODONE: ITCHING - SIDE EFFECTS SURGICAL HISTORY MULTIPLE SURGURIES TO LEFT LEG LEFT KNEE ARTHOSCOPIC 2006 FAMILY HISTORY FATHER: , DIAGNOSED WITH HYPERTENSION, UNSPECIFIED HEART DISEASE, DIABETES MOTHER: ALIVE, HYPERTENSION SIBLINGS: ALIVE, BOTH SISTERS HISTORY OF CANCER 2 SISTER(S) - HEALTHY. 1 SON(S) , 1 DAUGHTER(S) - HEALTHY. DENIES FAMILY HISTORY OF UROLOGICAL DISEASES. SOCIAL HISTORY GENERAL: TOBACCO USE ARE YOU A: NONSMOKER. DIET: REGULAR. LANGUAGE LANGUAGES SPOKEN:IRISH DOMESTIC VIOLENCE DO YOU FEEL SAFE IN YOUR ENVIRONMENT?YES RECREATIONAL DRUG USE DRUG USE?NO EXERCISE: NO REGULAR EXERCISE. LEARNING BARRIERS / SPECIAL NEEDS BARRIERS TO LEARNING?NO HEARING IMPAIRED?NO VISION IMPAIRED?YES COGNITIVELY IMPAIRED?NO :CORRECTIVE LENSES READINESS TO LEARN?YES LEARNING PREFERENCES?NO LEARNING CAPABILITIES PRESENT?YES EMOTIONAL BARRIERS?NO SPECIAL DEVICES?NO DETONATOR MAKER NEEDED?NO PAIN CLINIC PFS, CLERGY, PUBLIC HEALTH REFERRALS PFS REFERRAL NEEDED?NO CLERGY REFERRAL NEEDED?NO PUBLIC HEALTH REFERRAL NEEDED?NO WAS THE PROVIDER NOTIFIED OF ANY PERTINENT INFO?NO HAS THE PATIENT BEEN EDUCATED REGARDING HIS/HER PLAN OF CARE?YES HAS THE PATIENT BEEN EDUCATED REGARDING PAIN, THE RISK FOR PAIN, THE IMPORTANCE OF EFFECTIVE PAIN MANAGEMENT, AND THE PAIN ASSESSMENT PROCESS?YES LATEX QUESTIONNAIRE LATEX ALLERGY : HAVE YOU EVER DEVELOPED ANY TYPE OF REACTION AFTER HANDLING LATEX PRODUCTS SUCH RUBBER GLOVES, CONDOMS, DIAPHRAGMS, BALLOONS, SOCKS, OR UNDERWEAR?NO JUST PLASTIC TAPE LATEX ALLERGY : HAVE YOU EVER DEVELOPED ANY TYPE OF REACTION DURING OR AFTER DENTAL APPOINTMENT, VAGINAL/RECTAL EXAMINATION, SURGICAL PROCEDURE, OR ANY OTHER EXPOSURE?NO DATE ASKED : 12/01/2019 LATEX RISK : HAVE YOU EVER HAD ANY DIFFICULTY BREATHING OR HIVES AFTER EATING OR HANDLING ANY FRUITS, OR VEGETABLES; SUCH KIWI, BANANAS, STONE FRUITS, OR CHESTNUTSNO LATEX RISK : DO YOU HAVE A PREVIOUS PERSONAL HISTORY OF MORE THAN NINE SURGERIES, SPINA BIFIDA, OR REPEATED CATHERIZATIONS? NO LATEX RISK : ARE YOU FREQUENTLY EXPOSED TO LATEX PRODUCTS IN YOUR OCCUPATION?NO CAFFEINE CAFFEINE USE?YES COFFEE = 2-3 PER DAY TRIES TO DRINK DECAF ADVANCE DIRECTIVE ADVANCE DIRECTIVE DISCUSSED WITH PATIENT:YES ASHVIN LINDQUIST IS HIS HCP JEWISH [id number] EVANGELICAL NO SPIRITISM BELIEFS THAT WOULD IMPACT HEALTH CARE. MARITAL STATUS: . ALCOHOL SCREENING DID YOU HAVE A DRINK CONTAINING ALCOHOL IN THE PAST YEAR?YES HOW OFTEN DID YOU HAVE SIX OR MORE DRINKS ON ONE OCCASION IN THE PAST YEAR?LESS THAN MONTHLY (1 POINT) HOW MANY DRINKS DID YOU HAVE ON A TYPICAL DAY WHEN YOU WERE DRINKING IN THE PAST YEAR?3 OR 4 (1 POINT) HOW OFTEN DID YOU HAVE A DRINK CONTAINING ALCOHOL IN THE PAST YEAR?TWO TO FOUR TIMES A MONTH (2 POINTS) POINTS4 INTERPRETATIONPOSITIVE SEXUAL HX HAD SEX IN THE LAST 12 MONTHS (VAGINAL, ORAL, OR ANAL)?YES WITHWOMEN ONLY USE PROTECTION?NO HAVE YOU EVER HAD AN STD?NO REVIEWED WITH PATIENT 09/02/19 1448 JSREVIEWED WITH PATIENT 10/02/19 1114 LAS REVIEWED WITH PATIENT 10/22/19 1216 BV. HOSPITALIZATION/MAJOR DIAGNOSTIC PROCEDURE SURGERY RELATED REVIEW OF SYSTEMS REVIEWED BY: PROVIDER: . CONSTITUTIONAL: ANY CHANGE IN YOUR MEDICAL CONDITION? NO . CHILLS NO . FEVER NO . INFECTION: DO YOU HAVE NEW INFECTIONS? NO . DO YOU HAVE HISTORY OF MRSA? NO . MUSCULOSKELETAL: ANY NEW PATTERNS OF PAIN OR NUMBNESS? NO . GASTROENTEROLOGY: ANY NEW CHANGE IN BOWEL CONTROL? NO . GENITOURINARY: ANY NEW CHANGE IN BLADDER CONTROL? NO . IS THERE A CHANCE YOU COULD BE ? NO . HEMATOLOGY/LYMPH: DO YOU TAKE ANY BLOOD THINNERS? (FOR EXAMPLE- COUMADIN, PLAVIX, AGGRENOX, PLATEL, PRADAXA, OR XARELTO) NO . WHEN WAS YOUR LAST DOSE? DATE: TIME: . NEUROLOGY: HAVE YOU FALLEN IN THE PAST 12 MONTHS? NO . ANY NEW EXTREMITY NUMBNESS OR WEAKNESS? NO . CARDIOLOGY: DO YOU HAVE A PACEMAKER OR DEFIBRILLATOR? NO . RESPIRATORY: HAVE YOU BEEN SICK IN THE PAST WEEK? NO . FEVER NO . FLU LIKE SYMPTOMS? NO . COUGH NO . INTEGUMENTARY: DO YOU HAVE ANY RASHES OR OPEN SORES? NO . ALLERGIC/IMMUNO: ARE YOU ALLERGIC TO IV DYE? NO . ANY NEW ALLERGIES? NO . PSYCHIATRIC: DO YOU HAVE THOUGHTS OF HURTING YOURSELF OR SOMEONE ELSE? NO . ARE YOU ABUSED, NEGLECTED, OR IN AN UNSAFE ENVIRONMENT? NO . ENDOCRINOLOGY: ARE YOU DIABETIC? NO . OTHER: DO YOU NEED ANY PRESCRIPTIONS? NO . IF YES, PLEASE LIST: ____ . ANY NEW PROBLEMS WITH YOUR MEDICATIONS? NO . WHEN DID YOU LAST EAT? ____T NIGHT 6 PM . WHEN DID YOU LAST DRINK? ____0800 TODAY . WHAT DID YOU LAST DRINK? ____WATER . NAME OF PERSON DRIVING YOU HOME? ____SHARON . DO YOU HAVE ANY OTHER QUESTIONS OR CONCERNS NO . VITAL SIGNS WT 212 LBS, HT 69 IN, BMI 31.30 INDEX, BP 159/97 MM HG, HR 72 /MIN, RR 18 /MIN, TEMP 97.4 F, OXYGEN SAT % 94%, NA INITIALS AW 1102. ASSESSMENTS INTERVERTEBRAL DISC DISORDER WITH RADICULOPATHY OF LUMBAR REGION - M51.16 (PRIMARY) TREATMENT INTERVERTEBRAL DISC DISORDER WITH RADICULOPATHY OF LUMBAR REGION [facility] FLUORO GUIDE SPINE INJECTION (PAIN)[id number] PROCEDURES PN LUMBAR TRANSFORAMINAL BLOCKS PRE PROCEDURE DIAGNOSIS LUMBAR SPINAL STENOSIS, LUMBAR DISC DISORDER WITH RADICULOPATHY POST PROCEDURE DIAGNOSIS LUMBAR DISC DISORDER WITH RADICULOPATHY, LUMBAR SPINAL STENOSIS PROCEDURE LEFT L4 AND LEFT L5 TRANSFORAMINAL EPIDURAL STEROID INJECTION UNDER FLUOROSCOPIC GUIDANCE SURGEON DR [facility] T[facility] SERVICE WORKER NONE ANESTHESIA LOCAL PRE PROCEDURE NOTE PATIENT WITH HISTORY OF CHRONIC LOW BACK PAIN. I EVALUATE THE PATIENT AND REVIEWED THE CHART. I WENT OVER THE RISKS, ALTERNATIVES, AND BENEFITS ASSOCIATED WITH THIS PROCEDURE. THE PATIENT WOULD LIKE TO PROCEED AND GIVE CONSENT TO PERFORMED THE PROCEDURE. THE PATIENT WOULD LIKE TO MOVE FORWARD WITH IV SEDATION DUE TO DISCOMFORT, PAIN, AND ANXIETY ASSOCIATED WITH THE PROCEDURE. THE PATIENT DENIES UNEXPLAINABLE WEIGHT LOSS, FEVER, CHILLS, OR CHANGES IN URINARY OR BOWEL CONTROL DESCRIPTION OF PROCEDURE THE PATIENT WAS BROUGHT TO THE PROCEDURE ROOM AND PLACED IN THE PRONE POSITION. THE LUMBOSACRAL AREA WAS CLEANED WITH BETADINE SOLUTION AND DRAPED ASEPTICALLY. THE PROCEDURE WAS DONE UNDER STERILE CONDITIONS. I CHECKED LATERALITY AND THE LEVEL WHERE THE PROCEDURE WAS GOING TO BE PERFORMED WITH THE PATIENT AND THE SUPPORTING STAFF AT THE MOMENT OF THE TIME OUT IN THE PROCEDURE ROOM. UNDER FLUOROSCOPIC GUIDANCE, TARGETS WERE SELECTED AT THE LEFT TRANSFORAMINAL OPENING OF L4 AND L5. TARGET POINT WAS SELECTED AFTER LATERAL ROTATION AND TILT OF THE MAGNIFIER OF THE C-ARM. LIDOCAINE 0.5% WAS USED TO NUMB THE SKIN AND THE SUBCUTANEOUS TISSUE BELOW IT. AN EPIMED INTRODUCER 18-GAUGE WAS ADVANCED UNTIL WE WENT CLOSE TO THE SELECTED TRANSFORAMINAL OPENINGS. AFTER PROPER POSITION OF THE NEEDLES WAS ACHIEVED, A 22-GAUGE EPIMED NEEDLE WAS PLACED INSIDE OF THE INTRODUCER AND ADVANCED TO THE TRANSFORAMINAL OPENING OF THE SELECTED SITES. WHEN PROPER POSITION OF THE NEEDLE WAS ACHIEVED, ISOVUE M DYE 30%, 0.25 ML, WAS INJECTED SHOWING ADEQUATE SPREAD OF THE DYE. THIS WAS DONE UNDER DIGITAL SUBTRACTION AND ANGIOGRAPHY. THERE WAS NO VASCULAR UPDATE. THEN, A SOLUTION OF 2 ML OF BUPIVACAINE 0.25% AND DEXAMETHASONE 10 MG WAS INJECTED AT EACH SITE. THERE WAS NO EVIDENCE OF BLOOD, PARESTHESIA OR CEREBROSPINAL FLUID DURING THE PROCEDURE. THE PATIENT WAS SENT TO THE RECOVERY ROOM. THE PATIENT WAS MOVING THE EXTREMITIES AND DOING WELL. THERE WAS NO COMPLICATION DURING THE PROCEDURE. PATIENT RECEIVED VERSED 2 MG AND FENTANYL 100 MCG IV DIVIDED DOSES. FACE TO FACE TIME WAS 28 MINUTES. FLUOROSCOPY TIME WAS 1 MINUTE 55 SECONDS POST PROCEDURE NOTE THE PROCEDURE DONE WAS DISCUSSED WITH THE PATIENT. THE PATIENT WILL BE SEEN IN A FOLLOW UP IN THE NEXT FEW WEEKS. INSTRUCTIONS WERE GIVEN, QUESTIONS WERE ANSWERED, AND THE PATIENT EXPRESSED UNDERSTANDING AND AGREES WITH THE PLAN. I, JEREMY GUTIÉRREZ, DOCUMENTED THE ABOVE INFORMATION ACTING A SCRIBE FOR DR. BROWN. I HAVE REVIEWED THE ABOVE DOCUMENT, WRITTEN BY JEREMY GUTIÉRREZ SCRIBTino AND I VERIFY THAT IT IS ACCURATE. PN WORKMANS' COMP OPINION IN YOUR OPINION, WAS THE INCIDENT THAT THE PATIENT DESCRIBED THE COMPETENT MEDICAL CAUSE OF THIS INJURY/ILLNESS? YES ARE THE PATIENT'S COMPLAINTS CONSISTENT WITH HIS/HER HISTORY OF THE INJURY/ILLNESS? YES IS THE PATIENT'S HISTORY OF THE INJURY/ILLNESS CONSISTENT WITH YOUR OBJECTIVE FINDING? YES WHAT IS THE PERCENTAGE OF TEMPORARY IMPAIRMENT? MODERATE TO MARKED = 66.7% IS THE PATIENT WORKING? NO DOCTOR ON SITE: EVA DEGROOT MD , EVA DEGROOT MD PROCEDURE CODES 35673 INJ FORAMEN EPIDURAL L/S, [place]: [place] [address] INJ FORAMEN EPIDURAL ADD-ON, MODIFIERS: LT 6045F RADXPS IN END [id number] PXD DISPOSITION & COMMUNICATION FOLLOW UP 3 WEEKS ELECTRONICALLY SIGNED BY EVA BROWN MD, MD ON 01/12/2020 AT 09:57 AM EST DISCLAIMER : THIS IS A VISIT SUMMARY EXTRACTED FROM THE [employer] CHART. IT IS NOT A COPY OF THE [employer] PROGRESS NOTE. [facility]
== END ==
LOC: M PAIN 11:00
PROVIDERS: ATTEND Anesthesiology
DX: M51.16 Intervertebral disc disorders with radiculopathy, lumbar region (principal)
CPT/HCPCS: 64483; 64484; J1100; J2250; J3010; Q9967

== ENCOUNTER → 2020-01-12 | Outpatient (CLI) | payer OTHER, MEDICARE ==
[~2020-01-12] MED LIST changes: -BUPIVACAINE HCL 0.25% 30 ML VIAL As Ordered ONE; -ISOVUE-M 300 61% 15ML VIAL (Q9967) As Ordered ONE; -LIDOCAINE 1% SDV INJ 30 ML VIAL As Ordered ONE; -MIDAZOLAM INJ 2 MG/2 ML VIAL (J2250) As Ordered ONE; -dexameTHASONE 10 MG/1 ML VIAL PRES.FREE (J1100) As Ordered ONE; -fentaNYL 100 MCG/2 ML INJECTION (J3010) As Ordered ONE
--- NOTE | 2020-01-15 03:49 | ECWPNPC ---
PATIENT NAME: BRANDY LINDQUIST : 1955 GENDER: MALE VISIT DATE: 01/12/2020 DISCHARGE DATE: 01/12/20 1016 VISIT LOCKED DATE TIME: PHYSICIAN: ROXY OCHOA RESOURCE: ROXY OCHOA REASON FOR APPOINTMENT 1. W/C, POST PROCEDURE HISTORY OF PRESENT ILLNESS HISTORY OF PRESENT ILLNESS: PAIN THE PATIENT DESCRIBES THE PAIN... 64-YEAR-OLD MALE IN FOR POST TRANSFORAMINAL FOLLOW-UP. PATIENT FEELS THE PROCEDURE WAS INEFFECTIVE. HE RATES HIS PAIN CURRENTLY AT A 6 OUT OF 10 AND DESCRIBES IT SHARP, SORE, TENDER, AND GRABBING. 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 THE PATIENT SAYS THE PAIN STARTS IN HIS LOW BACK AND RADIATES DOWN HIS LEFT LEG. FALL RISK SCREENING: SCREENING :NO FALLS REPORTED IN THE LAST YEAR CURRENT MEDICATIONS TAKING SUCRALFATE 1 GM TABLET 1 TABLET ON AN EMPTY STOMACH ORALLY TWICE DAILY TAKING OMEPRAZOLE 20 MG CAPSULE DELAYED RELEASE 1 CAP ORALLY TWICE DAILY TAKING LISINOPRIL 20 MG TABLET 1 TABLET ORALLY ONCE A DAY TAKING CYCLOBENZAPRINE HCL 5 MG TABLET 1 TABLET ORALLY NEEDED FOR SPASMS AND PAIN DAILY MAY REPEAT IN 5 HRS MDD2 TAKING TRAMADOL HCL 50 MG TABLET 1 TABLET ORALLY DAILY NEEDED FOR PAIN MDD1 TAKING VITAMIN D-3 1000 UNIT CAPSULE 2 CAPSULE ORALLY ONCE A DAY TAKING TYLENOL EXTRA STRENGTH 500 MG TABLET 1 TABLET NEEDED ORALLY EVERY 6 HRS NOT-TAKING TYLENOL 8 HOUR ARTHRITIS PAIN 650 MG TABLET EXTENDED RELEASE 2 TABLETS NEEDED ORALLY EVERY 8 HRS NOT-TAKING KEFLEX 500 MG CAPSULE 1 CAPSULE 1 HOUR PRIOR TO YOUR CYSTOSCOPY ORALLY ONCE NOT-TAKING MULTIVITAMIN ADULT - TABLET ORALLY ONCE DAILY NOT-TAKING KEFLEX 500 MG CAPSULE 1 CAPSULE ORALLY TO START ONE HOUR BEFORE REZUM PROCEDURE EVERY 12 HRS NOT-TAKING CIPROFLOXACIN HCL 500 MG TABLET 1 TABLET 1 HOUR PRIOR TO YOUR CYSTOSCOPY ORALLY ONCE NOT-TAKING CIPRO 500 MG TABLET 1 TABLET ORALLY TWICE A DAY NOT-TAKING MYRBETRIQ 50 MG TABLET 1 TABLET ORALLY ONCE A DAY, NOTES: HAS NOT STARTED NOT-TAKING VIAGRA 25 MG TABLET 1 TABLET NEEDED ORALLY ONCE A DAY NOT-TAKING TYLENOL 325 MG CAPSULE 2 CAPSULES NEEDED ORALLY EVERY 6 HRS, NOTES: 1/1/18 1200 NOT-TAKING PREDNISONE 20 MG TABLET 1 TABLET ORALLY TAKE 1 TAB TWICE A DAY WITH FOOD X 3 DAYS ATHEN 1/2 TAB TWICE A DAY X 3 DAYS, NOTES: FINISHED 07/09/17 NOT-TAKING DICLOFENAC SODIUM 1 % GEL DIRECTED TRANSDERMAL APPLY 4 GRAMS TO LOW BACK Q 6 HRS NOT-TAKING GABAPENTIN 100 MG CAPSULE DIRECTED ORALLY TID FOR PAIN MDD3 NOT-TAKING VALIUM 5 MG TABLET 1 TABLET ORALLY TAKE 2 TABS ON ARRIVAL TO CLINIC FOR PROCEDURE MDD=2, NOTES: 10/12/16 1002 NOT-TAKING ACETAMINOPHEN EXTRA STRENGTH 500 MG TABLET 2 TABLET NEEDED ORALLY EVERY 6 HRS NEEDED, NOTES: 10/02/19 0800 NOT-TAKING VALIUM 5 MG TABLET 1 TABLET ORALLY TAKE ON ARRIVAL TO CLINIC FOR PROCEDURE MDD=1, NOTES: DUPLICATE MEDICATION LIST REVIEWED AND RECONCILED WITH THE PATIENT PAST MEDICAL HISTORY GERD HYPERTENSION LOW BACK AFTER INJURY STRESS TEST CLEARED WITH DR OSBORNE FIBROMYLAGIA BPH ED CARPAL TUNNEL BILATERALLY ALLERGIES ASPIRIN: FACE SWELLING - ALLERGY SULFA (FOR ALLERGY USE ONLY): NAUSEA/VOMITING - ALLERGY PLASTIC TAPE: RASH - SIDE EFFECTS LYRICA: DEPRESSION, ANXIETY - SIDE EFFECTS GABAPENTIN: MENTAL STATUS - SIDE EFFECTS OXYBUTYNIN: DIARRHEA/ SEVERE STOMACH UPSET - SIDE EFFECTS DARIFENACIN HYDROBROMIDE: HEADACHE / STOMACH UPSET - SIDE EFFECTS MYRBETRIQ: SEVERE HEARTBURN / HEADACHE - SIDE EFFECTS CIPRO: HEADACHE/DIZZY - SIDE EFFECTS OXYCODONE HCL: ITCHING - SIDE EFFECTS HYDROCODONE: ITCHING - SIDE EFFECTS SURGICAL HISTORY MULTIPLE SURGURIES TO LEFT LEG LEFT KNEE ARTHOSCOPIC 2005 FAMILY HISTORY FATHER: , DIAGNOSED WITH DIABETES, HYPERTENSION, UNSPECIFIED HEART DISEASE MOTHER: ALIVE, HYPERTENSION SIBLINGS: ALIVE, BOTH SISTERS HISTORY OF CANCER 2 SISTER(S) - HEALTHY. 1 SON(S) , 1 DAUGHTER(S) - HEALTHY. DENIES FAMILY HISTORY OF UROLOGICAL DISEASES. SOCIAL HISTORY GENERAL: TOBACCO USE ARE YOU A: NONSMOKER. DIET: REGULAR. LANGUAGE LANGUAGES SPOKEN:BERMUDIAN DOMESTIC VIOLENCE DO YOU FEEL SAFE IN YOUR ENVIRONMENT?YES RECREATIONAL DRUG USE DRUG USE?NO EXERCISE: NO REGULAR EXERCISE. LEARNING BARRIERS / SPECIAL NEEDS BARRIERS TO LEARNING?NO HEARING IMPAIRED?NO VISION IMPAIRED?YES COGNITIVELY IMPAIRED?NO :CORRECTIVE LENSES READINESS TO LEARN?YES LEARNING PREFERENCES?NO LEARNING CAPABILITIES PRESENT?YES EMOTIONAL BARRIERS?NO SPECIAL DEVICES?NO ELECTRONICS TECHNICIAN NEEDED?NO PAIN CLINIC PFS, CLERGY, PUBLIC HEALTH REFERRALS PFS REFERRAL NEEDED?NO CLERGY REFERRAL NEEDED?NO PUBLIC HEALTH REFERRAL NEEDED?NO WAS THE PROVIDER NOTIFIED OF ANY PERTINENT INFO?NO HAS THE PATIENT BEEN EDUCATED REGARDING HIS/HER PLAN OF CARE?YES HAS THE PATIENT BEEN EDUCATED REGARDING PAIN, THE RISK FOR PAIN, THE IMPORTANCE OF EFFECTIVE PAIN MANAGEMENT, AND THE PAIN ASSESSMENT PROCESS?YES LATEX QUESTIONNAIRE LATEX ALLERGY : HAVE YOU EVER DEVELOPED ANY TYPE OF REACTION AFTER HANDLING LATEX PRODUCTS SUCH RUBBER GLOVES, CONDOMS, DIAPHRAGMS, BALLOONS, SOCKS, OR UNDERWEAR?NO JUST PLASTIC TAPE LATEX ALLERGY : HAVE YOU EVER DEVELOPED ANY TYPE OF REACTION DURING OR AFTER DENTAL APPOINTMENT, VAGINAL/RECTAL EXAMINATION, SURGICAL PROCEDURE, OR ANY OTHER EXPOSURE?NO LATEX RISK : HAVE YOU EVER HAD ANY DIFFICULTY BREATHING OR HIVES AFTER EATING OR HANDLING ANY FRUITS, OR VEGETABLES; SUCH KIWI, BANANAS, STONE FRUITS, OR CHESTNUTSNO LATEX RISK : DO YOU HAVE A PREVIOUS PERSONAL HISTORY OF MORE THAN NINE SURGERIES, SPINA BIFIDA, OR REPEATED CATHERIZATIONS? NO LATEX RISK : ARE YOU FREQUENTLY EXPOSED TO LATEX PRODUCTS IN YOUR OCCUPATION?NO DATE ASKED : 12/01/2019 CAFFEINE CAFFEINE USE?YES COFFEE = 2-3 PER DAY TRIES TO DRINK DECAF ADVANCE DIRECTIVE ADVANCE DIRECTIVE DISCUSSED WITH PATIENT:YES ASHVIN LINDQUIST IS HIS HCP MU-ISM [id number] SABIANISM NO PRESYBETERIAN BELIEFS THAT WOULD IMPACT HEALTH CARE. MARITAL STATUS: . ALCOHOL SCREENING DID YOU HAVE A DRINK CONTAINING ALCOHOL IN THE PAST YEAR?YES HOW OFTEN DID YOU HAVE SIX OR MORE DRINKS ON ONE OCCASION IN THE PAST YEAR?LESS THAN MONTHLY (1 POINT) HOW MANY DRINKS DID YOU HAVE ON A TYPICAL DAY WHEN YOU WERE DRINKING IN THE PAST YEAR?3 OR 4 (1 POINT) HOW OFTEN DID YOU HAVE A DRINK CONTAINING ALCOHOL IN THE PAST YEAR?TWO TO FOUR TIMES A MONTH (2 POINTS) POINTS4 INTERPRETATIONPOSITIVE SEXUAL HX HAD SEX IN THE LAST 12 MONTHS (VAGINAL, ORAL, OR ANAL)?YES WITHWOMEN ONLY USE PROTECTION?NO HAVE YOU EVER HAD AN STD?NO REVIEWED WITH PATIENT 09/02/19 1448 JSREVIEWED WITH PATIENT 10/02/19 1114 LAS REVIEWED WITH PATIENT 10/22/19 1216 BVREVIEWED WITH PATIENT 01/12/2020 0949 JS. HOSPITALIZATION/MAJOR DIAGNOSTIC PROCEDURE SURGERY RELATED REVIEW OF SYSTEMS REVIEWED BY: PROVIDER: ANA PAULA OCHOA AUTOTRANSFUSIONIST-C . CONSTITUTIONAL: ANY CHANGE IN YOUR MEDICAL CONDITION? NO . CHILLS NO . FEVER NO . INFECTION: DO YOU HAVE NEW INFECTIONS? NO . DO YOU HAVE HISTORY OF MRSA? NO . MUSCULOSKELETAL: ANY NEW PATTERNS OF PAIN OR NUMBNESS? YES, STATES INCREASED SCIATIC PAIN . GASTROENTEROLOGY: ANY NEW CHANGE IN BOWEL CONTROL? NO . GENITOURINARY: ANY NEW CHANGE IN BLADDER CONTROL? NO . IS THERE A CHANCE YOU COULD BE ? NO . HEMATOLOGY/LYMPH: DO YOU TAKE ANY BLOOD THINNERS? (FOR EXAMPLE- COUMADIN, PLAVIX, AGGRENOX, PLATEL, PRADAXA, OR XARELTO) NO . WHEN WAS YOUR LAST DOSE? DATE: TIME: . NEUROLOGY: HAVE YOU FALLEN IN THE PAST 12 MONTHS? YES, STATES PRIOR TO LAST VISIT, DISCUSSED AT PREVIOUS VISIT . ANY NEW EXTREMITY NUMBNESS OR WEAKNESS? YES, STATES LEFT LEG WEAKNESS AT TIMES SINCE PROCEDURE - FEELS LIKE IT COULD GIVE OUT AT TIMES . CARDIOLOGY: DO YOU HAVE A PACEMAKER OR DEFIBRILLATOR? NO . RESPIRATORY: HAVE YOU BEEN SICK IN THE PAST WEEK? NO . FEVER NO . FLU LIKE SYMPTOMS? NO . COUGH YES . INTEGUMENTARY: DO YOU HAVE ANY RASHES OR OPEN SORES? NO . ALLERGIC/IMMUNO: ARE YOU ALLERGIC TO IV DYE? NO . ANY NEW ALLERGIES? NO . PSYCHIATRIC: DO YOU HAVE THOUGHTS OF HURTING YOURSELF OR SOMEONE ELSE? NO . ARE YOU ABUSED, NEGLECTED, OR IN AN UNSAFE ENVIRONMENT? NO . ENDOCRINOLOGY: ARE YOU DIABETIC? NO . OTHER: DO YOU NEED ANY PRESCRIPTIONS? NO . IF YES, PLEASE LIST: ____ . ANY NEW PROBLEMS WITH YOUR MEDICATIONS? NO . WHEN DID YOU LAST EAT? ____ . WHEN DID YOU LAST DRINK? ____ . WHAT DID YOU LAST DRINK? ____ . NAME OF PERSON DRIVING YOU HOME? ____ . DO YOU HAVE ANY OTHER QUESTIONS OR CONCERNS YES, STATES LEFT LEG SCIATIC PAIN INCREASE AND A "GRABBING" PAIN THAT COMES AND GOES SINCE THE PROCEDURE . VITAL SIGNS WT 210.2 LBS, HT 69 IN, BMI 31.04 INDEX, BP 167/93 MM HG, HR 65 /MIN, RR 18 /MIN, TEMP 97.1 F, OXYGEN SAT % 98%, SAFE IN ENV? (Y/N) YES, NA INITIALS AW 0849, REVIEWED BY: ARCADIO01/12/2020 STATES HE DISCUSSED HIS INCREASED BP WITH HIS PCP WHO IS NOT CONCERNED AT THIS TIME IT IS ONLY OCCASSIONAL. JS. EXAMINATION GENERAL EXAMINATION: GENERALNO ACUTE DISTRESS, WELL NOURISHED AND HYDRATED. PSYCHAPPROPRIATE MOOD AND AFFECT . LUNGS:CLEAR TO AUSCULTATION BILATERALLY, NO WHEEZES, RHONCHI, RALES. HEART:NO MURMURS, REGULAR RATE AND RHYTHM. ASSESSMENTS INTERVERTEBRAL DISC DISORDER WITH RADICULOPATHY OF LUMBAR REGION - M51.16 (PRIMARY) TREATMENT INTERVERTEBRAL DISC DISORDER WITH RADICULOPATHY OF LUMBAR REGION [facility] MRI LUMBAR W/O CONTRAST (CPT [id number] CLINICAL NOTES: 64-YEAR-OLD MALE IN FOR POST TRANSFORAMINAL FOLLOW-UP. PATIENT ADMITS TO INCREASED BACK PAIN WITH RADICULAR SYMPTOMS. GIVEN PRESENTING SYMPTOMS RECOMMENDED MRI FOR FURTHER EVALUATION. PATIENT HAS EXPRESSED UNDERSTANDING OF AND WAS IN AGREEMENT WITH TREATMENT PLAN. GIVEN TIME TO ASK QUESTIONS AND EXPRESS CONCERNS. PROCEDURES PN WORKMANS' COMP OPINION IN YOUR OPINION, WAS THE INCIDENT THAT THE PATIENT DESCRIBED THE COMPETENT MEDICAL CAUSE OF THIS INJURY/ILLNESS? YES ARE THE PATIENT'S COMPLAINTS CONSISTENT WITH HIS/HER HISTORY OF THE INJURY/ILLNESS? YES IS THE PATIENT'S HISTORY OF THE INJURY/ILLNESS CONSISTENT WITH YOUR OBJECTIVE FINDING? YES WHAT IS THE PERCENTAGE OF TEMPORARY IMPAIRMENT? MODERATE TO MARKED = 66.7% IS THE PATIENT WORKING? NO DOCTOR ON SITE: EVA DEGROOT MD , EVA DEGROOT MD PROCEDURE CODES FA211 ESTABILISHED PATIENT [facility] FACILITY CHARGE DISPOSITION & COMMUNICATION FOLLOW UP POST DIAGNOSTIC IMAGING (REASON: LUMBAR MRI) ELECTRONICALLY SIGNED BY OLLIE LOPEZ ON 01/14/2020 AT 12:31 PM EST DISCLAIMER : THIS IS A VISIT SUMMARY EXTRACTED FROM THE [employer] CHART. IT IS NOT A COPY OF THE [employer] PROGRESS NOTE. SOMMER
== END ==
LOC: M PAIN 09:15
PROVIDERS: ATTEND Family Medicine
DX: M51.16 Intervertebral disc disorders with radiculopathy, lumbar region (principal); K21.9 Gastro-esophageal reflux disease without esophagitis; I10 Essential (primary) hypertension; M79.7 Fibromyalgia; Z88.1 Allergy status to other antibiotic agents; Z88.2 Allergy status to sulfonamides; Z88.5 Allergy status to narcotic agent; Z88.6 Allergy status to analgesic agent; Z88.8 Allergy status to other drugs, medicaments and biological substances; Z91.09 Other allergy status, other than to drugs and biological substances; Z79.899 Other long term (current) drug therapy

== ENCOUNTER → 2020-02-20 | Outpatient (CLI) | payer OTHER ==
--- NOTE | 2020-02-20 14:55 | REP ---
MRI LUMBAR SPINE WITHOUT CONTRAST: HISTORY: Lumbar radiculopathy. Disc disorder. Low back and bilateral hip pain, left greater than right. Comparison CT lumbar spine study August 26, 2019. Comparison MRI study of the lumbar spine is from April 17, 2018. TECHNIQUE: Sagittal and axial T1- and T2-weighted scans are acquired in the usual fashion with and without fat saturation. Sequences include spin echo, turbo spin echo, and STIR imaging sequences. FINDINGS: Lumbar vertebral body heights are preserved. Alignment is normal. The tip of the conus medullaris is normal in position and appearance at T12-L1. No extra vertebral abnormalities observed. Axial and sagittal images at the L1-L2 disc level again demonstrate a left foraminal left lateral disc bulge or protrusion unchanged from comparison MRI study April 17, 2018. There is mild diffuse disc bulging. Canal size is borderline. Midline AP dimension of the thecal sac at L1-2 is 10.3 mm. No change at the L1-2 level is observed from the prior study of 2018. At L2-L3, there is degenerative disc narrowing with reactive marrow changes and anterior osteophyte formation. This is stable from April 17, 2018 as well. There is mild diffuse disc bulging. Discogenic spurring narrows the inferior aspect of each neural foramen, right more so than left. This is unchanged. No actual nerve root compression is visible. At L3-4, there is mild degenerative narrowing. Diffuse disc bulging indents the ventral margin of the thecal sac. There is mild central canal stenosis due to this in addition to ligamentum flavum and mild facet hypertrophy. The mid line AP dimension of the thecal sac at L3-4 is 9 mm. There is mild bilateral neural foraminal narrowing due to facet hypertrophy and disc bulging. The foraminal narrowing appears a little more prominent than on the 2018 prior MRI study. At L4-5, there is central disc bulging. There is bilateral neural foraminal narrowing due to disc bulging and facet hypertrophy. Canal size is unchanged. The foraminal narrowing is unchanged. At L5-S1, there are reactive marrow changes associated with degenerative disc disease. There is mild left-sided neural foraminal narrowing at L5-S1 due to facet hypertrophy and discogenic spurring. This is slightly more prominent. No disc protrusion is seen. Facet hypertrophy is noted unchanged. IMPRESSION: Degenerative spondylosis changes. Neural foraminal narrowing at L4-5 and L5-S1 as above slightly more prominent than the prior study. A left foraminal and left lateral disc bulge and L1-2 is unchanged. Electronically Signed by Ramesh Anguiano MD 02/20/2020 03:29 P
== END ==
LOC: M RAD 11:12
PROVIDERS: ATTEND Family Medicine
DX: M51.16 Intervertebral disc disorders with radiculopathy, lumbar region (principal); M51.26 Other intervertebral disc displacement, lumbar region; M51.37 Other intervertebral disc degeneration, lumbosacral region

== ENCOUNTER → 2020-03-09 | Outpatient (CLI) | payer OTHER, MEDICARE ==
--- NOTE | 2020-03-11 02:23 | ECWPNPC ---
PATIENT NAME: BRANDY LINDQUIST : 1955 GENDER: MALE VISIT DATE: 03/09/2020 DISCHARGE DATE: 03/09/20 1101 VISIT LOCKED DATE TIME: PHYSICIAN: ROXY OCHOA RESOURCE: ROXY OCHOA REASON FOR APPOINTMENT 1. [phone] W/C REVIEW MRI HISTORY OF PRESENT ILLNESS HISTORY OF PRESENT ILLNESS: PAIN THE PATIENT DESCRIBES THE PAIN... PERMISSION REQUESTED AND RECEIVED FROM PATIENT TO PERFORM TELEPHONE VISIT. 64-YEAR-OLD MALE IN FOR CHRONIC PAIN FOLLOW-UP. HE RATES HIS PAIN CURRENTLY AT A 7 OUT OF 10 AND DESCRIBES IT SHOOTING. HE HAS BEEN USING TRAMADOL TO HELP ALLEVIATE HIS SYMPTOMS HOWEVER HE ADMITS TO HEADACHES WITH USE OF THIS MEDICATION. PATIENT HAD A RECENT MRI WHICH WILL BE REVIEWED WITH PATIENT TODAY. FALL RISK SCREENING: SCREENING :NO FALLS REPORTED IN THE LAST YEAR CURRENT MEDICATIONS UNKNOWN SUCRALFATE 1 GM TABLET 1 TABLET ON AN EMPTY STOMACH ORALLY TWICE DAILY UNKNOWN OMEPRAZOLE 20 MG CAPSULE DELAYED RELEASE 1 CAP ORALLY TWICE DAILY UNKNOWN LISINOPRIL 20 MG TABLET 1 TABLET ORALLY ONCE A DAY UNKNOWN CYCLOBENZAPRINE HCL 5 MG TABLET 1 TABLET ORALLY NEEDED FOR SPASMS AND PAIN DAILY MAY REPEAT IN 5 HRS MDD2 UNKNOWN TRAMADOL HCL 50 MG TABLET 1 TABLET ORALLY DAILY NEEDED FOR PAIN MDD1 UNKNOWN VITAMIN D-3 1000 UNIT CAPSULE 2 CAPSULE ORALLY ONCE A DAY UNKNOWN TYLENOL EXTRA STRENGTH 500 MG TABLET 1 TABLET NEEDED ORALLY EVERY 6 HRS UNKNOWN PROBIOTIC - CAPSULE DIRECTED ORALLY UNKNOWN MUCINEX 600 MG TABLET EXTENDED RELEASE 12 HOUR 1 TABLET NEEDED ORALLY EVERY 12 HRS UNKNOWN TYLENOL 8 HOUR ARTHRITIS PAIN 650 MG TABLET EXTENDED RELEASE 2 TABLETS NEEDED ORALLY EVERY 8 HRS UNKNOWN KEFLEX 500 MG CAPSULE 1 CAPSULE 1 HOUR PRIOR TO YOUR CYSTOSCOPY ORALLY ONCE UNKNOWN MULTIVITAMIN ADULT - TABLET ORALLY ONCE DAILY UNKNOWN KEFLEX 500 MG CAPSULE 1 CAPSULE ORALLY TO START ONE HOUR BEFORE REZUM PROCEDURE EVERY 12 HRS UNKNOWN CIPROFLOXACIN HCL 500 MG TABLET 1 TABLET 1 HOUR PRIOR TO YOUR CYSTOSCOPY ORALLY ONCE UNKNOWN CIPRO 500 MG TABLET 1 TABLET ORALLY TWICE A DAY UNKNOWN MYRBETRIQ 50 MG TABLET 1 TABLET ORALLY ONCE A DAY, NOTES: HAS NOT STARTED UNKNOWN VIAGRA 25 MG TABLET 1 TABLET NEEDED ORALLY ONCE A DAY UNKNOWN TYLENOL 325 MG CAPSULE 2 CAPSULES NEEDED ORALLY EVERY 6 HRS, NOTES: 11/12/17 1200 UNKNOWN PREDNISONE 20 MG TABLET 1 TABLET ORALLY TAKE 1 TAB TWICE A DAY WITH FOOD X 3 DAYS ATHEN 1/2 TAB TWICE A DAY X 3 DAYS, NOTES: FINISHED 07/09/17 UNKNOWN DICLOFENAC SODIUM 1 % GEL DIRECTED TRANSDERMAL APPLY 4 GRAMS TO LOW BACK Q 6 HRS UNKNOWN GABAPENTIN 100 MG CAPSULE DIRECTED ORALLY TID FOR PAIN MDD3 UNKNOWN VALIUM 5 MG TABLET 1 TABLET ORALLY TAKE 2 TABS ON ARRIVAL TO CLINIC FOR PROCEDURE MDD=2, NOTES: 10/12/16 1002 UNKNOWN ACETAMINOPHEN EXTRA STRENGTH 500 MG TABLET 2 TABLET NEEDED ORALLY EVERY 6 HRS NEEDED, NOTES: 10/02/19 0800 UNKNOWN VALIUM 5 MG TABLET 1 TABLET ORALLY TAKE ON ARRIVAL TO CLINIC FOR PROCEDURE MDD=1, NOTES: DUPLICATE MEDICATION LIST REVIEWED AND RECONCILED WITH THE PATIENT PAST MEDICAL HISTORY GERD HYPERTENSION LOW BACK AFTER INJURY STRESS TEST CLEARED WITH DR OSBORNE FIBROMYLAGIA BPH ED CARPAL TUNNEL BILATERALLY ALLERGIES ASPIRIN: FACE SWELLING - ALLERGY SULFA (FOR ALLERGY USE ONLY): NAUSEA/VOMITING - ALLERGY PLASTIC TAPE: RASH - SIDE EFFECTS LYRICA: DEPRESSION, ANXIETY - SIDE EFFECTS GABAPENTIN: MENTAL STATUS - SIDE EFFECTS OXYBUTYNIN: DIARRHEA/ SEVERE STOMACH UPSET - SIDE EFFECTS DARIFENACIN HYDROBROMIDE: HEADACHE / STOMACH UPSET - SIDE EFFECTS MYRBETRIQ: SEVERE HEARTBURN / HEADACHE - SIDE EFFECTS CIPRO: HEADACHE/DIZZY - SIDE EFFECTS OXYCODONE HCL: ITCHING - SIDE EFFECTS HYDROCODONE: ITCHING - SIDE EFFECTS SURGICAL HISTORY MULTIPLE SURGURIES TO LEFT LEG LEFT KNEE ARTHOSCOPIC 2006 FAMILY HISTORY FATHER: , DIAGNOSED WITH HYPERTENSION, UNSPECIFIED HEART DISEASE, DIABETES MOTHER: ALIVE, HYPERTENSION SIBLINGS: ALIVE, BOTH SISTERS HISTORY OF CANCER 2 SISTER(S) - HEALTHY. 1 SON(S) , 1 DAUGHTER(S) - HEALTHY. DENIES FAMILY HISTORY OF UROLOGICAL DISEASES. SOCIAL HISTORY GENERAL: TOBACCO USE ARE YOU A: NONSMOKER. LATEX QUESTIONNAIRE LATEX ALLERGY : HAVE YOU EVER DEVELOPED ANY TYPE OF REACTION AFTER HANDLING LATEX PRODUCTS SUCH RUBBER GLOVES, CONDOMS, DIAPHRAGMS, BALLOONS, SOCKS, OR UNDERWEAR?NO JUST PLASTIC TAPE LATEX ALLERGY : HAVE YOU EVER DEVELOPED ANY TYPE OF REACTION DURING OR AFTER DENTAL APPOINTMENT, VAGINAL/RECTAL EXAMINATION, SURGICAL PROCEDURE, OR ANY OTHER EXPOSURE?NO LATEX RISK : HAVE YOU EVER HAD ANY DIFFICULTY BREATHING OR HIVES AFTER EATING OR HANDLING ANY FRUITS, OR VEGETABLES; SUCH KIWI, BANANAS, STONE FRUITS, OR CHESTNUTSNO LATEX RISK : DO YOU HAVE A PREVIOUS PERSONAL HISTORY OF MORE THAN NINE SURGERIES, SPINA BIFIDA, OR REPEATED CATHERIZATIONS? NO LATEX RISK : ARE YOU FREQUENTLY EXPOSED TO LATEX PRODUCTS IN YOUR OCCUPATION?NO DATE ASKED : 03/08/2020 ALCOHOL SCREENING DID YOU HAVE A DRINK CONTAINING ALCOHOL IN THE PAST YEAR?YES HOW OFTEN DID YOU HAVE SIX OR MORE DRINKS ON ONE OCCASION IN THE PAST YEAR?LESS THAN MONTHLY (1 POINT) HOW MANY DRINKS DID YOU HAVE ON A TYPICAL DAY WHEN YOU WERE DRINKING IN THE PAST YEAR?3 OR 4 (1 POINT) HOW OFTEN DID YOU HAVE A DRINK CONTAINING ALCOHOL IN THE PAST YEAR?TWO TO FOUR TIMES A MONTH (2 POINTS) POINTS4 INTERPRETATIONPOSITIVE RECREATIONAL DRUG USE DRUG USE?NO CAFFEINE CAFFEINE USE?YES COFFEE = 2-3 PER DAY TRIES TO DRINK DECAF SEXUAL HX HAD SEX IN THE LAST 12 MONTHS (VAGINAL, ORAL, OR ANAL)?YES WITHWOMEN ONLY USE PROTECTION?NO HAVE YOU EVER HAD AN STD?NO SIKH [id number] EPISCOPALIAN NO YAZIDI BELIEFS THAT WOULD IMPACT HEALTH CARE. LANGUAGE LANGUAGES SPOKEN:FAROESE LEARNING BARRIERS / SPECIAL NEEDS BARRIERS TO LEARNING?NO HEARING IMPAIRED?NO VISION IMPAIRED?YES COGNITIVELY IMPAIRED?NO :CORRECTIVE LENSES READINESS TO LEARN?YES LEARNING PREFERENCES?NO LEARNING CAPABILITIES PRESENT?YES EMOTIONAL BARRIERS?NO SPECIAL DEVICES?NO HAIRCUTTER NEEDED?NO DOMESTIC VIOLENCE DO YOU FEEL SAFE IN YOUR ENVIRONMENT?YES DIET: REGULAR. EXERCISE: NO REGULAR EXERCISE. MARITAL STATUS: . NEW PATIENT PAIN DIARY TODAY'S VISIT 03/08/2020 PATIENT DESCRIBES PAIN :ACHING, HAVE IT ALL THE TIME, SHARP, STABBING, TENDER, SORE, SHOOTING FROM 0-10, WHAT LEVEL IS YOUR PAIN TODAY?7 PAIN CLINIC PFS, CLERGY, PUBLIC HEALTH REFERRALS PFS REFERRAL NEEDED?NO CLERGY REFERRAL NEEDED?NO PUBLIC HEALTH REFERRAL NEEDED?NO WAS THE PROVIDER NOTIFIED OF ANY PERTINENT INFO?YES HAS THE PATIENT BEEN EDUCATED REGARDING HIS/HER PLAN OF CARE?YES HAS THE PATIENT BEEN EDUCATED REGARDING PAIN, THE RISK FOR PAIN, THE IMPORTANCE OF EFFECTIVE PAIN MANAGEMENT, AND THE PAIN ASSESSMENT PROCESS?YES ADVANCE DIRECTIVE ADVANCE DIRECTIVE DISCUSSED WITH PATIENT:YES ASHVIN LINDQUIST IS HIS HCP HOSPITALIZATION/MAJOR DIAGNOSTIC PROCEDURE SURGERY RELATED REVIEW OF SYSTEMS REVIEWED BY: PROVIDER: ANA PAULA OCHOA ROUTE AIDE-C . CONSTITUTIONAL: ANY CHANGE IN YOUR MEDICAL CONDITION? PT STATES THAT HE WAS SCHEDULED TO GO IN TO HAVE PROSTATE CHECKED, POSTPONED APPOINTMENT. NOW HAVING ISSUES WITH URINE URGENCY. ENCOURAGED PT TO CONTACT PRIMARY MD . CHILLS NO . FEVER NO . INFECTION: DO YOU HAVE NEW INFECTIONS? NO . DO YOU HAVE HISTORY OF MRSA? NO . MUSCULOSKELETAL: ANY NEW PATTERNS OF PAIN OR NUMBNESS? NO . GASTROENTEROLOGY: ANY NEW CHANGE IN BOWEL CONTROL? NO . GENITOURINARY: ANY NEW CHANGE IN BLADDER CONTROL? URINE URGENCY, POSSIBLE ENLARGED PROSTATE . IS THERE A CHANCE YOU COULD BE ? NO . HEMATOLOGY/LYMPH: DO YOU TAKE ANY BLOOD THINNERS? (FOR EXAMPLE- COUMADIN, PLAVIX, AGGRENOX, PLATEL, PRADAXA, OR XARELTO) NO . WHEN WAS YOUR LAST DOSE? DATE: TIME: . NEUROLOGY: HAVE YOU FALLEN IN THE PAST 12 MONTHS? PT STATES THAT HE FELL WHILE AT HOME, IN THE YARD, NO INJURY. NO REPORT TO ED. DS . ANY NEW EXTREMITY NUMBNESS OR WEAKNESS? NO . CARDIOLOGY: DO YOU HAVE A PACEMAKER OR DEFIBRILLATOR? NO . RESPIRATORY: HAVE YOU BEEN SICK IN THE PAST WEEK? PT STATES THAT HE HAS BEEN HAVING ISSUES WITH SINUS CONGESTION, ALLERGIES POSSIBLE STATED BY PATIENT . FEVER NO . FLU LIKE SYMPTOMS? NO . COUGH NO . INTEGUMENTARY: DO YOU HAVE ANY RASHES OR OPEN SORES? NO . ALLERGIC/IMMUNO: ARE YOU ALLERGIC TO IV DYE? NO . ANY NEW ALLERGIES? NO . PSYCHIATRIC: DO YOU HAVE THOUGHTS OF HURTING YOURSELF OR SOMEONE ELSE? NO . ARE YOU ABUSED, NEGLECTED, OR IN AN UNSAFE ENVIRONMENT? NO . ENDOCRINOLOGY: ARE YOU DIABETIC? NO . OTHER: DO YOU NEED ANY PRESCRIPTIONS? NO . IF YES, PLEASE LIST: ____ . ANY NEW PROBLEMS WITH YOUR MEDICATIONS? NO . WHEN DID YOU LAST EAT? ____ . WHEN DID YOU LAST DRINK? ____ . WHAT DID YOU LAST DRINK? ____ . NAME OF PERSON DRIVING YOU HOME? ____ . DO YOU HAVE ANY OTHER QUESTIONS OR CONCERNS NO . EXAMINATION GENERAL EXAMINATION: PSYCHAPPROPRIATE MOOD AND AFFECT , ORIENTED X 3. ASSESSMENTS INTERVERTEBRAL DISC DISORDERS WITH RADICULOPATHY, LUMBOSACRAL REGION - M51.17 (PRIMARY) TREATMENT INTERVERTEBRAL DISC DISORDERS WITH RADICULOPATHY, LUMBOSACRAL REGION STOP TRAMADOL HCL TABLET, 50 MG, 1 TABLET, ORALLY, DAILY NEEDED FOR PAIN MDD1 START ACETAMINOPHEN-CODEINE #4 TABLET, 300-60 MG, 1 TABLET NEEDED, ORALLY, BID, 7 DAYS, 14 TABLET CLINICAL NOTES: 64-YEAR-OLD MALE IN FOR CHRONIC PAIN FOLLOW-UP. GIVEN PRESENTING SYMPTOMS RECOMMENDED STOPPING TRAMADOL AND STARTING TYLENOL WITH CODEINE WITH FOLLOW-UP IN ONE MONTH TO DETERMINE EFFICACY OF TREATMENT AND DID DISCUSS POTENTIAL RF PROCEDURE. PATIENT HAS EXPRESSED UNDERSTANDING OF AND WAS IN AGREEMENT WITH TREATMENT PLAN. GIVEN TIME TO ASK QUESTIONS AND EXPRESS CONCERNS. [employer]STOP REGISTRY REVIEWED AND DEMONSTRATES COMPLLIANCE. (REF # [id number] ) BRINGS IN MEDICATIONS WHICH IS APPROPRIATE FOR WHAT WAS DISPENSED. RECENT URINE TOXICOLOGY REVIEWED. NO UNAUTHORIZED MEDICATIONS. NO ILLICIT SUBSTANCES AND PRESCRIBED MEDICATIONS WERE PRESENT. , VISIT TO BE BILLED BASED ON TIME SPENT WITH PATIENT. TIME SPENT WITH PATIENT 15 MINUTES. PROCEDURES PN WORKMANS' COMP OPINION IN YOUR OPINION, WAS THE INCIDENT THAT THE PATIENT DESCRIBED THE COMPETENT MEDICAL CAUSE OF THIS INJURY/ILLNESS? YES ARE THE PATIENT'S COMPLAINTS CONSISTENT WITH HIS/HER HISTORY OF THE INJURY/ILLNESS? YES IS THE PATIENT'S HISTORY OF THE INJURY/ILLNESS CONSISTENT WITH YOUR OBJECTIVE FINDING? YES WHAT IS THE PERCENTAGE OF TEMPORARY IMPAIRMENT? MODERATE TO MARKED = 66.7% IS THE PATIENT WORKING? NO DOCTOR ON SITE: EVA DEGROOT MD , EVA DEGROOT MD PREVENTIVE MEDICINE PAIN CLINIC TEACHING: THE PATIENT HAS BEEN EDUCATED REGARDING PAIN, THE RISK FOR PAIN, THE IMPORTANCE OF EFFECTIVE PAIN MANAGEMENT, AND THE PAIN ASSESSMENT PROCESS. : PT HAS GIVEN CONSENT TO CONDUCT PHONE VISIT, PT CONSENTS TO ACCESS AND DISCUSS MEDICAL INFORMATION WITH RN AND SENIOR LOGISTICS MANAGER. DS UNABLE TO OBTAIN VITAL SIGNS DUE TO PHONE VISIT. DS DISPOSITION & COMMUNICATION FOLLOW UP 4 WEEKS (REASON: BACK PAIN ) ELECTRONICALLY SIGNED BY OLLIE LOPEZ ON 03/10/2020 AT 10:49 AM EDT DISCLAIMER : THIS IS A VISIT SUMMARY EXTRACTED FROM THE [employer] CHART. IT IS NOT A COPY OF THE [employer] PROGRESS NOTE. SOMMER
== END ==
LOC: M PAIN 09:30
PROVIDERS: ATTEND Family Medicine
DX: M51.17 Intervertebral disc disorders with radiculopathy, lumbosacral region (principal); I10 Essential (primary) hypertension; Z79.891 Long term (current) use of opiate analgesic; Z79.899 Other long term (current) drug therapy; Z88.1 Allergy status to other antibiotic agents; Z88.2 Allergy status to sulfonamides; Z88.5 Allergy status to narcotic agent; Z88.8 Allergy status to other drugs, medicaments and biological substances; Z91.048 Other nonmedicinal substance allergy status

== ENCOUNTER → 2020-03-24 | Outpatient (REF) | payer MEDICARE, OTHER ==
[2020-03-24 17:09] LABS: INR 1.03; PARTIAL THROMBOPLASTIN TIME 29.2 SECONDS (25.0-38.4); PROTHROMBIN TIME 13.2 SECONDS (11.8-14.0)
== END ==
LOC: M LAB REF 16:12
PROVIDERS: ATTEND Family Medicine
DX: Z01.818 Encounter for other preprocedural examination (principal); N40.1 Benign prostatic hyperplasia with lower urinary tract symptoms

== ENCOUNTER → 2020-03-24 | Outpatient (CLI) | payer MEDICARE, OTHER ==
--- NOTE | 2020-03-24 10:19 | REPPI ---
CHEST, TWO VIEWS: Two views of the chest performed and compared to a prior study of 11/03/2015. There is no acute infiltrate. The heart is not enlarged. There is some tortuosity of the thoracic aorta. Cardiomediastinal silhouette is unchanged. There are mild degenerative changes of the spine. IMPRESSION: No active pulmonary disease. Electronically Signed by Greyson Saleem MD 03/24/2020 12:46 P
== END ==
LOC: M PLAIMG 08:28
PROVIDERS: ATTEND Urology
DX: Z01.818 Encounter for other preprocedural examination (principal); N40.1 Benign prostatic hyperplasia with lower urinary tract symptoms

== ENCOUNTER → 2020-03-26 | Outpatient (CLI) | payer OTHER ==
[~2020-03-26] MED LIST changes: +ALLE60TA69 PO; +FLON1SPR; +LISI-538 PO; +MUCI600T31 PO; +OMEP-218 PO; +VITAD1000T PO
--- NOTE | 2020-03-30 00:08 | ECWPNPC ---
PATIENT NAME: BRANDY LINDQUIST : 1955 GENDER: MALE VISIT DATE: 03/26/2020 DISCHARGE DATE: 03/26/20 1103 VISIT LOCKED DATE TIME: PHYSICIAN: ROXY OCHOA RESOURCE: ROXY OCHOA REASON FOR APPOINTMENT 1. BACK PAIN -PHYSICAL VISIT TO ORDER PROCEDURE PAT PHONE CALL COMPLETED HISTORY OF PRESENT ILLNESS HISTORY OF PRESENT ILLNESS: PAIN THE PATIENT DESCRIBES THE PAIN... 64-YEAR-OLD MALE IN FOR CHRONIC PAIN FOLLOW-UP. HE RATES HIS PAIN CURRENTLY AT A 6 OUT OF 10 AND DESCRIBES IT A CONSTANT ACHY PAIN. FALL RISK SCREENING: SCREENING :NO FALLS REPORTED IN THE LAST YEAR CURRENT MEDICATIONS TAKING ACETAMINOPHEN-CODEINE #4 300-60 MG TABLET 1 TABLET NEEDED ORALLY BID TAKING VIAGRA 100 MG TABLET 1 TABLET NEEDED ORALLY ONCE A DAY TAKING SUCRALFATE 1 GM TABLET 1 TABLET ON AN EMPTY STOMACH ORALLY TWICE DAILY TAKING OMEPRAZOLE 20 MG CAPSULE DELAYED RELEASE 1 CAP ORALLY TWICE DAILY TAKING LISINOPRIL 20 MG TABLET 1 TABLET ORALLY ONCE A DAY TAKING CYCLOBENZAPRINE HCL 5 MG TABLET 1 TABLET ORALLY NEEDED FOR SPASMS AND PAIN DAILY MAY REPEAT IN 5 HRS MDD2 TAKING VITAMIN D-3 1000 UNIT CAPSULE 2 CAPSULE ORALLY ONCE A DAY TAKING TYLENOL EXTRA STRENGTH 500 MG TABLET 1 TABLET NEEDED ORALLY EVERY 6 HRS TAKING MUCINEX 600 MG TABLET EXTENDED RELEASE 12 HOUR 1 TABLET NEEDED ORALLY EVERY 12 HRS TAKING TYLENOL 8 HOUR ARTHRITIS PAIN 650 MG TABLET EXTENDED RELEASE 2 TABLETS NEEDED ORALLY EVERY 8 HRS TAKING BASILIA TAKING FLONASE NOT-TAKING PROBIOTIC - CAPSULE DIRECTED ORALLY NOT-TAKING KEFLEX 500 MG CAPSULE 1 CAPSULE 1 HOUR PRIOR TO YOUR CYSTOSCOPY ORALLY ONCE NOT-TAKING MULTIVITAMIN ADULT - TABLET ORALLY ONCE DAILY NOT-TAKING KEFLEX 500 MG CAPSULE 1 CAPSULE ORALLY TO START ONE HOUR BEFORE REZUM PROCEDURE EVERY 12 HRS NOT-TAKING CIPROFLOXACIN HCL 500 MG TABLET 1 TABLET 1 HOUR PRIOR TO YOUR CYSTOSCOPY ORALLY ONCE NOT-TAKING CIPRO 500 MG TABLET 1 TABLET ORALLY TWICE A DAY NOT-TAKING MYRBETRIQ 50 MG TABLET 1 TABLET ORALLY ONCE A DAY, NOTES: HAS NOT STARTED NOT-TAKING TYLENOL 325 MG CAPSULE 2 CAPSULES NEEDED ORALLY EVERY 6 HRS, NOTES: 11/12/17 1200 NOT-TAKING PREDNISONE 20 MG TABLET 1 TABLET ORALLY TAKE 1 TAB TWICE A DAY WITH FOOD X 3 DAYS ATHEN 1/2 TAB TWICE A DAY X 3 DAYS, NOTES: FINISHED 07/09/17 NOT-TAKING DICLOFENAC SODIUM 1 % GEL DIRECTED TRANSDERMAL APPLY 4 GRAMS TO LOW BACK Q 6 HRS NOT-TAKING GABAPENTIN 100 MG CAPSULE DIRECTED ORALLY TID FOR PAIN MDD3 NOT-TAKING VALIUM 5 MG TABLET 1 TABLET ORALLY TAKE 2 TABS ON ARRIVAL TO CLINIC FOR PROCEDURE MDD=2, NOTES: 10/12/16 1002 NOT-TAKING ACETAMINOPHEN EXTRA STRENGTH 500 MG TABLET 2 TABLET NEEDED ORALLY EVERY 6 HRS NEEDED, NOTES: 10/02/19 0800 NOT-TAKING VALIUM 5 MG TABLET 1 TABLET ORALLY TAKE ON ARRIVAL TO CLINIC FOR PROCEDURE MDD=1, NOTES: DUPLICATE MEDICATION LIST REVIEWED AND RECONCILED WITH THE PATIENT PAST MEDICAL HISTORY GERD HYPERTENSION LOW BACK AFTER INJURY STRESS TEST CLEARED WITH DR OSBORNE FIBROMYLAGIA BPH ED CARPAL TUNNEL BILATERALLY ALLERGIES ASPIRIN: FACE SWELLING - ALLERGY SULFA (FOR ALLERGY USE ONLY): NAUSEA/VOMITING - ALLERGY PLASTIC TAPE: RASH - SIDE EFFECTS LYRICA: DEPRESSION, ANXIETY - SIDE EFFECTS GABAPENTIN: MENTAL STATUS - SIDE EFFECTS OXYBUTYNIN: DIARRHEA/ SEVERE STOMACH UPSET - SIDE EFFECTS DARIFENACIN HYDROBROMIDE: HEADACHE / STOMACH UPSET - SIDE EFFECTS MYRBETRIQ: SEVERE HEARTBURN / HEADACHE - SIDE EFFECTS CIPRO: HEADACHE/DIZZY - SIDE EFFECTS OXYCODONE HCL: ITCHING - SIDE EFFECTS HYDROCODONE: ITCHING - SIDE EFFECTS SURGICAL HISTORY MULTIPLE SURGURIES TO LEFT LEG LEFT KNEE ARTHOSCOPIC 2005 CYSTOSCOPY 03/15/2020 FAMILY HISTORY FATHER: , DIAGNOSED WITH UNSPECIFIED HEART DISEASE, DIABETES, HYPERTENSION MOTHER: ALIVE, HYPERTENSION SIBLINGS: ALIVE, BOTH SISTERS HISTORY OF CANCER 2 SISTER(S) - HEALTHY. 1 SON(S) , 1 DAUGHTER(S) - HEALTHY. DENIES FAMILY HISTORY OF UROLOGICAL DISEASES. SOCIAL HISTORY GENERAL: TOBACCO USE ARE YOU A: NONSMOKER. LATEX QUESTIONNAIRE LATEX ALLERGY : HAVE YOU EVER DEVELOPED ANY TYPE OF REACTION AFTER HANDLING LATEX PRODUCTS SUCH RUBBER GLOVES, CONDOMS, DIAPHRAGMS, BALLOONS, SOCKS, OR UNDERWEAR?NO LATEX ALLERGY : HAVE YOU EVER DEVELOPED ANY TYPE OF REACTION DURING OR AFTER DENTAL APPOINTMENT, VAGINAL/RECTAL EXAMINATION, SURGICAL PROCEDURE, OR ANY OTHER EXPOSURE?NO DATE ASKED : 03/15/2020 LATEX RISK : HAVE YOU EVER HAD ANY DIFFICULTY BREATHING OR HIVES AFTER EATING OR HANDLING ANY FRUITS, OR VEGETABLES; SUCH KIWI, BANANAS, STONE FRUITS, OR CHESTNUTSNO LATEX RISK : DO YOU HAVE A PREVIOUS PERSONAL HISTORY OF MORE THAN NINE SURGERIES, SPINA BIFIDA, OR REPEATED CATHERIZATIONS? NO LATEX RISK : ARE YOU FREQUENTLY EXPOSED TO LATEX PRODUCTS IN YOUR OCCUPATION?NO ALCOHOL SCREENING DID YOU HAVE A DRINK CONTAINING ALCOHOL IN THE PAST YEAR?YES HOW OFTEN DID YOU HAVE SIX OR MORE DRINKS ON ONE OCCASION IN THE PAST YEAR?LESS THAN MONTHLY (1 POINT) HOW MANY DRINKS DID YOU HAVE ON A TYPICAL DAY WHEN YOU WERE DRINKING IN THE PAST YEAR?3 OR 4 (1 POINT) HOW OFTEN DID YOU HAVE A DRINK CONTAINING ALCOHOL IN THE PAST YEAR?TWO TO FOUR TIMES A MONTH (2 POINTS) POINTS4 INTERPRETATIONPOSITIVE RECREATIONAL DRUG USE DRUG USE?NO CAFFEINE CAFFEINE USE?YES COFFEE = 2-3 PER DAY TRIES TO DRINK DECAF SEXUAL HX HAD SEX IN THE LAST 12 MONTHS (VAGINAL, ORAL, OR ANAL)?YES WITHWOMEN ONLY USE PROTECTION?NO HAVE YOU EVER HAD AN STD?NO MANDAEN [id number] MANDAEISM NO FAITH BELIEFS THAT WOULD IMPACT HEALTH CARE. LANGUAGE LANGUAGES SPOKEN:SL[place] LEARNING BARRIERS / SPECIAL NEEDS BARRIERS TO LEARNING?NO HEARING IMPAIRED?NO VISION IMPAIRED?YES COGNITIVELY IMPAIRED?NO :CORRECTIVE LENSES READINESS TO LEARN?YES LEARNING PREFERENCES?NO LEARNING CAPABILITIES PRESENT?YES EMOTIONAL BARRIERS?NO SPECIAL DEVICES?NO INFORMATION TECHNOLOGY AUDITOR NEEDED?NO DOMESTIC VIOLENCE DO YOU FEEL SAFE IN YOUR ENVIRONMENT?YES DIET: REGULAR. EXERCISE: NO REGULAR EXERCISE. MARITAL STATUS: . NEW PATIENT PAIN DIARY TODAY'S VISIT 03/25/2020 PATIENT DESCRIBES PAIN :ACHING, HAVE IT ALL THE TIME, SHARP, STABBING, TENDER, SORE, SHOOTING FROM 0-10, WHAT LEVEL IS YOUR PAIN TODAY?7 PRECIPITATING FACTORS BENDING, CERTAIN POSITIONS, PROLONGED SITTING ALLEVIATING FACTORS NOTHING PAIN CLINIC PFS, CLERGY, PUBLIC HEALTH REFERRALS PFS REFERRAL NEEDED?NO CLERGY REFERRAL NEEDED?NO PUBLIC HEALTH REFERRAL NEEDED?NO WAS THE PROVIDER NOTIFIED OF ANY PERTINENT INFO?YES HAS THE PATIENT BEEN EDUCATED REGARDING HIS/HER PLAN OF CARE?YES HAS THE PATIENT BEEN EDUCATED REGARDING PAIN, THE RISK FOR PAIN, THE IMPORTANCE OF EFFECTIVE PAIN MANAGEMENT, AND THE PAIN ASSESSMENT PROCESS?YES ADVANCE DIRECTIVE ADVANCE DIRECTIVE DISCUSSED WITH PATIENT:YES ASHVIN LINDQUIST IS HIS HCP HOSPITALIZATION/MAJOR DIAGNOSTIC PROCEDURE SURGERY RELATED REVIEW OF SYSTEMS REVIEWED BY: PROVIDER: ANA PAULA OCHOA [employer] DRIVER-C . CONSTITUTIONAL: ANY CHANGE IN YOUR MEDICAL CONDITION? YES FOR TUR-P 04/07 . CHILLS NO . FEVER NO . INFECTION: DO YOU HAVE NEW INFECTIONS? NO . DO YOU HAVE HISTORY OF MRSA? NO . MUSCULOSKELETAL: ANY NEW PATTERNS OF PAIN OR NUMBNESS? YES PT REPORTS A SHOOTING PAIN TOWARDS BOTH BUTTOCKS, LEFT > RIGHT, SINCE ABOUT LAST AUGUST WHEN HE WENT TO ED WITH THIS. . GASTROENTEROLOGY: ANY NEW CHANGE IN BOWEL CONTROL? NO . GENITOURINARY: ANY NEW CHANGE IN BLADDER CONTROL? NO . IS THERE A CHANCE YOU COULD BE ? NO . HEMATOLOGY/LYMPH: DO YOU TAKE ANY BLOOD THINNERS? (FOR EXAMPLE- COUMADIN, PLAVIX, AGGRENOX, PLATEL, PRADAXA, OR XARELTO) NO . WHEN WAS YOUR LAST DOSE? DATE: TIME: . NEUROLOGY: HAVE YOU FALLEN IN THE PAST 12 MONTHS? NO . ANY NEW EXTREMITY NUMBNESS OR WEAKNESS? NO . CARDIOLOGY: DO YOU HAVE A PACEMAKER OR DEFIBRILLATOR? NO . RESPIRATORY: HAVE YOU BEEN SICK IN THE PAST WEEK? NO . FEVER NO . FLU LIKE SYMPTOMS? NO . COUGH NO . INTEGUMENTARY: DO YOU HAVE ANY RASHES OR OPEN SORES? NO . ALLERGIC/IMMUNO: ARE YOU ALLERGIC TO IV DYE? NO . ANY NEW ALLERGIES? NO . PSYCHIATRIC: DO YOU HAVE THOUGHTS OF HURTING YOURSELF OR SOMEONE ELSE? NO . ARE YOU ABUSED, NEGLECTED, OR IN AN UNSAFE ENVIRONMENT? NO . ENDOCRINOLOGY: ARE YOU DIABETIC? NO . OTHER: DO YOU NEED ANY PRESCRIPTIONS? NO . IF YES, PLEASE LIST: ____ . ANY NEW PROBLEMS WITH YOUR MEDICATIONS? NO . WHEN DID YOU LAST EAT? ____ . WHEN DID YOU LAST DRINK? ____ . WHAT DID YOU LAST DRINK? ____ . NAME OF PERSON DRIVING YOU HOME? ____ . DO YOU HAVE ANY OTHER QUESTIONS OR CONCERNS NO . VITAL SIGNS WT 209.4 LBS, HT 69 IN, BMI 30.92 INDEX, BP 151/85 MM HG, HR 75 /MIN, RR 18 /MIN, TEMP 97.5 F, OXYGEN SAT % 97%, NA INITIALS AW 1030, REVIEWED BY: REYNA. EXAMINATION GENERAL EXAMINATION: GENERALNO ACUTE DISTRESS, WELL NOURISHED AND HYDRATED. PSYCHAPPROPRIATE MOOD AND AFFECT . LUNGS:CLEAR TO AUSCULTATION BILATERALLY, NO WHEEZES, RHONCHI, RALES. HEART:NO MURMURS, REGULAR RATE AND RHYTHM. BACK:POINT TENDER ALONG LUMBAR SPINE, SURROUNDING SKIN SHOWS NO ERYTHEMA, ECCHYMOSIS, INCREASED WARMTH, AND/OR SKIN ERUPTIONS NOTED. . MUSCULOSKELETAL:EQUAL STRENGTH OF LOWER EXTREMITIES BILATERALLY . ASSESSMENTS SPONDYLOSIS WITHOUT MYELOPATHY OR RADICULOPATHY, LUMBOSACRAL REGION - M47.817 (PRIMARY) TREATMENT SPONDYLOSIS WITHOUT MYELOPATHY OR RADICULOPATHY, LUMBOSACRAL REGION NOTES: DIAGNOSTIC FACET BLOCK #1 L4-L5 L5-S1. CLINICAL NOTES: 54-YEAR-OLD MALE IN FOR CHRONIC PAIN FOLLOW-UP. GIVEN PRESENTING SYMPTOMS AND RESULTS OF PHYSICAL EXAMINATION RECOMMENDED DIAGNOSTIC FACET BLOCK #1 L4-L5 L5-S1 WITH POSTPROCEDURAL FOLLOW-UP. PATIENT HAS EXPRESSED UNDERSTANDING OF AND WAS IN AGREEMENT WITH TREATMENT PLAN. GIVEN TIME TO ASK QUESTIONS AND EXPRESS CONCERNS. OTHERS NOTES: FACET JOINT INJECTION MATERIAL WAS PRINTED. DISPOSITION & COMMUNICATION FOLLOW UP PROCEDURE (REASON: DIAGNOSTIC FACET BLOCK #1 L4-L5 L5-S1) ELECTRONICALLY SIGNED BY OLLIE LOPEZ ON 03/29/2020 AT 08:38 AM EDT DISCLAIMER : THIS IS A VISIT SUMMARY EXTRACTED FROM THE [employer] CHART. IT IS NOT A COPY OF THE [employer] PROGRESS NOTE. SOMMER
== END ==
LOC: M PAIN 10:30
PROVIDERS: ATTEND Family Medicine
DX: M47.817 Spondylosis without myelopathy or radiculopathy, lumbosacral region (principal); I10 Essential (primary) hypertension; Z79.899 Other long term (current) drug therapy; Z88.2 Allergy status to sulfonamides; Z88.1 Allergy status to other antibiotic agents; Z88.5 Allergy status to narcotic agent; Z88.8 Allergy status to other drugs, medicaments and biological substances; Z91.048 Other nonmedicinal substance allergy status

== ENCOUNTER → 2020-03-31 | Outpatient (REF) | payer MEDICARE, OTHER ==
[~2020-03-31] MED LIST changes: +D31000TA2 PO; -VITAD1000T PO
== END ==
LOC: M SMT 15:02
PROVIDERS: ATTEND Urology
DX: Z01.818 Encounter for other preprocedural examination (principal); N40.1 Benign prostatic hyperplasia with lower urinary tract symptoms; N39.0 Urinary tract infection, site not specified

== ENCOUNTER → 2020-04-04 | Outpatient (CLI) | payer OTHER ==
[~2020-04-04] MED LIST changes: -D31000TA2 PO; +VITAD1000T PO
== END ==
LOC: M LABSMTC 09:20
PROVIDERS: ATTEND Anesthesiology
DX: Z01.812 Encounter for preprocedural laboratory examination (principal); Z11.59 Encounter for screening for other viral diseases

== ENCOUNTER 2020-04-07 12:00 | Day surgery (SDC) | payer MEDICARE, BC, OTHER ==
[~2020-04-07] VITALS: Ht 172.7 cm; Wt 92.5 kg
[~2020-04-07 12:00] MED LIST changes: +LR 1,000 ML IV ONE; +ceFAZolin SOD 2 GM in IV 1 EA IV ONE
[2020-04-07] MEDS ORDERED: propofoL 200 MG/20 ML VIAL As Ordered ONE (14:13)
[2020-04-07] MEDS ORDERED: ACETAMINOPHEN 1000MG 100ML IV BTL (OFIRMEV) (J0131 PER 10MG) As Ordered ONE (14:13)
[2020-04-07] MEDS ORDERED: ONDANSETRON 4MG/2ML VIAL As Ordered ONE (14:13)
[2020-04-07] MEDS ORDERED: MIDAZOLAM INJ 2MG/2ML VIAL (J2250 PER 1MG) As Ordered ONE (14:13)
[2020-04-07] MEDS ORDERED: LIDOCAINE 2% 100MG/5ML SDV (FOR ANES.) As Ordered ONE (14:13)
[2020-04-07] MEDS ORDERED: dexameTHASONE 4 MG/ML 1ML VIAL (J1100 PER 1MG) As Ordered ONE (14:13)
[2020-04-07] MEDS ORDERED: fentaNYL 100 MCG/2 ML INJECTION (J3010) As Ordered ONE ×2 (14:13→16:12)
[2020-04-07] MEDS ORDERED: PHENYLephrine HCL 500 MCG/5 ML (100MCG/ML) SYRINGE (J2370) As Ordered ONE (14:51)
[2020-04-07] MEDS ORDERED: FUROSEMIDE 100MG/10ML VIAL (J1940) As Ordered ONE (16:12)
--- NOTE | 2020-04-07 16:37 | ROOPDOC ---
[facility] Report Of Operation Report of Operation DATE OF PROCEDURE: 04/07/20 PREPROCEDURE DIAGNOSIS: Benign prostatic hyperplasia. POSTPROCEDURE DIAGNOSIS: Benign prostatic hyperplasia. PROCEDURE: Cystoscopy, button transurethral electrovaporization of the prostate. SURGEON: Sergio Garcia MD BACKREST ASSEMBLER: None. ANESTHESIA: General. OPERATIVE INDICATIONS: This is a 64-year-old male with benign prostatic hyperplasia and lower urinary tract symptoms refractory to medical therapy. He was brought to the operating room today for treatment. DESCRIPTION OF PROCEDURE: The patient was brought to the operating room and general anesthesia was induced. Prophylactic antibiotics were infused. He was placed in the dorsal lithotomy position and prepped and draped in the usual sterile fashion. At this point, I inserted a resectoscope into the urethral meatus using a visual obturator. Of note, the patient had trilobar benign prostatic hyperplasia. I made note of the location of both ureteral orifices, as well as the verumontanum. At this point, I began vaporizing hyperplastic tissue on the median lobe and then circumferentially at the bladder neck. I then vaporized hyperplastic tissue on both lateral lobes. I kept doing this until there was a clear channel established. Once there was a clear channel established, hemostasis was obtained using the coagulation current. Once satisfied with hemostasis, the resectoscope was removed and an 18-Frisian Wu catheter was inserted into the bladder. The balloon was filled with 15 mL of sterile water and then the catheter was connected to gravity drainage. This marked the conclusion of the procedure. The patient was taken out of the dorsal lithotomy position, awakened from anesthesia and transported to the recovery room in stable condition. Estimated blood loss: 20 mL. Complications: None. Specimens: None. PLAN: The patient will followup in the clinic in approximately 1 week for catheter removal and a voiding trial. SERGIO GARCIA MD April 07, 2020 16:37
[2020-04-07] MEDS ORDERED: ACETAMINOPHEN TAB 650MG DOSE (2X325MG) PO PRN (17:00)
[2020-04-07] MEDS ORDERED: fentaNYL 100 MCG/2 ML INJECTION (J3010) IV PRN (17:00)
[2020-04-07] MEDS ORDERED: ONDANSETRON 4MG/2ML VIAL IV PRN (17:00)
[2020-04-07] MEDS ORDERED: METOCLOPRAMIDE INJ 10MG/2ML VIAL (J2765 PER 1) IV PRN (17:00)
[2020-04-07] MEDS ORDERED: PERCOCET 5MG/325MG TAB PO PRN (17:00)
[2020-04-07] MEDS ORDERED: LR 1,000 ML IV SCH (17:00)
[2020-04-07] MEDS ORDERED: oxyBUTYnin 5 MG TAB PO SCH (18:00)
[2020-04-07 18:42] VITALS: BP 128/89
== END 2020-04-07 19:00 | disposition home or self-care (01) ==
LOC: M SDC 12:00
PROVIDERS: ATTEND Urology
DX: N40.1 Benign prostatic hyperplasia with lower urinary tract symptoms (principal); R35.0 Frequency of micturition; I10 Essential (primary) hypertension; J30.9 Allergic rhinitis, unspecified; K21.9 Gastro-esophageal reflux disease without esophagitis; E55.9 Vitamin D deficiency, unspecified; F41.9 Anxiety disorder, unspecified; M54.5 Low back pain; M89.29 Other disorders of bone development and growth, multiple sites; E78.5 Hyperlipidemia, unspecified; Z79.899 Other long term (current) drug therapy; Z88.2 Allergy status to sulfonamides; Z88.5 Allergy status to narcotic agent; Z88.8 Allergy status to other drugs, medicaments and biological substances
CPT/HCPCS: 52601; J0131; J0690; J1100; J1940; J2250; J2370; J2405; J3010

== ENCOUNTER → 2020-04-22 | Outpatient (REF) | payer MEDICARE, OTHER ==
[~2020-04-22] MED LIST changes: -LR 1,000 ML IV ONE; -ceFAZolin SOD 2 GM in IV 1 EA IV ONE
[2020-04-22 13:50] LABS: APPEARANCE, URINE CLOUDY (CLEAR); BACTERIA, URINE AUTO NEGATIVE (NEGATIVE); BILIRUBIN, URINE AUTO NEGATIVE (NEGATIVE); BLOOD, URINE BLOOD 3+ (NEGATIVE); COLOR, URINE YELLOW (YELLOW); GLUCOSE, URINE (UA) AUTO NEGATIVE (NEGATIVE); KETONE, URINE AUTO NEGATIVE (NEGATIVE); LEUKOCYTE ESTERASE, URINE AUTO 2+ (NEGATIVE); NITRITE, URINE AUTO NEGATIVE (NEGATIVE); PROTEIN, URINE AUTO 2+ mg/dL (NEGATIVE); RBC, URINE AUTO TNTC /HPF (0-3); SPECIFIC GRAVITY URINE AUTO 1.023 (1.002-1.035); SQUAMOUS EPITHELIAL CELL UR AU 0 /HPF (0-6); UROBILINOGEN, URINE AUTO 0.2 mg/dL (0.0-2.0); WBC, URINE AUTO 155 /HPF (0-3)
== END ==
LOC: M SMT 13:20
PROVIDERS: ATTEND Nurse Practitioner Family
DX: N40.1 Benign prostatic hyperplasia with lower urinary tract symptoms (principal)

== ENCOUNTER → 2020-05-04 | Outpatient (CLI) | payer MEDICARE, OTHER | LOC: M LABSMTC 11:23 | PROVIDERS: ATTEND Anesthesiology | DX: Z03.818 Encounter for observation for suspected exposure to other biological agents ruled out (principal); Z11.59 Encounter for screening for other viral diseases | CPT/HCPCS: C9803; U0003 ==

== ENCOUNTER → 2020-05-07 | Outpatient (CLI) | payer OTHER ==
[~2020-05-07] MED LIST changes: +BUPIVACAINE HCL 0.25% 30ML VIAL As Ordered ONE; +ISOVUE-M 300 61% 15ML VIAL As Ordered ONE; +LIDOCAINE 1% SDV 30ML VIAL As Ordered ONE
--- NOTE | 2020-05-07 12:55 | REP ---
Partial lumbar spine series: Four views . History: Injection procedure for pain. 24.8 seconds of fluoroscopy time is reported. Findings: A sequence of four fluoroscopically obtained last image hold procedural spot radiographs of the lumbar spine document needle position and contrast injection associated with injection procedure. Electronically Signed by Ramesh Anguiano MD 05/07/2020 12:47 P
--- NOTE | 2020-05-08 00:33 | ECWPNPC ---
PATIENT NAME: BRANDY LINDQUIST : 1955 GENDER: MALE VISIT DATE: 05/07/2020 DISCHARGE DATE: 05/07/20 1258 VISIT LOCKED DATE TIME: PHYSICIAN: EVA BROWN MD RESOURCE: EVA BROWN MD REASON FOR APPOINTMENT 1. W/C ANA DX L4/L5, L5/S1 #1 PAT COMPLETE HISTORY OF PRESENT ILLNESS GENERAL: -. FALL RISK SCREENING: SCREENING :NO FALLS REPORTED IN THE LAST YEAR PAIN SCREENING: PATIENT HAS A COMPLAINT OF ACUTE OR CHRONIC PAIN :NO NURSING NOTE: -. PAIN CENTER INTAKE QUESTIONS: DO YOU HAVE A HISTORY OF MRSA? :NO DO YOU TAKE A BLOOD THINNERS? :NO DO YOU HAVE ANY BLEEDING DISORDERS? :NO ANY NEW NUMBNESS OR WEAKNESS IN YOUR LEGS OR ARMS? :NO ANY PACEMAKER,DEFIBRILLATOR, OR DORSAL COLUMN STIMULATOR? :NO DO YOU HAVE ANY RASHES OR OPEN SORES? :NO ARE YOU ALLERGIC TO IV DYE? :NO ARE YOU DIABETIC? :NO ANY NEW PROBLEMS WITH YOUR MEDICATIONS? :NO HAVE YOU RECEIVED A VACCINE IN THE PAST 30 DAYS? :NO DO YOU PLAN TO RECEIVE A VACCINE IN THE NEXT 21 DAYS? :NO DO YOU TAKE ANY IMMUNOSUPPRESSIVE MEDICATIONS? :NO ANY HISTORY OF SEIZURES? :NO ANY HISTORY OF CARDIAC ISSUES OR EVENTS? :NO DO YOU HAVE SLEEP APNEA? :NO ANY RECENT HEAD INJURY? :NO DO YOU HAVE ANY NEW INFECTIONS? :NO JUSTFINISHED ANTIBIOTIC FROM [place] INFECTION IS THERE A CHANCE YOU COULD BE ? :NO ARE YOU BREAST FEEDING? :NO WHEN DID YOU LAST EAT? : LAST NIGHT WHEN DID YOU LAST DRINK? : -THIS MORNING 09 WHAT DID YOU LAST DRINK? : -BLACK COFFEE NAME OF PERSON DRIVING YOU HOME? : - WILL BE DRIVING HOME DO YOU HAVE ANY OTHER QUESTIONS OR CONCERNS? : - CURRENT MEDICATIONS TAKING ACETAMINOPHEN-CODEINE #4 300-60 MG TABLET 1 TABLET NEEDED ORALLY BID, NOTES: NOT TAKEN TAKING VIAGRA 100 MG TABLET 1 TABLET NEEDED ORALLY ONCE A DAY TAKING SUCRALFATE 1 GM TABLET 1 TABLET ON AN EMPTY STOMACH ORALLY TWICE DAILY, NOTES: LAST NIGHT 2099 TAKING OMEPRAZOLE 20 MG CAPSULE DELAYED RELEASE 1 CAP ORALLY TWICE DAILY, NOTES: 05-06-202099 TAKING LISINOPRIL 20 MG TABLET 1 TABLET ORALLY ONCE A DAY, NOTES: 2099 TAKING CYCLOBENZAPRINE HCL 5 MG TABLET 1 TABLET ORALLY NEEDED FOR SPASMS AND PAIN DAILY MAY REPEAT IN 5 HRS MDD2, NOTES: A COUPLE WEEKS TAKING VITAMIN D-3 1000 UNIT CAPSULE 2 CAPSULE ORALLY ONCE A DAY, NOTES: WINTER TAKING TYLENOL EXTRA STRENGTH 500 MG TABLET 1 TABLET NEEDED ORALLY EVERY 6 HRS, NOTES: 05-06-202099 TAKING MUCINEX 600 MG TABLET EXTENDED RELEASE 12 HOUR 1 TABLET NEEDED ORALLY EVERY 12 HRS, NOTES: A COUPLE WEEKS TAKING TYLENOL 8 HOUR ARTHRITIS PAIN 650 MG TABLET EXTENDED RELEASE 2 TABLETS NEEDED ORALLY EVERY 8 HRS, NOTES: NOT LATELY TAKING BASILIA , NOTES: A COUPLE DAYS TAKING FLONASE , NOTES: NOT LATELY TAKING CLINDAMYCIN HCL 150 MG CAPSULE 1 CAP ORALLY QID, NOTES: THIS MORNING LAST DOSE NOT-TAKING CEFDINIR 300 MG CAPSULE 1 CAP ORALLY BID NOT-TAKING OXYBUTYNIN CHLORIDE 5 MG TABLET 1 TAB(S) ORALLY EVERY 8 HOURS NEEDED FOR BLADDER SPASMS NOT-TAKING CIPROFLOXACIN HCL 500 MG TABLET 1 TABLET ORALLY EVERY 12 HRS NOT-TAKING PROBIOTIC - CAPSULE DIRECTED ORALLY NOT-TAKING KEFLEX 500 MG CAPSULE 1 CAPSULE 1 HOUR PRIOR TO YOUR CYSTOSCOPY ORALLY ONCE NOT-TAKING MULTIVITAMIN ADULT - TABLET ORALLY ONCE DAILY NOT-TAKING KEFLEX 500 MG CAPSULE 1 CAPSULE ORALLY TO START ONE HOUR BEFORE REZUM PROCEDURE EVERY 12 HRS NOT-TAKING CIPROFLOXACIN HCL 500 MG TABLET 1 TABLET 1 HOUR PRIOR TO YOUR CYSTOSCOPY ORALLY ONCE NOT-TAKING CIPRO 500 MG TABLET 1 TABLET ORALLY TWICE A DAY NOT-TAKING MYRBETRIQ 50 MG TABLET 1 TABLET ORALLY ONCE A DAY, NOTES: HAS NOT STARTED NOT-TAKING TYLENOL 325 MG CAPSULE 2 CAPSULES NEEDED ORALLY EVERY 6 HRS, NOTES: 11/12/17 1200 NOT-TAKING PREDNISONE 20 MG TABLET 1 TABLET ORALLY TAKE 1 TAB TWICE A DAY WITH FOOD X 3 DAYS ATHEN 1/2 TAB TWICE A DAY X 3 DAYS, NOTES: FINISHED 07/09/17 NOT-TAKING DICLOFENAC SODIUM 1 % GEL DIRECTED TRANSDERMAL APPLY 4 GRAMS TO LOW BACK Q 6 HRS NOT-TAKING GABAPENTIN 100 MG CAPSULE DIRECTED ORALLY TID FOR PAIN MDD3 NOT-TAKING VALIUM 5 MG TABLET 1 TABLET ORALLY TAKE 2 TABS ON ARRIVAL TO CLINIC FOR PROCEDURE MDD=2, NOTES: 10/12/16 1002 NOT-TAKING ACETAMINOPHEN EXTRA STRENGTH 500 MG TABLET 2 TABLET NEEDED ORALLY EVERY 6 HRS NEEDED, NOTES: 10/02/19 0800 NOT-TAKING VALIUM 5 MG TABLET 1 TABLET ORALLY TAKE ON ARRIVAL TO CLINIC FOR PROCEDURE MDD=1, NOTES: DUPLICATE MEDICATION LIST REVIEWED AND RECONCILED WITH THE PATIENT PAST MEDICAL HISTORY GERD HYPERTENSION LOW BACK AFTER INJURY STRESS TEST CLEARED WITH DR OSBORNE FIBROMYLAGIA BPH ED CARPAL TUNNEL BILATERALLY ALLERGIES ASPIRIN: FACE SWELLING - ALLERGY SULFA (FOR ALLERGY USE ONLY): NAUSEA/VOMITING - ALLERGY PLASTIC TAPE: RASH - SIDE EFFECTS LYRICA: DEPRESSION, ANXIETY - SIDE EFFECTS GABAPENTIN: MENTAL STATUS - SIDE EFFECTS OXYBUTYNIN: DIARRHEA/ SEVERE STOMACH UPSET - SIDE EFFECTS DARIFENACIN HYDROBROMIDE: HEADACHE / STOMACH UPSET - SIDE EFFECTS MYRBETRIQ: SEVERE HEARTBURN / HEADACHE - SIDE EFFECTS CIPRO: HEADACHE/DIZZY - SIDE EFFECTS OXYCODONE HCL: ITCHING - SIDE EFFECTS HYDROCODONE: ITCHING - SIDE EFFECTS SURGICAL HISTORY MULTIPLE SURGURIES TO LEFT LEG LEFT KNEE ARTHOSCOPIC 2005 CYSTOSCOPY 03/15/2020 TURP 04/07/2020 FAMILY HISTORY FATHER: , DIAGNOSED WITH HYPERTENSION, UNSPECIFIED HEART DISEASE, DIABETES MOTHER: ALIVE, HYPERTENSION SIBLINGS: ALIVE, BOTH SISTERS HISTORY OF CANCER 2 SISTER(S) - HEALTHY. 1 SON(S) , 1 DAUGHTER(S) - HEALTHY. DENIES FAMILY HISTORY OF UROLOGICAL DISEASES. SOCIAL HISTORY GENERAL: TOBACCO USE ARE YOU A: NONSMOKER. LATEX QUESTIONNAIRE LATEX ALLERGY : HAVE YOU EVER DEVELOPED ANY TYPE OF REACTION AFTER HANDLING LATEX PRODUCTS SUCH RUBBER GLOVES, CONDOMS, DIAPHRAGMS, BALLOONS, SOCKS, OR UNDERWEAR?NO LATEX ALLERGY : HAVE YOU EVER DEVELOPED ANY TYPE OF REACTION DURING OR AFTER DENTAL APPOINTMENT, VAGINAL/RECTAL EXAMINATION, SURGICAL PROCEDURE, OR ANY OTHER EXPOSURE?NO DATE ASKED : 05/03/2020 LATEX RISK : HAVE YOU EVER HAD ANY DIFFICULTY BREATHING OR HIVES AFTER EATING OR HANDLING ANY FRUITS, OR VEGETABLES; SUCH KIWI, BANANAS, STONE FRUITS, OR CHESTNUTSNO LATEX RISK : DO YOU HAVE A PREVIOUS PERSONAL HISTORY OF MORE THAN NINE SURGERIES, SPINA BIFIDA, OR REPEATED CATHERIZATIONS? NO LATEX RISK : ARE YOU FREQUENTLY EXPOSED TO LATEX PRODUCTS IN YOUR OCCUPATION?NO ALCOHOL SCREENING DID YOU HAVE A DRINK CONTAINING ALCOHOL IN THE PAST YEAR?YES HOW OFTEN DID YOU HAVE SIX OR MORE DRINKS ON ONE OCCASION IN THE PAST YEAR?LESS THAN MONTHLY (1 POINT) HOW MANY DRINKS DID YOU HAVE ON A TYPICAL DAY WHEN YOU WERE DRINKING IN THE PAST YEAR?3 OR 4 (1 POINT) HOW OFTEN DID YOU HAVE A DRINK CONTAINING ALCOHOL IN THE PAST YEAR?TWO TO FOUR TIMES A MONTH (2 POINTS) POINTS4 INTERPRETATIONPOSITIVE RECREATIONAL DRUG USE DRUG USE?NO CAFFEINE CAFFEINE USE?YES COFFEE = 2-3 PER DAY TRIES TO DRINK DECAF SEXUAL HX HAD SEX IN THE LAST 12 MONTHS (VAGINAL, ORAL, OR ANAL)?YES WITHWOMEN ONLY USE PROTECTION?NO HAVE YOU EVER HAD AN STD?NO UATSDIN [id number] ANGLICAN NO MORMON BELIEFS THAT WOULD IMPACT HEALTH CARE. LANGUAGE LANGUAGES SPOKEN:JAPANESE LEARNING BARRIERS / SPECIAL NEEDS BARRIERS TO LEARNING?NO HEARING IMPAIRED?NO VISION IMPAIRED?YES COGNITIVELY IMPAIRED?NO :CORRECTIVE LENSES READINESS TO LEARN?YES LEARNING PREFERENCES?NO LEARNING CAPABILITIES PRESENT?YES EMOTIONAL BARRIERS?NO SPECIAL DEVICES?NO MAXILLOFACIAL SURGEON NEEDED?NO DOMESTIC VIOLENCE DO YOU FEEL SAFE IN YOUR ENVIRONMENT?YES DIET: REGULAR. EXERCISE: NO REGULAR EXERCISE. MARITAL STATUS: . NEW PATIENT PAIN DIARY TODAY'S VISIT 03/25/2020 PATIENT DESCRIBES PAIN :ACHING, HAVE IT ALL THE TIME, SHARP, STABBING, TENDER, SORE, SHOOTING FROM 0-10, WHAT LEVEL IS YOUR PAIN TODAY?7 PRECIPITATING FACTORS BENDING, CERTAIN POSITIONS, PROLONGED SITTING ALLEVIATING FACTORS NOTHING PAIN CLINIC PFS, CLERGY, PUBLIC HEALTH REFERRALS PFS REFERRAL NEEDED?NO CLERGY REFERRAL NEEDED?NO PUBLIC HEALTH REFERRAL NEEDED?NO WAS THE PROVIDER NOTIFIED OF ANY PERTINENT INFO?YES HAS THE PATIENT BEEN EDUCATED REGARDING HIS/HER PLAN OF CARE?YES HAS THE PATIENT BEEN EDUCATED REGARDING PAIN, THE RISK FOR PAIN, THE IMPORTANCE OF EFFECTIVE PAIN MANAGEMENT, AND THE PAIN ASSESSMENT PROCESS?YES ADVANCE DIRECTIVE ADVANCE DIRECTIVE DISCUSSED WITH PATIENT:YES ASHVIN LINDQUIST IS HIS HCP HOSPITALIZATION/MAJOR DIAGNOSTIC PROCEDURE SURGERY RELATED VITAL SIGNS WT 205.8 LBS, HT 69 IN, BMI 30.39 INDEX, BP 145/87 MM HG, HR 69 /MIN, RR 18 /MIN, TEMP 97.7 F, OXYGEN SAT % 100%, NA INITIALS SC 11:32. EXAMINATION GENERAL EXAMINATION: THE PATIENT IS ALERT, ORIENTED TIMES THREE AND COOPERATIVE. HEART SHOWS REGULAR RHYTHM, NO MURMURS AND NO GALLOPS. LUNGS ARE CLEAR TO AUSCULTATION. ASSESSMENTS SPONDYLOSIS OF LUMBAR REGION WITHOUT MYELOPATHY OR RADICULOPATHY - M47.816 (PRIMARY) SPONDYLOSIS OF LUMBOSACRAL REGION WITHOUT MYELOPATHY OR RADICULOPATHY - M47.817 TREATMENT SPONDYLOSIS OF LUMBAR REGION WITHOUT MYELOPATHY OR RADICULOPATHY [facility] FACET BLOCK (PAIN)[id number] SPONDYLOSIS OF LUMBOSACRAL REGION WITHOUT MYELOPATHY OR RADICULOPATHY [facility] FACET BLOCK (PAIN)[id number] PROCEDURES PAIN NURSING RECORD PROCEDURE IN ROOM 1220, PHYSICIAN IN ROOM 1225, START 1230, FINISH 1239, PHYSICIAN OUT OF ROOM 1242, STEROID NO STEROID, O2 ROOM AIR, ECG NORMAL SINUS, PATIENT SHIELDED YES, SAFETY STRAP YES, PREP KGULLO RN, DRESSING TEGADERM LOC: 1. ALERT, ORIENTED RESP: 1. REGULAR, NO DYSPNEA COLOR: 1. PINK SKIN: 1. WARM, DRY POSITION: 1. PRONE VITALS: 1225 155/93 73 99% 18 ON ROOM AIR 1245 156/65 77 99% 18 ON ROOM AIR 136/65 66 99% 18 RR AT DC 1251 DISCHARGE: DRESSING SITE DRY AND INTACT WHICH WAS APPLIED BY DR BROWN, TEACHING COMPLETED, PATIENT ACKNOWLEDGES UNDERSTANDING YES WENT OVER ENTIRE DC INCLUDING THE PAIN DIARY PT VERBALIZES UNDERSTANDING, PATIENT DISCHARGED AT 1256 PN WORKMANS' COMP OPINION IN YOUR OPINION, WAS THE INCIDENT THAT THE PATIENT DESCRIBED THE COMPETENT MEDICAL CAUSE OF THIS INJURY/ILLNESS? YES ARE THE PATIENT'S COMPLAINTS CONSISTENT WITH HIS/HER HISTORY OF THE INJURY/ILLNESS? YES IS THE PATIENT'S HISTORY OF THE INJURY/ILLNESS CONSISTENT WITH YOUR OBJECTIVE FINDING? YES WHAT IS THE PERCENTAGE OF TEMPORARY IMPAIRMENT? MODERATE TO MARKED = 66.7% . IS THE PATIENT WORKING? NO . DOCTOR ON SITE: EVA DEGROOT MD PN LUMBAR FACET BLOCK DIAGNOSTIC PRE PROCEDURE DIAGNOSIS LUMBAR SPONDYLOSIS, LUMBOSACRAL SPONDYLOSIS POST PROCEDURE DIAGNOSIS LUMBAR SPONDYLOSIS, LUMBOSACRAL SPONDYLOSIS PROCEDURE BILATERAL L4-L5 AND BILATERAL L5-S1 FACET BLOCK DIAGNOSTIC NUMBER [address] EVA BROWN SUPERVISOR SILVERING DEPARTMENT NONE ANESTHESIA LOCAL PRE PROCEDURE NOTE THE PATIENT WITH HISTORY OF CHRONIC LOW BACK PAIN. I EVALUATED THE PATIENT AND REVIEWED THE CHART. I WENT OVER THE RISKS, ALTERNATIVES, AND BENEFITS ASSOCIATED WITH THIS PROCEDURE. THE PATIENT WOULD LIKE TO PROCEED AND GAVE CONSENT TO PERFORM THE PROCEDURE. AGREED WITH THE PATIENT WE ARE DOING THIS PROCEDURE TO DETERMINE IF THE PATIENT IS A CANDIDATE FOR A RADIOFREQUENCY ABLATION OF THE FACETS JOINTS. THE PATIENT DENIES UNEXPLAINABLE WEIGHT LOSS, FEVER, CHILLS, OR NEW CHANGES IN URINARY OR BOWEL CONTROL. THE PATIENT IS COVID-19 NEGATIVE DESCRIPTION OF PROCEDURE THE PATIENT WAS BROUGHT TO THE PROCEDURE ROOM AND PLACED IN THE PRONE POSITION. THE LUMBOSACRAL AREA WAS CLEANED WITH CHLORAPREP SOLUTION AND DRAPED ASEPTICALLY. THE PROCEDURE WAS DONE UNDER STERILE CONDITIONS. I CHECKED LATERALITY AND THE LEVEL WHERE THE PROCEDURE WAS GOING TO BE PERFORMED WITH THE PATIENT AND THE SUPPORTING STAFF AT THE MOMENT OF THE TIME OUT IN THE PROCEDURE ROOM. UNDER FLUOROSCOPIC GUIDANCE, TARGETS WERE SELECTED AT THE INTERSECTION OF THE LEFT AND RIGHT TRANSVERSE PROCESS OF L4, L5 AND ALA OF S1 WITH ITS RESPECTIVE SUPERIOR ARTICULAR PROCESS. LIDOCAINE WAS USED TO NUMB THE SKIN AND THE SUBCUTANEOUS TISSUE BELOW IT. SPINAL NEEDLE, 22-GAUGE, WAS ADVANCED UNDER FLUOROSCOPIC GUIDANCE AND FOLLOWING PATIENT FEEDBACK UNTIL THE TARGETS WERE REACHED. POSITION OF THE NEEDLES WAS VERIFIED WITH AP AND LATERAL VIEWS. AFTER PROPER POSITION OF THE NEEDLES WAS ACHIEVED, ISOVUE-M DYE 30%, 0.1 ML, WAS INJECTED AT EACH SITE SHOWING ADEQUATE SPREAD OF THE DYE. THEN A SOLUTION OF 0.4 ML OF BUPIVACAINE 0.25% WAS INJECTED AT EACH SITE. THERE WAS NO EVIDENCE OF BLOOD, PARESTHESIA OR CEREBROSPINAL FLUID DURING THE PROCEDURE. THE PATIENT WAS SENT TO THE RECOVERY ROOM. THE PATIENT WAS MOVING THE EXTREMITIES AND DOING WELL. THERE WAS NO COMPLICATION DURING THE PROCEDURE. EBL LESS THAN 5 ML. FLUOROSCOPY TIME WAS 24 SECONDS POST PROCEDURE NOTE THE PATIENT WILL DOCUMENT HIS PAIN LEVEL AND RESPONSE TO THIS PROCEDURE EVERY HOUR. THE PATIENT WILL BE SEEN IN A FOLLOW UP IN THE NEXT FEW WEEKS. FURTHER DETERMINATION FOR HIS CASE WILL BE DONE AT THE NEXT VISIT. INSTRUCTIONS WERE GIVEN, QUESTIONS WERE ANSWERED, AND THE PATIENT EXPRESSED UNDERSTANDING AND AGREED WITH THE PLAN. I, CORTEZ MCKINNON, DOCUMENTED THE ABOVE INFORMATION ACTING A SCRIBE FOR DR. BROWN. I HAVE REVIEWED THE ABOVE DOCUMENT, WRITTEN BY CORTEZ MCKINNON, MEDICAL AND HEALTH SERVICES MANAGER, AND I VERIFY THAT IT IS ACCURATE PROCEDURE CODES 34339 INJ PARAVERT F JNT L/S 1 LEV, MODIFIERS: 50 [id number] INJ PARAVERT F JNT L/S 2 LEV, MODIFIERS: 50 DISPOSITION & COMMUNICATION FOLLOW UP F/UP WITH CASE THERAPIST (REASON: W/C POST LFBD #1 ANA L4-L5, L5-S1) ELECTRONICALLY SIGNED BY EVA BROWN MD, MD ON 05/07/2020 AT 05:18 PM EDT DISCLAIMER : THIS IS A VISIT SUMMARY EXTRACTED FROM THE [employer] CHART. IT IS NOT A COPY OF THE [employer] PROGRESS NOTE. SOMMER
== END ==
LOC: M PAIN 11:30
PROVIDERS: ATTEND Anesthesiology
DX: M47.816 Spondylosis without myelopathy or radiculopathy, lumbar region (principal); M47.817 Spondylosis without myelopathy or radiculopathy, lumbosacral region; I10 Essential (primary) hypertension; Z79.899 Other long term (current) drug therapy; Z88.1 Allergy status to other antibiotic agents; Z88.2 Allergy status to sulfonamides; Z88.5 Allergy status to narcotic agent; Z88.6 Allergy status to analgesic agent; Z91.048 Other nonmedicinal substance allergy status
CPT/HCPCS: 64493; 64494; Q9967

== ENCOUNTER → 2020-05-12 | Outpatient (REF) | payer MEDICARE ==
[~2020-05-12] MED LIST changes: -BUPIVACAINE HCL 0.25% 30ML VIAL As Ordered ONE; -ISOVUE-M 300 61% 15ML VIAL As Ordered ONE; -LIDOCAINE 1% SDV 30ML VIAL As Ordered ONE
[2020-05-12 17:45] LABS: APPEARANCE, URINE CLOUDY (CLEAR); BACTERIA, URINE AUTO NEGATIVE (NEGATIVE); BILIRUBIN, URINE AUTO NEGATIVE (NEGATIVE); BLOOD, URINE BLOOD 3+ (NEGATIVE); COLOR, URINE YELLOW (YELLOW); GLUCOSE, URINE (UA) AUTO NEGATIVE (NEGATIVE); KETONE, URINE AUTO NEGATIVE (NEGATIVE); LEUKOCYTE ESTERASE, URINE AUTO 3+ (NEGATIVE); MUCUS, URINE SMALL (NEGATIVE); NITRITE, URINE AUTO NEGATIVE (NEGATIVE); PROTEIN, URINE AUTO 2+ mg/dL (NEGATIVE); RBC, URINE AUTO TNTC /HPF (0-3); SPECIFIC GRAVITY URINE AUTO 1.028 (1.002-1.035); SQUAMOUS EPITHELIAL CELL UR AU 0 /HPF (0-6); UROBILINOGEN, URINE AUTO 0.2 mg/dL (0.0-2.0); WBC, URINE AUTO TNTC /HPF (0-3)
== END ==
LOC: M SMT 16:46
PROVIDERS: ATTEND Nurse Practitioner Family
DX: N39.0 Urinary tract infection, site not specified (principal)

== ENCOUNTER → 2020-05-24 | Outpatient (CLI) | payer OTHER ==
[~2020-05-24] MED LIST changes: +D31000TA2 PO; -VITAD1000T PO
--- NOTE | 2020-05-26 00:43 | ECWPNPC ---
PATIENT NAME: BRANDY LINDQUIST : 1955 GENDER: MALE VISIT DATE: 05/24/2020 DISCHARGE DATE: 05/24/20 1020 VISIT LOCKED DATE TIME: PHYSICIAN: ROXY OCHOA RESOURCE: ROXY OCHOA REASON FOR APPOINTMENT 1. POST DX FACET HISTORY OF PRESENT ILLNESS GENERAL: - 64-YEAR-OLD MALE IN FOR POST DIAGNOSTIC FACET BLOCK FOLLOW-UP. PATIENT FEELS THE PROCEDURE WAS UNSUCCESSFUL FURTHER STATING THAT HE HAS HAD INCREASED PAIN SINCE PROCEDURE. HE RATES PAIN CURRENTLY AT A 7 OUT OF 10 AND DESCRIBES IT ACHING, CONTINUOUS, SHARP, STABBING, TENDER, THROBBING, SORE, SHOOTING, AND STINGING. FALL RISK SCREENING: SCREENING :NO FALLS REPORTED IN THE LAST YEAR PAIN SCREENING: PATIENT HAS A COMPLAINT OF ACUTE OR CHRONIC PAIN :YES LOCATION OF PAIN:LOW BACK, LEG(S) INTENSITY OF PAIN (SCALE OF 1 TO 10):7 WHAT DOES YOUR PAIN FEEL LIKE:ACHING, CONTINOUS, SHARP, STABBING, TENDER, THROBBING, SORE, SHOOTING, OTHER STINGING, SHOOTING IS DOWN LEFT POSTERIOR THIGH AND LEFT CALF DURATION:CONTINOUS, CONSTANT, STEADY, AWAKENS FROM SLEEP PAIN IS INCREASED BY: ANY ACTIVITY PAIN IS DECREASED BY: NOTHING NURSING NOTE: -. PAIN CENTER INTAKE QUESTIONS: DO YOU HAVE A HISTORY OF MRSA? :NO DO YOU TAKE A BLOOD THINNERS? :NO DO YOU HAVE ANY BLEEDING DISORDERS? :NO ANY NEW NUMBNESS OR WEAKNESS IN YOUR LEGS OR ARMS? :NO ANY PACEMAKER,DEFIBRILLATOR, OR DORSAL COLUMN STIMULATOR? :NO DO YOU HAVE ANY RASHES OR OPEN SORES? :NO ARE YOU ALLERGIC TO IV DYE? :NO ARE YOU DIABETIC? :NO ANY NEW PROBLEMS WITH YOUR MEDICATIONS? :NO HAVE YOU RECEIVED A VACCINE IN THE PAST 30 DAYS? :NO DO YOU PLAN TO RECEIVE A VACCINE IN THE NEXT 21 DAYS? :NO DO YOU NEED ANY PRESCRIPTION? :NO DO YOU TAKE ANY IMMUNOSUPPRESSIVE MEDICATIONS? :NO IS THERE A CHANCE YOU COULD BE ? :NO ARE YOU BREAST FEEDING? :NO CURRENT MEDICATIONS TAKING ACETAMINOPHEN-CODEINE #4 300-60 MG TABLET 1 TABLET NEEDED ORALLY BID TAKING VIAGRA 100 MG TABLET 1 TABLET NEEDED ORALLY ONCE A DAY TAKING SUCRALFATE 1 GM TABLET 1 TABLET ON AN EMPTY STOMACH ORALLY TWICE DAILY TAKING OMEPRAZOLE 20 MG CAPSULE DELAYED RELEASE 1 CAP ORALLY TWICE DAILY TAKING LISINOPRIL 20 MG TABLET 1 TABLET ORALLY ONCE A DAY TAKING CYCLOBENZAPRINE HCL 5 MG TABLET 1 TABLET ORALLY NEEDED FOR SPASMS AND PAIN DAILY MAY REPEAT IN 5 HRS MDD2 TAKING VITAMIN D-3 1000 UNIT CAPSULE 2 CAPSULE ORALLY ONCE A DAY, NOTES: DOESN'T TAKE DURING THE SUMMER TAKING TYLENOL EXTRA STRENGTH 500 MG TABLET 1 TABLET NEEDED ORALLY EVERY 6 HRS TAKING MUCINEX 600 MG TABLET EXTENDED RELEASE 12 HOUR 1 TABLET NEEDED ORALLY EVERY 12 HRS TAKING TYLENOL 8 HOUR ARTHRITIS PAIN 650 MG TABLET EXTENDED RELEASE 2 TABLETS NEEDED ORALLY EVERY 8 HRS TAKING BASILIA 1 CAP ORALLY ONCE DAILY NEEDED TAKING FLONASE 1 SPRAY IN EACH NOSTRIL DAILY NOT-TAKING CLINDAMYCIN HCL 150 MG CAPSULE 1 CAP ORALLY QID NOT-TAKING CEFDINIR 300 MG CAPSULE 1 CAP ORALLY BID NOT-TAKING OXYBUTYNIN CHLORIDE 5 MG TABLET 1 TAB(S) ORALLY EVERY 8 HOURS NEEDED FOR BLADDER SPASMS NOT-TAKING CIPROFLOXACIN HCL 500 MG TABLET 1 TABLET ORALLY EVERY 12 HRS NOT-TAKING PROBIOTIC - CAPSULE DIRECTED ORALLY NOT-TAKING KEFLEX 500 MG CAPSULE 1 CAPSULE 1 HOUR PRIOR TO YOUR CYSTOSCOPY ORALLY ONCE NOT-TAKING MULTIVITAMIN ADULT - TABLET ORALLY ONCE DAILY NOT-TAKING KEFLEX 500 MG CAPSULE 1 CAPSULE ORALLY TO START ONE HOUR BEFORE REZUM PROCEDURE EVERY 12 HRS NOT-TAKING CIPROFLOXACIN HCL 500 MG TABLET 1 TABLET 1 HOUR PRIOR TO YOUR CYSTOSCOPY ORALLY ONCE NOT-TAKING CIPRO 500 MG TABLET 1 TABLET ORALLY TWICE A DAY NOT-TAKING MYRBETRIQ 50 MG TABLET 1 TABLET ORALLY ONCE A DAY, NOTES: HAS NOT STARTED NOT-TAKING TYLENOL 325 MG CAPSULE 2 CAPSULES NEEDED ORALLY EVERY 6 HRS, NOTES: 11/12/17 1200 NOT-TAKING PREDNISONE 20 MG TABLET 1 TABLET ORALLY TAKE 1 TAB TWICE A DAY WITH FOOD X 3 DAYS ATHEN 1/2 TAB TWICE A DAY X 3 DAYS, NOTES: FINISHED 07/09/17 NOT-TAKING DICLOFENAC SODIUM 1 % GEL DIRECTED TRANSDERMAL APPLY 4 GRAMS TO LOW BACK Q 6 HRS NOT-TAKING GABAPENTIN 100 MG CAPSULE DIRECTED ORALLY TID FOR PAIN MDD3 NOT-TAKING VALIUM 5 MG TABLET 1 TABLET ORALLY TAKE 2 TABS ON ARRIVAL TO CLINIC FOR PROCEDURE MDD=2, NOTES: 10/12/16 1002 NOT-TAKING ACETAMINOPHEN EXTRA STRENGTH 500 MG TABLET 2 TABLET NEEDED ORALLY EVERY 6 HRS NEEDED, NOTES: 10/02/19 0800 NOT-TAKING VALIUM 5 MG TABLET 1 TABLET ORALLY TAKE ON ARRIVAL TO CLINIC FOR PROCEDURE MDD=1, NOTES: DUPLICATE MEDICATION LIST REVIEWED AND RECONCILED WITH THE PATIENT PAST MEDICAL HISTORY GERD HYPERTENSION LOW BACK PAIN AFTER INJURY STRESS TEST CLEARED WITH DR OSBORNE FIBROMYLAGIA BPH ED CARPAL TUNNEL BILATERALLY ALLERGIES ASPIRIN: FACE SWELLING - ALLERGY SULFA (FOR ALLERGY USE ONLY): NAUSEA/VOMITING - ALLERGY PLASTIC TAPE: RASH - SIDE EFFECTS LYRICA: DEPRESSION, ANXIETY - SIDE EFFECTS GABAPENTIN: MENTAL STATUS - SIDE EFFECTS OXYBUTYNIN: DIARRHEA/ SEVERE STOMACH UPSET - SIDE EFFECTS DARIFENACIN HYDROBROMIDE: HEADACHE / STOMACH UPSET - SIDE EFFECTS MYRBETRIQ: SEVERE HEARTBURN / HEADACHE - SIDE EFFECTS CIPRO: HEADACHE/DIZZY - SIDE EFFECTS OXYCODONE HCL: ITCHING - SIDE EFFECTS HYDROCODONE: ITCHING - SIDE EFFECTS SURGICAL HISTORY MULTIPLE SURGURIES TO LEFT LEG LEFT KNEE ARTHOSCOPIC 2005 CYSTOSCOPY 03/15/2020 TURP 04/07/2020 FAMILY HISTORY FATHER: , DIAGNOSED WITH HYPERTENSION, UNSPECIFIED HEART DISEASE, DIABETES MOTHER: ALIVE, HYPERTENSION SIBLINGS: ALIVE, BOTH SISTERS HISTORY OF CANCER 2 SISTER(S) - HEALTHY. 1 SON(S) , 1 DAUGHTER(S) - HEALTHY. DENIES FAMILY HISTORY OF UROLOGICAL DISEASES. SOCIAL HISTORY GENERAL: TOBACCO USE ARE YOU A: NONSMOKER. LATEX QUESTIONNAIRE LATEX ALLERGY : HAVE YOU EVER DEVELOPED ANY TYPE OF REACTION AFTER HANDLING LATEX PRODUCTS SUCH RUBBER GLOVES, CONDOMS, DIAPHRAGMS, BALLOONS, SOCKS, OR UNDERWEAR?NO PLASTIC TAPE BREAKES HIM OUT LATEX ALLERGY : HAVE YOU EVER DEVELOPED ANY TYPE OF REACTION DURING OR AFTER DENTAL APPOINTMENT, VAGINAL/RECTAL EXAMINATION, SURGICAL PROCEDURE, OR ANY OTHER EXPOSURE?NO LATEX RISK : HAVE YOU EVER HAD ANY DIFFICULTY BREATHING OR HIVES AFTER EATING OR HANDLING ANY FRUITS, OR VEGETABLES; SUCH KIWI, BANANAS, STONE FRUITS, OR CHESTNUTSNO LATEX RISK : DO YOU HAVE A PREVIOUS PERSONAL HISTORY OF MORE THAN NINE SURGERIES, SPINA BIFIDA, OR REPEATED CATHERIZATIONS? NO LATEX RISK : ARE YOU FREQUENTLY EXPOSED TO LATEX PRODUCTS IN YOUR OCCUPATION?NO DATE ASKED : 05/24/2020 ALCOHOL SCREENING DID YOU HAVE A DRINK CONTAINING ALCOHOL IN THE PAST YEAR?YES HOW OFTEN DID YOU HAVE SIX OR MORE DRINKS ON ONE OCCASION IN THE PAST YEAR?LESS THAN MONTHLY (1 POINT) HOW MANY DRINKS DID YOU HAVE ON A TYPICAL DAY WHEN YOU WERE DRINKING IN THE PAST YEAR?3 OR 4 (1 POINT) HOW OFTEN DID YOU HAVE A DRINK CONTAINING ALCOHOL IN THE PAST YEAR?TWO TO FOUR TIMES A MONTH (2 POINTS) POINTS4 INTERPRETATIONPOSITIVE RECREATIONAL DRUG USE DRUG USE?NO CAFFEINE CAFFEINE USE?YES COFFEE = 2-3 PER DAY TRIES TO DRINK DECAF SEXUAL HX HAD SEX IN THE LAST 12 MONTHS (VAGINAL, ORAL, OR ANAL)?YES WITHWOMEN ONLY USE PROTECTION?NO HAVE YOU EVER HAD AN STD?NO CONFUCIANISM [id number] AMISH NO PRESYBETERIAN BELIEFS THAT WOULD IMPACT HEALTH CARE. LANGUAGE LANGUAGES SPOKEN:NAMIBIAN LEARNING BARRIERS / SPECIAL NEEDS BARRIERS TO LEARNING?NO HEARING IMPAIRED?NO VISION IMPAIRED?YES :CORRECTIVE LENSES COGNITIVELY IMPAIRED?NO READINESS TO LEARN?YES LEARNING PREFERENCES?NO LEARNING CAPABILITIES PRESENT?YES EMOTIONAL BARRIERS?NO SPECIAL DEVICES?NO JUDICIAL LAW CLERK NEEDED?NO DOMESTIC VIOLENCE DO YOU FEEL SAFE IN YOUR ENVIRONMENT?YES DIET: REGULAR. EXERCISE: NO REGULAR EXERCISE. MARITAL STATUS: . NEW PATIENT PAIN DIARY TODAY'S VISIT 03/25/2020, PATIENT DESCRIBES PAIN : ACHING, HAVE IT ALL THE TIME, SHARP, STABBING, TENDER, SORE, SHOOTING, FROM 0-10, WHAT LEVEL IS YOUR PAIN TODAY? 7, PRECIPITATING FACTORS BENDING, CERTAIN POSITIONS, PROLONGED SITTING, ALLEVIATING FACTORS NOTHING. PAIN CLINIC PFS, CLERGY, PUBLIC HEALTH REFERRALS PFS REFERRAL NEEDED?NO CLERGY REFERRAL NEEDED?NO PUBLIC HEALTH REFERRAL NEEDED?NO HAS THE PATIENT BEEN EDUCATED REGARDING HIS/HER PLAN OF CARE?YES HAS THE PATIENT BEEN EDUCATED REGARDING PAIN, THE RISK FOR PAIN, THE IMPORTANCE OF EFFECTIVE PAIN MANAGEMENT, AND THE PAIN ASSESSMENT PROCESS?YES ADVANCE DIRECTIVE ADVANCE DIRECTIVE DISCUSSED WITH PATIENT:YES ASHVIN LINDQUIST IS HIS HCP HOSPITALIZATION/MAJOR DIAGNOSTIC PROCEDURE SURGERY RELATED REVIEW OF SYSTEMS CONSTITUTIONAL: ANY RECENT FEVER NO . CHILLS NO . WEIGHT CHANGE OF UNKNOWN REASONS NO . GASTROENTEROLOGY: NEW UNEXPLAINABLE CHANGES IN BOWEL CONTROL NO . CONSTIPATION NO . GENITOURINARY: ANY NEW CHANGE IN BLADDER CONTROL? NO . NEUROLOGY: NEW ONSET DIZZINESS OR NEUROLOGICAL CHANGES NOT MENTIONED NO . NEW NUMBNESS OR PAIN PATTERNS NOT MENTIONED AND PERTINENT TO TODAY'S VISIT NO . CARDIOLOGY: NEW CHEST PRESSURE NO . NEW CHEST PAIN NO . RESPIRATORY: UNEXPLAINABLE COUGH NO . NEW SHORTNESS OF BREATH NO . VITAL SIGNS WT 204.6 LBS, HT 69 IN, BMI 30.21 INDEX, BP 136/86 MM HG, HR 68 /MIN, RR 18 /MIN, TEMP 98.1 F, OXYGEN SAT % 97%, SAFE IN ENV? (Y/N) Y, NA INITIALS AW [id number], REVIEWED BY: GEOFFREY. EXAMINATION GENERAL EXAMINATION: GENERALNO ACUTE DISTRESS, WELL NOURISHED AND HYDRATED. PSYCHAPPROPRIATE MOOD AND AFFECT . LUNGS:CLEAR TO AUSCULTATION BILATERALLY, NO WHEEZES, RHONCHI, RALES. HEART:NO MURMURS, REGULAR RATE AND RHYTHM. BACK:POINT TENDER LOW BACK NEAR INJECTION SITES, SURROUNDING SKIN SHOWS NO ERYTHEMA, ECCHYMOSIS, INCREASED WARMTH, AND/OR SKIN ERUPTIONS NOTED. . ASSESSMENTS SPONDYLOSIS OF LUMBOSACRAL REGION WITHOUT MYELOPATHY OR RADICULOPATHY - M47.817 (PRIMARY) TREATMENT SPONDYLOSIS OF LUMBOSACRAL REGION WITHOUT MYELOPATHY OR RADICULOPATHY START SOMA TABLET, 350 MG, 1 TABLET NEEDED, ORALLY, AT BEDTIME, 5 DAYS, 5 CLINICAL NOTES: 64-YEAR-OLD MALE IN FOR POST DIAGNOSTIC FACET BLOCK FOLLOW-UP. GIVEN PRESENTING SYMPTOMS RECOMMEND FIVE-DAY COURSE OF SOMA WITH FOLLOW-UP IN 2 WEEKS. POTENTIAL SEDATION FROM SOMA DISCUSSED WITH PATIENT AND HE WAS ENCOURAGED TO TAKE MEDICATION PRIOR TO BED. PATIENT HAS EXPRESSED UNDERSTANDING OF AND WAS IN AGREEMENT WITH TREATMENT PLAN. GIVEN TIME TO ASK QUESTIONS AND EXPRESS CONCERNS. PROCEDURE CODES [id number] ESTABILISHED PATIENT [facility] CHARGE DISPOSITION & COMMUNICATION FOLLOW UP 2 WEEKS (REASON: INCREASED BACK PAIN) ELECTRONICALLY SIGNED BY OLLIE LOPEZ ON 05/25/2020 AT 08:31 AM EDT DISCLAIMER : THIS IS A VISIT SUMMARY EXTRACTED FROM THE [employer] CHART. IT IS NOT A COPY OF THE [employer] PROGRESS NOTE. MTDD
== END ==
LOC: M PAIN 09:45
PROVIDERS: ATTEND Family Medicine
DX: M47.817 Spondylosis without myelopathy or radiculopathy, lumbosacral region (principal)

== ENCOUNTER → 2020-06-07 | Outpatient (CLI) | payer MEDICARE, OTHER | LOC: M PAIN 10:15 | PROVIDERS: ATTEND Family Medicine | DX: M46.1 Sacroiliitis, not elsewhere classified (principal) ==

== ENCOUNTER → 2020-07-09 | Outpatient (REF) | payer MEDICARE, OTHER ==
[2020-07-09 17:43] LABS: APPEARANCE, URINE CLEAR (CLEAR); BACTERIA, URINE AUTO NEGATIVE (NEGATIVE); BILIRUBIN, URINE AUTO NEGATIVE (NEGATIVE); BLOOD, URINE BLOOD 1+ (NEGATIVE); COLOR, URINE YELLOW (YELLOW); GLUCOSE, URINE (UA) AUTO NEGATIVE (NEGATIVE); KETONE, URINE AUTO NEGATIVE (NEGATIVE); LEUKOCYTE ESTERASE, URINE AUTO NEGATIVE (NEGATIVE); MUCUS, URINE SMALL (NEGATIVE); NITRITE, URINE AUTO NEGATIVE (NEGATIVE); PROTEIN, URINE AUTO NEGATIVE (NEGATIVE); RBC, URINE AUTO 0 /HPF (0-3); SPECIFIC GRAVITY URINE AUTO 1.024 (1.002-1.035); SQUAMOUS EPITHELIAL CELL UR AU 0 /HPF (0-6); UROBILINOGEN, URINE AUTO 0.2 mg/dL (0.0-2.0); WBC, URINE AUTO 3 /HPF (0-3)
== END ==
LOC: M SMT 17:01
PROVIDERS: ATTEND Nurse Practitioner Women's Health
DX: N39.0 Urinary tract infection, site not specified (principal)

== ENCOUNTER → 2020-09-09 | Outpatient (CLI) | payer MEDICARE, OTHER | LOC: M LABSMTC 09:37 | PROVIDERS: ATTEND Anesthesiology | DX: Z11.59 Encounter for screening for other viral diseases (principal); Z20.828 Contact with and (suspected) exposure to other viral communicable diseases | CPT/HCPCS: C9803; U0003 ==

== ENCOUNTER → 2020-09-14 | Outpatient (CLI) | payer OTHER ==
[~2020-09-14] MED LIST changes: +BUPIVACAINE HCL 0.25% 30ML VIAL As Ordered ONE; +ISOVUE-M 300 61% 15ML VIAL As Ordered ONE; +LIDOCAINE 1% SDV 30ML VIAL As Ordered ONE; +TRIAMCINOLONE ACETONIDE SUSP 40 MG/ML VIAL (J3301) As Ordered ONE; +diazePAM 5 MG TAB As Ordered ONE; +diphenhydrAMINE 25MG CAP As Ordered ONE
--- NOTE | 2020-09-14 12:18 | REP ---
INDICATION: BILATERAL SIJ'S. COMPARISON: 08/15/2017 TECHNIQUE: Two images from C-arm fluoroscopy [facility] to [facility]. FINDINGS: Single image over the lower aspect of each SI joint provided with the needle projecting into the lower 1/3 of the joint on each side. Fluoroscopy time: 17.4 seconds IMPRESSION: Status post fluoroscopic guided bilateral SI joint injection. <Electronically signed by Luan Mata > 09/14/20 [id number]
--- NOTE | 2020-09-22 02:31 | ECWPNPC ---
PATIENT NAME: BRANDY LINDQUIST : 1955 GENDER: MALE VISIT DATE: 09/14/2020 DISCHARGE DATE: 09/14/20 1242 VISIT LOCKED DATE TIME: PHYSICIAN: EVA BROWN MD RESOURCE: EVA BROWN MD REASON FOR APPOINTMENT 1. W/C BILATERAL SIJ HISTORY OF PRESENT ILLNESS GENERAL: -. FALL RISK SCREENING: SCREENING :NO FALLS REPORTED IN THE LAST YEAR PAIN SCREENING: PATIENT HAS A COMPLAINT OF ACUTE OR CHRONIC PAIN :YES LOCATION OF PAIN:LOW BACK INTENSITY OF PAIN (SCALE OF 1 TO 10):7 WHAT DOES YOUR PAIN FEEL LIKE:ACHING, SHOOTING DURATION:CONTINOUS, CONSTANT PAIN IS INCREASED BY:ACTIVITIES PAIN IS DECREASED BY:OTHERS CHANGING POSITIONS TREATMENT/MEDICATIONS USED TO MANAGE PAIN: CYCLOBENZAPRINE LEVEL OF RELIEF FROM PAIN TREATMENTS IN THE PAST:25% PAIN HAS INTERFERED WITH THE FOLLOWING:BATHING/DRESSING, WALKING ABILITY, HOUSEWORK, SLEEP, TRANSPORTATION, TOILETING NURSING NOTE: -. PAIN CENTER INTAKE QUESTIONS: DO YOU HAVE A HISTORY OF MRSA? :NO DO YOU TAKE A BLOOD THINNERS? :NO DO YOU HAVE ANY BLEEDING DISORDERS? :NO ANY NEW NUMBNESS OR WEAKNESS IN YOUR LEGS OR ARMS? :YES LEFT SHOULDER PAIN ANY PACEMAKER,DEFIBRILLATOR, OR DORSAL COLUMN STIMULATOR? :NO DO YOU HAVE ANY RASHES OR OPEN SORES? :NO ARE YOU ALLERGIC TO IV DYE? :NO ARE YOU DIABETIC? :NO ANY NEW PROBLEMS WITH YOUR MEDICATIONS? :NO HAVE YOU RECEIVED A VACCINE IN THE PAST 30 DAYS? :NO DO YOU PLAN TO RECEIVE A VACCINE IN THE NEXT 21 DAYS? :YES IF SO WHAT VACCINE AND WHEN? FLU VACCINE DO YOU TAKE ANY IMMUNOSUPPRESSIVE MEDICATIONS? :NO ANY HISTORY OF SEIZURES? :NO ANY HISTORY OF CARDIAC ISSUES OR EVENTS? :NO DO YOU HAVE SLEEP APNEA? :NO ANY RECENT HEAD INJURY? :NO DO YOU HAVE ANY NEW INFECTIONS? :NO IS THERE A CHANCE YOU COULD BE ? :NO ARE YOU BREAST FEEDING? :NO WHEN DID YOU LAST EAT? : 09/13/201999 WHEN DID YOU LAST DRINK? : -09/14/20 09 WHAT DID YOU LAST DRINK? : -SIP OF WATER WITH MEDS NAME OF PERSON DRIVING YOU HOME? : - ASHVIN DO YOU HAVE ANY OTHER QUESTIONS OR CONCERNS? : - CURRENT MEDICATIONS TAKING ACETAMINOPHEN-CODEINE #4 300-60 MG TABLET 1 TABLET NEEDED ORALLY BID, NOTES: NONE IN PAST MONTH TAKING VIAGRA 100 MG TABLET 1 TABLET NEEDED ORALLY ONCE A DAY, NOTES: NEVER TAKING SUCRALFATE 1 GM TABLET 1 TABLET ON AN EMPTY STOMACH ORALLY TWICE DAILY, NOTES: 09/13/20 1800 TAKING OMEPRAZOLE 20 MG CAPSULE DELAYED RELEASE 1 CAP ORALLY TWICE DAILY, NOTES: 09/13/20 1800 TAKING LISINOPRIL 20 MG TABLET 1 TABLET ORALLY ONCE A DAY, NOTES: 09/13/20 2200 TAKING CYCLOBENZAPRINE HCL 5 MG TABLET 1 TABLET ORALLY NEEDED FOR SPASMS AND PAIN DAILY MAY REPEAT IN 5 HRS MDD2, NOTES: 09/11 TAKING VITAMIN D-3 1000 UNIT CAPSULE 2 CAPSULE ORALLY ONCE A DAY, NOTES: 09/13/20 1800 TAKING TYLENOL EXTRA STRENGTH 500 MG TABLET 1 TABLET NEEDED ORALLY EVERY 6 HRS, NOTES: 09/14/20 0900 TAKING MUCINEX 600 MG TABLET EXTENDED RELEASE 12 HOUR 1 TABLET NEEDED ORALLY EVERY 12 HRS, NOTES: NONE PAST MONTH TAKING TYLENOL 8 HOUR ARTHRITIS PAIN 650 MG TABLET EXTENDED RELEASE 2 TABLETS NEEDED ORALLY EVERY 8 HRS, NOTES: NONE IN 6 MOS TAKING BASILIA 1 CAP ORALLY ONCE DAILY NEEDED, NOTES: NONE INN PAST MONTH TAKING FLONASE 1 SPRAY IN EACH NOSTRIL DAILY, NOTES: NONE IN PAST MONTH TAKING MULTIVITAL , NOTES: 09/13/20 1800 NOT-TAKING SOMA 350 MG TABLET 1 TABLET NEEDED ORALLY AT BEDTIME NOT-TAKING CLINDAMYCIN HCL 150 MG CAPSULE 1 CAP ORALLY QID NOT-TAKING CEFDINIR 300 MG CAPSULE 1 CAP ORALLY BID NOT-TAKING OXYBUTYNIN CHLORIDE 5 MG TABLET 1 TAB(S) ORALLY EVERY 8 HOURS NEEDED FOR BLADDER SPASMS NOT-TAKING CIPROFLOXACIN HCL 500 MG TABLET 1 TABLET ORALLY EVERY 12 HRS NOT-TAKING PROBIOTIC - CAPSULE DIRECTED ORALLY NOT-TAKING KEFLEX 500 MG CAPSULE 1 CAPSULE 1 HOUR PRIOR TO YOUR CYSTOSCOPY ORALLY ONCE NOT-TAKING MULTIVITAMIN ADULT - TABLET ORALLY ONCE DAILY NOT-TAKING KEFLEX 500 MG CAPSULE 1 CAPSULE ORALLY TO START ONE HOUR BEFORE REZUM PROCEDURE EVERY 12 HRS NOT-TAKING CIPROFLOXACIN HCL 500 MG TABLET 1 TABLET 1 HOUR PRIOR TO YOUR CYSTOSCOPY ORALLY ONCE NOT-TAKING CIPRO 500 MG TABLET 1 TABLET ORALLY TWICE A DAY NOT-TAKING MYRBETRIQ 50 MG TABLET 1 TABLET ORALLY ONCE A DAY, NOTES: HAS NOT STARTED NOT-TAKING TYLENOL 325 MG CAPSULE 2 CAPSULES NEEDED ORALLY EVERY 6 HRS, NOTES: 1/1/18 1200 NOT-TAKING PREDNISONE 20 MG TABLET 1 TABLET ORALLY TAKE 1 TAB TWICE A DAY WITH FOOD X 3 DAYS ATHEN 1/2 TAB TWICE A DAY X 3 DAYS, NOTES: FINISHED 07/09/17 NOT-TAKING DICLOFENAC SODIUM 1 % GEL DIRECTED TRANSDERMAL APPLY 4 GRAMS TO LOW BACK Q 6 HRS NOT-TAKING GABAPENTIN 100 MG CAPSULE DIRECTED ORALLY TID FOR PAIN MDD3 NOT-TAKING VALIUM 5 MG TABLET 1 TABLET ORALLY TAKE 2 TABS ON ARRIVAL TO CLINIC FOR PROCEDURE MDD=2, NOTES: 10/12/16 1002 NOT-TAKING ACETAMINOPHEN EXTRA STRENGTH 500 MG TABLET 2 TABLET NEEDED ORALLY EVERY 6 HRS NEEDED, NOTES: 10/02/19 0800 NOT-TAKING VALIUM 5 MG TABLET 1 TABLET ORALLY TAKE ON ARRIVAL TO CLINIC FOR PROCEDURE MDD=1, NOTES: DUPLICATE MEDICATION LIST REVIEWED AND RECONCILED WITH THE PATIENT PAST MEDICAL HISTORY GERD HYPERTENSION LOW BACK PAIN AFTER INJURY STRESS TEST CLEARED WITH DR OSBORNE FIBROMYLAGIA BPH ED CARPAL TUNNEL BILATERALLY ALLERGIES ASPIRIN: FACE SWELLING - ALLERGY SULFA (FOR ALLERGY USE ONLY): NAUSEA/VOMITING - SIDE EFFECTS PLASTIC TAPE: RASH - SIDE EFFECTS LYRICA: DEPRESSION, ANXIETY - SIDE EFFECTS GABAPENTIN: MENTAL STATUS - SIDE EFFECTS OXYBUTYNIN: DIARRHEA/ SEVERE STOMACH UPSET - SIDE EFFECTS DARIFENACIN HYDROBROMIDE: HEADACHE / STOMACH UPSET - SIDE EFFECTS MYRBETRIQ: SEVERE HEARTBURN / HEADACHE - SIDE EFFECTS CIPRO: HEADACHE/DIZZY - SIDE EFFECTS OXYCODONE HCL: ITCHING - SIDE EFFECTS HYDROCODONE: ITCHING - SIDE EFFECTS SURGICAL HISTORY MULTIPLE SURGURIES TO LEFT LEG LEFT KNEE ARTHOSCOPIC 2005 CYSTOSCOPY 03/15/2020 TURP 04/07/2020 FAMILY HISTORY FATHER: , DIAGNOSED WITH DIABETES, HYPERTENSION, UNSPECIFIED HEART DISEASE MOTHER: ALIVE, HYPERTENSION SIBLINGS: ALIVE, BOTH SISTERS HISTORY OF CANCER 2 SISTER(S) - HEALTHY. 1 SON(S) , 1 DAUGHTER(S) - HEALTHY. DENIES FAMILY HISTORY OF UROLOGICAL DISEASES. SOCIAL HISTORY GENERAL: TOBACCO USE ARE YOU A: NONSMOKER. LATEX QUESTIONNAIRE LATEX ALLERGY : HAVE YOU EVER DEVELOPED ANY TYPE OF REACTION AFTER HANDLING LATEX PRODUCTS SUCH RUBBER GLOVES, CONDOMS, DIAPHRAGMS, BALLOONS, SOCKS, OR UNDERWEAR?NO LATEX ALLERGY : HAVE YOU EVER DEVELOPED ANY TYPE OF REACTION DURING OR AFTER DENTAL APPOINTMENT, VAGINAL/RECTAL EXAMINATION, SURGICAL PROCEDURE, OR ANY OTHER EXPOSURE?NO LATEX RISK : HAVE YOU EVER HAD ANY DIFFICULTY BREATHING OR HIVES AFTER EATING OR HANDLING ANY FRUITS, OR VEGETABLES; SUCH KIWI, BANANAS, STONE FRUITS, OR CHESTNUTSNO LATEX RISK : DO YOU HAVE A PREVIOUS PERSONAL HISTORY OF MORE THAN NINE SURGERIES, SPINA BIFIDA, OR REPEATED CATHERIZATIONS? NO LATEX RISK : ARE YOU FREQUENTLY EXPOSED TO LATEX PRODUCTS IN YOUR OCCUPATION?NO DATE ASKED : 09/14/2020 ALCOHOL SCREENING DID YOU HAVE A DRINK CONTAINING ALCOHOL IN THE PAST YEAR?YES HOW OFTEN DID YOU HAVE SIX OR MORE DRINKS ON ONE OCCASION IN THE PAST YEAR?LESS THAN MONTHLY (1 POINT) HOW MANY DRINKS DID YOU HAVE ON A TYPICAL DAY WHEN YOU WERE DRINKING IN THE PAST YEAR?3 OR 4 (1 POINT) HOW OFTEN DID YOU HAVE A DRINK CONTAINING ALCOHOL IN THE PAST YEAR?TWO TO FOUR TIMES A MONTH (2 POINTS) POINTS4 INTERPRETATIONPOSITIVE RECREATIONAL DRUG USE DRUG USE?NO CAFFEINE CAFFEINE USE?YES COFFEE = 2-3 PER DAY TRIES TO DRINK DECAF SEXUAL HX HAD SEX IN THE LAST 12 MONTHS (VAGINAL, ORAL, OR ANAL)?YES WITHWOMEN ONLY USE PROTECTION?NO HAVE YOU EVER HAD AN STD?NO TEMPLE [id number] SCIENTOLOGY NO TAOISM BELIEFS THAT WOULD IMPACT HEALTH CARE. LANGUAGE LANGUAGES SPOKEN:INDONESIAN LEARNING BARRIERS / SPECIAL NEEDS BARRIERS TO LEARNING?NO HEARING IMPAIRED?NO VISION IMPAIRED?YES COGNITIVELY IMPAIRED?NO :CORRECTIVE LENSES READINESS TO LEARN?YES LEARNING PREFERENCES?NO LEARNING CAPABILITIES PRESENT?YES EMOTIONAL BARRIERS?NO SPECIAL DEVICES?NO CHUTE TENDER NEEDED?NO DOMESTIC VIOLENCE DO YOU FEEL SAFE IN YOUR ENVIRONMENT?YES DIET: REGULAR. EXERCISE: NO REGULAR EXERCISE. MARITAL STATUS: . PAIN CLINIC PFS, CLERGY, PUBLIC HEALTH REFERRALS PFS REFERRAL NEEDED?NO CLERGY REFERRAL NEEDED?NO PUBLIC HEALTH REFERRAL NEEDED?NO HAS THE PATIENT BEEN EDUCATED REGARDING HIS/HER PLAN OF CARE?YES HAS THE PATIENT BEEN EDUCATED REGARDING PAIN, THE RISK FOR PAIN, THE IMPORTANCE OF EFFECTIVE PAIN MANAGEMENT, AND THE PAIN ASSESSMENT PROCESS?YES ADVANCE DIRECTIVE ADVANCE DIRECTIVE DISCUSSED WITH PATIENT:YES ASHVIN LINDQUIST IS HIS HCP HOSPITALIZATION/MAJOR DIAGNOSTIC PROCEDURE SURGERY RELATED VITAL SIGNS WT 200.4 LBS, HT 69 IN, BMI 29.59 INDEX, BP 180/96 MANUAL, HR 63 /MIN, RR 18 /MIN, TEMP 97.7 F, OXYGEN SAT % 98%, SAFE IN ENV? (Y/N) YES, NA INITIALS [id number]:[id number], REVIEWED BY: MFV/S VERIFIED 09/14/20 1102. EXAMINATION GENERAL EXAMINATION: THE PATIENT IS ALERT, ORIENTED TIMES THREE AND COOPERATIVE. HEART SHOWS REGULAR RHYTHM, NO MURMURS AND NO GALLOPS. LUNGS ARE CLEAR TO AUSCULTATION. ASSESSMENTS SACROILIITIS - M46.1 (PRIMARY) TREATMENT SACROILIITIS [facility] FLUORO GUIDANCE (PAIN)[id number] MEDICATION: BENADRYL TAB 25MG ORALLY (DIPHENHYDRAMINE)SUSAN BEASLEY RN 09/14/2020 11:08:17 AM > LOT# [id number], EXP 12/2022, VERIFIED GEORGE SÁNCHEZ 09/14/2020 11:14:02 AM > ADMINISTERED 11:13 MEDICATION: VALIUM TAB 10MG ORALLY (DIAZEPAM)SUSAN BEASLEY RN 09/14/2020 11:09:22 AM > LOT# [id number], EXP 02/2021, VERIFIED GEORGE SÁNCHEZ 09/14/2020 11:15:02 AM > ADMINISTERED 11:13 NOTES: DISCHARGE INSTRUCTIONS REVIEWED WITH PATIENT INCLUDING THE IMPORTANCE OF SAFE AMBULATION DUE TO HIGH RISK FOR FALLS. PT VERBALIZES UNDERSTANDING OF DISCHARGE INSTRUCTIONS. OTHERS NOTES: 09/13/20 RYDER PRESCOTT, CONTRACT ACCOUNTANT. PROCEDURES PAIN NURSING RECORD PRE-PROCEDURE IV SITE N/A, PRE-PROCEDURE ORAL MEDICATIONS PRE PROCEDURE MEDS ADMINISTERED ORDERED PROCEDURE IN ROOM 1145, PHYSICIAN IN ROOM 1201, START 1205, FINISH 1209, PHYSICIAN OUT OF ROOM 1211, OUT OF ROOM 1218, STEROID KENALOG, O2 RA, ECG OTHER SB 50'S, PATIENT SHIELDED YES, SAFETY STRAP YES, PREP CHLOROPREP BY Terrell SÁNCHEZ RN, IV INFUSED N/A, DRESSING TEGADERM BY DR BROWN LOC: 1. ALERT, ORIENTED RESP: 1. REGULAR, NO DYSPNEA COLOR: 1. PINK SKIN: 1. WARM, DRY POSITION: 1. PRONE VITALS: GEORGE SÁNCHEZ 09/14/2020 11:45:0 PM > 167/99 HR 57 18 96% , GEORGE SÁNCHEZ 09/14/2020 12:01:07 PM > 168/102 HR 57 18 168/102 , GEORGE SÁNCHEZ 09/14/2020 12:30 PM > 152/98 HR 59 18 98% D/C V/S. PN WORKMANS' COMP OPINION IN YOUR OPINION, WAS THE INCIDENT THAT THE PATIENT DESCRIBED THE COMPETENT MEDICAL CAUSE OF THIS INJURY/ILLNESS? YES ARE THE PATIENT'S COMPLAINTS CONSISTENT WITH HIS/HER HISTORY OF THE INJURY/ILLNESS? YES IS THE PATIENT'S HISTORY OF THE INJURY/ILLNESS CONSISTENT WITH YOUR OBJECTIVE FINDING? YES WHAT IS THE PERCENTAGE OF TEMPORARY IMPAIRMENT? MODERATE TO MARKED = 66.7% . IS THE PATIENT WORKING? NO . DOCTOR ON SITE: EVA DEGROOT MD PN SI PRE PROCEDURE DIAGNOSIS SACROILIITIS, SACROILIAC JOINT DYSFUNCTION POST PROCEDURE DIAGNOSIS SACROILIITIS, SACROILIAC JOINT DYSFUNCTION PROCEDURE BILATERAL SACROILIAC JOINT BLOCK SURGEON DR. EVA BROWN MESH CUTTER NONE ANESTHESIA LOCAL PRE PROCEDURE NOTE THE PATIENT WITH HISTORY OF CHRONIC LOW BACK PAIN. I EVALUATED THE PATIENT AND REVIEWED THE CHART. I WENT OVER THE RISKS, ALTERNATIVES, AND BENEFITS ASSOCIATED WITH THIS PROCEDURE. I DISCUSSED THAT THE USE OF STEROIDS MAY CONTRIBUTE TO IMMUNOSUPPRESSION OF THE PATIENT'S BODY AGAINST INFECTIONS SUCH COVID-19. THE PATIENT IS AWARE OF THE POTENTIAL COMPLICATIONS ASSOCIATED WITH THIS VIRUS, INCLUDING, BUT NOT LIMITED TO, . THE PATIENT WOULD LIKE TO PROCEED AND GAVE CONSENT TO PERFORM THE PROCEDURE. THE PATIENT DENIES UNEXPLAINABLE WEIGHT LOSS, FEVER, CHILLS, OR NEW CHANGES IN URINARY OR BOWEL CONTROL. THE PATIENT IS COVID-19 NEGATIVE DESCRIPTION OF PROCEDURE THE PATIENT WAS BROUGHT TO THE PROCEDURE ROOM AND PLACED IN THE PRONE POSITION. THE LUMBOSACRAL AREA WAS CLEANED WITH CHLORAPREP SOLUTION AND DRAPED ASEPTICALLY. THE PROCEDURE WAS DONE UNDER STERILE CONDITIONS. A TIMEOUT WAS PERFORMED WHERE LATERALITY AND THE SITE OF THE PROCEDURE WERE CHECKED AND CONFIRMED WITH EVERYONE IN THE ROOM. UNDER FLUOROSCOPIC GUIDANCE, THE TARGET POINT WAS SELECTED AT THE LOWER BORDER OF THE RIGHT AND LEFT SACROILIAC JOINT. TARGET POINT WAS SELECTED AFTER MEDIAL ROTATION AND TILT OF THE MAGNIFIER OR THE C-ARM. I CONFIRMED AGAIN WITH EVERYONE IN THE ROOM THE LATERALITY OF THE TARGET AT 1205 ON THE LEFT AND 1208 ON THE RIGHT. LIDOCAINE 0.5% WAS USED TO NUMB THE SKIN AND THE SUBCUTANEOUS TISSUE BELOW IT. SPINAL NEEDLES, 22-GAUGE, WERE ADVANCED UNDER FLUOROSCOPIC GUIDANCE AND FOLLOWING PATIENT FEEDBACK UNTIL THE TARGETS WERE TOUCHED. THE POSITION OF THE NEEDLES WAS VERIFIED WITH AP AND OBLIQUE VIEWS. AFTER PROPER POSITION OF THE NEEDLES WAS ACHIEVED, ISOVUE-M DYE 30%, 0.1 ML, WAS INJECTED SHOWING ADEQUATE SPREAD OF THE DYE. KENALOG 40 MG WAS INJECTED AT EACH SITE. THEN, A SOLUTION OF 3.0 ML OF BUPIVACAINE 0.125% WAS USED TO FLUSH EACH NEEDLE. THE MEDICATIONS WERE VERIFIED WITH THE NURSE. THERE WAS NO EVIDENCE OF BLOOD, PARESTHESIA OR CEREBROSPINAL FLUID DURING THE PROCEDURE. THE PATIENT WAS SENT TO THE RECOVERY ROOM. THE PATIENT WAS MOVING THE EXTREMITIES AND DOING WELL. THERE WERE NO COMPLICATIONS DURING THE PROCEDURE. ESTIMATED BLOOD LOSS WAS LESS THAN 5 ML. FLUOROSCOPIC TIME WAS 17 SECONDS POST PROCEDURE NOTE THE PROCEDURE DONE WAS DISCUSSED WITH THE PATIENT. THE PATIENT WILL BE SEEN IN A FOLLOW UP IN THE NEXT FEW WEEKS. I AM LOOKING FOR LONG LASTING PAIN RELIEF FOR THE PATIENT WITH THIS INTERVENTION. INSTRUCTIONS WERE GIVEN, QUESTIONS WERE ANSWERED, AND THE PATIENT EXPRESSED UNDERSTANDING AND AGREES WITH THE PLAN. I, CORTEZ MCKINNON, DOCUMENTED THE ABOVE INFORMATION ACTING A SCRIBE FOR DR. BROWN. I HAVE REVIEWED THE ABOVE DOCUMENT, WRITTEN BY CORTEZ MCKINNON, ROUTING EQUIPMENT TENDER, AND I VERIFY THAT IT IS ACCURATE PROCEDURE CODES 17178 INJECT SACROILIAC JOINT DISPOSITION & COMMUNICATION FOLLOW UP FOLLOW UP WITH [facility] (REASON: W/C POST BILATERAL SIJ ) ELECTRONICALLY SIGNED BY EVA BROWN MD, MD ON 09/21/2020 AT 08:56 AM EST DISCLAIMER : THIS IS A VISIT SUMMARY EXTRACTED FROM THE [employer] CHART. IT IS NOT A COPY OF THE [employer] PROGRESS NOTE. MTDEricka
== END ==
LOC: M PAIN 10:30
PROVIDERS: ATTEND Anesthesiology
DX: M46.1 Sacroiliitis, not elsewhere classified (principal); K21.9 Gastro-esophageal reflux disease without esophagitis; I10 Essential (primary) hypertension; M79.7 Fibromyalgia; N40.0 Benign prostatic hyperplasia without lower urinary tract symptoms; N52.9 Male erectile dysfunction, unspecified; G56.03 Carpal tunnel syndrome, bilateral upper limbs; Z79.899 Other long term (current) drug therapy; Z88.2 Allergy status to sulfonamides; Z88.6 Allergy status to analgesic agent; Z88.5 Allergy status to narcotic agent; Z88.8 Allergy status to other drugs, medicaments and biological substances; Z91.048 Other nonmedicinal substance allergy status
CPT/HCPCS: G0260; J3301; Q9967

== ENCOUNTER → 2020-10-28 | Outpatient (CLI) | payer MEDICARE ==
[~2020-10-28] MED LIST changes: -BUPIVACAINE HCL 0.25% 30ML VIAL As Ordered ONE; -ISOVUE-M 300 61% 15ML VIAL As Ordered ONE; -LIDOCAINE 1% SDV 30ML VIAL As Ordered ONE; -TRIAMCINOLONE ACETONIDE SUSP 40 MG/ML VIAL (J3301) As Ordered ONE; -diazePAM 5 MG TAB As Ordered ONE; -diphenhydrAMINE 25MG CAP As Ordered ONE
== END ==
LOC: M LABSMTC 13:34
PROVIDERS: ATTEND Family Medicine
DX: Z20.828 Contact with and (suspected) exposure to other viral communicable diseases (principal)

== ENCOUNTER → 2021-01-01 | Outpatient (CLI) | payer MEDICARE, OTHER ==
[~2021-01-01] MED LIST changes: +CYCL-707 PO; -LISI-538 PO; +LISI20TA33 PO; +PROC1CRE5; +SERT50TA29 PO; +VITMTA PO
== END ==
LOC: M LABSMTC 09:07
PROVIDERS: ATTEND Anesthesiology
DX: Z01.812 Encounter for preprocedural laboratory examination (principal); Z20.822 Contact with and (suspected) exposure to COVID-19

== ENCOUNTER 2021-01-06 07:55 | Day surgery (SDC) | payer MEDICARE, BC, OTHER ==
[~2021-01-06] VITALS: Ht 170.2 cm; Wt 94.8 kg
[~2021-01-06 07:55] MED LIST changes: +LIDOCAINE 2% 100MG/5ML SDV (FOR ANES.) As Ordered ONE; +NS 1,000 ML IV ONE; +propofoL 200 MG/20 ML VIAL As Ordered ONE
--- OUTSIDE RECORDS SUMMARY | 2021-01-06 08:00 | CCD | Continuity of Care Document ---
Author Author Karlos PUGH PA Organization Unknown Address [address] [place] [address], [facility] [address] [place] [address] Phone [phone] Care Team Providers Care Scrap Shear Operator Name Role Phone Corey Fontana MD AUTM [phone] Puneet Guevara MD AUTM [phone] Problems Description No Active Problems Social History Type Date Description Comments Sex Unknown ETOH Use Occasionally consumes alcohol Tobacco Use Start: Unknown End: Unknown Patient is a former smoker Allergies, Adverse Reactions, Alerts Active Allergies Reaction Severity Comments Date sulfa drugs 12/16/2015 Aspirin 12/16/2015 Gabapentin 08/05/2020 Medications Active Medications SIG Qnty Indications Ordering Provide r Date Omeprazole 20mg Capsules DR i by mouth tid Unknown Lisinopril 20mg Tablets 1 by mouth every day Unknown Sucralfate 1gm Tablets 1 by mouth three times a day before meals and every at bedtime Un known Immunizations Description No Information Available Vital Signs Date Vital Result Comment 12/14/2020 9:19am Body Temperature 97.1 F Height 66.75 inches 5'6.75" Weight 204.12 lb BMI (Body Mass Index) 32.2 kg/m2 10/29/2018 10:12am Body Temperature 97.4 F Height 67 inches 5'7" Weight 205.25 lb BMI (Body Mass Index) 32.1 kg/m2 Results Description No Information Available Procedures Date Code Description Status 12/14/2020 28829 X-Ray Knee Complete W/Obliques & Tunnel And/Or Standing Views Completed 12/14/2020 Inject/Drain Joint/Bursa Major C ompleted 08/05/2020 Inject/Drain Joint/Bursa Major C ompleted Medical Devices Description No Information Available Encounters Description No Information Available Assessments Date Code Description Provider 12/14/2020 M17.12 Unilateral primary osteoarthriti s, left knee KAREN Ryan 08/05/2020 M17.12 Unilateral primary osteoarthriti s, left knee KAREN Ryan Plan of Treatment 12/14/2020 - KAREN Ryan* M17.12 Unilateral primary osteoarthritis, left knee* Follow up:* 12 weeks left knee recheck (wants to look at the knee replacement module at this appointment) Functional Status Description No Information Available Mental Status Description No Information Available Referrals Description No Information Available
--- OUTSIDE RECORDS SUMMARY | 2021-01-06 08:00 | CCD | Continuity of Care Document ---
Author Author Lab Schedule, Karlos Agudelo Organization Unknown Address [address] [address] Phone Unavailable Care Team Providers Care Occupational Therapy Technician Name Role Phone Palomo Nj JR, MD AUTM [phone] Puneet Guevara MD AUTM [phone] Brandt Pickard MD AUTM [phone] Shanta Li OD AUTM Unavailable Bryce Quiñones M.D. AUTM [phone] Problems Active Problems Provider Date Fibromyositis Onset: Spinal arthritis deformans Onset: Abnormal glucose level Onset: Benign prostatic hyperplasia Onset: Gastroesophageal reflux disease Onset: 0 Vitamin D deficiency Onset: Essential hypertension Onset: Gastritis Onset: Essential hypertension Puneet Guevara M.D. Onset: 5 Social History Type Date Description Comments Sex Unknown ETOH Use Occasionally consumes alcohol Tobacco Use Start: Unknown End: Unknown Patient is a former smoker / PPD x yrs, quit 1991 Allergies, Adverse Reactions, Alerts Active Allergies Reaction Severity Comments Date Lyrica agitation 04/28/2015 Hydrocodone itching 04/28/2015 Sulfa stomach upset 04/28/2015 Cymbalta 04/28/2015 Effexor agitation 04/28/2015 Aspirin facial edema 04/28/2015 Gabapentin aggitation 07/06/2015 Medications Active Medications SIG Qnty Indications Ordering Provide r Date Amoxicillin/Clavulanate Potassium 875-125mg Tablets 1 tab by mouth twice daily for 10 days 20tabs Hardik Guevara M.D. 12/01/2020 Sertraline HCL 50mg Tablets 1 by mouth every day (first week only take 1/2 tab daily). 30tabs E78.5 Puneet Guevara M.D. 12/01/2020 Anusol-HC 2.5% Cream Apply To Hemmoroids qid 30gm Puneet Guevara M.D. 05/28/2020 Tylenol Extra Strength 500mg Table ts 1-2 pills 2-3x/d as needed Puneet Guevara M.D. 06/2020 CBD Roll On for lower back Puneet Guevara M.D. 11/19/2019 Tylenol 8 Hour Arthritis Pain 650mg Tablets ER 1 by mouth as needed every 8 hours 90tabs Puneet Guevara M.D. 10/30/2018 Anusol-HC 25mg Suppository QHS pr as needed for hemorroids 12units Puneet Guevara M.D. 02/06 Vitamin D3 1000Unit Tablets 3 by mouth every day Puneet Guevara M.D. 09/13/2016 Magnolia Allergy 180mg Tablets 1 by mouth every day as needed 90tabs Puneet Guevara M.D. 016 Fluticasone Propionate 50mcg/Act Suspension 2 sprays in each nostril once daily as needed 1units Puneet Guevara M.D. 04/18/2016 Lisinopril 20mg Tablets 1 by mouth every day 90tabs Puneet Guevara M.D. 04/28/2015 Cyclobenzaprine 5mg Tablets one tab by mouth daily prn Unknown Omeprazole 20mg Capsules DR 1 by mouth bid 180caps Puneet Guevara M.D. Sucralfate 1gm Tablets take one tablet by mouth four times a day 120tabs Puneet Guevara M.D. Halobetasol Propionate 0.05% Cream use b.i.d to dermatitis on shins as needed 50gm Puneet Guevara M.D. Bactroban Cream 2% Unknown Administration Of Flu Vaccine Inj ection Unknown Medications Administered in Office Medication SIG Qnty Indications Ordering Provider Date Immunization Adminstration,1 Vaccine/Tox oid Injection Puneet Guevara M.D. 019 Administration Of Flu Vaccine Inj ection Puneet Guevara M.D. 10/30/2018 Immunizations CPT Code Status Date Vaccine Lot # U-Flu Given 10/06/2020 Influenza,Unspecified U-Flu Given 11/24/2019 Influenza,Unspecified 36513 Given 04/04/2019 Adacel- Tetanus Diphtheria P ertussis (Age64 & Under) [id number] Given 04/04/2019 Adacel- Tetanus Diphtheria P ertussis (Age64 & Under) [id number] 07455 Given 10/30/2018 Influenza Virus Vaccine, Quadrivalent (Cciiv4), Derived From Cell [id number] U-Flu Given 11/30/2017 Influenza,Unspecified 69938 Given 10/22/2013 Influenza Virus Vaccine 70664 Given 11/20/2012 Influenza Virus Vaccine 35505 Given 03/06/2008 Adacel- Tetanus Diphtheria P ertussis (Age64 & Under) [id number] Refused 12/01/2020 Pneumovax 23 57115 Refused 12/01/2020 Prevnar 13 35417 Refused 08/01/2012 Influenza Virus Vaccine 15753 Refused 08/12/2010 Influenza Virus Vaccine Vital Signs Date Vital Result Comment 12/01/2020 8:06am BP Systolic 128 mmHg BP Diastolic 70 mmHg Heart Rate 72 /min Height 69 inches 5'9" Weight 212.12 lb O2 % BldC Oximetry 98 % RM Air BMI (Body Mass Index) 31.3 kg/m2 09/20/2020 2:08pm BP Systolic 140 mmHg BP Diastolic 82 mmHg Heart Rate 64 /min Weight 203.00 lb O2 % BldC Oximetry 97 % RM Air Results Test Acquired Date Facility Test Result H/L Range Note Comprehensive Chem Profile 11/29/2020 [facility] Patient Observer: [place] [address] [phone] Glucose 98 mg/dL 74 - 99 1 BUN 18 mg/dL 7 - 18 Creatinine 0.8 mg/dL 0.6 - 1.3 Sodium 139 mEq/L 136 - 145 Potassium 3.8 mEq/L 3.5 - 5.1 Chloride 101 mEq/L 98 - 107 Carbon Dioxide 30 mEq/L 21 - 32 Calcium 8.8 mg/dL 8.5 - 10.1 Alk. Phosphatase 58 mg/dL 46 - 116 Total Bilirubin 0.6 mg/dL 0.2 - 1.0 Ast (Sgot) 13 U/L Low 15 - 37 Alt (SGPT) 26 U/L 12 - 78 Albumin 4.0 g/dL 3.4 - 5.0 Total Protein 7.4 g/dL 6.4 - 8.2 A/G Ratio 1.18 CALC 1.00 - 1.90 GFR >= 60 mL/min >60 GFR >= 60 mL/min >60 2 Lipid Profile 11/29/2020 [facility] Patient Observer: [place] [address] [phone] Cholesterol 163 mg/dL 131 - 200 Triglycerides 95 mg/dL 30 - 150 HDL Cholesterol 45 mg/dL 35 - 60 LDL (Calculated) 99 CALC 50 - 159 Laboratory test finding 11/29/2020 [facility] Patient Observer: [place] [address] [phone] PSA <0.13 ng/mL <4.00 3 Coronavirus 2019 Nasopharygeal 10/28/2020 [facility] [address] [place] [address] [phone] Coronavirus 2019 Nasopharygeal This nucleic aci <SEE N OTE> 4 Basic Metabolic Panel 09/20/2020 [facility] Patient Observer: [place] [address] [phone] Glucose 104 mg/dL High 74 - 99 5 BUN 26 mg/dL High 7 - 18 Creatinine 0.9 mg/dL 0.6 - 1.3 Sodium 139 mEq/L 136 - 145 Potassium 4.2 mEq/L 3.5 - 5.1 Chloride 99 mEq/L 98 - 107 Carbon Dioxide 32 mEq/L 21 - 32 Calcium 9.4 mg/dL 8.5 - 10.1 GFR >= 60 mL/min >60 GFR >= 60 mL/min >60 6 Complete Blood Count 09/20/2020 [facility] Patient Observer: Dr Timbo Heranndez [place], [place] [id number] [phone] WBC 10.7 x10*3/UL 4.1 - 10.9 RBC 5.22 x10*6/UL 4.20 - 6.30 Hemoglobin 15.6 g/dL 12.0 - 18.0 Hematocrit 45.7 % 37.0 - 51.0 MCV 87.5 fL 80.0 - 97.0 MCH 29.9 pg 26.0 - 32.0 MCHC 34.2 g/dL 31.0 - 38.0 RDW 13.6 % 11.6 - 13.7 PLT 323 x10*3/UL 140 - 440 MPV 7.5 FL Low 7.8 - 11.0 Lymph % 22.7 % 10.0 - 58.5 Mid % 5.9 % 1.7 - 9.3 Neut % 71.4 % 37.0 - 92.0 Lymph # 2.4 x10*3/UL 0.6 - 4.1 Mid # 0.7 x10*3/UL High 0.1 - 0.6 Neut # 7.6 x10*3/UL 2.0 - 7.8 Laboratory test finding 09/20/2020 [facility] Patient Observer: [place] [address] [phone] Thyroid Stimulating Hormone 1.95 uIU/mL 0.3 6 - 3.74 Coronavirus 2019 Nasopharygeal 09/09/[address] [id number] [phone] Coronavirus 2019 Nasopharygeal This nucleic aci <SEE N OTE> 7 1 100-125 mg/dL PRE-DIABET ES/FASTING >126 mg/dL DIABETES/FASTING 2 CHRONIC KIDNEY DISEASE STAGI NG PER NKF STAGE I & II GFR >= 60 NORMAL TO MILDLY DECREASED STAGE III GFR 30-59 MODERATELY DECREASED STAGE IV GFR 15-29 SEVERELY DECREASED STAGE V GFR <15 VERY LITTLE GFR LEFT ESRD GFR <15 ON SLICE PLUG CUTTER OPERATOR HELPER 3 This assay was performed on the [employer] EX[employer] using the B- Galactosidase/CPRG methodology and should not be compared interchangeably with other methods. The PSA should not be used alone as a screening test for the presence or absence of malignant disease. 4 This nucleic acid amplificat ion test was developed and its performance characteristics determined by [employer]. Nucleic acid amplification tests include PCR and TMA. This test has not been FDA cleared or approved. This test has been authorized by FDA under an Emergency Use Authorization (EUA). This test is only authorized for the duration of time the declaration that circumstances exist justifying the authorization of the emergency use of in vitro diagnostic tests for detection of SARS-CoV-2 virus and/or diagnosis of COVID-19 infection under section 564(b)(1) of the Act, 21 U.S.C. 360bbb-3 (b) (1), unless the authorization is terminated or revoked sooner. When diagnostic testing is negative, the possibility of a false negative result should be considered in the context of a patient's recent exposures and the presence of clinical signs and symptoms consistent with COVID-19. An individual without symptoms of COVID-19 and who is not shedding SARS-CoV-2 virus would expect to have a negative (not detected) result in this assay. Performed at: [facility] [address] [place] [id number] Patient Observer: Elzbieta Alicea PhD, Phone: [phone] Not Detected 5 100-125 mg/dL PRE-DIABET ES/FASTING >126 mg/dL DIABETES/FASTING 6 CHRONIC KIDNEY DISEASE STAGI NG PER NKF STAGE I & II GFR >= 60 NORMAL TO MILDLY DECREASED STAGE III GFR 30-59 MODERATELY DECREASED STAGE IV GFR 15-29 SEVERELY DECREASED STAGE V GFR <15 VERY LITTLE GFR LEFT ESRD GFR <15 ON SLICE PLUG CUTTER OPERATOR HELPER 7 This nucleic acid amplificat ion test was developed and its performance characteristics determined by [employer]. Nucleic acid amplification tests include PCR and TMA. This test has not been FDA cleared or approved. This test has been authorized by FDA under an Emergency Use Authorization (EUA). This test is only authorized for the duration of time the declaration that circumstances exist justifying the authorization of the emergency use of in vitro diagnostic tests for detection of SARS-CoV-2 virus and/or diagnosis of COVID-19 infection under section 564(b)(1) of the Act, 21 U.S.C. 360bbb-3 (b) (1), unless the authorization is terminated or revoked sooner. When diagnostic testing is negative, the possibility of a false negative result should be considered in the context of a patient's recent exposures and the presence of clinical signs and symptoms consistent with COVID-19. An individual without symptoms of COVID-19 and who is not shedding SARS-CoV-2 virus would expect to have a negative (not detected) result in this assay. Performed at: - [facility] [id number] Patient Observer: Maryann Mohr MD, Phone: [phone] Not Detected Procedures Date Code Description Status 09/20/2020 12421 EKG/Interpretation & Report Comp leted 01/26/2017 [id number] Diabetic Retinal Eye Exam Comple alice 01/05/2014 [id number] Colonoscopy Completed Medical Devices Description No Information Available Encounters Type Date Location Provider Dx Diagnosis Office Visit 09/20/2020 2[facility]p [facility] I10 Essential (primary) hyperten antonette R00.2 Palpitations F41.9 Anxiety disorder, unspecifie d J30.9 Allergic rhinitis, unspecifi ed Assessments Date Code Description Provider 12/01/2020 E78.5 Hyperlipidemia, unspecified Usman Guevara M.D. 12/01/2020 I10 Essential (primary) hypertension Puneet Guevara M.D. 12/01/2020 R00.2 Palpitations Puneet Guveara M.D. 12/01/2020 F41.9 Anxiety disorder, unspecified Hardik Guevara M.D. 12/01/2020 J30.9 Allergic rhinitis, unspecified Magnus Guevara M.D. 12/01/2020 G89.29 Other chronic pain Puneet vincent M.D. 12/01/2020 N40.0 Benign prostatic hyperplasia wit hout lower urinary tract sym Puneet Guevara M.D. 12/01/2020 K21.9 Gastro-esophageal reflux disease without esophagitis Puneet Guevara M.D. 12/01/2020 J01.80 Other acute sinusitis Puneet mcduffie M.D. 11/29/2020 Z12.5 Encounter for screening for megan gnant neoplasm of prostate Puneet Guevara M.D. 11/29/2020 Z12.5 Encounter for screening for megan cynthia neoplasm of prostate Lab Schedule 11/29/2020 I10 Essential (primary) hypertension Puneet Guevara M.D. 11/29/2020 I10 Essential (primary) hypertension Lab Schedule 11/29/2020 E78.5 Hyperlipidemia, unspecified Usman Guevara M.D. 11/29/2020 E78.5 Hyperlipidemia, unspecified Lab Schedule 09/20/2020 I10 Essential (primary) hypertension KAREN Jenkins JR 09/20/2020 R00.2 Palpitations KAREN Braden JR 09/20/2020 F41.9 Anxiety disorder, unspecified Ro KAREN Choudhary JR 09/20/2020 J30.9 Allergic rhinitis, unspecified R srikanthKAREN Brooks JR Plan of Treatment Future Appointment(s):* 06/02/2021 9:00 am - Puneet Guevara M.D. at [facility] * 02/01/2021 10:00 am - Puneet Guevara M.D. at [facility] 12/01/2020 - Puneet Guevara M.D.* E78.5 Hyperlipidemia, unspecified * I10 Essential (primary) hypertension * R00.2 Palpitations * F41.9 Anxiety disorder, unspecified * J30.9 Allergic rhinitis, unspecified * G89.29 Other chronic pain * N40.0 Benign prostatic hyperplasia without lower urinry tract symp * K21.9 Gastro-esophageal reflux disease without esophagitis * J01.80 Other acute sinusitis * * New Medication:* Sertraline HCL 50 mg Functional Status Description No Information Available Mental Status Description No Information Available Referrals Refer to Dr Reason for Referral Status Appt Date Palomo Nj JR, MD CONSULT FOR SCREENING COLONOSCOPY AND ABD PAIN Sent [facility] General Surgery [address] [facility] [address] [facility] [address] [phone] [facility] [address] HR HOLTER MONITOR DX: PALPITATIONS Sent [address] [place] [address] [phone]
--- OUTSIDE RECORDS SUMMARY | 2021-01-06 08:00 | CCD | Continuity of Care Document ---
Author Author Karlos MOLINA BLADE SHARPENER Organization Unknown Address [address], [address] [place] [address] Phone [phone] Care Team Providers Care Manufacturing Technology Analyst Name Role Phone Puneet Guevara M.D. AUTM [phone] Problems Active Problems Provider Date Essential hypertension Momo Molina NP Onset: 12/07/2020 Social History Type Date Description Comments Sex Unknown ETOH Use Occasionally consumes alcohol Recreational Drug Use Denies Drug Use Tobacco Use Start: Unknown Quit 1991 Allergies, Adverse Reactions, Alerts Active Allergies Reaction Severity Comments Date Aspirin Facial swelling 12/07/2020 Sulfa STOMACH DISTRESS 12/07/2020 Tape RASH Plastic 12/07/2020 Medications Active Medications SIG Qnty Indications Ordering Provide r Date Lisinopril 20mg Tablets Take One Tablet By Mouth Every Day Unknown Sucralfate 1gm Tablets Take One Tablet By Mouth Four Times A Day Unknown [address] Take One Capsule By Mouth Twice A Day Unknown Proctozone-HC 2.5% Cream Apply To Hemmeroids Four Times A Day Unknown Halobetasol Propionate 0.05% Cream Apply Two Times A Day To Dermatitis On Shins as Needed Unknown Tramadol HCL 50mg Tablets Take One Tablet By Mouth Every Day as Needed For Pain Maximum Daily Dose 1 Unknown Cyclobenzaprine HCL 5mg Tablets as needed Unknown Vitamin D3 50mcg (1999 Ut) Capsule s 3 every day Unknown Multivitamin Adult Tablets 1 by mouth every day Unknown Tylenol Extra Strength 500mg Table ts 2 tab by mouth every 6 hours as needed Unknown Magnolia Allergy 180mg Tablets 1 by mouth every day as needed Unknown Mucinex 600mg Tablets ER 12HR as needed Unknown Immunizations Description No Information Available Vital Signs Date Vital Result Comment 12/07/2020 9:49am BP Systolic 140 mmHg BP Diastolic 60 mmHg Height 68 inches 5'8" Weight 208.00 lb BMI (Body Mass Index) 31.6 kg/m2 [place] Body Weight 154 lb Weight 94.349 kg BSA (Body Surface Area) 2.08 m2 Results Description No Information Available Procedures Description No Information Available Medical Devices Description No Information Available Encounters Description No Information Available Assessments Description No Information Available Plan of Treatment No Information Available Functional Status Description No Information Available Mental Status Description No Information Available Referrals Refer to Reason for Referral Status Appt Date Palomo Nj JR, MD COLONOSCOPY Scheduled [address] [address] [phone]
--- OUTSIDE RECORDS SUMMARY | 2021-01-06 08:00 | CCD | Continuity of Care Document ---
Author Author Karlos PUGH PA Organization Unknown Address [address] [place] [address], [address] [place] [address] Phone [phone] Care Team Providers Care Medical Lead Name Role Phone Corey Fontana MD AUTM [phone] Puneet Guevara MD AUTM [phone] Problems Description No Active Problems Social History [...] Available Procedures Date Code Description Status 12/14/2020 25856 X-Ray Knee Complete W/Obliques & Tunnel And/Or [...]
--- OUTSIDE RECORDS SUMMARY | 2021-01-06 08:00 | CCD | Continuity of Care Document ---
Author Author Karlos GUEVARA M.D. Organization Unknown Address [address] [facility] [address] [place] [address] Phone [phone] Care Team Providers Care [employer] Consultant Name Role Phone Palomo Nj JR, MD AUTM [phone] Puneet Guevara MD AUTM [phone] Brandt Pickard MD AUTM [phone] Shanta Li OD AUTM Unavailable Bryce Quiñones M.D. AUTM [phone] Problems Active Problems Provider Date Fibromyositis Onset: [...] End: Unknown Patient is a former smoker 1/4 PPD x yrs, quit 1991 Allergies, Adverse [...] by mouth as needed every 8 hours 90tasandy Guevara M.D. 10/30/2018 Anusol-HC 25mg Suppository QHS pr as needed for hemorroids 12units Puneet Guevara M.D. 02/06 Vitamin D3 1000Unit Tablets 3 by mouth every day Puneet Guevara M.D. 09/13/2016 Magnolia Allergy 180mg Tablets 1 by mouth every day as needed 90tasandy Guevara M.D. 016 Fluticasone Propionate 50mcg/Act Suspension 2 sprays in each nostril once daily as needed 1units Puneet Guevara M.D. 04/18/2016 Lisinopril 20mg Tablets 1 by mouth every day 90tasandy Guevara M.D. 04/28/2015 Cyclobenzaprine 5mg Tablets one [...] Given 10/06/2020 Influenza,Unspecified U-Flu Given 11/24/2019 Influenza,Unspecified 75383 Given 04/04/2019 Adacel- Tetanus Diphtheria P ertussis (Age64 & Under) 38633 Given 04/04/2019 Adacel- Tetanus Diphtheria P ertussis (Age64 & Under) [id number] 69948 Given 10/30/2018 Influenza Virus Vaccine, Quadrivalent (Cciiv4), Derived From Cell [id number] U-Flu Given 11/30/2017 Influenza,Unspecified 98358 Given 10/22/2013 Influenza Virus Vaccine 03324 Given 11/20/2012 Influenza Virus Vaccine 26489 Given 03/06/2008 Adacel- Tetanus Diphtheria P ertussis (Age64 & Under) 73716 Refused 12/01/2020 Pneumovax 23 69035 Refused 12/01/2020 Prevnar 13 54435 Refused 08/01/2012 Influenza Virus Vaccine 74539 Refused 08/12/2010 Influenza Virus Vaccine Vital Signs [...] H/L Range Note Comprehensive Chem Profile 11/29/2020 [facility] Administrative Analyst: [place] [address] [phone] Glucose 98 mg/dL 74 - 99 1 [...] 60 mL/min >60 2 Lipid Profile 11/29/2020 [facility] Administrative Analyst: [place] [address] [phone] Cholesterol 163 mg/dL 131 - 200 Triglycerides 95 mg/dL 30 - 150 HDL Cholesterol 45 mg/dL 35 - 60 LDL (Calculated) 99 CALC 50 - 159 Laboratory test finding 11/29/2020 [facility] Administrative Analyst: [place] [address] [phone] PSA <0.13 ng/mL <4.00 3 Coronavirus 2019 Nasopharygeal 10/28/[address] [address] [phone] Coronavirus 2019 Nasopharygeal This nucleic aci <SEE N OTE> 4 Basic Metabolic Panel 09/20/2020 [facility] Administrative Analyst: [place] [address] [phone] Glucose 104 mg/dL High 74 - 99 [...] mL/min >60 6 Complete Blood Count 09/20/2020 [facility] Administrative Analyst: Dr Timbo Hernandez [place], [place] [id number] [phone] WBC 10.7 x10*3/UL 4.1 - 10.9 RBC [...] 2.0 - 7.8 Laboratory test finding 09/20/2020 [facility] Administrative Analyst: [place] [address] [phone] Thyroid Stimulating Hormone 1.95 uIU/mL 0.3 6 - 3.74 Coronavirus 2019 Nasopharygeal 09/09/[address] [address] [phone] Coronavirus 2019 Nasopharygeal This nucleic aci <SEE N OTE> 7 1 100-125 mg/dL PRE-DIABET ES/FASTING >126 mg/dL DIABETES/FASTING 2 CHRONIC KIDNEY DISEASE STAGI NG PER NKF STAGE I & II GFR >= 60 NORMAL TO MILDLY DECREASED STAGE III GFR 30-59 MODERATELY DECREASED STAGE IV GFR 15-29 SEVERELY DECREASED STAGE V GFR <15 VERY LITTLE GFR LEFT ESRD GFR <15 ON SMELTER CHARGER 3 This assay was performed on the [employer] using the B- Galactosidase/CPRG methodology and should not be compared interchangeably with other methods. The PSA should not be used alone as a screening test for the presence or absence of malignant disease. 4 This nucleic acid amplificat ion test was developed and its performance characteristics determined by [employer]. Nucleic acid amplification tests include PCR and [...] detected) result in this assay. Performed at: [facility] [address], [place], [place] [id number] Administrative Analyst: Elzbieta Alicea PhD, Phone: [phone] Not Detected 5 100-125 mg/dL PRE-DIABET ES/FASTING >126 mg/dL DIABETES/FASTING 6 CHRONIC KIDNEY DISEASE STAGI NG PER NKF STAGE I & II GFR >= 60 NORMAL TO MILDLY DECREASED STAGE III GFR 30-59 MODERATELY DECREASED STAGE IV GFR 15-29 SEVERELY DECREASED STAGE V GFR <15 VERY LITTLE GFR LEFT ESRD GFR <15 ON SMELTER CHARGER 7 This nucleic acid amplificat ion test was developed and its performance characteristics determined by [employer]. Nucleic acid amplification tests include PCR and [...] result in this assay. Performed at: - [facility] [id number] Administrative Analyst: Maryann Mohr MD, Phone: [phone] Not Detected Procedures Date Code Description Status 09/20/2020 26003 EKG/Interpretation & Report Comp leted 01/26/2017 [id number] Diabetic Retinal Eye Exam Comple alice 01/05/2014 [id number] Colonoscopy Completed Medical Devices Description No Information Available Encounters Type Date Location Provider Dx Diagnosis Office Visit 12/01/2020 8:30a [facility] Puneet Guevara M.D. E78.5 Hyperlipidemia, unspecified I10 Essential (primary) hyperten antonette R00.2 Palpitations F41.9 Anxiety disorder, unspecifie d J30.9 Allergic rhinitis, unspecifi ed G89.29 Other chronic pain N40.0 Benign prostatic hyperplasia without lower urinry tract symp K21.9 Gastro-esophageal reflux dis ease without esophagitis J01.80 Other acute sinusitis Z13.89 Encounter for screening for other disorder Office Visit 09/20/2020 2:00p [facility] Gaston JR I10 Essential (primary) hyperten antonette R00.2 Palpitations F41.9 Anxiety disorder, unspecifie d J30.9 Allergic rhinitis, unspecifi ed Assessments Date Code Description Provider 12/01/2020 E78.5 Hyperlipidemia, unspecified Usman Guevara M.D. 12/01/2020 I10 Essential (primary) hypertension Puneet Guevara M.D. 12/01/2020 R00.2 Palpitations Puneet Guevara M.D. 12/01/2020 F41.9 Anxiety disorder, unspecified Hardik Guevara M.D. 12/01/2020 J30.9 Allergic rhinitis, unspecified J ason F. White, M.D. 12/01/2020 G89.29 Other chronic pain Puneet vincent M.D. 12/01/2020 N40.0 Benign prostatic hyperplasia wit hout lower urinary tract sym Puneet Guevara M.D. 12/01/2020 K21.9 Gastro-esophageal reflux disease without esophagitis Puneet Guevara M.D. 12/01/2020 J01.80 Other acute sinusitis Puneet mcduffie M.D. 12/01/2020 Z13.89 Encounter for screening for othe r disorder Puneet Guevara M.D. 11/29/2020 Z12.5 Encounter for screening for megan gnant neoplasm of prostate Puneet Guevara M.D. 11/29/2020 Z12.5 Encounter for screening for megan gnant neoplasm of prostate Lab Schedule 11/29/2020 I10 Essential (primary) hypertension Puneet Guevara M.D. 11/29/2020 I10 Essential (primary) hypertension Lab Schedule 11/29/2020 E78.5 Hyperlipidemia, unspecified Usman Guevara M.D. 11/29/2020 E78.5 Hyperlipidemia, unspecified Lab Schedule 09/20/2020 I10 Essential (primary) hypertension KAREN Jenkins JR 09/20/2020 R00.2 Palpitations KAREN Braden JR 09/20/2020 F41.9 Anxiety disorder, unspecified Ro KAREN Choudhary JR 09/20/2020 J30.9 Allergic rhinitis, unspecified R KAREN Wharton JR Plan of Treatment Future Appointment(s):* 06/02/2021 9:00 am - Puneet Guevara M.D. at [facility] * 02/01/2021 10:00 am - Puneet Guevara M.D. at [facility] 12/01/2020 - Puneet Guevara M.D.* E78.5 Hyperlipidemia, unspecified * I10 Essential (primary) hypertension * R00.2 Palpitations * F41.9 Anxiety disorder, unspecified * J30.9 Allergic rhinitis, unspecified * G89.29 Other chronic pain * N40.0 Benign prostatic hyperplasia without lower urinry tract symp * K21.9 Gastro-esophageal reflux disease without esophagitis * J01.80 Other acute sinusitis * Z13.89 Encounter for screening for other disorder * * New Medication:* Sertraline HCL 50 mg * Comments:* 1. Hyperlipidemia: Good result with diet alone, will monitor.2. Hypertension: Patient does have stable blood pressure today, although there is always variation in his blood pressures. He has history of White coat elevation. We will continue present regimen and monitor.3. Palpitations: Asymptomatic today. Saw James prior, recent EKG and Holter monitor were completely unremarkable. We will continue to monitor.4. Anxiety disorder: We discussed about starting him on SSRIs (Prozac and Sertraline) for his ongoing anxiety and also discussed about pros and cons using these medications. He is agreed to start sertraline and I have advised him to begin Sertraline after finishing his antibiotic course (Augmentin). He will let me know if he has any issues.5. Allergic rhinitis: Has some PND. Did not use med, would like to try Flonase and neti pot. I have encouraged him to use Magnolia daily for optimal control of his symptoms.6. Chronic pain: Related to his shoulder, low back as well as thoracic pain. His musculoskeletal pain possibly related to his anxiety, unable to get the massage therapy for ongoing Covid issues. I have shown him exercises for upper body and shoulder which he should do at home. Discussed about using amitriptyline at bedtime for fibrom yalgia. He had low back injection in the past and will follow up with Dr. Lazo at [facility] appropriately.7. BPH: Patient is status post TURP in March [address] Quiñones and had a bladder infection after surgery for which he could not take any meds due to his multiple allergies to medications per patient. We will obtain records appropriately.8. GERD: Controlled on present medication, will continue PPI and monitor.9. Acute sinusitis: Some postnasal drip present with headache. Patient has allergies to multiple medications, so we will start him on Augmentin for his sinus infection, which will also be helpful for his tooth infection that he has. Possible side effects associated with Augmentin especially diarrhea discussed with him in detail. He is going to see Dr. Nj soon for a GI workup and is aware about side effects like diarrhea.10. Screening colonoscopy: Patient will see Dr. Nj appropriately.Ongoing cares: Patient will see eye doctor in next month. He declined pneumonia shot. He was given education about Shingrix (2 shots), which he will get appropriately from the Pharmacy. I am going to see him again in 6 weeks with no labs. If he has new problems or issues sooner he will let us know. Functional Status Description No Information Available Mental Status Description No Information Available Referrals Refer to Reason for Referral Status Appt Date Palomo Nj JR, MD CONSULT FOR SCREENING COLONOSCOPY AND ABD PAIN Patient Notified 12/07/2020 [facility] General Surgery [address] [facility] [address] [facility] [id number] [phone] [facility] 48 HR HOLTER MONITOR DX: PALPITATIONS Sent [address] [place] [address] [phone]
--- OUTSIDE RECORDS SUMMARY | 2021-01-06 08:00 | CCD | Continuity of Care Document ---
Author Author Karlos TITUS M.D. Organization Unknown Address [address] [place] [address] Phone [phone] Care Team Providers Care Director Of Marketing Communications Name Role Phone Palomo Nj JR, MD AUTM [phone] Puneet Titus MD AUTM [phone] Brandt Pickard MD AUTM [phone] Shanta Li OD AUTM Unavailable Bryce Quiñones M.D. AUTM [phone] Problems Active Problems Provider Date Fibromyositis Onset: Spinal arthritis deformans Onset: Abnormal glucose level Onset: Benign prostatic hyperplasia Onset: Gastroesophageal reflux disease Onset: 0 Vitamin D deficiency Onset: Essential hypertension Onset: Gastritis Onset: Essential hypertension Puneet Titus M.D. Onset: 5 Social History Type Date [...] SIG Qnty Indications Ordering Provide r Date Anusol-HC 2.5% Cream Apply To Hemmoroids qid 30gm Puneet Titus M.D. 05/28/2020 Tylenol Extra Strength 500mg Table ts 1-2 pills 2-3x/d as needed Puneet Titus M.D. 06/2020 CBD Roll On for lower back Puneet Titus M.D. 11/19/2019 Tylenol 8 Hour Arthritis Pain 650mg Tablets ER 1 by mouth as needed every 8 hours 90tabs Puneet Titus M.D. 10/30/2018 Anusol-HC 25mg Suppository QHS pr as needed for hemorroids 12units Puneet Titus M.D. 02/06 Vitamin D3 1000Unit Tablets 3 by mouth every day Puneet Titus M.D. 09/13/2016 Magnolia Allergy 180mg Tablets 1 by mouth every day as needed 90tabs Puneet Titus M.D. 016 Fluticasone Propionate 50mcg/Act Suspension 2 sprays in each nostril once daily as needed 1units Puneet Titus M.D. 04/18/2016 Lisinopril 20mg Tablets 1 by mouth every day 90tabs Puneet Titus M.D. 04/28/2015 Cyclobenzaprine 5mg Tablets one tab by mouth daily prn Unknown Omeprazole 20mg Capsules DR 1 by mouth bid 180caps Puneet Titus M.D. Sucralfate 1gm Tablets take one tablet by mouth four times a day 120tabs Puneet Titus M.D. Halobetasol Propionate 0.05% Cream use b.i.d to dermatitis on shins as needed 50gm Puneet Titus M.D. Bactroban Cream 2% Unknown Administration Of Flu Vaccine Inj ection Unknown Medications Administered in Office Medication SIG Qnty Indications Ordering Provider Date Immunization Adminstration,1 Vaccine/Tox oid Injection Puneet Titus M.D. 019 Administration Of Flu Vaccine Inj ection Puneet Titus M.D. 10/30/2018 Immunizations CPT Code Status Date Vaccine Lot # U-Flu Given 10/06/2020 Influenza,Unspecified U-Flu Given 11/24/2019 Influenza,Unspecified 77732 Given 04/04/2019 Adacel- Tetanus Diphtheria P ertussis (Age64 & Under) 29611 Given 04/04/2019 Adacel- Tetanus Diphtheria P ertussis (Age64 & Under) [id number] 58107 Given 10/30/2018 Influenza Virus Vaccine, Quadrivalent (Cciiv4), Derived From Cell [id number] U-Flu Given 11/30/2017 Influenza,Unspecified 10872 Given 10/22/2013 Influenza Virus Vaccine 92486 Given 11/20/2012 Influenza Virus Vaccine 39584 Given 03/06/2008 Adacel- Tetanus Diphtheria P ertussis (Age64 & Under) 17996 Refused 12/01/2020 Pneumovax 23 61129 Refused 12/01/2020 Prevnar 13 01088 Refused 08/01/2012 Influenza Virus Vaccine 38650 Refused 08/12/2010 Influenza Virus Vaccine Vital Signs [...] H/L Range Note Comprehensive Chem Profile 11/29/2020 [place] [facility] Nitric Acid Concentrator Operator: [place] [address] [phone] Glucose 98 mg/dL 74 - 99 1 [...] 60 mL/min >60 2 Lipid Profile 11/29/2020 [place] [facility] Nitric Acid Concentrator Operator: [place] [address] [phone] Cholesterol 163 mg/dL 131 - 200 Triglycerides 95 mg/dL 30 - 150 HDL Cholesterol 45 mg/dL 35 - 60 LDL (Calculated) 99 CALC 50 - 159 Laboratory test finding 11/29/2020 [place] [facility] Nitric Acid Concentrator Operator: [place] [address] [phone] PSA <pending> Coronavirus 2019 Nasopharygeal 10/28/2020 [facility] [address] [id number] [phone] Coronavirus 2019 Nasopharygeal This nucleic aci <SEE N OTE> 3 Basic Metabolic Panel 09/20/2020 [facility] Nitric Acid Concentrator Operator: [place] [address] [phone] Glucose 104 mg/dL High 74 - 99 4 BUN 26 mg/dL High 7 - 18 Creatinine 0.9 mg/dL 0.6 - 1.3 Sodium 139 mEq/L 136 - 145 Potassium 4.2 mEq/L 3.5 - 5.1 Chloride 99 mEq/L 98 - 107 Carbon Dioxide 32 mEq/L 21 - 32 Calcium 9.4 mg/dL 8.5 - 10.1 GFR >= 60 mL/min >60 GFR >= 60 mL/min >60 5 Complete Blood Count 09/20/2020 [facility] Nitric Acid Concentrator Operator: [place] [address] [phone] WBC 10.7 x10*3/UL 4.1 - 10.9 RBC [...] 2.0 - 7.8 Laboratory test finding 09/20/2020 [place] [facility] Nitric Acid Concentrator Operator: [place] [address] [phone] Thyroid Stimulating Hormone 1.95 uIU/mL 0.3 6 - 3.74 Coronavirus 2019 Nasopharygeal 09/09/[address] [address] [phone] Coronavirus 2019 Nasopharygeal This nucleic aci <SEE N OTE> 6 1 100-125 mg/dL PRE-DIABET ES/FASTING >126 mg/dL DIABETES/FASTING 2 CHRONIC KIDNEY DISEASE STAGI NG PER NKF STAGE I & II GFR >= 60 NORMAL TO MILDLY DECREASED STAGE III GFR 30-59 MODERATELY DECREASED STAGE IV GFR 15-29 SEVERELY DECREASED STAGE V GFR <15 VERY LITTLE GFR LEFT ESRD GFR <15 ON ACCOUNT DEVELOPMENT EXECUTIVE 3 This nucleic acid amplificat ion test was developed and its performance characteristics determined by [email or web address]. Nucleic acid amplification tests include PCR and [...] detected) result in this assay. Performed at: [facility] [address] [facility], [place], [place] [id number] Nitric Acid Concentrator Operator: Elzbieta Alicea PhD, Phone: [phone] Not Detected 4 100-125 mg/dL PRE-DIABET ES/FASTING >126 mg/dL DIABETES/FASTING 5 CHRONIC KIDNEY DISEASE STAGI NG PER NKF STAGE I & II GFR >= 60 NORMAL TO MILDLY DECREASED STAGE III GFR 30-59 MODERATELY DECREASED STAGE IV GFR 15-29 SEVERELY DECREASED STAGE V GFR <15 VERY LITTLE GFR LEFT ESRD GFR <15 ON ACCOUNT DEVELOPMENT EXECUTIVE 6 This nucleic acid amplificat ion test was developed and its performance characteristics determined by [email or web address]. Nucleic acid amplification tests include PCR and [...] detected) result in this assay. Performed at: [facility] [id number] Nitric Acid Concentrator Operator: Maryann Mohr MD, Phone: [phone] Not Detected Procedures Date Code Description Status 09/20/2020 94616 EKG/Interpretation & Report Comp leted 01/26/2017 [id number] Diabetic Retinal Eye Exam Comple alice 01/05/2014 [id number] Colonoscopy Completed Medical Devices Description No Information Available Encounters Type Date Location Provider Dx Diagnosis Office Visit 09/20/2020 2:00p [facility] James Venegas JR PA I10 Essential (primary) hyperten antonette R00.2 Palpitations F41.9 Anxiety disorder, unspecifie d J30.9 Allergic rhinitis, unspecifi ed Assessments Date Code Description Provider 09/20/2020 I10 Essential (primary) hypertension KAREN Jenkins JR 09/20/2020 R00.2 Palpitations KAREN Braden JR 09/20/2020 F41.9 Anxiety disorder, unspecified Ro KAREN Choudhary JR 09/20/2020 J30.9 Allergic rhinitis, unspecified R srikanthKAREN Brooks JR Plan of Treatment No Information Available Functional Status Description No Information Available Mental Status Description No Information Available Referrals Refer to Dr Reason for Referral Status Appt Date [facility] 48 HR HOLTER MONITOR DX: PALPITATIONS Sent [address] [place] [id number] [phone]
--- OUTSIDE RECORDS SUMMARY | 2021-01-06 08:00 | CCD | Continuity of Care Document ---
Author Author Lab Schedule, Karlos Agudelo Organization Unknown Address [address] [address] Phone Unavailable Care Team Providers Care Assembler Flexible Leads Name Role Phone Palomo Nj JR, MD AUTM [phone] Puneet Guevara MD AUTM [phone] Brandt Pickard MD AUTM [phone] Shanta Li OD AUTM Unavailable Bryce Quiñones M.D. AUTM [phone] Problems Active Problems Provider Date Fibromyositis Onset: [...] Given 10/06/2020 Influenza,Unspecified U-Flu Given 11/24/2019 Influenza,Unspecified 46675 Given 04/04/2019 Adacel- Tetanus Diphtheria P ertussis (Age64 & Under) 32319 Given 04/04/2019 Adacel- Tetanus Diphtheria P ertussis (Age64 & Under) [id number] 00233 Given 10/30/2018 Influenza Virus Vaccine, Quadrivalent (Cciiv4), Derived From Cell [id number] U-Flu Given 11/30/2017 Influenza,Unspecified 58587 Given 10/22/2013 Influenza Virus Vaccine 87205 Given 11/20/2012 Influenza Virus Vaccine 81778 Given 03/06/2008 Adacel- Tetanus Diphtheria P ertussis (Age64 & Under) 38564 Refused 12/01/2020 Pneumovax 23 16571 Refused 12/01/2020 Prevnar 13 41056 Refused 08/01/2012 Influenza Virus Vaccine 78364 Refused 08/12/2010 Influenza Virus Vaccine Vital Signs [...] Note Comprehensive Chem Profile 11/29/2020 jason Osuna Business Development Representative: [place] [address] [phone] Glucose 98 mg/dL 74 - 99 1 [...] 60 mL/min >60 2 Lipid Profile 11/29/2020 [facility] Business Development Representative: [place] [address] [phone] Cholesterol 163 mg/dL 131 - 200 Triglycerides 95 mg/dL 30 - 150 HDL Cholesterol 45 mg/dL 35 - 60 LDL (Calculated) 99 CALC 50 - 159 Laboratory test finding 11/29/2020 [facility] Business Development Representative: [place] [address] [phone] PSA <0.13 ng/mL <4.00 3 Coronavirus 2019 Nasopharygeal 10/28/2020 [facility] [address] [place] [address] [phone] Coronavirus 2019 Nasopharygeal This nucleic aci <SEE N OTE> 4 Basic Metabolic Panel 09/20/2020 [facility] Business Development Representative: [place] Tim[place] [address] [phone] Glucose 104 mg/dL High 74 - 99 [...] mL/min >60 6 Complete Blood Count 09/20/2020 [facility] Business Development Representative: Dr Timbo Hernandez [place], [place] [id number] [phone] WBC 10.7 x10*3/UL 4.1 - 10.9 RBC [...] 2.0 - 7.8 Laboratory test finding 09/20/2020 [facility] Cochran Business Development Representative: [place] [address] [phone] Thyroid Stimulating Hormone 1.95 uIU/mL 0.3 6 - 3.74 Coronavirus 2019 Nasopharygeal 09/09/[address] [address] [phone] Coronavirus 2019 Nasopharygeal This nucleic aci <SEE N OTE> 7 1 100-125 mg/dL PRE-DIABET ES/FASTING >126 mg/dL DIABETES/FASTING 2 CHRONIC KIDNEY DISEASE STAGI NG PER NKF STAGE I & II GFR >= 60 NORMAL TO MILDLY DECREASED STAGE III GFR 30-59 MODERATELY DECREASED STAGE IV GFR 15-29 SEVERELY DECREASED STAGE V GFR <15 VERY LITTLE GFR LEFT ESRD GFR <15 ON BRICK KILN BURNER 3 This assay was performed on the [employer] Dimension EXL using the B- Galactosidase/CPRG methodology and should not be compared interchangeably with other methods. The PSA should not be used alone as a screening test for the presence or absence of malignant disease. 4 This nucleic acid amplificat ion test was developed and its performance characteristics determined by [employer]. Nucleic acid amplification tests include PCR and [...] detected) result in this assay. Performed at: [employer] [address] [place] [place], [place] [id number] Business Development Representative: Elzbieta Alicea PhD, Phone: [phone] Not Detected 5 100-125 mg/dL PRE-DIABET ES/FASTING >126 mg/dL DIABETES/FASTING 6 CHRONIC KIDNEY DISEASE STAGI NG PER NKF STAGE I & II GFR >= 60 NORMAL TO MILDLY DECREASED STAGE III GFR 30-59 MODERATELY DECREASED STAGE IV GFR 15-29 SEVERELY DECREASED STAGE V GFR <15 VERY LITTLE GFR LEFT ESRD GFR <15 ON BRICK KILN BURNER 7 This nucleic acid amplificat ion test was developed and its performance characteristics determined by [employer]. Nucleic acid amplification tests include PCR and [...] result in this assay. Performed at: - [facility] [id number] Business Development Representative: Maryann Mohr MD, Phone: [phone] Not Detected Procedures Date Code Description Status 09/20/2020 07669 EKG/Interpretation & Report Comp leted 01/26/2017 [id number] Diabetic Retinal Eye Exam Comple alice 01/05/2014 [id number] Colonoscopy Completed Medical Devices Description No Information Available Encounters Type Date Location Provider Dx Diagnosis Office Visit 09/20/2020 2:00p [facility] I10 Essential [...] 11/29/2020 Z12.5 Encounter for screening for megan marie neoplasm of prostate Lab Schedule 11/29/2020 I10 Essential (primary) hypertension Puneet Guevara M.D. 11/29/2020 I10 Essential (primary) hypertension Lab Schedule 11/29/2020 E78.5 Hyperlipidemia, unspecified Usman Guevara M.D. 11/29/2020 E78.5 Hyperlipidemia, unspecified Lab Schedule 09/20/2020 I10 Essential (primary) hypertension KAREN Jenkins JR 09/20/2020 R00.2 Palpitations KAREN Braden JR 09/20/2020 F41.9 Anxiety disorder, unspecified Ro KAREN Choudhary JR 09/20/2020 J30.9 Allergic rhinitis, unspecified R KAERN Wharton JR Plan of Treatment Future Appointment(s):* 06/02/2021 9:00 am - Puneet Guevara M.D. at [facility] * 02/01/2021 10:00 am - Puneet Guevara M.D. at [facility] 12/01/2020 - Puneet Guevara M.D.* [...] will follow up with Dr. Lazo at [facility] appropriately.7. BPH: Patient is status [...] FOR SCREENING COLONOSCOPY AND ABD PAIN Sent [facility] General Surgery [address] [facility] [address] [place] [address] [phone] [facility] 48 HR HOLTER MONITOR DX: PALPITATIONS Sent [address] Ochoa [address] [place] [address] [phone]
--- OUTSIDE RECORDS SUMMARY | 2021-01-06 08:01 | CCD | Continuity of Care Document ---
Author Author Lab Schedule, Karlos Agudelo Organization Unknown Address [address] [address] Phone Unavailable Care Team Providers Care Nutrition Representative Name Role Phone Palomo Nj JR, MD AUTM [phone] Puneet Guevara MD AUTM [phone] Brandt Pickard MD AUTM [phone] Shanta Li OD AUTM Unavailable Bryce Quiñones M.D. AUTM [phone] Problems Active Problems Provider Date Fibromyositis Onset: [...] CBD Roll On for lower back Puneet Guevaar M.D. 11/19/2019 Tylenol 8 Hour Arthritis Pain 650mg Tablets ER 1 by mouth as needed every 8 hours 90tabs Puneet Guevara M.D. 10/30/2018 Anusol-HC 25mg Suppository QHS pr as needed for hemorroids 12unreyes Guevara M.D. 02/06 Vitamin D3 1000Unit Tablets [...] Given 10/06/2020 Influenza,Unspecified U-Flu Given 11/24/2019 Influenza,Unspecified 78328 Given 04/04/2019 Adacel- Tetanus Diphtheria P ertussis (Age64 & Under) 84621 Given 04/04/2019 Adacel- Tetanus Diphtheria P ertussis (Age64 & Under) [id number] 62103 Given 10/30/2018 Influenza Virus Vaccine, Quadrivalent (Cciiv4), Derived From Cell 383656 U-Flu Given 11/30/2017 Influenza,Unspecified 30036 Given 10/22/2013 Influenza Virus Vaccine 07994 Given 11/20/2012 Influenza Virus Vaccine 06735 Given 03/06/2008 Adacel- Tetanus Diphtheria P ertussis (Age64 & Under) 20992 Refused 08/01/2012 Influenza Virus Vaccine 96120 Refused 08/12/2010 Influenza Virus Vaccine Vital Signs Date Vital Result Comment 09/20/2020 2:08pm BP Systolic 140 mmHg BP Diastolic 82 mmHg Heart Rate 64 /min Weight 203.00 lb O2 % BldC Oximetry 97 % RM Air 05/26/2020 9:29am BP Systolic 138 mmHg BP Diastolic 82 mmHg Heart Rate 72 /min Weight 204.00 lb Results Test Acquired Date Facility Test Result H/L Range Note Comprehensive Chem Profile 11/29/2020 [facility] Gasca Registered Representative: [place] [address] [phone] Glucose 98 mg/dL 74 - 99 1 [...] 60 mL/min >60 2 Lipid Profile 11/29/2020 [facility] Registered Representative: [place] [address] [phone] Cholesterol 163 mg/dL 131 - 200 Triglycerides 95 mg/dL 30 - 150 HDL Cholesterol 45 mg/dL 35 - 60 LDL (Calculated) 99 CALC 50 - 159 Coronavirus 2019 Nasopharygeal 10/28/2020 [facility] [address] [place], [place] [address] [phone] Coronavirus 2019 Nasopharygeal This nucleic aci <SEE N OTE> 3 Basic Metabolic Panel 09/20/2020 [facility] Registered Representative: [place] [address] [phone] Glucose 104 mg/dL High 74 - 99 [...] mL/min >60 5 Complete Blood Count 09/20/2020 [facility] Registered Representative: Dr Timbo Hernandez [place], [place] [address] [phone] WBC 10.7 x10*3/UL 4.1 - 10.9 RBC [...] 2.0 - 7.8 Laboratory test finding 09/20/2020 [facility] [employer] jason wade Registered Representative: [place] [address] [phone] Thyroid Stimulating Hormone 1.95 uIU/mL 0.3 6 - 3.74 Coronavirus 2019 Nasopharygeal 09/09/2020 [facility] [address] [place] [address] [phone] Coronavirus 2019 Nasopharygeal This nucleic aci <SEE N OTE> 6 1 100-125 mg/dL PRE-DIABET ES/FASTING >126 mg/dL DIABETES/FASTING 2 CHRONIC KIDNEY DISEASE STAGI NG PER NKF STAGE I & II GFR >= 60 NORMAL TO MILDLY DECREASED STAGE III GFR 30-59 MODERATELY DECREASED STAGE IV GFR 15-29 SEVERELY DECREASED STAGE V GFR <15 VERY LITTLE GFR LEFT ESRD GFR <15 ON MARRIAGE THERAPIST 3 This nucleic acid amplificat ion test was developed and its performance characteristics determined by [employer]. Nucleic acid amplification tests include PCR and [...] detected) result in this assay. Performed at: [facility], [place] [id number] Registered Representative: Elzbieta Alicea PhD, Phone: [phone] Not Detected 4 100-125 mg/dL PRE-DIABET ES/FASTING >126 mg/dL DIABETES/FASTING 5 CHRONIC KIDNEY DISEASE STAGI NG PER NKF STAGE I & II GFR >= 60 NORMAL TO MILDLY DECREASED STAGE III GFR 30-59 MODERATELY DECREASED STAGE IV GFR 15-29 SEVERELY DECREASED STAGE V GFR <15 VERY LITTLE GFR LEFT ESRD GFR <15 ON MARRIAGE THERAPIST 6 This nucleic acid amplificat ion test was developed and its performance characteristics determined by [employer]. Nucleic acid amplification tests include PCR and [...] detected) result in this assay. Performed at: [address] [id number] Registered Representative: Maryann Mohr MD, Phone: [phone] Not Detected Procedures Date Code Description Status 09/20/2020 30675 EKG/Interpretation & Report Comp leted 01/26/2017 [id number] Diabetic Retinal Eye Exam Comple alice 01/05/2014 [id number] Colonoscopy Completed Medical Devices Description No Information Available Encounters Type Date Location Provider Dx Diagnosis Office Visit 09/20/2020 2:00p [facility] James Venegas JR, PA I10 Essential (primary) hyperten atnonette R00.2 Palpitations F41.9 Anxiety disorder, unspecifie d J30.9 Allergic rhinitis, unspecifi ed Assessments Date Code Description Provider 09/20/2020 I10 Essential (primary) hypertension KAREN Jenkins JR 09/20/2020 R00.2 Palpitations KAREN Braden JR 09/20/2020 F41.9 Anxiety disorder, unspecified Ro KAREN Choudhary JR 09/20/2020 J30.9 Allergic rhinitis, unspecified R KAREN Wharton JR Plan of Treatment Future Appointment(s):* 12/01/2020 8:00 am - [facility] * 12/01/2020 8:30 am - Pune[facility] 05/26/2020 - Puneet Guevara M.D.* E78.5 Hyperlipidemia, unspecified * I10 Essential (primary) hypertension * F41.9 Anxiety disorder, unspecified * K21.9 Gastro-esophageal reflux disease without esophagitis * J30.9 Allergic rhinitis, unspecified * G89.29 Other chronic pain * N40.0 Benign prostatic hyperplasia without lower urinry tract symp * E55.9 Vitamin D deficiency, unspecified Functional Status Description No Information Available Mental Status Description No Information Available Referrals Refer to Dr Reason for Referral Status Appt Date [facility] 48 HR HOLTER MONITOR DX: PALPITATIONS [place] [address] Ochoa [address] [place] [address] [phone]
--- OUTSIDE RECORDS SUMMARY | 2021-01-06 08:01 | CCD | Continuity of Care Document ---
Author Author Lab Schedule, Karlos Agudelo Organization Unknown Address [address] [address] Phone Unavailable Care Team Providers Care Etcher Electrolytic Name Role Phone Palomo Nj JR, MD AUTM [phone] Puneet Guevara MD AUTM [phone] Brandt Pickard MD AUTM [phone] Shanta Li OD AUTM Unavailable Bryce Quiñones M.D. AUTM [phone] Problems Active Problems Provider Date Fibromyositis Onset: [...] 1000Unit Tablets 3 by mouth every day Puenet Guevara M.D. 09/13/2016 [facility] 180mg Tablets [...] Given 10/06/2020 Influenza,Unspecified U-Flu Given 11/24/2019 Influenza,Unspecified 96832 Given 04/04/2019 Adacel- Tetanus Diphtheria P ertussis (Age64 & Under) 68034 Given 04/04/2019 Adacel- Tetanus Diphtheria P ertussis (Age64 & Under) [id number] 48233 Given 10/30/2018 Influenza Virus Vaccine, Quadrivalent (Cciiv4), Derived From Cell [id number] U-Flu Given 11/30/2017 Influenza,Unspecified 93486 Given 10/22/2013 Influenza Virus Vaccine 43545 Given 11/20/2012 Influenza Virus Vaccine 02773 Given 03/06/2008 Adacel- Tetanus Diphtheria P ertussis (Age64 & Under) 51260 Refused 08/01/2012 Influenza Virus Vaccine 17724 Refused 08/12/2010 Influenza Virus Vaccine Vital Signs [...] H/L Range Note Comprehensive Chem Profile 11/29/2020 [facility] jason Gasca Sql Developer Dba: [place] [address] [phone] Glucose 98 mg/dL 74 - 99 1 [...] 60 mL/min >60 2 Lipid Profile 11/29/2020 [facility] Sql Developer Dba: [place] [address] [phone] Cholesterol 163 mg/dL 131 - 200 Triglycerides 95 mg/dL 30 - 150 HDL Cholesterol 45 mg/dL 35 - 60 LDL (Calculated) 99 CALC 50 - 159 Coronavirus 2019 Nasopharygeal 10/28/2020 [facility] [address] [place], [place] [address] [phone] Coronavirus 2019 Nasopharygeal This nucleic aci <SEE N OTE> 3 Basic Metabolic Panel 09/20/2020 [facility] Sql Developer Dba: [place] [address] [phone] Glucose 104 mg/dL High 74 - 99 [...] mL/min >60 5 Complete Blood Count 09/20/2020 [facility] Sql Developer Dba: Dr Timbo Hernandez [place], [place] [id number] [phone] WBC 10.7 x10*3/UL 4.1 - 10.9 RBC [...] 2.0 - 7.8 Laboratory test finding 09/20/2020 [facility] jason wade Sql Developer Dba: [place] [address] [phone] Thyroid Stimulating Hormone 1.95 uIU/mL 0.3 6 - 3.74 Coronavirus 2019 Nasopharygeal 09/09/2020 [facility] [address] [place] [address] [phone] Coronavirus 2019 Nasopharygeal This nucleic aci <SEE N OTE> 6 1 100-125 mg/dL PRE-DIABET ES/FASTING >126 mg/dL DIABETES/FASTING 2 CHRONIC KIDNEY DISEASE STAGI NG PER NKF STAGE I & II GFR >= 60 NORMAL TO MILDLY DECREASED STAGE III GFR 30-59 MODERATELY DECREASED STAGE IV GFR 15-29 SEVERELY DECREASED STAGE V GFR <15 VERY LITTLE GFR LEFT ESRD GFR <15 ON SEO ASSOCIATE 3 This nucleic acid amplificat ion test was developed and its performance characteristics determined by [employer]. Nucleic acid amplification tests include PCR and [...] detected) result in this assay. Performed at: [employer] [facility], [place] [id number] Sql Developer Dba: Elzbieta Alicea PhD, Phone: [phone] Not Detected 4 100-125 mg/dL PRE-DIABET ES/FASTING >126 mg/dL DIABETES/FASTING 5 CHRONIC KIDNEY DISEASE STAGI NG PER NKF STAGE I & II GFR >= 60 NORMAL TO MILDLY DECREASED STAGE III GFR 30-59 MODERATELY DECREASED STAGE IV GFR 15-29 SEVERELY DECREASED STAGE V GFR <15 VERY LITTLE GFR LEFT ESRD GFR <15 ON SEO ASSOCIATE 6 This nucleic acid amplificat ion test was developed and its performance characteristics determined by [employer]. Nucleic acid amplification tests include PCR and [...] detected) result in this assay. Performed at: [address] [id number] Sql Developer Dba: Maryann Mohr MD, Phone: [phone] Not Detected Procedures Date Code Description Status 09/20/2020 06863 EKG/Interpretation & Report Comp leted 01/26/2017 [id number] Diabetic Retinal Eye Exam Comple alice 01/05/2014 [id number] Colonoscopy Completed Medical Devices Description No Information Available Encounters Type Date Location Provider Dx Diagnosis Office Visit 09/20/2020 2:00p [facility] James Venegas JR, PA I10 [...] 12/01/2020 8:00 am - [facility] * 12/01/2020 8:30 am - Pune[facility] 05/26/2020 - Puneet Guevara M.D.* E78.5 [...] Dr Reason for Referral Status Appt Date [facility] 48 HR HOLTER MONITOR DX: PALPITATIONS [place] [address] [place] [address] [phone]
--- OUTSIDE RECORDS SUMMARY | 2021-01-06 08:01 | CCD | Continuity of Care Document ---
Author Author Nurse #Karlos Jeffries Organization Unknown Address [address] [place] [address] Phone Unavailable Care Team Providers Care Plant And Maintenance Technician Name Role Phone Palomo Nj JR, MD AUTM [phone] Puneet Guevara MD AUTM [phone] Brandt Pickard MD AUTM [phone] Shanta Li OD AUTM Unavailable Bryce Quiñones M.D. AUTM [phone] Problems Active Problems Provider Date Fibromyositis Onset: [...] in each nostril once daily as needed 1unreyes Guevara M.D. 04/18/2016 Lisinopril 20mg Tablets 1 [...] Given 10/06/2020 Influenza,Unspecified U-Flu Given 11/24/2019 Influenza,Unspecified 10097 Given 04/04/2019 Adacel- Tetanus Diphtheria P ertussis (Age64 & Under) 01011 Given 04/04/2019 Adacel- Tetanus Diphtheria P ertussis (Age64 & Under) [id number] 34250 Given 10/30/2018 Influenza Virus Vaccine, Quadrivalent (Cciiv4), Derived From Cell 476923 U-Flu Given 11/30/2017 Influenza,Unspecified 42113 Given 10/22/2013 Influenza Virus Vaccine 47503 Given 11/20/2012 Influenza Virus Vaccine 15027 Given 03/06/2008 Adacel- Tetanus Diphtheria P ertussis (Age64 & Under) 90647 Refused 08/01/2012 Influenza Virus Vaccine 68254 Refused 08/12/2010 Influenza Virus Vaccine Vital Signs [...] H/L Range Note Comprehensive Chem Profile 11/29/2020 [facility] Commercial Insulator: [place] [address] [phone] Glucose 98 mg/dL 74 - 99 1 [...] 60 mL/min >60 2 Lipid Profile 11/29/2020 [facility] Commercial Insulator: Dr Timbo [place], [place] [address] [phone] Cholesterol 163 mg/dL 131 - 200 Triglycerides 95 mg/dL 30 - 150 HDL Cholesterol 45 mg/dL 35 - 60 LDL (Calculated) 99 CALC 50 - 159 Laboratory test finding 11/29/2020 [facility] Commercial Insulator: Dr Timbo Hernandez [place], [place] [address] [phone] PSA <pending> Coronavirus 2019 Nasopharygeal 10/28/2020 [facility] [address] [place], [place] [address] [phone] Coronavirus 2019 Nasopharygeal This nucleic aci <SEE N OTE> 3 Basic Metabolic Panel 09/20/2020 [facility] Commercial Insulator: [place] [address] [phone] Glucose 104 mg/dL High 74 - 99 [...] mL/min >60 5 Complete Blood Count 09/20/2020 [facility] Commercial Insulator: Dr Timbo [place], [place] [id number] [phone] WBC 10.7 x10*3/UL 4.1 - 10.9 RBC [...] 2.0 - 7.8 Laboratory test finding 09/20/2020 [facility] Commercial Insulator: [place] [address] [phone] Thyroid Stimulating Hormone 1.95 uIU/mL 0.3 6 - 3.74 Coronavirus 2019 Nasopharygeal 09/09/2020 [facility] [address] [place] [address] [phone] Coronavirus 2019 Nasopharygeal This nucleic aci <SEE N OTE> 6 1 100-125 mg/dL PRE-DIABET ES/FASTING >126 mg/dL DIABETES/FASTING 2 CHRONIC KIDNEY DISEASE STAGI NG PER NKF STAGE I & II GFR >= 60 NORMAL TO MILDLY DECREASED STAGE III GFR 30-59 MODERATELY DECREASED STAGE IV GFR 15-29 SEVERELY DECREASED STAGE V GFR <15 VERY LITTLE GFR LEFT ESRD GFR <15 ON CADDY/CADDIE SUPERVISOR 3 This nucleic acid amplificat ion test was developed and its performance characteristics determined by [employer]. Nucleic acid amplification tests include PCR and [...] detected) result in this assay. Performed at: [facility] [address] [employer], [place], [place] [id number] Commercial Insulator: Elzbieta Alicea PhD, Phone: [phone] Not Detected 4 100-125 mg/dL PRE-DIABET ES/FASTING >126 mg/dL DIABETES/FASTING 5 CHRONIC KIDNEY DISEASE STAGI NG PER NKF STAGE I & II GFR >= 60 NORMAL TO MILDLY DECREASED STAGE III GFR 30-59 MODERATELY DECREASED STAGE IV GFR 15-29 SEVERELY DECREASED STAGE V GFR <15 VERY LITTLE GFR LEFT ESRD GFR <15 ON CADDY/CADDIE SUPERVISOR 6 This nucleic acid amplificat ion test was developed and its performance characteristics determined by [employer]. Nucleic acid amplification tests include PCR and [...] detected) result in this assay. Performed at: [facility], [place], [place] [id number] Commercial Insulator: Maryann Mohr MD, Phone: [phone] Not Detected Procedures Date Code Description Status 09/20/2020 65733 EKG/Interpretation & Report Comp leted 01/26/2017 [id number] Diabetic Retinal Eye Exam Comple alice 01/05/2014 [id number] Colonoscopy Completed Medical Devices Description No Information Available Encounters Type Date Location Provider Dx Diagnosis Office Visit 09/20/2020 2:00p [facility] James Venegas JR PA I10 [...] to Reason for Referral Status Appt Date [facility] 48 HR HOLTER MONITOR DX: PALPITATIONS Sent [address] [address] [place] [address] [phone]
--- OUTSIDE RECORDS SUMMARY | 2021-01-06 08:01 | CCD | Continuity of Care Document ---
Author Organization Unknown Address Unknown Phone Unavailable Care Team Providers Care Hand Bander Name Role Phone Palomo Nj JR, MD AUTM [phone] Puneet Guevara MD AUTM [phone] Brandt Pickard MD AUTM [phone] Shanta Li OD AUTM Unavailable Bryce Quiñones M.D. AUTM [phone] Problems Active Problems Provider Date Fibromyositis Onset: [...] 06/2020 CBD Roll On for lower back Puenet Guevara M.D. 11/19/2019 Tylenol 8 Hour Arthritis Pain 650mg Tablets ER 1 by mouth as needed every 8 hours 90brianna Guevara M.D. 10/30/2018 Anusol-HC 25mg Suppository QHS [...] Given 10/06/2020 Influenza,Unspecified U-Flu Given 11/24/2019 Influenza,Unspecified 58752 Given 04/04/2019 Adacel- Tetanus Diphtheria P ertussis (Age64 & Under) 04580 Given 04/04/2019 Adacel- Tetanus Diphtheria P ertussis (Age64 & Under) [id number] 56014 Given 10/30/2018 Influenza Virus Vaccine, Quadrivalent (Cciiv4), Derived From Cell [id number] U-Flu Given 11/30/2017 Influenza,Unspecified 28062 Given 10/22/2013 Influenza Virus Vaccine 57353 Given 11/20/2012 Influenza Virus Vaccine 94543 Given 03/06/2008 Adacel- Tetanus Diphtheria P ertussis (Age64 & Under) 50400 Refused 08/01/2012 Influenza Virus Vaccine 87094 Refused 08/12/2010 Influenza Virus Vaccine Vital Signs [...] H/L Range Note Comprehensive Chem Profile 11/29/2020 [facility] Recycler Forklift Driver Truck Driver: [place] [address] [phone] Glucose 98 mg/dL 74 - 99 1 [...] 60 mL/min >60 2 Lipid Profile 11/29/2020 [facility] Recycler [employer] Driver Truck Driver: [place] [address] [phone] Cholesterol 163 mg/dL 131 - 200 Triglycerides 95 mg/dL 30 - 150 HDL Cholesterol 45 mg/dL 35 - 60 LDL (Calculated) 99 CALC 50 - 159 Coronavirus 2019 Nasopharygeal 10/28/2020 [facility] [address] [place] [address] [phone] Coronavirus 2019 Nasopharygeal This nucleic aci <SEE N OTE> 3 Basic Metabolic Panel 09/20/2020 [facility] Recycler [employer] Driver Truck Driver: Dr Timbo Hernandez [place], [place] [id number] [phone] Glucose 104 mg/dL High 74 - 99 [...] mL/min >60 5 Complete Blood Count 09/20/2020 [facility] Recycler [employer]orklift Driver Truck Driver: [place] [address] [phone] WBC 10.7 x10*3/UL 4.1 - 10.9 RBC [...] 2.0 - 7.8 Laboratory test finding 09/20/2020 [facility] jason wade Recycler Forklift Driver Truck Driver: [place] [address] [phone] Thyroid Stimulating Hormone 1.95 uIU/mL 0.3 6 - 3.74 Coronavirus 2019 Nasopharygeal 09/09/2020 [facility] [address] [place] [address] [phone] Coronavirus 2019 Nasopharygeal This nucleic aci <SEE N OTE> 6 1 100-125 mg/dL PRE-DIABET ES/FASTING >126 mg/dL DIABETES/FASTING 2 CHRONIC KIDNEY DISEASE STAGI NG PER NKF STAGE I & II GFR >= 60 NORMAL TO MILDLY DECREASED STAGE III GFR 30-59 MODERATELY DECREASED STAGE IV GFR 15-29 SEVERELY DECREASED STAGE V GFR <15 VERY LITTLE GFR LEFT ESRD GFR <15 ON MANAGER ENDOSCOPY 3 This nucleic acid amplificat ion test was developed and its performance characteristics determined by [employer]. Nucleic acid amplification tests include PCR and [...] detected) result in this assay. Performed at: [facility] [address] [facility], [place] [id number] Recycler Forklift Driver Truck Driver: Elzbieta Alicea PhD, Phone: [phone] Not Detected 4 100-125 mg/dL PRE-DIABET ES/FASTING >126 mg/dL DIABETES/FASTING 5 CHRONIC KIDNEY DISEASE STAGI NG PER NKF STAGE I & II GFR >= 60 NORMAL TO MILDLY DECREASED STAGE III GFR 30-59 MODERATELY DECREASED STAGE IV GFR 15-29 SEVERELY DECREASED STAGE V GFR <15 VERY LITTLE GFR LEFT ESRD GFR <15 ON MANAGER ENDOSCOPY 6 This nucleic acid amplificat ion test was developed and its performance characteristics determined by [employer]. Nucleic acid amplification tests include PCR and [...] detected) result in this assay. Performed at: [facility] [address] [id number] Recycler Forklift Driver Truck Driver: Maryann Mohr MD, Phone: [phone] Not Detected Procedures Date Code Description Status 09/20/2020 98937 EKG/Interpretation & Report Comp leted 01/26/2017 [id number] Diabetic Retinal Eye Exam Comple alice 01/05/2014 [id number] Colonoscopy Completed Medical Devices Description No Information Available Encounters Type Date Location Provider Dx Diagnosis Office Visit 09/20/2020 2:00p [facility] KAREN Adorno JR I10 Essential (primary) hyperten antonette R00.2 [...] 12/01/2020 8:00 am - [facility] [facility] * 12/01/2020 8:30 am - Puneet [facility]ue[facility] M[facility] 05/26/2020 - Puneet Guevara M.D.* E78.5 [...] to Reason for Referral Status Appt Date [facility] 48 HR HOLTER MONITOR DX: PALPITATIONS Sent [address] [place] [address] [phone]
--- OUTSIDE RECORDS SUMMARY | 2021-01-06 08:01 | CCD | Continuity of Care Document ---
Author Author Lab Schedule, Karlos Agudelo Organization Unknown Address [address] [address] Phone Unavailable Care Team Providers Care Assistant Health Educator Name Role Phone Palomo Nj JR, MD AUTM [phone] Puneet Guevara MD AUTM [phone] Brandt Pickard MD AUTM [phone] Shanta Li OD AUTM Unavailable Bryce Quiñones M.D. AUTM [phone] Problems Active Problems Provider Date Fibromyositis Onset: [...] Table ts 1-2 pills 2-3x/d as needed Puenet Guevara M.D. 06/2020 CBD Roll On for [...] Given 10/06/2020 Influenza,Unspecified U-Flu Given 11/24/2019 Influenza,Unspecified 94496 Given 04/04/2019 Adacel- Tetanus Diphtheria P ertussis (Age64 & Under) 62371 Given 04/04/2019 Adacel- Tetanus Diphtheria P ertussis (Age64 & Under) [id number] 38659 Given 10/30/2018 Influenza Virus Vaccine, Quadrivalent (Cciiv4), Derived From Cell [id number] U-Flu Given 11/30/2017 Influenza,Unspecified 99799 Given 10/22/2013 Influenza Virus Vaccine 80126 Given 11/20/2012 Influenza Virus Vaccine 47746 Given 03/06/2008 Adacel- Tetanus Diphtheria P ertussis (Age64 & Under) 75848 Refused 08/01/2012 Influenza Virus Vaccine 82572 Refused 08/12/2010 Influenza Virus Vaccine Vital Signs Date Vital Result Comment 09/20/2020 2:08pm BP Systolic 140 mmHg BP Diastolic 82 mmHg Heart Rate 64 /min Weight 203.00 lb O2 % BldC Oximetry 97 % RM Air 05/26/2020 9:29am BP Systolic 138 mmHg BP Diastolic 82 mmHg Heart Rate 72 /min Weight 204.00 lb Results Test Acquired Date Facility Test Result H/L Range Note Coronavirus 2019 Nasopharygeal 10/28/2020 [facility] [address] [place], [place] [id number] [phone] Coronavirus 2019 Nasopharygeal This nucleic aci <SEE N OTE> 1 Basic Metabolic Panel 09/20/2020 [facility] Enterprise Cloud Architect: [place] [address] [phone] Glucose 104 mg/dL High 74 - 99 2 BUN 26 mg/dL High 7 - 18 Creatinine 0.9 mg/dL 0.6 - 1.3 Sodium 139 mEq/L 136 - 145 Potassium 4.2 mEq/L 3.5 - 5.1 Chloride 99 mEq/L 98 - 107 Carbon Dioxide 32 mEq/L 21 - 32 Calcium 9.4 mg/dL 8.5 - 10.1 GFR >= 60 mL/min >60 GFR >= 60 mL/min >60 3 Complete Blood Count 09/20/2020 [facility] Enterprise Cloud Architect: Dr Timbo Hernandez [place], [place] [id number] [phone] WBC 10.7 x10*3/UL 4.1 - 10.9 RBC [...] 2.0 - 7.8 Laboratory test finding 09/20/2020 [facility] Enterprise Cloud Architect: [place] [address] [phone] Thyroid Stimulating Hormone 1.95 uIU/mL 0.3 6 - 3.74 Coronavirus 2019 Nasopharygeal 09/09/2020 [place] [address] [place], [place] [address] [phone] Coronavirus 2019 Nasopharygeal This nucleic aci <SEE N OTE> 4 1 This nucleic acid amplificat ion test was developed and its performance characteristics determined by [employer]. Nucleic acid amplification tests include PCR and [...] detected) result in this assay. Performed at: [facility] [address], [place], [place] [id number] Enterprise Cloud Architect: Elzbieta Alicea PhD, Phone: [phone] Not Detected 2 100-125 mg/dL PRE-DIABET ES/FASTING >126 mg/dL DIABETES/FASTING 3 CHRONIC KIDNEY DISEASE STAGI NG PER NKF STAGE I & II GFR >= 60 NORMAL TO MILDLY DECREASED STAGE III GFR 30-59 MODERATELY DECREASED STAGE IV GFR 15-29 SEVERELY DECREASED STAGE V GFR <15 VERY LITTLE GFR LEFT ESRD GFR <15 ON VACCINE MANAGER 4 This nucleic acid amplificat ion test was developed and its performance characteristics determined by [employer]. Nucleic acid amplification tests include PCR and [...] detected) result in this assay. Performed at: [facility] [address] [id number] Enterprise Cloud Architect: Maryann Mohr MD, Phone: [phone] Not Detected Procedures Date Code Description Status 09/20/2020 63425 EKG/Interpretation & Report Comp leted 01/26/2017 [id number] Diabetic Retinal Eye Exam Comple [facility] 01/05/2014 [id number] Colonoscopy Completed Medical Devices Description No Information Available Encounters Type Date Location Provider Dx Diagnosis Office Visit 09/20/2020 2:00p [facility] James Venegas JR PA I10 Essential (primary) hyperten antonette R00.2 Palpitations F41.9 Anxiety disorder, unspecifie d J30.9 Allergic rhinitis, unspecifi ed Assessments Date Code Description Provider 09/20/2020 I10 Essential (primary) hypertension KAREN Jenkins JR 09/20/2020 R00.2 Palpitations KAREN Braden JR 09/20/2020 F41.9 Anxiety disorder, unspecified Ro KAREN Choudhary JR 09/20/2020 J30.9 Allergic rhinitis, unspecified R sriaknth KAREN Mckenzie JR Plan of Treatment Future Appointment(s):* 12/01/2020 8:00 am - [facility] * 12/01/2020 8:30 am - Puneet Guevara M.D. at [facility] 05/26/2020 - Puneet Guevara M.D.* E78.5 [...] to Reason for Referral Status Appt Date [facility] 48 HR HOLTER MONITOR DX: PALPITATIONS Sent [address] [place] [id number] [phone]
--- OUTSIDE RECORDS SUMMARY | 2021-01-06 08:02 | CCD ---
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 Name Role Phone Liban Tadeo MD Unavailable Unavailable Liban Tadeo MD Unavailable Unavailable Liban Tadeo MD Unavailable Unavailable Liban Tadeo MD Unavailable Unavailable Liban Tadeo MD Unavailable Unavailable Liban Tadeo MD Unavailable Unavailable Liban Tadeo MD Unavailable Unavailable Liban Tadeo MD Unavailable Unavailable Liban Tadeo MD Unavailable Unavailable Liban Tadeo MD Unavailable Unavailable Liban Tadeo MD Unavailable Unavailable Lbian Tadeo MD Unavailable Unavailable Liban Tadeo MD Unavailable Unavailable Liban Tadeo MD Unavailable Unavailable Liban Tadeo MD Unavailable Unavailable Liban Tadeo MD Unavailable Unavailable Liban Tadeo MD Unavailable Unavailable Liban Tadeo MD Unavailable Unavailable Liban Tadeo MD Unavailable Unavailable Liban Tadeo MD Unavailable Unavailable Liban Tadeo MD Unavailable Unavailable Liban Tadeo MD Unavailable Unavailable Liban Tadeo MD Unavailable Unavailable Liban Tadeo MD Unavailable Unavailable Liban Tadeo MD Unavailable Unavailable Liban Tadeo MD Unavailable Unavailable Liban Tadeo MD Unavailable Unavailable Liban Tadeo MD Unavailable Unavailable Liban Tadeo MD Unavailable Unavailable Liban Tadeo MD Unavailable Unavailable Liban Tadeo MD Unavailable Unavailable Slezka, Vojtech MD Unavailable Unavailable Slezka, Vojtech MD Unavailable Unavailable Slezka, Vojtech MD Unavailable Unavailable Slezka, Vojtech MD Unavailable Unavailable Slezka, Vojtech MD Unavailable Unavailable Slezka, Vojtech MD Unavailable Unavailable Slezka, Vojtech MD Unavailable Unavailable Slezka, Vojtech MD Unavailable Unavailable Slezka, Vojtech MD Unavailable Unavailable Slezka, Vojtech MD Unavailable Unavailable Slezka, Vojtech MD Unavailable Unavailable Slezka, Vojtech MD Unavailable Unavailable Slezka, Vojtech MD Unavailable Unavailable Slezka, Vojtech MD Unavailable Unavailable Slezka, Vojtech MD Unavailable Unavailable Slezka, Vojtech MD Unavailable Unavailable Slezka, Vojtech MD Unavailable Unavailable Slezka, Vojtech MD Unavailable Unavailable Slezka, Vojtech MD Unavailable Unavailable Slezka, Vojtech MD Unavailable Unavailable Slezka, Vojtech MD Unavailable Unavailable Slezka, Vojtech MD Unavailable Unavailable Slezka, Vojtech MD Unavailable Unavailable Slezka, Vojtech MD Unavailable Unavailable Slezka, Vojtech MD Unavailable Unavailable Slezka, Vojtech MD Unavailable Unavailable Slezka, Vojtech MD Unavailable Unavailable Johansen, M Ramesh PA Unavailable Unavailable Johansen, M Ramesh PA Unavailable Unavailable Johansen, M Ramesh PA Unavailable Unavailable Johansen, M Ramesh PA Unavailable Unavailable Johansen, M Ramesh PA Unavailable Unavailable Johansen, M Ramesh PA Unavailable Unavailable Johansen, M Ramesh PA Unavailable Unavailable Johansen, M Ramesh PA Unavailable Unavailable Johansen, M Ramesh PA Unavailable Unavailable Johansen, M Ramesh PA Unavailable Unavailable Johansen, M Ramesh PA Unavailable Unavailable Johansen, M Ramesh PA Unavailable Unavailable Johansen, M Ramesh PA Unavailable Unavailable Johansen, M Ramesh PA Unavailable Unavailable Johansen, M Ramesh PA Unavailable Unavailable Johansen, M Ramesh PA Unavailable Unavailable Johansen, M Ramesh PA Unavailable Unavailable Johansen, M Ramesh PA Unavailable Unavailable Johansen, M Ramesh PA Unavailable Unavailable Johansen, M Ramesh PA Unavailable Unavailable Johansen, M Ramesh PA Unavailable Unavailable Johansen, M Ramesh PA Unavailable Unavailable Johansen, M Ramesh PA Unavailable Unavailable Johansen, M Ramesh PA Unavailable Unavailable Johansen, M Ramesh PA Unavailable Unavailable Johansen, M Ramesh PA Unavailable Unavailable Johansen, M Ramesh PA Unavailable Unavailable Johansen, M Ramesh PA Unavailable Unavailable Johansen, M Ramesh PA Unavailable Unavailable Johansen, M Ramesh PA Unavailable Unavailable Johansen, M Ramesh PA Unavailable Unavailable Johansen, M Ramesh PA Unavailable Unavailable Johansen, M Ramesh PA Unavailable Unavailable Johnasen, M Ramesh PA Unavailable Unavailable Johansen, M Ramesh PA Unavailable Unavailable Johansen, M Ramesh PA Unavailable Unavailable Johansen, M Ramesh PA Unavailable Unavailable Johansen, M Ramesh PA Unavailable Unavailable Johansen, M Ramesh PA Unavailable Unavailable Johansen, M Ramesh PA Unavailable Unavailable Johansen, M Ramesh PA Unavailable Unavailable Johansen, M Ramesh PA Unavailable Unavailable Johansen, M Ramesh PA Unavailable Unavailable Johansen, M Ramesh PA Unavailable Unavailable Johansen, M Ramesh PA Unavailable Unavailable Johansen, M Ramesh PA Unavailable Unavailable Johansen, M Ramesh PA Unavailable Unavailable PICKERAL JR, J SARAH PA-C Unavailable Unavailable PICKERAL JR, J SARAH PA-C Unavailable Unavailable PICKERAL JR, J SARAH PA-C Unavailable Unavailable PICKERAL JR, J SARAH PA-C Unavailable Unavailable PICKERAL JR, J SARAH PA-C Unavailable Unavailable PICKERAL JR, J SARAH PA-C Unavailable Unavailable PICKERAL JR, J SARAH PA-C Unavailable Unavailable PICKERAL JR, J SARAH PA-C Unavailable Unavailable PICKERAL JR, J SARAH PA-C Unavailable Unavailable PICKERAL JR, J SARAH PA-C Unavailable Unavailable PICKERAL JR, J SARAH PA-C Unavailable Unavailable PICKERAL JR, J SARAH PA-C Unavailable Unavailable PICKERAL JR, J SARAH PA-C Unavailable Unavailable PICKERAL JR, J SARAH PA-C Unavailable Unavailable PICKERAL JR, J SARAH PA-C Unavailable Unavailable PICKERAL JR, J SARAH PA-C Unavailable Unavailable PICKERAL JR, J SARAH PA-C Unavailable Unavailable PICKERAL JR, J SARAH PA-C Unavailable Unavailable PICKERAL JR, J SARAH PA-C Unavailable Unavailable PICKERAL JR, J SARAH PA-C Unavailable Unavailable PICKERAL JR, J SARAH PA-C Unavailable Unavailable Edenilson Guevara MD Unavailable Unavailable Edenilson Guevara MD Unavailable Unavailable Edenilson Guevara MD Unavailable Unavailable Edenilson Guevara MD Unavailable Unavailable Edenilson Guevara MD Unavailable Unavailable Edenilson Guevara MD Unavailable Unavailable Edenilson Guevara MD Unavailable Unavailable Edenilson Guevara MD Unavailable Unavailable Edenilson Guevara MD Unavailable Unavailable Edenilson Guevara MD Unavailable Unavailable Edenilson Guevara MD Unavailable Unavailable Edenilson Guevara MD Unavailable Unavailable Edenilson Guevara MD Unavailable Unavailable Edenilson Guevara MD Unavailable Unavailable Edenilson Guevara MD Unavailable Unavailable Edenilson Guevara MD Unavailable Unavailable White, F Puneet MD Unavailable Unavailable White, F Puneet MD Unavailable Unavailable White, F Puneet MD Unavailable Unavailable White, F Puneet MD Unavailable Unavailable White, F Puneet MD Unavailable Unavailable White, F Puneet MD Unavailable Unavailable White, F Puneet MD Unavailable Unavailable White, F Puneet MD Unavailable Unavailable White, F Puneet MD Unavailable Unavailable White, F Puneet MD Unavailable Unavailable White, F Upneet MD Unavailable Unavailable White, F Puneet MD Unavailable Unavailable White, F Puneet MD Unavailable Unavailable White, F Puneet MD Unavailable Unavailable White, F Puneet MD Unavailable Unavailable White, F Puneet MD Unavailable Unavailable White, F Puneet MD Unavailable Unavailable White, F Puneet MD Unavailable Unavailable White, F Puneet MD Unavailable Unavailable White, F Puneet MD Unavailable Unavailable White, F Puneet MD Unavailable Unavailable White, F Puneet MD Unavailable Unavailable White, F Puneet MD Unavailable Unavailable White, F Puneet MD Unavailable Unavailable White, F Puneet MD Unavailable Unavailable White, F Puneet MD Unavailable Unavailable White, F Puneet MD Unavailable Unavailable White, F Puneet MD Unavailable Unavailable White, F Puneet MD Unavailable Unavailable White, F Puneet MD Unavailable Unavailable White, F Puneet MD Unavailable Unavailable White, F Puneet MD Unavailable Unavailable White, F Puneet MD Unavailable Unavailable White, F Puneet MD Unavailable Unavailable White, F Puneet MD Unavailable Unavailable White, F Puneet MD Unavailable Unavailable White, F Puneet MD Unavailable Unavailable White, F Puneet MD Unavailable Unavailable White, F Puneet MD Unavailable Unavailable White, F Puneet MD Unavailable Unavailable White, F Puneet MD Unavailable Unavailable White, F Puneet MD Unavailable Unavailable White, F Puneet MD Unavailable Unavailable White, F Puneet MD Unavailable Unavailable White, F Puneet MD Unavailable Unavailable White, F Puneet MD Unavailable Unavailable White, F Puneet MD Unavailable Unavailable White, F Puneet MD Unavailable Unavailable White, F Puneet MD Unavailable Unavailable White, F Puneet MD Unavailable Unavailable White, F Puneet MD Unavailable Unavailable White, F Puneet MD Unavailable Unavailable White, F Puneet MD Unavailable Unavailable White, F Puneet MD Unavailable Unavailable White, F Puneet MD Unavailable Unavailable White, F Puneet MD Unavailable Unavailable White, F Puneet MD Unavailable Unavailable White, F Puneet MD Unavailable Unavailable Re-disclosure Warning The records that you are about to access may contain information from federally-assisted alcohol or drug abuse programs. If such information is present, then the following federally mandated warning applies: This information has been disclosed to you from records protected by federal confidentiality rules (42 CFR part 2). The federal rules prohibit you from making any further disclosure of this information unless further disclosure is expressly permitted by the written consent of the person to whom it pertains or as otherwise permitted by 42 CFR part 2. A general authorization for the release of medical or other information is NOT sufficient for this purpose. The Federal rules restrict any use of the information to criminally investigate or prosecute any alcohol or drug abuse patient.The records that you are about to access may contain highly sensitive health information, the redisclosure of which is protected by Article 27-F of the [facility] Public Health law. If you continue you may have access to information: Regarding HIV / AIDS; Provided by facilities licensed or operated by the [facility] Office of Mental Health; or Provided by the [facility] Office for People With Developmental Disabilities. If such information is present, then the following [facility] mandated warning applies: This information has been disclosed to you from confidential records which are protected by state law. State law prohibits you from making any further disclosure of this information without the specific written consent of the person to whom it pertains, or as otherwise permitted by law. Any unauthorized further disclosure in violation of state law may result in a fine or group home sentence or both. A general authorization for the release of medical or other information is NOT sufficient authorization for further disc losure. Allergies and Adverse Reactions Type Description Substance Reaction Status Data Source(s ) Drug allergy Lyrica pregabalin depression, anxiety Active eC W1 ([facility]) Drug allergy Oxycodone HCl Oxycodone itching Active eCW1 ([facility]) aspirin Aspirin Aspirin face swelling Active eCW1 ([facility]) Drug allergy Cipro Ciprofloxacin headache/dizzy Active eCW1 ([facility]) Oxybutynin Oxybutynin Oxybutynin diarrhea/ severe stomach upset Acti ve eCW1 ([facility]) Darifenacin Hydrobromide Darifenacin Hydrobromide Darifenacin Hy drobromide headache / stomach upset Active eCW1 ([facility]) plastic tape plastic tape plastic tape Rash Active eCW1 ([facility]) hydrocodone hydrocodone hydrocodone itching Active eCW1 ([facility]) gabapentin gabapentin gabapentin 300 MG Oral Capsule mental status A ctive eCW1 ([facility]) Oxybutynin Oxybutynin Oxybutynin diarrhea/ severe stomach upset Acti ve eCW1 ([facility]) Darifenacin Hydrobromide Darifenacin Hydrobromide Darifenacin Hy drobromide headache / stomach upset Active eCW1 ([facility]) plastic tape plastic tape plastic tape Rash Active eCW1 ([facility]) gabapentin gabapentin gabapentin 300 MG Oral Capsule mental status A ctive eCW1 ([facility]) hydrocodone hydrocodone hydrocodone itching Active eCW1 ([facility]) Oxybutynin Oxybutynin Oxybutynin diarrhea/ severe stomach upset Acti ve eCW1 ([facility]) Darifenacin Hydrobromide Darifenacin Hydrobromide Darifenacin Hy drobromide headache / stomach upset Active eCW1 ([facility]) plastic tape plastic tape plastic tape Rash Active eCW1 ([facility]) gabapentin gabapentin gabapentin 300 MG Oral Capsule mental status A ctive eCW1 ([facility]) hydrocodone hydrocodone hydrocodone itching Active eCW1 ([facility]) Oxybutynin Oxybutynin Oxybutynin diarrhea/ severe stomach upset Acti ve eCW1 ([facility]) Darifenacin Hydrobromide Darifenacin Hydrobromide Darifenacin Hy drobromide headache / stomach upset Active eCW1 ([facility]) plastic tape plastic tape plastic tape Rash Active eCW1 ([facility]) gabapentin gabapentin gabapentin 50 MG/ML Oral Solution mental status Active eCW1 ([facility]) hydrocodone hydrocodone hydrocodone itching Active eCW1 ([facility]) Oxybutynin Oxybutynin Oxybutynin diarrhea/ severe stomach upset Acti ve eCW1 ([facility]) Darifenacin Hydrobromide Darifenacin Hydrobromide Darifenacin Hy drobromide headache / stomach upset Active eCW1 ([facility]) plastic tape plastic tape plastic tape Rash Active eCW1 ([facility]) gabapentin gabapentin gabapentin 50 MG/ML Oral Solution mental status Active eCW1 ([facility]) hydrocodone hydrocodone hydrocodone itching Active eCW1 ([facility]) Oxybutynin Oxybutynin Oxybutynin diarrhea/ severe stomach upset Acti ve eCW1 ([facility]) Darifenacin Hydrobromide Darifenacin Hydrobromide Darifenacin Hy drobromide headache / stomach upset Active eCW1 ([facility]) gabapentin gabapentin gabapentin 50 MG/ML Oral Solution mental status Active eCW1 ([facility]) plastic tape plastic tape plastic tape Rash Active eCW1 ([facility]) hydrocodone hydrocodone hydrocodone itching Active eCW1 ([facility]) Oxybutynin Oxybutynin Oxybutynin diarrhea/ severe stomach upset Acti ve eCW1 ([facility]) Darifenacin Hydrobromide Darifenacin Hydrobromide Darifenacin Hy drobromide headache / stomach upset Active eCW1 ([facility]) plastic tape plastic tape plastic tape Rash Active eCW1 ([facility]) gabapentin gabapentin gabapentin mental status Active eCW1 ([facility]) hydrocodone hydrocodone hydrocodone itching Active eCW1 ([facility]) Family History Family Member Name Family Member Gender Family Member Status Date o f Status Description Data Source(s) Unknown Male Problem MEDENT ([facility]) Unknown Male Problem [facility] ([facility]) Unknown Female Problem [facility] Encounters Encounter Providers Location Date Indications Data Source(s ) Outpatient Attender: Puneet Kumar 12/01 07:30:00 AM EST MEDENT ([facility] ) Outpatient Referrer: Liban [email or web address] 10/12 10:16:24 AM EST [facility] Outpatient [email or web address] 10/20/2020 11:03 :16 AM EST - 10/20/2020 12:16:44 PM EST [facility] Outpatient Attender: SARAH CHIU JR Mary Hernandez 11/20/2019 01:00:00 PM EST MED[facility] ([facility] ) (PN Proc 45) Pain Procedure 45 [address] [place] [address] 09/14/2020 12:00:00 AM EST eCW1 ([facility]) Unknown [address] [facility] [id number] 09/13/2020 12:00:00 AM EST eCW1 ([facility]) Outpatient [address] [facility] [id number] 06/02/2020 12:00:00 AM EDT eCW1 ([facility]) Outpatient [address] [facility] [id number] 05/24/2020 12:00:00 AM EDT eCW1 ([facility]) Postop visit [address] [facility] [id number] 05/03/2020 12:00:00 AM EDT eCW1 ([facility]) Unknown [address] [facility] [id number] 04/26/2020 12:00:00 AM EDT eCW1 ([facility]) Unknown [address] [facility] [id number] 04/26/2020 12:00:00 AM EDT eCW1 ([facility]) Unknown [address] [facility] [id number] 04/23/2020 12:00:00 AM EDT eCW1 ([facility]) Postop visit [address] [facility] [id number] 04/19/2020 12:00:00 AM EDT eCW1 ([facility]) Postop visit [address] [place] [address] [place] [phone] 04/14/2020 12:00:00 AM EDT eCW1 ([facility]) [facility] Urology [address] [facility] Y [address] 04/12/2020 12:00:00 AM EDT eCW1 ([facility]) [facility] Urology [address] [facility] Y [phone] 04/09/2020 12:00:00 AM EDT eCW1 ([facility]) [facility] Urology [address] [place] [address] Y [phone] 04/07/2020 12:00:00 AM EDT eCW1 [facility] Urology [address] [place] [address] Y [address] 04/07/2020 12:00:00 AM EDT eCW1 ([facility] Pain Center [address] [place] [phone] 04/06/2020 12:00:00 AM EDT eCW1 ([facility]) [facility] Urology [address] [place] [phone] 03/31/2020 12:00:00 AM EDT [facility] Pain Center [address] [place] [phone] 03/26/2020 12:00:00 AM EDT [facility]CW1 [facility]) Outpatient Attender: Puneet Kumar 03/24 01:30:00 PM EDT MED[facility] ([facility] ) [facility] Urology [address] [place] [phone] 03/15/2020 12:00:00 AM EDT [facility]CW1 [facility] Pain Center [address] [place] [phone] 03/09/2020 12:00:00 AM EDT eCW1 ([facility]) [facility] Pain Center [address] [place] [phone] 03/08/2020 12:00:00 AM EDT eCW1 ([facility] Outpatient Referrer: Ramesh JONES 03/05/2020 08:46:00 AM EDT [facility] Urology Center [address] [place] [phone] 02/02/2020 12:00:00 AM EDT [facility] Outpatient Referrer: Ramesh JONES 01/27/2020 11:09:00 AM EDT [facility] Outpatient Referrer: Ramesh JONES 01/24/2020 12:55:00 PM EDT [facility] Outpatient Referrer: Ramesh JONES 01/14/2020 07:22:00 PM EST [facility] Pain Center [address] [place] [phone] 01/12/2020 12:00:00 AM EST [facility]CW1 [facility]) [facility] Pain Center [address] [place] [phone] 12/25/2019 12:00:00 AM EST [facility]CW1 [facility] Pain Center [address] [place] [phone] 12/19/2019 12:00:00 AM EST [facility]CW1 [facility]) Outpatient Referrer: Ramesh JONES 12/12/2019 03:00:00 PM EST [facility] Urology [address] [place] [phone] 12/10/2019 12:00:00 AM EST [facility]CW1 [facility]) [facility] Urology [address] [place] [phone] 12/01/2019 12:00:00 AM EST [facility]CW1 [facility]) Outpatient Attender: Puneet Kumar 11/19 08:30:00 AM EST MED[facility] ([facility] ) Immunizations Vaccine Date Status Description Data Source(s) Pneumococcal conjugate PCV 13 12/01/2020 07:31:00 AM EST completed [facility] ([facility]) pneumococcal polysaccharide PPV23 12/01/2020 07:31:00 AM EST danette MARY ([facility]) This CVX code allows reporting of a vacc ination when formulation is unknown (for example, when recording a Influenza vaccination when noted on a vaccination card) 10/06/2020 07:10:00 AM EST michele MUSTAFA T ([facility]) INFLUENZA VIRUS VACCINE QUADRIVALENT 2019- (6 MOS AN D UP) 10/06/2020 12:00:00 AM EST completed [facility] This CVX code allows reporting of a vacc ination when formulation is unknown (for example, when recording a Influenza vaccination when noted on a vaccination card) 11/24/2019 07:11:00 AM EST michele MUSTAFA T ([facility]) INFLUENZA VIRUS VACCINE QUADRIVAL [id number](6 MOS AND UP)/PF 11/24/2019 12:00:00 AM EST completed [facility] Medications Medication Brand Name Start Date Product Form Dose Route Admi nistrative Instructions Pharmacy Instructions Status Indications Reaction Description Data Source(s) 17.5-3.13-1.6 gram 12/29/2020 12:00:00 AM EST recon soln 354 TAKE PER DOCTORS BOWEL PREP INSTRUCTION TAKE PER DOCTORS BOWEL PREP INSTRUCTION SOLD: 01/01/2021 [facility] Sertraline 50 MG Oral Tablet Sertraline HCL 12/01/2020 12:00:00 AM EST ORAL active MEDENT ([facility]) Amoxicillin 875 MG / Clavulanate 125 MG Oral Tablet Am oxicillin/Clavulanate Potassium 12/01/2020 12:00:00 AM EST ORAL active MED[facility] ([facility]) 875-125 mg 12/01/2020 12:00:00 AM EST tablet 20 TAKE ONE TABLET BY MOUTH TWICE A DAY FOR 10 DAYS TAKE ONE TABLET BY MOUTH TWICE A DAY FOR 10 DAYS SOLD: 12/01/2020 [facility] 50 mg 12/01/2020 12:00:00 AM EST tablet 30 TAKE ONE-HALF TABLET BY MOUTH EVERY DAY FOR 1 WEEK THEN TAKE ONE TABLET BY MOUTH EVERY DAY TAKE ONE-HALF TABLET BY MOUTH EVERY DAY FOR 1 WEEK THEN TAKE ONE TABLET BY MOUTH EVERY DAY SOLD: 12/02/2020 [facility] 1 gram 08/26/2020 12:00:00 AM EDT tablet 120 TAKE ONE TABLET BY MOUTH FOUR TIMES A DAY TAKE ONE TABLET BY MOUTH FOUR TIMES A DAY SOLD: 12/29/2020 [facility] 1 gram 08/26/2020 12:00:00 AM EDT tablet 120 TAKE ONE TABLET BY MOUTH FOUR TIMES A DAY TAKE ONE TABLET BY MOUTH FOUR TIMES A DAY SOLD: 08/27/2020 [facility] 1 gram 08/26/2020 12:00:00 AM EDT tablet 120 TAKE ONE TABLET BY MOUTH FOUR TIMES A DAY TAKE ONE TABLET BY MOUTH FOUR TIMES A DAY SOLD: 10/27/2020 [facility] 20 mg 07/01/2020 12:00:00 AM EDT capsule,delayed release (DR/EC) 180 TAKE ONE CAPSULE BY MOUTH TWICE A DAY TAKE ONE CAPSULE BY MOUTH TWICE A DAY SOLD: 12/29/2020 [facility] 20 mg 07/01/2020 12:00:00 AM EDT capsule,delayed release (DR/EC) 180 TAKE ONE CAPSULE BY MOUTH TWICE A DAY TAKE ONE CAPSULE BY MOUTH TWICE A DAY SOLD: 07/03/2020 [facility] 20 mg 07/01/2020 12:00:00 AM EDT capsule,delayed release (DR/EC) 180 TAKE ONE CAPSULE BY MOUTH TWICE A DAY TAKE ONE CAPSULE BY MOUTH TWICE A DAY SOLD: 10/06/2020 [facility] 2.5 % 05/28/2020 12:00:00 AM EDT cream with perineal jelly licator 30 APPLY TO HEMMEROIDS FOUR TIMES A DAY APPLY TO HEMMEROIDS FOUR TIMES A DAY SOLD: 05/30/2020 [facility] Hydrocortisone 25 MG/ML Topical Cream Anusol-HC 05/28/2020 12:00:00 AM EDT active MEDENT ([facility]) 0.05 % 05/26/2020 12:00:00 AM EDT cream 50 APPLY TWO TIMES A DAY TO DERMATITIS ON SHINS NEEDED APPLY TWO TIMES A DAY TO DERMATITIS ON S HINS NEEDED SOLD: 05/27/2020 [facility] Carisoprodol 350 MG Oral Tablet CARISOPRODOL 05/24/2020 12:00:00 AM EDT tablet 5 TAKE ONE TABLET BY MOUTH AT BEDTIME N EEDED MAXIMUM DAILY DOSE = 1 TAKE ONE TABLET BY MOUTH AT BEDTIME NEEDED MAXIMUM DAILY DOSE = 1 SOLD: 05/26/2020 [facility] Carisoprodol 350 MG Oral Tablet [Soma] Soma 350 MG Soma 350 MG 05/24/2020 12:00:00 AM EDT 1.0 {tablet_as_needed} active Soma 350 MG eCW1 ([facility]) Carisoprodol 350 MG Oral Tablet [Soma] Soma 350 MG Soma 350 MG 05/24/2020 12:00:00 AM EDT 1.0 {tablet_as_needed} suspended Soma 350 MG eCW1 ([facility]) Carisoprodol 350 MG Oral Tablet [Soma] Soma 350 MG Soma 350 MG 05/24/2020 12:00:00 AM EDT 1.0 {tablet_as_needed} suspended Soma 350 MG eCW1 ([facility]) Carisoprodol 350 MG Oral Tablet [Soma] Soma 350 MG Soma 350 MG 05/24/2020 12:00:00 AM EDT 1.0 {tablet_as_needed} active Soma 350 MG eCW1 ([facility]) 20 mg 05/03/2020 12:00:00 AM EDT tablet 90 TAKE ONE TABLET BY MOUTH EVERY DAY TAKE ONE TABLET BY MOUTH EVERY DAY SOLD: 05/04/2020 [facility] 20 mg 05/03/2020 12:00:00 AM EDT tablet 90 TAKE ONE TABLET BY MOUTH EVERY DAY TAKE ONE TABLET BY MOUTH EVERY DAY SOLD: 10/27/2020 [facility] 20 mg 05/03/2020 12:00:00 AM EDT tablet 90 TAKE ONE TABLET BY MOUTH EVERY DAY TAKE ONE TABLET BY MOUTH EVERY DAY SOLD: 08/04/2020 [facility] Clindamycin 150 MG Oral Capsule Clindamycin HCl 150 MG Clind amycin HCl 150 MG 04/26/2020 12:00:00 AM EDT suspended Clindamycin HCl 150 MG eCW1 ([facility]) Clindamycin 150 MG Oral Capsule Clindamycin HCl 150 MG Clind amycin HCl 150 MG 04/26/2020 12:00:00 AM EDT suspended Clindamycin HCl 150 MG eCW1 ([facility]) 150 mg 04/26/2020 12:00:00 AM EDT capsule 40 TAKE ONE CAPSULE BY MOUTH FOUR TIMES A DAY FOR 10 DAYS TAKE ONE CAPSULE BY MOUTH FOUR TIMES A DAY FOR 10 DAYS SOLD: 04/26/2020 [facility] Clindamycin 150 MG Oral Capsule Clindamycin HCl 150 MG Clind amycin HCl 150 MG 04/26/2020 12:00:00 AM EDT suspended Clindamycin HCl 150 MG eCW1 ([facility]) Clindamycin 150 MG Oral Capsule Clindamycin HCl 150 MG Clind amycin HCl 150 MG 04/26/2020 12:00:00 AM EDT active Clindamycin HCl 150 MG eCW1 ([facility]) Clindamycin 150 MG Oral Capsule Clindamycin HCl 150 MG Clind amycin HCl 150 MG 04/26/2020 12:00:00 AM EDT suspended Clindamycin HCl 150 MG eCW1 ([facility]) Clindamycin 150 MG Oral Capsule Clindamycin HCl 150 MG Clind amycin HCl 150 MG 04/26/2020 12:00:00 AM EDT active Clindamycin HCl 150 MG eCW1 ([facility]) Clindamycin 150 MG Oral Capsule Clindamycin HCl 150 MG Clind amycin HCl 150 MG 04/26/2020 12:00:00 AM EDT active Clindamycin HCl 150 MG eCW1 ([facility]) Clindamycin 150 MG Oral Capsule Clindamycin HCl 150 MG Clind amycin HCl 150 MG 04/26/2020 12:00:00 AM EDT active Clindamycin HCl 150 MG eCW1 ([facility]) cefdinir 300 MG Oral Capsule Cefdinir 300 MG Cefdinir 300 MG 04/23/2020 12:00:00 AM EDT suspended Cefdinir 300 MG eCW1 ([facility]) cefdinir 300 MG Oral Capsule Cefdinir 300 MG Cefdinir 300 MG 04/23/2020 12:00:00 AM EDT suspended Cefdinir 300 MG eCW1 ([facility]) 300 mg 04/23/2020 12:00:00 AM EDT capsule 20 TAKE ONE CAPSULE BY MOUTH TWICE A DAY FOR 10 DAYS TAKE ONE CAPSULE BY MOUTH TWICE A DAY FOR 10 DAYS SOLD : 04/23/2020 [facility] cefdinir 300 MG Oral Capsule Cefdinir 300 MG Cefdinir 300 MG 04/23/2020 12:00:00 AM EDT suspended Cefdinir 300 MG eCW1 ([facility]) cefdinir 300 MG Oral Capsule Cefdinir 300 MG Cefdinir 300 MG 04/23/2020 12:00:00 AM EDT active Cefdinir 300 MG eCW1 ([facility]) cefdinir 300 MG Oral Capsule Cefdinir 300 MG Cefdinir 300 MG 04/23/2020 12:00:00 AM EDT suspended Cefdinir 300 MG eCW1 ([facility]) cefdinir 300 MG Oral Capsule Cefdinir 300 MG Cefdinir 300 MG 04/23/2020 12:00:00 AM EDT active Cefdinir 300 MG eCW1 ([facility]) cefdinir 300 MG Oral Capsule Cefdinir 300 MG Cefdinir 300 MG 04/23/2020 12:00:00 AM EDT active Cefdinir 300 MG eCW1 ([facility]) cefdinir 300 MG Oral Capsule Cefdinir 300 MG Cefdinir 300 MG 04/23/2020 12:00:00 AM EDT active Cefdinir 300 MG eCW1 ([facility]) cefdinir 300 MG Oral Capsule Cefdinir 300 MG Cefdinir 300 MG 04/23/2020 12:00:00 AM EDT active Cefdinir 300 MG eCW1 ([facility]) 100 mg 04/09/2020 12:00:00 AM EDT capsule 10 TAKE ONE CAPSULE BY MOUTH TWICE A DAY WITH FOOD TAKE ONE CAPSULE BY MOUTH TWICE A DAY WITH FOOD SOLD: 04/09/2020 [facility] NITROFURANTOIN, MACROCRYSTALS 25 MG / Ni trofurantoin, Monohydrate 75 MG Oral Capsule [Macrobid] Macrobid 100 MG Macrobid 100 MG 04/09/2020 12:00:00 AM EDT active 1 capsule with food eCW1 ([facility]) Oxybutynin chloride 5 MG Oral Tablet Oxybutynin Chlori de 5 MG Oxybutynin Chloride 5 MG 04/07/2020 12:00:00 AM EDT 1.0 {tab(s)} suspended Oxybutynin Chloride 5 MG eCW1 ([facility]) 500 mg 04/07/2020 12:00:00 AM EDT tablet 14 TAKE ONE TABLET BY MOUTH EVERY 12 HOURS FOR 7 DAYS TAKE ONE TABLET BY MOUTH EVERY 12 HOURS FOR 7 DAYS MAULIK [facility] Oxybutynin chloride 5 MG Oral Tablet Oxybutynin Chlori de 5 MG Oxybutynin Chloride 5 MG 04/07/2020 12:00:00 AM EDT 1.0 {tab(s)} suspended Oxybutynin Chloride 5 MG eCW1 ([facility]) Ciprofloxacin 500 MG Oral Tablet Ciprofloxacin HCl 500 MG Ciprofloxacin HCl 500 MG 04/07/2020 12:00:00 AM EDT 1.0 {tablet} suspe nded Ciprofloxacin HCl 500 MG eCW1 ([facility]) Oxybutynin chloride 5 MG Oral Tablet Oxybutynin Chlori de 5 MG Oxybutynin Chloride 5 MG 04/07/2020 12:00:00 AM EDT 1.0 {tab(s)} suspended Oxybutynin Chloride 5 MG eCW1 ([facility]) Ciprofloxacin 500 MG Oral Tablet Ciprofloxacin HCl 500 MG Ciprofloxacin HCl 500 MG 04/07/2020 12:00:00 AM EDT 1.0 {tablet} suspe nded Ciprofloxacin HCl 500 MG eCW1 ([facility]) Ciprofloxacin 500 MG Oral Tablet Ciprofloxacin HCl 500 MG Ciprofloxacin HCl 500 MG 04/07/2020 12:00:00 AM EDT 1.0 {tablet} suspe nded Ciprofloxacin HCl 500 MG eCW1 ([facility]) Ciprofloxacin 500 MG Oral Tablet Ciprofloxacin HCl 500 MG Ciprofloxacin HCl 500 MG 04/07/2020 12:00:00 AM EDT 1.0 {tablet} suspe nded Ciprofloxacin HCl 500 MG eCW1 ([facility]) Ciprofloxacin 500 MG Oral Tablet Ciprofloxacin HCl 500 MG Ciprofloxacin HCl 500 MG 04/07/2020 12:00:00 AM EDT 1.0 {tablet} suspe nded Ciprofloxacin HCl 500 MG eCW1 ([facility]) Oxybutynin chloride 5 MG Oral Tablet Oxybutynin Chlori de 5 MG Oxybutynin Chloride 5 MG 04/07/2020 12:00:00 AM EDT 1.0 {tab(s)} suspended Oxybutynin Chloride 5 MG eCW1 ([facility]) Ciprofloxacin 500 MG Oral Tablet Ciprofloxacin HCl 500 MG Ciprofloxacin HCl 500 MG 04/07/2020 12:00:00 AM EDT 1.0 {tablet} suspe nded Ciprofloxacin HCl 500 MG eCW1 ([facility]) Oxybutynin chloride 5 MG Oral Tablet Oxybutynin Chlori de 5 MG Oxybutynin Chloride 5 MG 04/07/2020 12:00:00 AM EDT 1.0 {tab(s)} suspended Oxybutynin Chloride 5 MG eCW1 ([facility]) Oxybutynin chloride 5 MG Oral Tablet Oxybutynin Chlori de 5 MG Oxybutynin Chloride 5 MG 04/07/2020 12:00:00 AM EDT 1.0 {tab(s)} suspended Oxybutynin Chloride 5 MG eCW1 ([facility]) Ciprofloxacin 500 MG Oral Tablet Ciprofloxacin HCl 500 MG Ciprofloxacin HCl 500 MG 04/07/2020 12:00:00 AM EDT 1.0 {tablet} suspe nded Ciprofloxacin HCl 500 MG eCW1 ([facility]) Ciprofloxacin 500 MG Oral Tablet Ciprofloxacin HCl 500 MG Ciprofloxacin HCl 500 MG 04/07/2020 12:00:00 AM EDT 1.0 {tablet} suspe nded Ciprofloxacin HCl 500 MG eCW1 ([facility]) Ciprofloxacin 500 MG Oral Tablet Ciprofloxacin HCl 500 MG Ciprofloxacin HCl 500 MG 04/07/2020 12:00:00 AM EDT 1.0 {tablet} suspe nded Ciprofloxacin HCl 500 MG eCW1 ([facility]) Oxybutynin chloride 5 MG Oral Tablet Oxybutynin Chlori de 5 MG Oxybutynin Chloride 5 MG 04/07/2020 12:00:00 AM EDT 1.0 {tab(s)} suspended Oxybutynin Chloride 5 MG eCW1 ([facility]) Ciprofloxacin 500 MG Oral Tablet Ciprofloxacin HCl 500 MG Ciprofloxacin HCl 500 MG 04/07/2020 12:00:00 AM EDT 1.0 {tablet} suspe nded Ciprofloxacin HCl 500 MG eCW1 ([facility]) Oxybutynin chloride 5 MG Oral Tablet Oxybutynin Chlori de 5 MG Oxybutynin Chloride 5 MG 04/07/2020 12:00:00 AM EDT 1.0 {tab(s)} suspended Oxybutynin Chloride 5 MG eCW1 ([facility]) Oxybutynin chloride 5 MG Oral Tablet OXYBUTYNIN CHLORIDE 12:00:00 AM EDT tablet 20 TAKE ONE TABLET BY MOUTH EVERY 8 HOURS NEEDED FOR BLADDER SPASMS TAKE ONE TABLET BY MOUTH EVERY 8 HOURS NEEDED FOR B LADDER SPASMS SOLD: 04/08/2020 [facility] Oxybutynin chloride 5 MG Oral Tablet Oxybutynin Chlori de 5 MG Oxybutynin Chloride 5 MG 04/07/2020 12:00:00 AM EDT 1.0 {tab(s)} active Oxybutynin Chloride 5 MG eCW1 ([facility]) Oxybutynin chloride 5 MG Oral Tablet Oxybutynin Chlori de 5 MG Oxybutynin Chloride 5 MG 04/07/2020 12:00:00 AM EDT 1.0 {tab(s)} suspended Oxybutynin Chloride 5 MG eCW1 ([facility]) 50 mcg/actuation 03/25/2020 12:00:00 AM EDT spray,suspension 16 USE 2 SPRAYS IN EACH NOSTRIL ONCE DAILY NEEDED USE 2 SPRAYS IN EACH NOSTRIL ONCE DAILY NEEDED SOLD: 03/26/2020 [facility] 100 mg 03/15/2020 12:00:00 AM EDT tablet 6 TAKE 1 TABLET BY MOUTH NEEDED ONCE DAILY TAKE 1 TABLET BY MOUTH NEEDED ONCE DAILY SOLD: 03/17/2020 [facility] Acetaminophen 300 MG / Codeine Phosphate 60 MG Oral Tablet Acetaminophen-Codeine #4 300-60 MG Acetaminophen-Codeine #4 300-60 MG 03/09/2020 12:00:00 AM EDT 1.0 {tablet_as_needed} active Acetamino phen-Codeine #4 300-60 MG eCW1 ([facility]) 300-60 mg 03/09/2020 12:00:00 AM EDT tablet 14 TAKE 1 TABLET BY MOUTH NEEDED TWO TIMES A DAY FOR 7 DAYS MAXIMUM DAILY DOSE = 2 TAKE 1 TABLET BY MOUTH NEEDED TWO TIMES A DAY FOR 7 DAYS MAXIMUM DAILY DOSE = 2 SOLD: 03/10/2020 [facility] Acetaminophen 300 MG / Codeine Phosphate 60 MG Oral Tablet Acetaminophen-Codeine #4 300-60 MG Acetaminophen-Codeine #4 300-60 MG 03/09/2020 12:00:00 AM EDT 1.0 {tablet_as_needed} active Acetamino phen-Codeine #4 300-60 MG eCW1 ([facility]) Acetaminophen 300 MG / Codeine Phosphate 60 MG Oral Tablet Acetaminophen-Codeine #4 300-60 MG Acetaminophen-Codeine #4 300-60 MG 03/09/2020 12:00:00 AM EDT active 1 tablet as needed e CW1 ([facility]) Acetaminophen 300 MG / Codeine Phosphate 60 MG Oral Tablet Acetaminophen-Codeine #4 300-60 MG Acetaminophen-Codeine #4 300-60 MG 03/09/2020 12:00:00 AM EDT 1.0 {tablet_as_needed} active Acetamino phen-Codeine #4 300-60 MG eCW1 ([facility]) Acetaminophen 300 MG / Codeine Phosphate 60 MG Oral Tablet Acetaminophen-Codeine #4 300-60 MG Acetaminophen-Codeine #4 300-60 MG 03/09/2020 12:00:00 AM EDT 1.0 {tablet_as_needed} active Acetamino phen-Codeine #4 300-60 MG eCW1 ([facility]) Acetaminophen 300 MG / Codeine Phosphate 60 MG Oral Tablet Acetaminophen-Codeine #4 300-60 MG Acetaminophen-Codeine #4 300-60 MG 03/09/2020 12:00:00 AM EDT 1.0 {tablet_as_needed} active Acetamino phen-Codeine #4 300-60 MG eCW1 ([facility]) Acetaminophen 300 MG / Codeine Phosphate 60 MG Oral Tablet Acetaminophen-Codeine #4 300-60 MG Acetaminophen-Codeine #4 300-60 MG 03/09/2020 12:00:00 AM EDT active 1 tablet as needed e CW1 ([facility]) Acetaminophen 300 MG / Codeine Phosphate 60 MG Oral Tablet Acetaminophen-Codeine #4 300-60 MG Acetaminophen-Codeine #4 300-60 MG 03/09/2020 12:00:00 AM EDT 1.0 {tablet_as_needed} active Acetamino phen-Codeine #4 300-60 MG eCW1 ([facility]) Acetaminophen 300 MG / Codeine Phosphate 60 MG Oral Tablet Acetaminophen-Codeine #4 300-60 MG Acetaminophen-Codeine #4 300-60 MG 03/09/2020 12:00:00 AM EDT active 1 tablet as needed e CW1 ([facility]) Acetaminophen 300 MG / Codeine Phosphate 60 MG Oral Tablet Acetaminophen-Codeine #4 300-60 MG Acetaminophen-Codeine #4 300-60 MG 03/09/2020 12:00:00 AM EDT 1.0 {tablet_as_needed} active Acetamino phen-Codeine #4 300-60 MG eCW1 ([facility]) Acetaminophen 300 MG / Codeine Phosphate 60 MG Oral Tablet Acetaminophen-Codeine #4 300-60 MG Acetaminophen-Codeine #4 300-60 MG 03/09/2020 12:00:00 AM EDT 1.0 {tablet_as_needed} active Acetamino phen-Codeine #4 300-60 MG eCW1 ([facility]) Acetaminophen 300 MG / Codeine Phosphate 60 MG Oral Tablet Acetaminophen-Codeine #4 300-60 MG Acetaminophen-Codeine #4 300-60 MG 03/09/2020 12:00:00 AM EDT 1.0 {tablet_as_needed} active Acetamino phen-Codeine #4 300-60 MG eCW1 ([facility]) Acetaminophen 300 MG / Codeine Phosphate 60 MG Oral Tablet Acetaminophen-Codeine #4 300-60 MG Acetaminophen-Codeine #4 300-60 MG 03/09/2020 12:00:00 AM EDT 1.0 {tablet_as_needed} active Acetamino phen-Codeine #4 300-60 MG eCW1 ([facility]) 1 gram 02/19/2020 12:00:00 AM EDT tablet 120 TAKE 1 TABLET BY MOUTH FOUR TIMES A DAY TAKE 1 TABLET BY MOUTH FOUR TIMES A DAY SOLD: 02/21/2020 [facility] 1 gram 02/19/2020 12:00:00 AM EDT tablet 120 TAKE 1 TABLET BY MOUTH FOUR TIMES A DAY TAKE 1 TABLET BY MOUTH FOUR TIMES A DAY SOLD: 04/19/2020 [facility] 1 gram 02/19/2020 12:00:00 AM EDT tablet 120 TAKE 1 TABLET BY MOUTH FOUR TIMES A DAY TAKE 1 TABLET BY MOUTH FOUR TIMES A DAY SOLD: 06/23/2020 [facility] Cephalexin 500 MG Oral Capsule [Keflex] Keflex 500 MG Keflex 500 MG 12/01/2019 12:00:00 AM EST suspended Kefle x 500 MG eCW1 ([facility]) Cephalexin 500 MG Oral Capsule [Keflex] Keflex 500 MG Keflex 500 MG 12/01/2019 12:00:00 AM EST suspended Kefle x 500 MG eCW1 ([facility]) 500 mg 12/01/2019 12:00:00 AM EST capsule 1 TAKE 1 CAPSULE BY MOUTH 1 HOUR PRIOR TO YOUR CYSTOSCOPY TAKE 1 CAPSULE BY MOUTH 1 HOUR PRIOR TO YOUR CYSTOSCOPY SOLD: 12/03/2019 [facility] Cephalexin 500 MG Oral Capsule [Keflex] Keflex 500 MG Keflex 500 MG 12/01/2019 12:00:00 AM EST active 1 capsul e 1 hour prior to your cystoscopy eCW1 ([facility]) Cephalexin 500 MG Oral Capsule [Keflex] Keflex 500 MG Keflex 500 MG 12/01/2019 12:00:00 AM EST suspended 1 capsule 1 hour prior to your cystoscopy eCW1 ([facility]) Cephalexin 500 MG Oral Capsule [Keflex] Keflex 500 MG Keflex 500 MG 12/01/2019 12:00:00 AM EST suspended Kefle x 500 MG eCW1 ([facility]) Cephalexin 500 MG Oral Capsule [Keflex] Keflex 500 MG Keflex 500 MG 12/01/2019 12:00:00 AM EST suspended 1 capsule 1 hour prior to your cystoscopy eCW1 ([facility]) Cephalexin 500 MG Oral Capsule [Keflex] Keflex 500 MG Keflex 500 MG 12/01/2019 12:00:00 AM EST suspended Kefle x 500 MG eCW1 ([facility]) Cephalexin 500 MG Oral Capsule [Keflex] Keflex 500 MG Keflex 500 MG 12/01/2019 12:00:00 AM EST suspended Kefle x 500 MG eCW1 ([facility]) Cephalexin 500 MG Oral Capsule [Keflex] Keflex 500 MG Keflex 500 MG 12/01/2019 12:00:00 AM EST suspended 1 capsule 1 hour prior to your cystoscopy eCW1 ([facility]) Cephalexin 500 MG Oral Capsule [Keflex] Keflex 500 MG Keflex 500 MG 12/01/2019 12:00:00 AM EST suspended 1 capsule 1 hour prior to your cystoscopy eCW1 ([facility]) Cephalexin 500 MG Oral Capsule [Keflex] Keflex 500 MG Keflex 500 MG 12/01/2019 12:00:00 AM EST suspended Kefle x 500 MG eCW1 ([facility]) Cephalexin 500 MG Oral Capsule [Keflex] Keflex 500 MG Keflex 500 MG 12/01/2019 12:00:00 AM EST suspended 1 capsule 1 hour prior to your cystoscopy eCW1 ([facility]) Cephalexin 500 MG Oral Capsule [Keflex] Keflex 500 MG Keflex 500 MG 12/01/2019 12:00:00 AM EST suspended Kefle x 500 MG eCW1 ([facility]) Cephalexin 500 MG Oral Capsule [Keflex] Keflex 500 MG Keflex 500 MG 12/01/2019 12:00:00 AM EST suspended Kefle x 500 MG eCW1 ([facility]) Cephalexin 500 MG Oral Capsule [Keflex] Keflex 500 MG Keflex 500 MG 12/01/2019 12:00:00 AM EST active 1 capsul e 1 hour prior to your cystoscopy eCW1 ([facility]) Keflex 500 MG UNK 12/01/2019 12:00:00 AM EST active 1 capsule 1 hour prior to your cystoscopy eCW1 ([facility]) Cephalexin 500 MG Oral Capsule [Keflex] Keflex 500 MG Keflex 500 MG 12/01/2019 12:00:00 AM EST suspended Kefle x 500 MG eCW1 ([facility]) Cephalexin 500 MG Oral Capsule [Keflex] Keflex 500 MG Keflex 500 MG 12/01/2019 12:00:00 AM EST suspended Kefle x 500 MG eCW1 ([facility]) CBD Roll On 11/19/2019 12:00:00 AM EST active MEDENT ([facility]) Acetaminophen 500 MG Oral Tablet [Tylenol] Tylenol Extra Str ength 11/19/2019 12:00:00 AM EST active M EDENT ([facility]) 50 mg 09/02/2019 12:00:00 AM EDT tablet 7 TAKE ONE TABLET BY MOUTH EVERY DAY NEEDED FOR PAIN MAXIMUM DAILY DOSE = 1 TAKE ONE TABLET BY MOUTH EVERY DAY NEEDED FOR PAIN MAXIMUM DAILY DOSE = 1 SOLD: 01/18/2020 [facility] 1 gram 08/12/2019 12:00:00 AM EDT tablet 120 TAKE ONE TABLET BY MOUTH FOUR TIMES A DAY TAKE ONE TABLET BY MOUTH FOUR TIMES A DAY SOLD: 12/22/2019 [facility] 20 mg 07/10/2019 12:00:00 AM EDT capsule,delayed release (DR/EC) 180 TAKE ONE CAPSULE BY MOUTH TWICE A DAY TAKE ONE CAPSULE BY MOUTH TWICE A DAY SOLD: 12/22/2019 [facility] 20 mg 07/10/2019 12:00:00 AM EDT capsule,delayed release (DR/EC) 180 TAKE ONE CAPSULE BY MOUTH TWICE A DAY TAKE ONE CAPSULE BY MOUTH TWICE A DAY SOLD: 04/07/2020 [facility] 20 mg 04/30/2019 12:00:00 AM EDT tablet 90 TAKE ONE TABLET BY MOUTH EVERY DAY TAKE ONE TABLET BY MOUTH EVERY DAY SOLD: 01/27/2020 [facility] Insurance Providers Payer name Policy type / Coverage type Policy ID Covered constitution party ID Covered constitution party's relationship to [place] Policy [place] Plan Information MEDICARE [id number] SP [id number] [facility] [id number] SP [id number] BCBS EMPIRE OLIVA DIV [id number] SP [id number] STATE INSURANCE FUND [id number] SP [id number] MEDICARE [id number] SP [id number] [facility] [id number] SP [id number] BCBS EMPIRE OLIVA DIV [id number] SP [id number] MEDICARE [id number] SP [id number] STATE INSURANCE FUND O [id number] S [id number] STATE INSURANCE FUND O [id number] S [id number] BC BS EMPIRE IBM CLAIMS ONLY [id number] EXCELLUS BCBS [id number] Aneta YLS [id number] MEDICARE [id number] Aneta [id number] R00 BCBS EMPIRE OLIVA DIV [id number] EXCELLUS BCBS [id number] MEDICARE [id number] STATE INSURANCE FUND O [id number] O WCB#[id number] STATE INSURANCE FUND O WCB#[id number] O WCB#[id number] BCBS EMPIRE OLIVA DIV [id number] STATE INSURANCE FUND [id number] SP [id number] [facility] O [id number] S WCB#[id number] [facility] O [id number] S [id number] MEDICARE C [id number] S [id number] STATE INSURANCE FUND [id number] SP WCB#[id number] STATE INSURANCE FUND O [id number] O [id number] STATE INSURANCE FUND [id number] SP [id number] MEDICARE [id number] SP [id number] A Medicare Dme Supplies Medigap Part B [id number] Self [id number] [place] [id number] Self [id number] [facility] Medigap Part B [id number] Self [id number] [employer] Ins ([place]) Workers Compensation [id number] Self [id number] State Ins Fund ([place]) Workers Compensation [id number] Self [id number] Medicare Dme Supplies Medigap Part B [id number] Self [id number] [place] Primary [id number] Self [id number] ANSI-Commercial [id number] ANSI-Medicare Part B [id number] ANSI-Commercial [id number] [facility] B [id number] Self [id number] Medicare Dme Supplies Medigap Part B [id number] Self [id number] [place] Primary [id number] Self [id number] [facility]ig[facility] Part B [id number] Self [id number] [place] Primary [id number] Self [id number] EMPIRE PLAN [facility] U [id number] Self [id number] MEDICARE A [id number] Self [id number] A [facility] [id number] [facility] [id number] ANSI-Commercial [id number] ANSI-Medicare Part B [id number] ANSI-Commercial [id number] ANSI-Commercial [id number] ANSI-Medicare Part B [id number] ANSI-Commercial [id number] ANSI-Commercial [id number] ANSI-Commercial [id number] ANSI-Medicare Part B [id number] ANSI-Medicare Part B [id number] ANSI-Commercial [id number] ANSI-Commercial [id number] ANSI-Commercial [id number] ANSI-Commercial [id number] ANSI-Medicare Part B [id number] [facility] Part B [id number] Self [id number] [place] [id number] Self [id number] ANSI-Commercial [id number] ANSI-Commercial [id number] ANSI-Medicare Part B [id number] ANSI-Commercial [id number] ANSI-Medicare Part B [id number] ANSI-Commercial [id number] [employer] Medigap Part B [id number] Self [id number] [place] Primary [id number] Self [id number] [employer] Medigap Part B [id number] Self [id number] Medicare [place] [employer] [employer] Primary [id number] Self [id number] ONE CALL CARE MANAGEMENT O [id number] S [id number] ONE CALL CARE MANAGEMENT O [id number] S [id number] ONE CALL CARE MANAGEMENT O [id number] S [id number] [employer] Medigap Part B [id number] Self [id number] [place] Primary [id number] Self [id number] BS EMPIRE OLIVA DIV [id number] [employer] Medigap Part B [id number] Self [id number] [place] Primary [id number] Self [id number] [facility] INSURANCE FUND [id number] SP [id number] [employer] Medigap Part B [id number] Self [id number] [place] Medicare Primary [id number] Self [id number] [employer] Medigap Part B [id number] Self [id number] [place] Primary [id number] Self [id number] [employer] Medigap Part B [id number] Self [id number] Medicare [place] [employer] Medicare Primary [id number] Self [id number] [employer] Medigap Part B [id number] Self [id number] Medicare [place] [employer] Medicare Primary [id number] Self [id number] MEDICARE C [id number] S [id number] A [employer] Medigap Part B [id number] Self [id number] [place] Primary [id number] Self [id number] [employer] Medigap Part B [id number] Self [id number] Medicare [place] [employer] Medicare Primary [id number] Self [id number] [employer] Medigap Part B [id number] Self [id number] [place] Primary [id number] Self [id number] ONE CALL CARE MANAGEMENT O [id number] S [id number] [employer] [facility] Medigap Part B [id number] Self [id number] [place] [id number] Self [id number] Wishon [employer] Medigap Part B [id number] Self [id number] [place] [id number] Self [id number] Wishon [employer] Medigap Part B [id number] Self [id number] [place] Primary [id number] Self [id number] Wishon [employer] Medigap Part B [id number] Self [id number] [place] Primary [id number] Self [id number] Wishon [employer] Medigap Part B [id number] Self [id number] [place] Primary [id number] Self [id number] United [employer] Wishon Medigap Part B [id number] Self [id number] Medicare [place] Medicare Primary [id number] Self [id number] EMPIRE (STATE EMP) O [id number] S [id number] United [employer] Wishon Medigap Part B [id number] Self [id number] [place] Medicare Primary [id number] Self [id number] STATE INSURANCE FUND [id number] SP [id number] MEDICARE [id number] SP [id number] A United [employer] Wishon Medigap Part B Self Medicare [place] Medicare Primary Self Wishon [employer] Medigap Part B Self [place] Self BCBS [place] OLIVA DIV B [id number] S [id number] STATE INSURANCE FUND [id number] SP [id number] State Ins Fund 2 [id number] SELF [id number] State Ins Fund 2 [id number] SELF [id number] State Ins Fund 2 pending SELF pendi ng STATE INSURANCE FUND O [id number] S [id number] [place] O [id number] S [id number] STATE INSURANCE FUND [id number] SP [id number] OTHER WORKERS COMPENSATION [id number] SP [id number] [facility] [id number] SP [id number] MEDICARE [id number] SP [id number] [facility] INSURANCE [facility] S [id number] S [id number] [facility] [id number] SP [id number] Problems, Conditions, and Diagnoses Code Display Name Description Problem Type Effective Dates Data Source(s) 36519065 Essential hypertension Essential hypertension Problem 12/07/2020 12:00:00 AM EST [facility] ([facility], ) M46.1 Solitary sacroiliitis Sacroiliitis Problem 09/14/2020 1 2:00:00 AM EST eCW1 ([facility]) Z01.818 Pre-procedure evaluation check Preop testing Problem 03/15/2020 12:00:00 AM EDT eCW1 ([facility]) N40.1 Benign prostatic hypertrophy with outflo w obstruction BPH loc w urin obs/LUTS Problem 03/15/2020 12:00:00 AM EDT eCW1 ([facility]) N39.0 Urinary tract infectious disease UTI (urinary tract in fection) Problem 03/15/2020 12:00:00 AM EDT eCW1 ([facility]) N52.9 Erectile dysfunction Erectile dysfunction Problem 03/15/2020 12:00:00 AM EDT eCW1 ([facility]) Z01.818 Pre-procedure evaluation check Preop testing Problem 03/15/2020 12:00:00 AM EDT eCW1 ([facility]) N39.0 Urinary tract infectious disease UTI (urinary tract in fection) Problem 03/15/2020 12:00:00 AM EDT eCW1 ([facility]) N40.1 Benign prostatic hypertrophy with outflo w obstruction BPH loc w urin obs/LUTS Problem 03/15/2020 12:00:00 AM EDT eCW1 ([facility]) N52.9 Erectile dysfunction Erectile dysfunction Problem 03/15/2020 12:00:00 AM EDT eCW1 ([facility]) R31.29 Microscopic hematuria Microscopic hematuria Problem 12/01/2019 12:00:00 AM EST eCW1 ([facility]) N50.819 Pain in male perineum Testicular discomfort Problem 12/01/2019 12:00:00 AM EST eCW1 ([facility]) R31.29 Microscopic hematuria Microscopic hematuria Problem 12/01/2019 12:00:00 AM EST eCW1 ([facility]) N50.819 Pain in male perineum Testicular discomfort Problem 12/01/2019 12:00:00 AM EST eCW1 ([facility]) R00.2 Palpitations Palpitations Diagnosis 10/20/2020 11:03:16 A M EST [facility] Surgeries/Procedures Procedure Description Date Indications Data Source(s) ARTHROCENTESIS ASPIR&/INJECTION MAJOR JT/BURSA 021 12:00:00 AM EST MED[facility] ([facility] ) RADIOLOGIC EXAM KNEE COMPLETE 4/MORE VIEWS 12/14/2020 12:00:00 AM EST [facility] ([facility] ) ECG ROUTINE ECG W/LEAST 12 LDS W/I&R 09/20/2020 12:00: 00 AM EST [facility] ([facility]) Medication: Benadryl Tab 25mg Orally (Diphenhydramine) 09/14/2020 12:00:00 AM EST eCW1 ([facility]) Unclassified drugs 09/14/2020 12:00:00 AM EST eCW1 ([facility]) ARTHROCENTESIS ASPIR&/INJECTION MAJOR JT/BURSA 020 12:00:00 AM EDT [facility] ([facility] ) uro PVR (Post Voiding Residual) Bladder Scan 0 12:00:00 AM EDT eCW1 ([facility]) uro PVR (Post Voiding Residual) Bladder Scan 0 12:00:00 AM EDT eCW1 ([facility]) BLDR IRRIGATION SMPL LAVAGE&/INSTLJ 04/14/2020 12:00:0 0 AM EDT eCW1 ([facility]) ECG ROUTINE ECG W/LEAST 12 LDS W/I&R 03/24/2020 12:00: 00 AM EDT MED[facility] ([facility]) CYSTOSCOPY 03/15/2020 12:00:00 AM EDT e CW1 ([facility]) PHYSICIAN TELEPHONE EVALUATION 11-20 MIN 03/09/2020 12 :00:00 AM EDT eCW1 ([facility]) ESTABILISHED PATIENT [facility] FACILITY CHARGE 020 12:00:00 AM EST eCW1 ([facility]) INJ FORAMEN EPIDURAL L/S 12/25/2019 12:00:00 AM EST eCW1 ([facility]) INJ FORAMEN EPIDURAL ADD-ON 12/25/2019 12:00:00 AM EST eCW1 ([facility]) RADXPS IN END [id number] PXD 12/25/2019 12:00:00 AM ES T eCW1 ([facility]) Eligible professional attests to kaity ayala in the medical record they obtained, updated, or reviewed the patient's current medications 12/19/2019 12:00:00 AM EST eCW1 ([facility]) Pain assessment documented as positive u sing a standardized tool and a follow-up plan is documented 12/19/2019 12:00:00 AM EST e CW1 ([facility]) Office Visit, Est Pt., Level 2 FC 12/01/2019 12:00:00 AM EST eCW1 ([facility]) Office Visit, Est Pt., Level 3 PC 12/01/2019 12:00:00 AM EST eCW1 ([facility]) US URINE CAPACITY MEASURE 12/01/2019 12:00:00 AM EST eCW1 ([facility]) Results ID Date Data Source [id number] 01/01/2021 09:00:00 AM EST [facility] Name Value Range Interpretation Code Description Data Mariana rce(s) Supporting Document(s) SARS coronavirus 2 RNA Not Detected [facility] This lab was ordered by [facility] and reported by [facility]. ID Date Data Source [id number] 11/29/2020 08:11:00 AM EST [facility] ([facility]) Name Value Range Interpretation Code Description Data Mariana rce(s) Supporting Document(s) Prostate specific Ag [Mass/volume] in Serum or Plasma Laboratory test result [facility] ([facility]) This assay was performed on the Siemens Dimension EXL using the B- Galactosidase/CPRG methodology and should not be compared interchangeably with other methods. The PSA should not be used alone as a screening test for the presence or absence of malignant disease. ID Date Data Source [id number] 11/29/2020 08:11:00 AM EST [facility] ([facility]) Name Value Range Interpretation Code Description Data Mariana rce(s) Supporting Document(s) Cholesterol [Mass/volume] in Serum or Plasma 163 mg/dL 131-200 [facility] ([facility]) Cholesterol in HDL [Mass/volume] in Serum or Plasma 45 mg/dL 35-60 [facility] ([facility]) Triglyceride [Mass/volume] in Serum or Plasma 95 mg/dL 30-150 [facility] ([facility]) Cholesterol in LDL [Mass/volume] in Serum or Plasma by calcu lation 99 CALC 50-159 [facility] ([facility]) ID Date Data Source [id number] 11/29/2020 08:11:00 AM EST [facility] Name Value Range Interpretation Code Description Data Mariana rce(s) Supporting Document(s) Urea nitrogen [Mass/volume] in Serum or Plasma 18 mg/dL 7-18 [facility] ([facility]) Glucose [Mass/volume] in Serum or Plasma 98 mg/dL 74-99 [facility] ([facility]) 100-125 mg/dL PRE-DIABETES/FASTING >126 mg/dL DIABETES/FASTING Sodium [Moles/volume] in Serum or Plasma 139 meq/L 136-145 [facility] ([facility]) Creatinine 0.8 mg/dL 0.6-1.3 [facility] ([facility]) Carbon dioxide, total [Moles/volume] in Serum or Plasma 30 meq/L 21 -32 [facility] ([facility]) Potassium [Moles/volume] in Serum or Plasma 3.8 meq/L 3.5-5.1 [facility] ([facility]) Chloride [Moles/volume] in Serum or Plasma 101 meq/L 98-107 [facility] ([facility]) Alkaline phosphatase isoenzyme [Units/volume] in Serum or Pl asma 58 mg/dL 46-116 [facility] ([facility]) Total Bilirubin 0.6 mg/dL 0.2-1.0 [facility] ([facility]) Calcium [Mass/volume] in Serum or Plasma 8.8 mg/dL 8.5-10.1 [facility] ([facility]) Albumin [Mass/volume] in Serum or Plasma 4.0 g/dL 3.4-5.0 [facility] ([facility]) Alanine aminotransferase [Enzymatic activity/volume] in Seru m or Plasma 26 U/L 12-78 [facility] ([facility]) Aspartate aminotransferase [Enzymatic activity/volume] in Serum or Plasma 13 U/L 15-37 [facility] ([facility] ) A/G Ratio 1.18 CALC 1.00-1.90 [facility]) Glomerular filtration rate/1.73 sq M pre dicted among non-blacks [Volume Rate/Area] in Serum or Plasma by Creatinine-based formula (MDRD) Laboratory test result [facility] Proteinase 3 Ab [Units/volume] in Serum 7.4 g/dL 6.4-8.2 [facility] Glomerular filtration rate/1.73 sq M pre dicted among blacks [Volume Rate/Area] in Serum or Plasma by Creatinine-based formula (MDRD) Laboratory test result [facility] <content>CHRONIC KIDNEY DISEASE STAGING PER NKF</content>
<content></content>
<content>STAGE I & II GFR >= 60 NORMAL TO MILDLY DECREASED</content>
<content>STAGE III GFR 30-59 MODERATELY DECREASED</content>
<content>STAGE IV GFR 15-29 SEVERELY DECREASED</content>
<content>STAGE V GFR <15 VERY LITTLE GFR LEFT</content>
<content>ESRD GFR <15 ON BUSINESS PROJECT MANAGER</content>
<content></content> ID Date Data Source [id number] 10/30/2020 12:08:14 PM EST [facility] Name Value Range Interpretation Code Description Data Mariana rce(s) Supporting Document(s) &PDF [facility] [id number] 0b3 [file] [id number]= ID Date Data Source [id number] 10/28/2020 01:00:00 PM EST [facility] Name Value Range Interpretation Code Description Data Mariana rce(s) Supporting Document(s) Coronavirus 2019 Nasopharygeal Laboratory test result [facility] ([facility]) This nucleic acid amplification test was developed and its performance characteristics determined by [employer]. Nucleic acid amplification tests include PCR and [...] detected) result in this assay. Performed at: [facility] [address], [place], [place] [id number] Blueprint Duplicator: Elzbieta Alicea PhD, Phone: [phone] Not Detected ID Date Data Source [id number] 10/28/2020 01:00:00 PM EST [facility] Name Value Range Interpretation Code Description Data Mariana rce(s) Supporting Document(s) SARS coronavirus 2 RNA [facility] This lab was ordered by [facility] and reported by [facility]. ID Date Data Source [id number] 09/20/2020 02:43:00 PM EST [facility] ([facility]) Name Value Range Interpretation Code Description Data Mariana rce(s) Supporting Document(s) Thyrotropin [Units/volume] in Serum or Plasma by Detec tion limit <= 0.05 mIU/L 1.95 uIU/mL 0.36-3.74 [facility] ([facility] ) ID Date Data Source [id number] 09/20/2020 02:43:00 PM EST [facility] ([facility]) Name Value Range Interpretation Code Description Data Mariana rce(s) Supporting Document(s) Erythrocytes [#/volume] in Blood by Automated count 5.22 x10*6/UL 4.2 0-6.30 [facility] ([facility]) Leukocytes [#/volume] in Blood by Automated count 10.7 x10*3/UL 4.1-1 0.9 [facility] ([facility]) Hemoglobin [Mass/volume] in Blood 15.6 g/dL 12.0-18.0 [facility] ([facility]) Hematocrit [Volume Fraction] of Blood by Automated count 45.7 % 3 7.0-51.0 [facility] ([facility]) MCV 87.5 fL 80.0-97.0 [facility]) MCH 29.9 pg 26.0-32.0 [facility] ([facility]) Erythrocyte distribution width [Ratio] by Automated count 13.6 % 11.6-13.7 [facility] ([facility]) MCHC 34.2 g/dL 31.0-38.0 [facility] ([facility]) MPV 7.5 FL 7.8-11.0 [facility] ([facility]) Platelets [#/volume] in Blood by Automated count 323 x10*3/UL 140-440 [facility] Lymph % 22.7 % 10.0-58.5 [facility]) Mid % 5.9 % 1.7-9.3 [facility]) Neut % 71.4 % 37.0-92.0 [facility]) Neut # 7.6 x10*3/UL 2.0-7.8 [facility] ([facility]) Mid # 0.7 x10*3/UL 0.1-0.6 [facility] ([facility]) Lymph # 2.4 x10*3/UL 0.6-4.1 [facility] ([facility]) ID Date Data Source [id number] 09/20/2020 02:43:00 PM EST [facility] ([facility]) Name Value Range Interpretation Code Description Data Mariana rce(s) Supporting Document(s) Glucose [Mass/volume] in Serum or Plasma 104 mg/dL 74-99 [facility] ([facility]) 100-125 mg/dL PRE-DIABETES/FASTING >126 mg/dL DIABETES/FASTING Urea nitrogen [Mass/volume] in Serum or Plasma 26 mg/dL 7-18 [facility] ([facility]) Creatinine 0.9 mg/dL 0.6-1.3 [facility] ([facility]) Potassium [Moles/volume] in Serum or Plasma 4.2 meq/L 3.5-5.1 [facility] Chloride [Moles/volume] in Serum or Plasma 99 meq/L 98-107 [facility] Sodium [Moles/volume] in Serum or Plasma 139 meq/L 136-145 [facility] Calcium [Mass/volume] in Serum or Plasma 9.4 mg/dL 8.5-10.1 [facility] ([facility]) Glomerular filtration rate/1.73 sq M pre dicted among non-blacks [Volume Rate/Area] in Serum or Plasma by Creatinine-based formula (MDRD) Laboratory test result [facility] ([facility] ) Carbon dioxide, total [Moles/volume] in Serum or Plasma 32 meq/L 21 -32 [facility]) Glomerular filtration rate/1.73 sq M pre dicted among blacks [Volume Rate/Area] in Serum or Plasma by Creatinine-based formula (MDRD) Laboratory test result [facility] ([facility]) <content>CHRONIC KIDNEY DISEASE STAGING PER NKF</content>
<content></content>
<content>STAGE I & II GFR >= 60 NORMAL TO MILDLY DECREASED</content>
<content>STAGE III GFR 30-59 MODERATELY DECREASED</content>
<content>STAGE IV GFR 15-29 SEVERELY DECREASED</content>
<content>STAGE V GFR <15 VERY LITTLE GFR LEFT</content>
<content>ESRD GFR <15 ON BUSINESS PROJECT MANAGER</content>
<content></content> ID Date Data Source [id number] 09/09/2020 10:00:00 AM EDT [facility] Name Value Range Interpretation Code Description Data Mariana rce(s) Supporting Document(s) Coronavirus 2019 Nasopharygeal Laboratory test result [facility] ([facility]) This nucleic acid amplification test was developed and its performance characteristics determined by [employer]. Nucleic acid amplification tests include PCR and [...] detected) result in this assay. Performed at: [facility] [id number] [employer] Duplicator: Maryann Mohr MD, Phone: [phone] Not Detected ID Date Data Source [id number] 09/09/2020 10:00:00 AM EDT [facility] Name Value Range Interpretation Code Description Data Mariana rce(s) Supporting Document(s) SARS coronavirus 2 RNA [facility] This lab was ordered by [facility] and reported by [facility]. ID Date Data Source [id number] 05/24/2020 08:13:00 AM EDT [facility] Name Value Range Interpretation Code Description Data Mariana rce(s) Supporting Document(s) Calcidiol [Mass/volume] in Serum or Plasma 62.0 24.0-80.0 [facility] ([facility]) This test was performed using FastPack I P Vitamin D immunoassay kit. Values obtained with different assay methods should not be used interchangeably. ID Date Data Source [id number] 05/24/2020 08:13:00 AM EDT [facility] ([facility]) Name Value Range Interpretation Code Description Data Mariana rce(s) Supporting Document(s) Thyrotropin [Units/volume] in Serum or Plasma by Detec tion limit <= 0.05 mIU/L 2.62 uIU/mL 0.36-3.74 [facility] ([facility] ) ID Date Data Source [id number] 05/24/2020 08:13:00 AM EDT [facility] ([facility]) Name Value Range Interpretation Code Description Data Mariana rce(s) Supporting Document(s) Cholesterol [Mass/volume] in Serum or Plasma 163 mg/dL 131-200 [facility] ([facility]) Cholesterol in HDL [Mass/volume] in Serum or Plasma 43 mg/dL 35-60 [facility] ([facility]) Triglyceride [Mass/volume] in Serum or Plasma 106 mg/dL 30-150 [facility] ([facility]) Cholesterol in LDL [Mass/volume] in Serum or Plasma by calcu lation 99 CALC 50-159 [facility] ([facility]) ID Date Data Source [id number] 05/24/2020 08:13:00 AM EDT [facility] ([facility]) Name Value Range Interpretation Code Description Data Mariana rce(s) Supporting Document(s) Glucose [Mass/volume] in Serum or Plasma 102 mg/dL 74-99 [facility] ([facility]) 100-125 mg/dL PRE-DIABETES/FASTING >126 mg/dL DIABETES/FASTING Urea nitrogen [Mass/volume] in Serum or Plasma 26 mg/dL 7-18 [facility] ([facility]) Creatinine 0.9 mg/dL 0.6-1.3 [facility]) Sodium [Moles/volume] in Serum or Plasma 140 meq/L 136-145 [facility] ([facility]) Chloride [Moles/volume] in Serum or Plasma 103 meq/L 98-107 [facility] ([facility]) Potassium [Moles/volume] in Serum or Plasma 4.2 meq/L 3.5-5.1 [facility] ([facility]) Calcium [Mass/volume] in Serum or Plasma 9.1 mg/dL 8.5-10.1 [facility] ([facility]) Carbon dioxide, total [Moles/volume] in Serum or Plasma 28 meq/L 21 -32 [facility] ([facility]) Aspartate aminotransferase [Enzymatic activity/volume] in Serum or Plasma 13 U/L 15-37 [facility] ([facility] ) Total Bilirubin 0.5 mg/dL 0.2-1.0 [facility] ([facility]) Alkaline phosphatase isoenzyme [Units/volume] in Serum or Pl asma 65 mg/dL 46-116 [facility] ([facility]) Alanine aminotransferase [Enzymatic activity/volume] in Seru m or Plasma 31 U/L 12-78 [facility] A/G Ratio 1.00 CALC 1.00-1.90 [facility]) Proteinase 3 Ab [Units/volume] in Serum 7.8 g/dL 6.4-8.2 [facility] Albumin [Mass/volume] in Serum or Plasma 3.9 g/dL 3.4-5.0 [facility] Glomerular filtration rate/1.73 sq M pre dicted among non-blacks [Volume Rate/Area] in Serum or Plasma by Creatinine-based formula (MDRD) Laboratory test result [facility] Glomerular filtration rate/1.73 sq M pre dicted among blacks [Volume Rate/Area] in Serum or Plasma by Creatinine-based formula (MDRD) Laboratory test result [facility] ([facility]) <content>CHRONIC KIDNEY DISEASE STAGING PER NKF</content>
<content></content>
<content>STAGE I & II GFR >= 60 NORMAL TO MILDLY DECREASED</content>
<content>STAGE III GFR 30-59 MODERATELY DECREASED</content>
<content>STAGE IV GFR 15-29 SEVERELY DECREASED</content>
<content>STAGE V GFR <15 VERY LITTLE GFR LEFT</content>
<content>ESRD GFR <15 ON BUSINESS PROJECT MANAGER</content>
<content></content> ID Date Data Source [id number] 05/04/2020 11:25:00 AM EDT [facility] ([facility]) Name Value Range Interpretation Code Description Data Mariana rce(s) Supporting Document(s) Coronavirus 2019 Nasopharygeal Laboratory test result [facility] ([facility]) Testing was performed using the xuan(R) SARS-CoV-2 test. This test was developed and its performance characteristics determined by [employer]. This test has not been FDA cleared [...] section 564(b)(1) of the Act, 21 U.S.C. 360bbb-3(b)(1), unless the authorization is terminated or revoked [...] detected) result in this assay. Performed at: [facility] [address] [id number] [employer] Duplicator: Maryann Mohr MD, Phone: [phone] Not Detected ID Date Data Source [id number] 05/04/2020 11:25:00 AM EDT [facility] Name Value Range Interpretation Code Description Data Mariana rce(s) Supporting Document(s) SARS CORONAVIRUS 2 RNA [facility] This lab was ordered by [facility] and reported by [facility]. ID Date Data Source [id number] 04/04/2020 12:00:00 AM EDT [facility] Name Value Range Interpretation Code Description Data Mariana rce(s) Supporting Document(s) SARS CORONAVIRUS 2 RNA [facility] This lab was ordered by [facility] and reported by [facility]. ID Date Data Source [id number] 03/24/2020 02:08:00 PM EDT [facility] ([facility]) Name Value Range Interpretation Code Description Data Mariana rce(s) Supporting Document(s) Prothrombin Time 13.2 s 11.8-14.0 [facility] ([facility]) Inr 1.03 [facility] ([facility]) THERAPUTIC HUMAN INR VALUES INDICATIONS NORMAL RANGES PROPHYLAXIS/TREATMENT OF: VENOUS THROMBOSIS 2.0-3.0 PULMONARY EMBOLISM 2.0-3.0 PREVENTION OF SYSTEMIC EMBOLISM FROM: TISSUE HEART VALVES 2.0-3.0 ACUTE MYOCARDIAL INFARCTION 2.0-3.0 VALVULAR HEART DISEASE 2.0-3.0 ATRIAL FIBRILLATION 2.0-3.0 MECHANICAL VALVES(HIGH RISK) 2.5-3.5 RECURRENT MYOCARDIAL INFARCTION 2.5-3.5 Partial Thromboplastin Time 29.2 s 25.0-38.4 [facility] ([facility]) ID Date Data Source [id number] 03/24/2020 02:06:00 PM EDT [facility] ([facility]) Name Value Range Interpretation Code Description Data Mariana rce(s) Supporting Document(s) Glucose [Mass/volume] in Serum or Plasma 97 mg/dL 74-99 [facility] ([facility]) 100-125 mg/dL PRE-DIABETES/FASTING >126 mg/dL DIABETES/FASTING Sodium [Moles/volume] in Serum or Plasma 139 meq/L 136-145 [facility] ([facility]) Creatinine 0.9 mg/dL 0.6-1.3 [facility] Urea nitrogen [Mass/volume] in Serum or Plasma 18 mg/dL 7-18 [facility] ([facility]) Carbon dioxide, total [Moles/volume] in Serum or Plasma 28 meq/L 21 -32 [facility] ([facility]) Chloride [Moles/volume] in Serum or Plasma 102 meq/L 98-107 [facility] ([facility]) Potassium [Moles/volume] in Serum or Plasma 3.9 meq/L 3.5-5.1 [facility] ([facility]) Calcium [Mass/volume] in Serum or Plasma 8.7 mg/dL 8.5-10.1 [facility] ([facility]) Glomerular filtration rate/1.73 sq M pre dicted among non-blacks [Volume Rate/Area] in Serum or Plasma by Creatinine-based formula (MDRD) Laboratory test result [facility] Glomerular filtration rate/1.73 sq M pre dicted among blacks [Volume Rate/Area] in Serum or Plasma by Creatinine-based formula (MDRD) Laboratory test result [facility] <content>CHRONIC KIDNEY DISEASE STAGING PER NKF</content>
<content></content>
<content>STAGE I & II GFR >= 60 NORMAL TO MILDLY DECREASED</content>
<content>STAGE III GFR 30-59 MODERATELY DECREASED</content>
<content>STAGE IV GFR 15-29 SEVERELY DECREASED</content>
<content>STAGE V GFR <15 VERY LITTLE GFR LEFT</content>
<content>ESRD GFR <15 ON BUSINESS PROJECT MANAGER</content>
<content></content> ID Date Data Source [id number] 03/24/2020 02:06:00 PM EDT MED[facility] ([facility]) Name Value Range Interpretation Code Description Data Mariana rce(s) Supporting Document(s) Leukocytes [#/volume] in Blood by Automated count 7.1 x10*3/UL 4.1-10 .9 [facility] ([facility]) Erythrocytes [#/volume] in Blood by Automated count 4.94 x10*6/UL 4.2 0-6.30 [facility] ([facility]) Hemoglobin [Mass/volume] in Blood 14.6 g/dL 12.0-18.0 [facility] ([facility]) Hematocrit [Volume Fraction] of Blood by Automated count 42.2 % 3 7.0-51.0 [facility] ([facility]) MCV 85.5 fL 80.0-97.0 [facility] ([facility]) MCHC 34.6 g/dL 31.0-38.0 [facility] ([facility]) MCH 29.6 pg 26.0-32.0 [facility] ([facility]) Erythrocyte distribution width [Ratio] by Automated count 12.7 % 11.6-13.7 [facility] ([facility]) Platelets [#/volume] in Blood by Automated count 253 x10*3/UL 140-440 [facility] ([facility]) Lymph % 30.8 % 10.0-58.5 [facility] ([facility]) MPV 7.3 FL 7.8-11.0 [facility] ([facility]) Mid % 8.3 % 1.7-9.3 [facility] ([facility]) Neut % 60.9 % 37.0-92.0 [facility] ([facility]) Lymph # 2.1 x10*3/UL 0.6-4.1 [facility] ([facility]) Mid # 0.7 x10*3/UL 0.1-0.6 [facility] ([facility]) Neut # 4.3 x10*3/UL 2.0-7.8 [facility] ([facility]) ID Date Data Source PSA SCREENING 12/03/2019 12:00:00 AM EST W1 ([facility]) Name Value Range Interpretation Code Description Data Mariana rce(s) Supporting Document(s) 0.51 < 4.00 PSA SCREENING [facility] ([facility]) ID Date Data Source [id number] 11/19/2019 10:52:00 AM EST MED[facility] ([facility]) Name Value Range Interpretation Code Description Data Mariana rce(s) Supporting Document(s) PH,Urine 5.0 units 5.0-9.0 [facility] ([facility]) Color, Urine Laboratory test result MEDE NT ([facility]) Appearance, Urine Laboratory test result [facility] ([facility]) Glucose, Urine (Ua) Auto Laboratory [facility] Protein, Urine Auto Laboratory test result [facility] Specific [employer] Urine Auto 1.029 1.002-1.035 [facility] Urobilinogen, Urine Auto 0.2 mg/dL 0.0-2.0 MED[facility] T [facility] Ketone, Urine Auto Laboratory test result [facility] ([facility]) Bilirubin, Urine Auto Laboratory test result [facility] ([facility]) Leukocyte Esterase, Urine Auto Laboratory test result [facility] ([facility]) Nitrite, Urine Auto Laboratory test result [facility] RBC, Urine Auto 2 /HPF 0-3 [facility] ([facility]) Blood, Urine Blood Laboratory test result [facility] ([facility]) WBC, Urine Auto 1 /HPF 0-3 [facility] ([facility]) Mucus, Urine Laboratory test result MEDE NT ([facility]) Bacteria, Urine Auto Laboratory test result [facility] ([facility]) Squamous Epithelial Cell Ur AU 0 /HPF 0-6 [facility] ([facility]) Hyaline Cast, Urine Auto 1 /LPF 0-1 MEDEN T ([facility]) ID Date Data Source [id number] 11/17/2019 08:02:00 AM EST [facility] ([facility]) Name Value Range Interpretation Code Description Data Mariana rce(s) Supporting Document(s) Thyrotropin [Units/volume] in Serum or Plasma by Detec tion limit <= 0.05 mIU/L 1.65 uIU/mL 0.36-3.74 [facility] ([facility] ) ID Date Data Source [id number] 11/17/2019 08:02:00 AM EST [facility] ([facility]) Name Value Range Interpretation Code Description Data Mariaan rce(s) Supporting Document(s) Cholesterol [Mass/volume] in Serum or Plasma 155 mg/dL 131-200 [facility] ([facility]) Cholesterol in HDL [Mass/volume] in Serum or Plasma 46 mg/dL 35-60 [facility] ([facility]) Triglyceride [Mass/volume] in Serum or Plasma 85 mg/dL 30-150 [facility] ([facility]) Cholesterol in LDL [Mass/volume] in Serum or Plasma by calcu lation 92 CALC 50-159 [facility] ID Date Data Source [id number] 11/17/2019 08:02:00 AM EST [facility] Name Value Range Interpretation Code Description Data Mariana rce(s) Supporting Document(s) Glucose [Mass/volume] in Serum or Plasma 101 mg/dL 74-99 [facility] ([facility]) 100-125 mg/dL PRE-DIABETES/FASTING >126 mg/dL DIABETES/FASTING Urea nitrogen [Mass/volume] in Serum or Plasma 28 mg/dL 7-18 [facility] ([facility]) Sodium [Moles/volume] in Serum or Plasma 142 meq/L 136-145 [facility] ([facility]) Creatinine 0.9 mg/dL 0.6-1.3 [facility] Potassium [Moles/volume] in Serum or Plasma 4.1 meq/L 3.5-5.1 [facility] ([facility]) Carbon dioxide, total [Moles/volume] in Serum or Plasma 29 meq/L 21 -32 [facility] ([facility]) Chloride [Moles/volume] in Serum or Plasma 103 meq/L 98-107 [facility] ([facility]) Alkaline phosphatase isoenzyme [Units/volume] in Serum or Pl asma 47 mg/dL 46-116 [facility] ([facility]) Calcium [Mass/volume] in Serum or Plasma 8.8 mg/dL 8.5-10.1 [facility] ([facility]) Aspartate aminotransferase [Enzymatic activity/volume] in Serum or Plasma 17 U/L 15-37 [facility] ([facility] ) Total Bilirubin 0.6 mg/dL 0.2-1.0 [facility] ([facility]) Proteinase 3 Ab [Units/volume] in Serum 7.6 g/dL 6.4-8.2 [facility] ([facility]) Alanine aminotransferase [Enzymatic activity/volume] in Seru m or Plasma 27 U/L 12-78 [facility] ([facility]) Albumin [Mass/volume] in Serum or Plasma 4.1 g/dL 3.4-5.0 [facility] ([facility]) Glomerular filtration rate/1.73 sq M pre dicted among blacks [Volume Rate/Area] in Serum or Plasma by Creatinine-based formula (MDRD) Laboratory test result [facility] <content>CHRONIC KIDNEY DISEASE STAGING PER NKF</content>
<content></content>
<content>STAGE I & II GFR >= 60 NORMAL TO MILDLY DECREASED</content>
<content>STAGE III GFR 30-59 MODERATELY DECREASED</content>
<content>STAGE IV GFR 15-29 SEVERELY DECREASED</content>
<content>STAGE V GFR <15 VERY LITTLE GFR LEFT</content>
<content>ESRD GFR <15 ON BUSINESS PROJECT MANAGER</content>
<content></content> A/G Ratio 1.17 CALC 1.00-1.90 [facility] ([facility]) Glomerular filtration rate/1.73 sq M pre dicted among non-blacks [Volume Rate/Area] in Serum or Plasma by Creatinine-based formula (MDRD) Laboratory test result [facility] ([facility] ) Procedure Vital Signs ID Date Data Source UNK Name Value Range Interpretation Code Description Data Source(s) Body mass index (BMI) [Ratio] 32.2 kg/m2 32.2 k g/m2 [facility] ([facility]) Body weight 204.12 [lb_av] 204.12 [lb_av] MEDEN T ([facility]) Body height 66.75 [in_i] 66.75 [in_i] [facility] ([facility]) 5'6.75" Body temperature 97.1 [degF] 97.1 [degF] [facility] ([facility]) Body surface area Derived from formula 2.08 m2 2.08 m2 [facility] ([facility]) Body weight 94.349 kg 94.349 kg [facility] ([facility]) [place] body weight 154 [lb_av] 154 [lb_av] [facility] Body mass index (BMI) [Ratio] 31.6 kg/m2 31.6 k g/m2 [facility] ([facility]) Body weight 208.00 [lb_av] 208.00 [lb_av] [facility] Body height 68 [in_i] 68 [in_i] [facility] 5'8" Diastolic blood pressure 60 mm[Hg] 60 mm[Hg] [facility] ([facility]) Systolic blood pressure 140 mm[Hg] 140 mm[Hg] [facility] Body mass index (BMI) [Ratio] 31.3 kg/m2 31.3 k g/m2 [facility] ([facility]) Oxygen saturation in Arterial blood by Pulse oximetry 98 % 98 % [facility] ([facility]) RM Air Body weight 212.12 [lb_av] 212.12 [lb_av] MEDEN T ([facility]) Body height 69 [in_i] 69 [in_i] [facility] ([facility]) 5'9" Heart rate 72 /min 72 /min [facility] ([facility]) Diastolic blood pressure 70 mm[Hg] 70 mm[Hg] [facility] ([facility]) Systolic blood pressure 128 mm[Hg] 128 mm[Hg] M EDENT ([facility]) Oxygen saturation in Arterial blood by Pulse oximetry 97 % 97 % [facility] ([facility]) RM Air Body weight 203.00 [lb_av] 203.00 [lb_av] MEDEN T ([facility]) Heart rate 64 /min 64 /min [facility] ([facility]) Diastolic blood pressure 82 mm[Hg] 82 mm[Hg] [facility] ([facility]) Systolic blood pressure 140 mm[Hg] 140 mm[Hg] M EDENT ([facility]) Diastolic blood pressure mm[Hg] eCW1 ([facility]) Systolic blood pressure 180 mm[Hg] 180 mm[Hg] e CW1 ([facility]) Body temperature 97.7 [degF] 97.7 [degF] eCW1 ( [facility]) Respiratory rate 18 /min 18 /min eCW1 ([facility]) Heart rate 63 /min 63 /min eCW1 ([facility]) Body mass index (BMI) [Ratio] 29.59 kg/m2 29.59 kg/m2 eCW1 ([facility]) Body height 69 [in_i] 69 [in_i] eCW1 ([facility]) Body weight 200.4 [lb_av] 200.4 [lb_av] eCW1 ([facility]) Diastolic blood pressure mm[Hg] eCW1 ([facility]) Systolic blood pressure 118 mm[Hg] 118 mm[Hg] e CW1 ([facility]) Body temperature 97.9 [degF] 97.9 [degF] eCW1 ( [facility]) Respiratory rate 17 /min 17 /min eCW1 ([facility]) Heart rate 58 /min 58 /min eCW1 ([facility]) Body mass index (BMI) [Ratio] 30.42 kg/m2 30.42 kg/m2 W1 ([facility]) Body height 69 [in_i] 69 [in_i] eCW1 ([facility]) Body weight 206 [lb_av] 206 [lb_av] eCW1 ([facility]) Body weight 204.00 [lb_av] 204.00 [lb_av] MEDEN T ([facility]) Heart rate 72 /min 72 /min MEDENT ([facility]) Diastolic blood pressure 82 mm[Hg] 82 mm[Hg] [facility] ([facility]) Systolic blood pressure 138 mm[Hg] 138 mm[Hg] M EDENT ([facility]) Diastolic blood pressure 86 mm[Hg] 86 mm[Hg] eCW1 ([facility]) Systolic blood pressure 136 mm[Hg] 136 mm[Hg] e CW1 ([facility]) Body temperature 98.1 [degF] 98.1 [degF] eCW1 ( [facility]) Respiratory rate 18 /min 18 /min eCW1 ([facility]) Heart rate 68 /min 68 /min eCW1 ([facility]) Body mass index (BMI) [Ratio] 30.21 kg/m2 30.21 kg/m2 eCW1 ([facility]) Body height 69 [in_i] 69 [in_i] eCW1 ([facility]) Body weight 204.6 [lb_av] 204.6 [lb_av] eCW1 ([facility]) Diastolic blood pressure 98 mm[Hg] 98 mm[Hg] eCW1 ([facility]) Systolic blood pressure 156 mm[Hg] 156 mm[Hg] e CW1 ([facility]) Body temperature 98.1 [degF] 98.1 [degF] eCW1 ( [facility]) Respiratory rate 18 /min 18 /min eCW1 ([facility]) Heart rate 60 /min 60 /min eCW1 ([facility]) Body mass index (BMI) [Ratio] 30.57 kg/m2 30.57 kg/m2 eCW1 ([facility]) Body height 69 [in_i] 69 [in_i] eCW1 ([facility]) Body weight 207 [lb_av] 207 [lb_av] eCW1 ([facility]) Diastolic blood pressure 99 mm[Hg] 99 mm[Hg] eCW1 ([facility]) Systolic blood pressure 150 mm[Hg] 150 mm[Hg] e CW1 ([facility]) Body temperature 97.7 [degF] 97.7 [degF] eCW1 ( [facility]) Respiratory rate 18 /min 18 /min eCW1 ([facility]) Heart rate 81 /min 81 /min eCW1 ([facility]) Body mass index (BMI) [Ratio] 30.39 kg/m2 30.39 kg/m2 eCW1 ([facility]) Body height 69 [in_i] 69 [in_i] eCW1 ([facility]) Body weight 205.8 [lb_av] 205.8 [lb_av] eCW1 ([facility]) Diastolic blood pressure mm[Hg] eCW1 ([facility]) Systolic blood pressure 128 mm[Hg] 128 mm[Hg] e CW1 ([facility]) Body temperature 97.4 [degF] 97.4 [degF] eCW1 ( [facility]) Respiratory rate 18 /min 18 /min eCW1 ([facility]) Heart rate 62 /min 62 /min eCW1 ([facility]) Body mass index (BMI) [Ratio] 30.42 kg/m2 30.42 kg/m2 eCW1 ([facility]) Body height 69 [in_i] 69 [in_i] eCW1 ([facility]) Body weight 206 [lb_av] 206 [lb_av] eCW1 ([facility]) Diastolic blood pressure 85 mm[Hg] 85 mm[Hg] eCW1 ([facility]) Systolic blood pressure 151 mm[Hg] 151 mm[Hg] e CW1 ([facility]) Body temperature 97.5 [degF] 97.5 [degF] eCW1 ( [facility]) Respiratory rate 18 /min 18 /min eCW1 ([facility]) Heart rate 75 /min 75 /min eCW1 ([facility]) Body mass index (BMI) [Ratio] 30.92 kg/m2 30.92 kg/m2 eCW1 ([facility]) Body height 69 [in_us] 69 [in_us] eCW1 ([facility]) Body weight Measured 209.4 [lb_av] 209.4 [lb_av ] eCW1 ([facility]) Body weight 211.00 [lb_av] 211.00 [lb_av] MEDEN T ([facility]) Diastolic blood pressure 96 mm[Hg] 96 mm[Hg] MEDENT ([facility]) Systolic blood pressure 154 mm[Hg] 154 mm[Hg] M EDENT ([facility]) Diastolic blood pressure mm[Hg] eCW1 ([facility]) Systolic blood pressure 132 mm[Hg] 132 mm[Hg] e CW1 ([facility]) Body temperature 97.5 [degF] 97.5 [degF] eCW1 ( [facility]) Respiratory rate 18 /min 18 /min eCW1 ([facility]) Heart rate 65 /min 65 /min eCW1 ([facility]) Body mass index (BMI) [Ratio] 31.01 kg/m2 31.01 kg/m2 eCW1 ([facility]) Body height 69 [in_us] 69 [in_us] eCW1 ([facility]) Body weight Measured 210 [lb_av] 210 [lb_av] eC W1 ([facility]) Body height 69 [in_us] 69 [in_us] eCW1 ([facility]) Body weight Measured 210.2 [lb_av] 210.2 [lb_av ] eCW1 ([facility]) Diastolic blood pressure 93 mm[Hg] 93 mm[Hg] eCW1 ([facility]) Systolic blood pressure 167 mm[Hg] 167 mm[Hg] e CW1 ([facility]) Body temperature 97.1 [degF] 97.1 [degF] eCW1 ( [facility]) Respiratory rate 18 /min 18 /min eCW1 ([facility]) Heart rate 65 /min 65 /min eCW1 ([facility]) Body mass index (BMI) [Ratio] 31.04 kg/m2 31.04 kg/m2 eCW1 ([facility]) Diastolic blood pressure 97 mm[Hg] 97 mm[Hg] eCW1 ([facility]) Systolic blood pressure 159 mm[Hg] 159 mm[Hg] e CW1 ([facility]) Body temperature 97.4 [degF] 97.4 [degF] eCW1 ( [facility]) Respiratory rate 18 /min 18 /min eCW1 ([facility]) Heart rate 72 /min 72 /min eCW1 ([facility]) Body mass index (BMI) [Ratio] 31.30 kg/m2 31.30 kg/m2 eCW1 ([facility]) Body height 69 [in_us] 69 [in_us] eCW1 ([facility]) Body weight Measured 212 [lb_av] 212 [lb_av] eC W1 ([facility]) Diastolic blood pressure 101 mm[Hg] 101 mm[Hg] eCW1 ([facility]) Systolic blood pressure 150 mm[Hg] 150 mm[Hg] e CW1 ([facility]) Body temperature 96.0 [degF] 96.0 [degF] eCW1 ( [facility]) Respiratory rate 18 /min 18 /min eCW1 ([facility]) Heart rate 87 /min 87 /min eCW1 ([facility]) Body mass index (BMI) [Ratio] 40.61 kg/m2 40.61 kg/m2 eCW1 ([facility]) Body height 69 [in_us] 69 [in_us] eCW1 ([facility]) Body weight Measured 275.0 [lb_av] 275.0 [lb_av ] eCW1 ([facility]) Diastolic blood pressure 89 mm[Hg] 89 mm[Hg] eCW1 ([facility]) Systolic blood pressure 148 mm[Hg] 148 mm[Hg] e CW1 ([facility]) Body temperature 97.5 [degF] 97.5 [degF] eCW1 ( [facility]) Respiratory rate 18 /min 18 /min eCW1 ([facility]) Heart rate 72 /min 72 /min eCW1 ([facility]) Body mass index (BMI) [Ratio] 31.16 kg/m2 31.16 kg/m2 eCW1 ([facility]) Body height 69 [in_us] 69 [in_us] eCW1 ([facility]) Body weight Measured 211 [lb_av] 211 [lb_av] eC W1 ([facility]) Body mass index (BMI) [Ratio] 32.6 kg/m2 32.6 k g/m2 [facility] ([facility]) Oxygen saturation in Arterial blood by Pulse oximetry 98 % 98 % [facility] ([facility]) RM Air Body weight 208.25 [lb_av] 208.25 [lb_av] RAMSEY T ([facility]) Body height 67 [in_i] 67 [in_i] [facility] ([facility]) 5'7" Heart rate 61 /min 61 /min [facility] ([facility]) Diastolic blood pressure 80 mm[Hg] 80 mm[Hg] [facility] ([facility]) Systolic blood pressure 132 mm[Hg] 132 mm[Hg] Terrell GOMEZ ([facility]) Diastolic blood pressure 80 mm[Hg] 80 mm[Hg] [facility] ([facility]) Systolic blood pressure 140 mm[Hg] 140 mm[Hg] Terrell GOMEZ ([facility]) Patient Treatment Plan of Care Planned Activity Planned Date Details Description Data Source (s) Carisoprodol 350 MG Oral Tablet [Soma] 05/24/2020 12:00:00 AM EDT eCW1 ([facility]) Clindamycin 150 MG Oral Capsule 04/26/2020 12:00:00 AM EDT eCW1 ([facility]) Clindamycin 150 MG Oral Capsule 04/26/2020 12:00:00 AM EDT eCW1 ([facility]) Clindamycin 150 MG Oral Capsule 04/26/2020 12:00:00 AM EDT eCW1 ([facility]) cefdinir 300 MG Oral Capsule 04/23/2020 12:00:00 AM EDT eCW1 ([facility]) cefdinir 300 MG Oral Capsule 04/23/2020 12:00:00 AM EDT eCW1 ([facility]) cefdinir 300 MG Oral Capsule 04/23/2020 12:00:00 AM EDT eCW1 ([facility]) cefdinir 300 MG Oral Capsule 04/23/2020 12:00:00 AM EDT eCW1 ([facility]) NITROFURANTOIN, MACROCRYSTALS 25 MG / Ni trofurantoin, Monohydrate 75 MG Oral Capsule [Macrobid] 04/09/2020 12:00:00 AM EDT eC W1 ([facility]) Acetaminophen 300 MG / Codeine Phosphate 60 MG Oral Ta blet 03/09/2020 12:00:00 AM EDT eCW1 ([facility]) Keflex 500 MG 12/01/2019 12:00:00 AM EST eCW1 ([facility])
[2021-01-06] MEDS ORDERED: fentaNYL 100 MCG/2 ML INJECTION (J3010) As Ordered ONE (08:32)
--- NOTE | 2021-01-06 09:12 | ROOR ---
Patient Name: Karlos Sarmiento Procedure Date: 01/06/2021 8:54 AM Date of : 1955 Age: 65 Room: [facility] Gender: Male Note Status: Finalized Procedure: Upper GI endoscopy Indications: Abdominal pain in the right upper quadrant Providers: Palomo Nj Jr, MD Referring MD: Puneet Guevara MD Requesting Provider: Medicines: Propofol per Anesthesia Complications: No immediate complications. Procedure: Pre-Anesthesia Assessment: - Prior to the procedure, a History and Physical was performed, and patient medications and allergies were reviewed. The patient is competent. The risks and benefits of the procedure and the sedation options and risks were discussed with the patient. All questions were answered and informed consent was obtained. Patient identification and proposed procedure were verified by the physician and the nurse in the pre-procedure area and in the procedure room. Mental Status Examination: alert and oriented. Airway Examination: normal oropharyngeal airway and neck mobility. Respiratory Examination: clear to auscultation. CV Examination: normal. ASA Grade Assessment: II - A patient with mild systemic disease. After reviewing the risks and benefits, the patient was deemed in satisfactory condition to undergo the procedure. The anesthesia plan was to use moderate sedation / analgesia (conscious sedation). Immediately prior to administration of medications, the patient was re-assessed for adequacy to receive sedatives. The heart rate, respiratory rate, oxygen saturations, blood pressure, adequacy of pulmonary ventilation, and response to care were monitored throughout the procedure. The physical status of the patient was re-assessed after the procedure. The Endoscope was introduced through the mouth, and advanced to the second part of duodenum. The upper GI endoscopy was accomplished without difficulty. The patient tolerated the procedure well. Findings: The upper third of the esophagus, middle third of the esophagus and lower third of the esophagus were normal. Multiple medium inflammed nd ulcerated pedunculated polyps with no bleeding and no stigmata of recent bleeding were found in the gastric body and in the gastric antrum. Biopsies were taken with a cold forceps for histology. The duodenal bulb, first portion of the duodenum and second portion of the duodenum were normal. Impression: - Normal upper third of esophagus, middle third of esophagus and lower third of esophagus. - Multiple gastric polypssome of which were inflamed and ulcerated. Biopsied. - Normal duodenal bulb, first portion of the duodenum and second portion of the duodenum. Recommendation: - Discharge patient to home (ambulatory). - Return to my office at appointment to be scheduled. Procedure Code(s): --- Professional --- [id number], Esophagogastroduodenoscopy, flexible, transoral; with biopsy, single or multiple Diagnosis Code(s): --- Professional --- K31.7, Polyp of stomach and duodenum R10.11, Right upper quadrant pain CPT copyright 2019 [employer]. All rights reserved. The codes documented in this report are preliminary and upon label coder review may be revised to meet current compliance requirements. Palomo Nj MD Palomo Nj Jr, MD 01/06/2021 9:12:44 AM Electronically signed by Palomo Nj Jr, MD Number of Addenda: 0 Note Initiated On: 01/06/2021 8:54 AM Estimated Blood Loss: Estimated blood loss: none.
--- NOTE | 2021-01-06 09:22 | ROOR ---
Patient Name: Karlos Sarmiento Procedure Date: 01/06/2021 8:56 AM Date of : 1955 Age: 65 Room: [facility] Gender: Male Note Status: Finalized Procedure: Colonoscopy Indications: Change in bowel habits Providers: Palomo Nj Jr, MD Referring MD: Puneet Guevara MD Requesting Provider: Medicines: Propofol per Anesthesia Complications: No immediate complications. Procedure: Pre-Anesthesia Assessment: - Prior to the procedure, a History and Physical was performed, and patient medications and allergies were reviewed. The patient is competent. The risks and benefits of the procedure and the sedation options and risks were discussed with the patient. All questions were answered and informed consent was obtained. Patient identification and proposed procedure were verified by the physician and the nurse in the pre-procedure area and in the procedure room. Mental Status Examination: alert and oriented. Airway Examination: normal oropharyngeal airway and neck mobility. Respiratory Examination: clear to auscultation. CV Examination: normal. ASA Grade Assessment: II - A patient with mild systemic disease. After reviewing the risks and benefits, the patient was deemed in satisfactory condition to undergo the procedure. The anesthesia plan was to use moderate sedation / analgesia (conscious sedation). Immediately prior to administration of medications, the patient was re-assessed for adequacy to receive sedatives. The heart rate, respiratory rate, oxygen saturations, blood pressure, adequacy of pulmonary ventilation, and response to care were monitored throughout the procedure. The physical status of the patient was re-assessed after the procedure. The Colonoscope was introduced through the anus and advanced to the cecum, identified by appendiceal orifice and ileocecal valve. The colonoscopy was performed without difficulty. The patient tolerated the procedure well. The quality of the bowel preparation was adequate. Findings: The rectum, recto-sigmoid colon, descending colon, transverse colon, ascending colon, cecum, appendiceal orifice and ileocecal valve appeared normal. A few small-mouthed diverticula were found in the sigmoid colon. Non-bleeding internal hemorrhoids were found during endoscopy. The hemorrhoids were Grade II (internal hemorrhoids that prolapse but reduce spontaneously) and Grade III (internal hemorrhoids that prolapse but require manual reduction). Impression: - The rectum, recto-sigmoid colon, descending colon, transverse colon, ascending colon, cecum, appendiceal orifice and ileocecal valve are normal. - Diverticulosis in the sigmoid colon. - Non-bleeding internal hemorrhoids. - No specimens collected. Recommendation: - Discharge patient to home (ambulatory). - Repeat colonoscopy in 10 years for screening purposes. Procedure Code(s): --- Professional --- 44061, Colonoscopy, flexible; diagnostic, including collection of specimen(s) by brushing or washing, when performed (separate procedure) Diagnosis Code(s): --- Professional --- K64.2, Third degree hemorrhoids R19.4, Change in bowel habit K57.30, Diverticulosis of large intestine without perforation or abscess without bleeding CPT copyright 2019 [employer]. All rights reserved. The codes documented in this report are preliminary and upon teller coordinator review may be revised to meet current compliance requirements. Palomo Nj MD Palomo Nj Jr, MD 01/06/2021 9:22:05 AM Electronically signed by Palomo Nj Jr, MD Number of Addenda: 0 Note Initiated On: 01/06/2021 8:56 AM Estimated Blood Loss: Estimated blood loss: none.
[2021-01-06 09:40] VITALS: BP 136/91
== END 2021-01-06 10:08 | disposition home or self-care (01) ==
LOC: M OPP 07:55
PROVIDERS: ATTEND Surgery
DX: K64.2 Third degree hemorrhoids (principal); K57.30 Diverticulosis of large intestine without perforation or abscess without bleeding; R19.4 Change in bowel habit; K31.3 Pylorospasm, not elsewhere classified; R10.11 Right upper quadrant pain; I10 Essential (primary) hypertension; Z79.891 Long term (current) use of opiate analgesic; Z79.899 Other long term (current) drug therapy; Z88.2 Allergy status to sulfonamides; Z88.6 Allergy status to analgesic agent; Z91.048 Other nonmedicinal substance allergy status
CPT/HCPCS: 43239; 45378; 88305; J3010

== ENCOUNTER → 2021-02-17 | Outpatient (CLI) | payer OTHER ==
[~2021-02-17] MED LIST changes: -LIDOCAINE 2% 100MG/5ML SDV (FOR ANES.) As Ordered ONE; -NS 1,000 ML IV ONE; -propofoL 200 MG/20 ML VIAL As Ordered ONE
--- NOTE | 2021-02-19 04:33 | ECWPNPC ---
PATIENT NAME: BRANDY LINDQUIST : 1955 GENDER: MALE VISIT DATE: 02/17/2021 DISCHARGE DATE: 02/17/21 1115 VISIT LOCKED DATE TIME: PHYSICIAN: ROXY OCHOA RESOURCE: ROXY OCHOA REASON FOR APPOINTMENT 1. POST BILATERAL HISTORY OF PRESENT ILLNESS DEPRESSION SCREENING: PHQ-2 (2015 EDITION) LITTLE INTEREST OR PLEASURE IN DOING THINGS?NOT AT ALL FEELING DOWN, DEPRESSED, OR HOPELESS?NOT AT ALL TOTAL SCORE0 65-YEAR-OLD MALE IN FOR POST BILATERAL SACROILIAC JOINT BLOCK FOLLOW-UP. PATIENT FEELS THE PROCEDURE WAS UNSUCCESSFUL. HE RATES HIS PAIN CURRENTLY AT A 7 OUT OF 10 AND DESCRIBES IT ACHING, STABBING, AND SORE. GENERAL: -. FALL RISK SCREENING: SCREENING : NO FALLS REPORTED IN THE LAST YEAR. PAIN SCREENING: PATIENT HAS A COMPLAINT OF ACUTE OR CHRONIC PAIN :YES LOCATION OF PAIN:LOW BACK, LEG(S) INTENSITY OF PAIN (SCALE OF 1 TO 10):7 WHAT DOES YOUR PAIN FEEL LIKE:ACHING, STABBING, SORE DURATION:CONTINOUS, CONSTANT PAIN IS INCREASED BY:ACTIVITIES PAIN IS DECREASED BY: RESTING NURSING NOTE: -. PAIN CENTER INTAKE QUESTIONS: DO YOU HAVE A HISTORY OF MRSA? :NO DO YOU TAKE A BLOOD THINNERS? :NO DO YOU HAVE ANY BLEEDING DISORDERS? :NO ANY NEW NUMBNESS OR WEAKNESS IN YOUR LEGS OR ARMS? :NO ANY PACEMAKER,DEFIBRILLATOR, OR DORSAL COLUMN STIMULATOR? :NO DO YOU HAVE ANY RASHES OR OPEN SORES? :NO ARE YOU ALLERGIC TO IV DYE? :NO ARE YOU DIABETIC? :NO ANY NEW PROBLEMS WITH YOUR MEDICATIONS? :NO HAVE YOU RECEIVED A VACCINE IN THE PAST 30 DAYS? :YES IF SO WHAT VACCINE AND WHEN? COVID #2 VACCINE 02/11/21 DO YOU PLAN TO RECEIVE A VACCINE IN THE NEXT 21 DAYS? :NO DO YOU NEED ANY PRESCRIPTION? :NO DO YOU TAKE ANY IMMUNOSUPPRESSIVE MEDICATIONS? :NO DO YOU HAVE ANY KIDNEY OR LIVER DISEASE? :NO IS THERE A CHANCE YOU COULD BE ? :NO ARE YOU BREAST FEEDING? :NO CURRENT MEDICATIONS TAKING ACETAMINOPHEN-CODEINE #4 300-60 MG TABLET 1 TABLET NEEDED ORALLY BID TAKING VIAGRA 100 MG TABLET 1 TABLET NEEDED ORALLY ONCE A DAY, NOTES: NEVER TAKING SUCRALFATE 1 GM TABLET 1 TABLET ON AN EMPTY STOMACH ORALLY TWICE DAILY TAKING OMEPRAZOLE 20 MG CAPSULE DELAYED RELEASE 1 CAP ORALLY TWICE DAILY TAKING LISINOPRIL 20 MG TABLET 1 TABLET ORALLY ONCE A DAY TAKING CYCLOBENZAPRINE HCL 5 MG TABLET 1 TABLET ORALLY NEEDED FOR SPASMS AND PAIN DAILY MAY REPEAT IN 5 HRS MDD2 TAKING VITAMIN D-3 1000 UNIT CAPSULE 2 CAPSULE ORALLY ONCE A DAY TAKING TYLENOL EXTRA STRENGTH 500 MG TABLET 1 TABLET NEEDED ORALLY EVERY 6 HRS TAKING MUCINEX 600 MG TABLET EXTENDED RELEASE 12 HOUR 1 TABLET NEEDED ORALLY EVERY 12 HRS TAKING TYLENOL 8 HOUR ARTHRITIS PAIN 650 MG TABLET EXTENDED RELEASE 2 TABLETS NEEDED ORALLY EVERY 8 HRS TAKING BASILIA 1 CAP ORALLY ONCE DAILY NEEDED TAKING FLONASE 1 SPRAY IN EACH NOSTRIL DAILY TAKING MULTIVITAL NOT-TAKING SOMA 350 MG TABLET 1 TABLET NEEDED ORALLY AT BEDTIME NOT-TAKING CLINDAMYCIN HCL 150 MG CAPSULE 1 CAP ORALLY QID NOT-TAKING CEFDINIR 300 MG CAPSULE 1 CAP ORALLY BID NOT-TAKING OXYBUTYNIN CHLORIDE 5 MG TABLET 1 TAB(S) ORALLY EVERY 8 HOURS NEEDED FOR BLADDER SPASMS NOT-TAKING CIPROFLOXACIN HCL 500 MG TABLET 1 TABLET ORALLY EVERY 12 HRS NOT-TAKING PROBIOTIC - CAPSULE DIRECTED ORALLY NOT-TAKING KEFLEX 500 MG CAPSULE 1 CAPSULE 1 HOUR PRIOR TO YOUR CYSTOSCOPY ORALLY ONCE NOT-TAKING MULTIVITAMIN ADULT - TABLET ORALLY ONCE DAILY NOT-TAKING KEFLEX 500 MG CAPSULE 1 CAPSULE ORALLY TO START ONE HOUR BEFORE REZUM PROCEDURE EVERY 12 HRS NOT-TAKING CIPROFLOXACIN HCL 500 MG TABLET 1 TABLET 1 HOUR PRIOR TO YOUR CYSTOSCOPY ORALLY ONCE NOT-TAKING CIPRO 500 MG TABLET 1 TABLET ORALLY TWICE A DAY NOT-TAKING MYRBETRIQ 50 MG TABLET 1 TABLET ORALLY ONCE A DAY, NOTES: HAS NOT STARTED NOT-TAKING TYLENOL 325 MG CAPSULE 2 CAPSULES NEEDED ORALLY EVERY 6 HRS, NOTES: 11/12/17 1200 NOT-TAKING PREDNISONE 20 MG TABLET 1 TABLET ORALLY TAKE 1 TAB TWICE A DAY WITH FOOD X 3 DAYS ATHEN 1/2 TAB TWICE A DAY X 3 DAYS, NOTES: FINISHED 07/09/17 NOT-TAKING DICLOFENAC SODIUM 1 % GEL DIRECTED TRANSDERMAL APPLY 4 GRAMS TO LOW BACK Q 6 HRS NOT-TAKING GABAPENTIN 100 MG CAPSULE DIRECTED ORALLY TID FOR PAIN MDD3 NOT-TAKING VALIUM 5 MG TABLET 1 TABLET ORALLY TAKE 2 TABS ON ARRIVAL TO CLINIC FOR PROCEDURE MDD=2, NOTES: 10/12/16 1002 NOT-TAKING ACETAMINOPHEN EXTRA STRENGTH 500 MG TABLET 2 TABLET NEEDED ORALLY EVERY 6 HRS NEEDED, NOTES: 10/02/19 0800 NOT-TAKING VALIUM 5 MG TABLET 1 TABLET ORALLY TAKE ON ARRIVAL TO CLINIC FOR PROCEDURE MDD=1, NOTES: DUPLICATE MEDICATION LIST REVIEWED AND RECONCILED WITH THE PATIENT PAST MEDICAL HISTORY GERD HYPERTENSION LOW BACK PAIN AFTER INJURY STRESS TEST CLEARED WITH DR OSBORNE FIBROMYLAGIA BPH ED CARPAL TUNNEL BILATERALLY ALLERGIES ASPIRIN: FACE SWELLING - ALLERGY SULFA (FOR ALLERGY USE ONLY): NAUSEA/VOMITING - SIDE EFFECTS PLASTIC TAPE: RASH - SIDE EFFECTS LYRICA: DEPRESSION, ANXIETY - SIDE EFFECTS GABAPENTIN: MENTAL STATUS - SIDE EFFECTS OXYBUTYNIN: DIARRHEA/ SEVERE STOMACH UPSET - SIDE EFFECTS DARIFENACIN HYDROBROMIDE: HEADACHE / STOMACH UPSET - SIDE EFFECTS MYRBETRIQ: SEVERE HEARTBURN / HEADACHE - SIDE EFFECTS CIPRO: HEADACHE/DIZZY - SIDE EFFECTS OXYCODONE HCL: ITCHING - SIDE EFFECTS HYDROCODONE: ITCHING - SIDE EFFECTS SOCIAL HISTORY GENERAL: TOBACCO USE ARE YOU A: NONSMOKER. LATEX QUESTIONNAIRE LATEX ALLERGY : HAVE YOU EVER DEVELOPED ANY TYPE OF REACTION AFTER HANDLING LATEX PRODUCTS SUCH RUBBER GLOVES, CONDOMS, DIAPHRAGMS, BALLOONS, SOCKS, OR UNDERWEAR?NO LATEX ALLERGY : HAVE YOU EVER DEVELOPED ANY TYPE OF REACTION DURING OR AFTER DENTAL APPOINTMENT, VAGINAL/RECTAL EXAMINATION, SURGICAL PROCEDURE, OR ANY OTHER EXPOSURE?NO DATE ASKED : 09/14/2020 LATEX RISK : HAVE YOU EVER HAD ANY DIFFICULTY BREATHING OR HIVES AFTER EATING OR HANDLING ANY FRUITS, OR VEGETABLES; SUCH KIWI, BANANAS, STONE FRUITS, OR CHESTNUTSNO LATEX RISK : DO YOU HAVE A PREVIOUS PERSONAL HISTORY OF MORE THAN NINE SURGERIES, SPINA BIFIDA, OR REPEATED CATHERIZATIONS? NO LATEX RISK : ARE YOU FREQUENTLY EXPOSED TO LATEX PRODUCTS IN YOUR OCCUPATION?NO ALCOHOL SCREENING DID YOU HAVE A DRINK CONTAINING ALCOHOL IN THE PAST YEAR?YES HOW OFTEN DID YOU HAVE SIX OR MORE DRINKS ON ONE OCCASION IN THE PAST YEAR?LESS THAN MONTHLY (1 POINT) HOW MANY DRINKS DID YOU HAVE ON A TYPICAL DAY WHEN YOU WERE DRINKING IN THE PAST YEAR?3 OR 4 (1 POINT) HOW OFTEN DID YOU HAVE A DRINK CONTAINING ALCOHOL IN THE PAST YEAR?TWO TO FOUR TIMES A MONTH (2 POINTS) POINTS4 INTERPRETATIONPOSITIVE RECREATIONAL DRUG USE DRUG USE?NO CAFFEINE CAFFEINE USE?YES COFFEE = 2-3 PER DAY TRIES TO DRINK DECAF SEXUAL HX HAD SEX IN THE LAST 12 MONTHS (VAGINAL, ORAL, OR ANAL)?YES WITHWOMEN ONLY USE PROTECTION?NO HAVE YOU EVER HAD AN STD?NO MANDAEISM [id number] CHRISTIANITY NO LATTER DAY BELIEFS THAT WOULD IMPACT HEALTH CARE. LANGUAGE LANGUAGES SPOKEN:LITHUANIAN LEARNING BARRIERS / SPECIAL NEEDS BARRIERS TO LEARNING?NO HEARING IMPAIRED?NO VISION IMPAIRED?YES COGNITIVELY IMPAIRED?NO :CORRECTIVE LENSES READINESS TO LEARN?YES LEARNING PREFERENCES?NO LEARNING CAPABILITIES PRESENT?YES EMOTIONAL BARRIERS?NO SPECIAL DEVICES?NO BOAT RIGGER NEEDED?NO DOMESTIC VIOLENCE DO YOU FEEL SAFE IN YOUR ENVIRONMENT?YES DIET: REGULAR. EXERCISE: NO REGULAR EXERCISE. MARITAL STATUS: . - PFS REFERRAL NEEDED?NO CLERGY REFERRAL NEEDED?NO PUBLIC HEALTH REFERRAL NEEDED?NO HAS THE PATIENT BEEN EDUCATED REGARDING HIS/HER PLAN OF CARE?YES HAS THE PATIENT BEEN EDUCATED REGARDING PAIN, THE RISK FOR PAIN, THE IMPORTANCE OF EFFECTIVE PAIN MANAGEMENT, AND THE PAIN ASSESSMENT PROCESS?YES ADVANCE DIRECTIVE ADVANCE DIRECTIVE DISCUSSED WITH PATIENT:YES ASHVIN LINDQUIST IS HIS HCP REVIEW OF SYSTEMS CONSTITUTIONAL: ANY RECENT FEVER NO . CHILLS NO . WEIGHT CHANGE OF UNKNOWN REASONS NO . GASTROENTEROLOGY: NEW UNEXPLAINABLE CHANGES IN BOWEL CONTROL NO . CONSTIPATION NO . GENITOURINARY: ANY NEW CHANGE IN BLADDER CONTROL? NO . NEUROLOGY: NEW ONSET DIZZINESS OR NEUROLOGICAL CHANGES NOT MENTIONED NO . NEW NUMBNESS OR PAIN PATTERNS NOT MENTIONED AND PERTINENT TO TODAY'S VISIT NO . CARDIOLOGY: NEW CHEST PRESSURE NO . PATIENT DENIES NO . RESPIRATORY: UNEXPLAINABLE COUGH NO . NEW SHORTNESS OF BREATH NO . VITAL SIGNS WT 211 LBS, HT 69 IN, BMI 31.16 INDEX, BP 150/102 MM HG, HR 64 /MIN, RR 18 /MIN, TEMP 98.0 F, OXYGEN SAT % 98, SAFE IN ENV? (Y/N) Y, REVIEWED BY: EM. EXAMINATION GENERAL EXAMINATION: GENERALNO ACUTE DISTRESS, WELL NOURISHED AND HYDRATED. PSYCHAPPROPRIATE MOOD AND AFFECT . LUNGS:CLEAR TO AUSCULTATION BILATERALLY, NO WHEEZES, RHONCHI, RALES. HEART:NO MURMURS, REGULAR RATE AND RHYTHM. ABDOMEN:POINT TENDER BILATERAL LOW BACK, SURROUNDING SKIN SHOWS NO ERYTHEMA, ECCHYMOSIS, INCREASED WARMTH, AND/OR SKIN ERUPTIONS NOTED. BANDS OF RESTRICTIVE TISSUE NOTED OVER TRIGGER POINTS . 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 GIVEN PRESENTING SYMPTOMS AND RESULTS OF PHYSICAL EXAMINATION RECOMMENDED BILATERAL LOW BACK TRIGGER POINT INJECTIONS WITH POSTPROCEDURAL FOLLOW-UP. PATIENT EXPRESSED UNDERSTANDING OF AND WAS IN AGREEMENT WITH TREATMENT PLAN. GIVEN TIME TO ASK QUESTIONS AND EXPRESS CONCERNS. PRINTED AND REVIEWED PRE PROCEDURE TEACHING WITH PATIENT ZULEIMA DOZIER . PROCEDURE CODES FA211 ESTABILISHED PATIENT [facility] F[facility] CHARGE DISPOSITION & COMMUNICATION FOLLOW UP POSTPROCEDURE (REASON: BILATERAL LOW BACK TRIGGER POINT INJECTIONS) ELECTRONICALLY SIGNED BY OLLIE LOPEZ ON 02/18/2021 AT 01:01 PM EDT DISCLAIMER : THIS IS A VISIT SUMMARY EXTRACTED FROM THE [employer] CHART. IT IS NOT A COPY OF THE [employer] PROGRESS NOTE. SOMMER
== END ==
LOC: M PAIN 10:45
PROVIDERS: ATTEND Family Medicine
DX: G89.29 Other chronic pain (principal); M46.1 Sacroiliitis, not elsewhere classified; K21.9 Gastro-esophageal reflux disease without esophagitis; I10 Essential (primary) hypertension; M79.7 Fibromyalgia; N40.0 Benign prostatic hyperplasia without lower urinary tract symptoms; N52.9 Male erectile dysfunction, unspecified; G56.03 Carpal tunnel syndrome, bilateral upper limbs; Z79.899 Other long term (current) drug therapy; Z88.6 Allergy status to analgesic agent; Z88.2 Allergy status to sulfonamides; Z88.5 Allergy status to narcotic agent; Z88.8 Allergy status to other drugs, medicaments and biological substances; Z88.1 Allergy status to other antibiotic agents

== ENCOUNTER → 2021-03-30 | Outpatient (CLI) | payer OTHER | LOC: M LABSMTC 10:05 | PROVIDERS: ATTEND Anesthesiology | DX: Z11.52 Encounter for screening for COVID-19 (principal) ==

== ENCOUNTER → 2021-04-04 | Outpatient (CLI) | payer OTHER ==
[~2021-04-04] MED LIST changes: +BUPIVACAINE HCL 0.25% 10ML VIAL As Ordered ONE; +BUPIVACAINE HCL 0.25% 30ML VIAL As Ordered ONE; +TRIAMCINOLONE ACETONIDE SUSP 40 MG/ML VIAL (J3301) As Ordered ONE; +diazePAM 5MG TABLET As Ordered ONE
--- NOTE | 2021-04-08 00:59 | ECWPNPC ---
PATIENT NAME: BRANDY LINDQUIST : 1955 GENDER: MALE VISIT DATE: 04/04/2021 DISCHARGE DATE: 04/04/21 09 VISIT LOCKED DATE TIME: PHYSICIAN: EAV BROWN MD RESOURCE: EVA BROWN MD REASON FOR APPOINTMENT 1. TRIGGER POINT INJECTIONS BILATERAL LOW BACK HISTORY OF PRESENT ILLNESS GENERAL: -. FALL RISK SCREENING: SCREENING : NO FALLS REPORTED IN THE LAST YEAR. PAIN SCREENING: PATIENT HAS A COMPLAINT OF ACUTE OR CHRONIC PAIN :YES LOCATION OF PAIN:LOW BACK INTENSITY OF PAIN (SCALE OF 1 TO 10):7 WHAT DOES YOUR PAIN FEEL LIKE:ACHING, STABBING, TENDER, SHOOTING DURATION:CONTINOUS, STEADY NURSING NOTE: -. PAIN CENTER INTAKE QUESTIONS: DO YOU HAVE A HISTORY OF MRSA? :NO DO YOU TAKE A BLOOD THINNERS? :NO DO YOU HAVE ANY BLEEDING DISORDERS? :NO ANY NEW NUMBNESS OR WEAKNESS IN YOUR LEGS OR ARMS? :NO ANY PACEMAKER,DEFIBRILLATOR, OR DORSAL COLUMN STIMULATOR? :NO DO YOU HAVE ANY RASHES OR OPEN SORES? :NO ARE YOU ALLERGIC TO IV DYE? :NO ARE YOU DIABETIC? :NO ANY NEW PROBLEMS WITH YOUR MEDICATIONS? :NO HAVE YOU RECEIVED A VACCINE IN THE PAST 30 DAYS? :NO DO YOU PLAN TO RECEIVE A VACCINE IN THE NEXT 21 DAYS? :NO DO YOU TAKE ANY IMMUNOSUPPRESSIVE MEDICATIONS? :NO ANY HISTORY OF SEIZURES? :NO ANY HISTORY OF CARDIAC ISSUES OR EVENTS? :NO DO YOU HAVE ANY KIDNEY OR LIVER DISEASE? :NO DO YOU HAVE SLEEP APNEA? :NO ANY RECENT HEAD INJURY? :NO DO YOU HAVE ANY NEW INFECTIONS? :NO IS THERE A CHANCE YOU COULD BE ? :NO ARE YOU BREAST FEEDING? :NO WHEN DID YOU LAST EAT? : -04/04/21 @ 1900 WHEN DID YOU LAST DRINK? : -04/03/21 @ 2100 WHAT DID YOU LAST DRINK? : -WATER NAME OF PERSON DRIVING YOU HOME? : - ASHVIN DO YOU HAVE ANY OTHER QUESTIONS OR CONCERNS? : -DENIES CURRENT MEDICATIONS TAKING ACETAMINOPHEN-CODEINE #4 300-60 MG TABLET 1 TABLET NEEDED ORALLY BID TAKING VIAGRA 100 MG TABLET 1 TABLET NEEDED ORALLY ONCE A DAY, NOTES: NEVER TAKING SUCRALFATE 1 GM TABLET 1 TABLET ON AN EMPTY STOMACH ORALLY FOUR TIMES DAILY DAILY TAKING OMEPRAZOLE 40 MG CAPSULE DELAYED RELEASE 1 CAP ORALLY TWICE DAILY TAKING LISINOPRIL 20 MG TABLET 1 TABLET ORALLY ONCE A DAY TAKING CYCLOBENZAPRINE HCL 5 MG TABLET 1 TABLET ORALLY NEEDED FOR SPASMS AND PAIN DAILY MAY REPEAT IN 5 HRS MDD2 TAKING VITAMIN D-3 1000 UNIT CAPSULE 2 CAPSULE ORALLY ONCE A DAY TAKING TYLENOL EXTRA STRENGTH 500 MG TABLET 1 TABLET NEEDED ORALLY EVERY 6 HRS TAKING TYLENOL 8 HOUR ARTHRITIS PAIN 650 MG TABLET EXTENDED RELEASE 2 TABLETS NEEDED ORALLY EVERY 8 HRS TAKING BASILIA 1 CAP ORALLY ONCE DAILY NEEDED TAKING FLONASE 1 SPRAY IN EACH NOSTRIL DAILY TAKING MULTIVITAL NOT-TAKING MUCINEX 600 MG TABLET EXTENDED RELEASE 12 HOUR 1 TABLET NEEDED ORALLY EVERY 12 HRS NOT-TAKING SOMA 350 MG TABLET 1 TABLET NEEDED ORALLY AT BEDTIME NOT-TAKING CLINDAMYCIN HCL 150 MG CAPSULE 1 CAP ORALLY QID NOT-TAKING CEFDINIR 300 MG CAPSULE 1 CAP ORALLY BID NOT-TAKING OXYBUTYNIN CHLORIDE 5 MG TABLET 1 TAB(S) ORALLY EVERY 8 HOURS NEEDED FOR BLADDER SPASMS NOT-TAKING CIPROFLOXACIN HCL 500 MG TABLET 1 TABLET ORALLY EVERY 12 HRS NOT-TAKING PROBIOTIC - CAPSULE DIRECTED ORALLY NOT-TAKING KEFLEX 500 MG CAPSULE 1 CAPSULE 1 HOUR PRIOR TO YOUR CYSTOSCOPY ORALLY ONCE NOT-TAKING MULTIVITAMIN ADULT - TABLET ORALLY ONCE DAILY NOT-TAKING KEFLEX 500 MG CAPSULE 1 CAPSULE ORALLY TO START ONE HOUR BEFORE REZUM PROCEDURE EVERY 12 HRS NOT-TAKING CIPROFLOXACIN HCL 500 MG TABLET 1 TABLET 1 HOUR PRIOR TO YOUR CYSTOSCOPY ORALLY ONCE NOT-TAKING CIPRO 500 MG TABLET 1 TABLET ORALLY TWICE A DAY NOT-TAKING MYRBETRIQ 50 MG TABLET 1 TABLET ORALLY ONCE A DAY, NOTES: HAS NOT STARTED NOT-TAKING TYLENOL 325 MG CAPSULE 2 CAPSULES NEEDED ORALLY EVERY 6 HRS, NOTES: 11/12/17 1200 NOT-TAKING PREDNISONE 20 MG TABLET 1 TABLET ORALLY TAKE 1 TAB TWICE A DAY WITH FOOD X 3 DAYS ATHEN 1/2 TAB TWICE A DAY X 3 DAYS, NOTES: FINISHED 07/09/17 NOT-TAKING DICLOFENAC SODIUM 1 % GEL DIRECTED TRANSDERMAL APPLY 4 GRAMS TO LOW BACK Q 6 HRS NOT-TAKING GABAPENTIN 100 MG CAPSULE DIRECTED ORALLY TID FOR PAIN MDD3 NOT-TAKING VALIUM 5 MG TABLET 1 TABLET ORALLY TAKE 2 TABS ON ARRIVAL TO CLINIC FOR PROCEDURE MDD=2, NOTES: 10/12/16 1002 NOT-TAKING ACETAMINOPHEN EXTRA STRENGTH 500 MG TABLET 2 TABLET NEEDED ORALLY EVERY 6 HRS NEEDED, NOTES: 10/02/19 0800 NOT-TAKING VALIUM 5 MG TABLET 1 TABLET ORALLY TAKE ON ARRIVAL TO CLINIC FOR PROCEDURE MDD=1, NOTES: DUPLICATE MEDICATION LIST REVIEWED AND RECONCILED WITH THE PATIENT PAST MEDICAL HISTORY GERD HYPERTENSION LOW BACK PAIN AFTER INJURY STRESS TEST CLEARED WITH DR OSBORNE FIBROMYLAGIA BPH ED CARPAL TUNNEL BILATERALLY ALLERGIES ASPIRIN: FACE SWELLING - ALLERGY SULFA (FOR ALLERGY USE ONLY): NAUSEA/VOMITING - SIDE EFFECTS PLASTIC TAPE: RASH - SIDE EFFECTS LYRICA: DEPRESSION, ANXIETY - SIDE EFFECTS GABAPENTIN: MENTAL STATUS - SIDE EFFECTS OXYBUTYNIN: DIARRHEA/ SEVERE STOMACH UPSET - SIDE EFFECTS DARIFENACIN HYDROBROMIDE: HEADACHE / STOMACH UPSET - SIDE EFFECTS MYRBETRIQ: SEVERE HEARTBURN / HEADACHE - SIDE EFFECTS CIPRO: HEADACHE/DIZZY - SIDE EFFECTS OXYCODONE HCL: ITCHING - SIDE EFFECTS HYDROCODONE: ITCHING - SIDE EFFECTS VITAL SIGNS WT 211.8 LBS, HT 69 IN, BMI 31.27 INDEX, BP 179/96 MM HG, HR 61 /MIN, RR 18 /MIN, TEMP 97.9 F, OXYGEN SAT % 98%, SAFE IN ENV? (Y/N) Y, NA INITIALS SC 08:57, REVIEWED BY: JACOB. EXAMINATION GENERAL: THE PATIENT IS ALERT, ORIENTED TIMES THREE AND COOPERATIVE. LUNGS ARE CLEAR TO AUSCULTATION. HEART SHOWS REGULAR RHYTHM, NO MURMURS AND NO GALLOPS. ASSESSMENTS MYALGIA - M79.10 (PRIMARY) TREATMENT MYALGIA COMPLETION OF PROCEDURAL VISIT WHEN MEETS CRITERIAANYA ORELLANA 04/04/2021 9:56:35 AM > CRITERIA MET AT 0949 MEDICATION: VALIUM TAB 10MG ORALLY (DIAZEPAM)CHINEDU ORR 04/04/2021 8:47:32 AM > ANYA STEELE 04/04/2021 9:01:33 AM > ADMINISTERED PROCEDURES PAIN NURSING RECORD PROCEDURE IN ROOM 0839, PHYSICIAN IN ROOM 0929, START 0932, FINISH 0935, PHYSICIAN OUT OF ROOM 0936, OUT OF ROOM 0949, ECG N/A, PATIENT SHIELDED N/A, SAFETY STRAP N/A, PREP ALCOHOL DR. BROWN, DRESSING TEGADERM Norma ORELLANA RN LOC: 1. ALERT, ORIENTED RESP: 1. REGULAR, NO DYSPNEA COLOR: 1. PINK SKIN: 1. WARM, DRY POSITION: 5. SITTING VITALS: HR 55, 158/85, 98%, R 14 PAIN 6/10 ANYA ORELLANA 04/04/2021 0949AM NOTES Norma ORELLANA RN COMPLETION OF PROCEDURE APPOINTMENT: POST PAIN 6, DRESSING SITE DRY AND INTACT, IV N/A, GAIT STEADY, TEACHING COMPLETED, PATIENT ACKNOWLEDGES UNDERSTANDING YES, PROCEDURE APPOINTMENT COMPLETED AT 0949 PN WORKMANS' COMP OPINION IN YOUR OPINION, WAS THE INCIDENT THAT THE PATIENT DESCRIBED THE COMPETENT MEDICAL CAUSE OF THIS INJURY/ILLNESS? YES ARE THE PATIENT'S COMPLAINTS CONSISTENT WITH HIS/HER HISTORY OF THE INJURY/ILLNESS? YES IS THE PATIENT'S HISTORY OF THE INJURY/ILLNESS CONSISTENT WITH YOUR OBJECTIVE FINDING? YES WHAT IS THE PERCENTAGE OF TEMPORARY IMPAIRMENT? MODERATE TO MARKED = 66.7% IS THE PATIENT WORKING? NO DOCTOR ON SITE: EVA DEGROOT MD PN TRIGGER POINT INJECTION WITH STEROIDS PRE PROCEDURE DIAGNOSIS 1. MYALGIA 2. PAIN AT BILATERAL LOW BACK AREA POST PROCEDURE DIAGNOSIS 1. MYALGIA 2. PAIN AT BILATERAL LOW BACK AREA PROCEDURE TRIGGER POINT INJECTION AT BILATERAL LOW BACK AREA SURGEON DR. EVA BROWN FURNITURE PACKER NONE ANESTHESIA LOCAL PRE PROCEDURE NOTE THE PATIENT HAS A HISTORY OF CHRONIC PAIN AT THE RIGHT AND LEFT LOW BACK AREA. I EVALUATED THE PATIENT AND REVIEWED THE CHART. THERE IS EVIDENCE OF BANDS OF TISSUE WITH RESTRICTION OF MOVEMENT AND PRESENCE OF TRIGGER POINT AT THE RIGHT AND LEFT LOW BACK AREA. I WENT OVER THE RISKS, ALTERNATIVES, AND BENEFITS ASSOCIATED WITH THIS PROCEDURE. THE PATIENT WOULD LIKE TO PROCEED AND GIVE CONSENT TO PERFORMED THE PROCEDURE. THE PATIENT DENIES UNEXPLAINABLE WEIGHT LOSS, FEVER, CHILLS, OR NEW CHANGES IN URINARY OR BOWEL CONTROL. THE PATIENT IS COVID-19 NEGATIVE DESCRIPTION OF PROCEDURE THE PATIENT WAS BROUGHT TO THE PROCEDURE ROOM AND PLACED IN THE SITTING POSITION. THE AREA WAS CLEANED WITH ALCOHOL. THE PROCEDURE WAS DONE USING ASEPTIC STERILE TECHNIQUE. A TIMEOUT WAS PERFORMED WHERE THE CONSENTED SITE WAS VERIFIED WITH EVERYONE IN THE ROOM. USING A 25-GAUGE NEEDLE, TRIGGER POINTS WERE INJECTED AT THE RIGHT AND LEFT LOW BACK AREA WITH A TOTAL OF 40 ML OF BUPIVACAINE 0.25% AND KENALOG 40 MG. THE MEDICATIONS WERE VERIFIED WITH THE NURSE. THERE WAS NO EVIDENCE OF BLOOD OR PARESTHESIA DURING THE PROCEDURE. THE PATIENT WAS SENT TO THE RECOVERY ROOM. THE PATIENT WAS MOVING THE EXTREMITIES AND DOING WELL. THERE WERE NO COMPLICATIONS DURING THE PROCEDURE. ESTIMATED BLOOD LOSS WAS LESS THAN 5 ML POST PROCEDURE NOTE DEPENDING ON THE RESULTS, CONSIDER DOING LUMBAR EPIDURAL STEROID INJECTION. THE PROCEDURE DONE WAS DISCUSSED WITH THE PATIENT. THE PATIENT WILL BE SEEN IN A FOLLOW UP IN THE NEXT FEW WEEKS. I AM LOOKING FOR LONG LASTING PAIN RELIEF FOR THE PATIENT WITH THIS INTERVENTION. INSTRUCTIONS WERE GIVEN, QUESTIONS WERE ANSWERED, AND THE PATIENT EXPRESSED UNDERSTANDING AND AGREES WITH THE PLAN. I, CORTEZ MCKINNON, DOCUMENTED THE ABOVE INFORMATION ACTING A SCRIBE FOR DR. RBOWN. I HAVE REVIEWED THE ABOVE DOCUMENT, WRITTEN BY CORTEZ MCKINNON, PHOTOGRAPHIC COLORIST, AND I VERIFY THAT IT IS ACCURATE PROCEDURE CODES 11721 INJ TRIGGER POINT 11/13 [facility] DISPOSITION & COMMUNICATION FOLLOW UP FOLLOW UP WITH HOT DIP PLATING SUPERVISOR (REASON: POST TRIGGER POINT INJECTIONS BILATERAL LOW BACK) ELECTRONICALLY SIGNED BY EVA BROWN MD, MD ON 04/07/2021 AT 04:15 PM EDT DISCLAIMER : THIS IS A VISIT SUMMARY EXTRACTED FROM THE [employer] CHART. IT IS NOT A COPY OF THE [employer] PROGRESS NOTE. SOMMER
== END ==
LOC: M PAIN 08:30
PROVIDERS: ATTEND Anesthesiology
DX: M79.18 Myalgia, other site (principal); K21.9 Gastro-esophageal reflux disease without esophagitis; I10 Essential (primary) hypertension; M79.7 Fibromyalgia; M54.5 Low back pain; N40.0 Benign prostatic hyperplasia without lower urinary tract symptoms; N52.9 Male erectile dysfunction, unspecified; G56.03 Carpal tunnel syndrome, bilateral upper limbs; Z79.899 Other long term (current) drug therapy; Z88.1 Allergy status to other antibiotic agents; Z88.2 Allergy status to sulfonamides; Z88.5 Allergy status to narcotic agent; Z88.8 Allergy status to other drugs, medicaments and biological substances; Z88.6 Allergy status to analgesic agent; Z91.048 Other nonmedicinal substance allergy status
CPT/HCPCS: 20552; J3301

== ENCOUNTER → 2021-04-18 | Outpatient (CLI) | payer OTHER ==
[~2021-04-18] MED LIST changes: -BUPIVACAINE HCL 0.25% 10ML VIAL As Ordered ONE; -BUPIVACAINE HCL 0.25% 30ML VIAL As Ordered ONE; -TRIAMCINOLONE ACETONIDE SUSP 40 MG/ML VIAL (J3301) As Ordered ONE; -diazePAM 5MG TABLET As Ordered ONE
--- NOTE | 2021-04-20 01:38 | ECWPNPC ---
PATIENT NAME: BRANDY LINDQUIST : 1955 GENDER: MALE VISIT DATE: 04/18/2021 DISCHARGE DATE: 04/18/21 1134 VISIT LOCKED DATE TIME: PHYSICIAN: ROXY OCHOA RESOURCE: ROXY OCHOA REASON FOR APPOINTMENT 1. POST BILATERAL LOW BACK TRIGGER POINT INJECTIONS HISTORY OF PRESENT ILLNESS GENERAL: HPI 65-YEAR-OLD MALE IN FOR POST TRIGGER POINT INJECTION FOLLOW-UP. HE FEELS THE PROCEDURE WAS HELPFUL BUT ONLY FOR 2 DAYS. HE RATES HIS PAIN CURRENTLY AT A 7 OUT OF 10. DOI: 12/15/2004. -. FALL RISK SCREENING: SCREENING : NO FALLS REPORTED IN THE LAST YEAR. PAIN SCREENING: PATIENT HAS A COMPLAINT OF ACUTE OR CHRONIC PAIN :YES LOCATION OF PAIN:LOW BACK INTENSITY OF PAIN (SCALE OF 1 TO 10):7 WHAT DOES YOUR PAIN FEEL LIKE:ACHING, SHARP, STABBING, TENDER, THROBBING, SORE, SHOOTING DURATION:CONTINOUS, AWAKENS FROM SLEEP PAIN IS INCREASED BY:ACTIVITIES, PROLONGED STANDING PAIN IS DECREASED BY:USE OF PAIN MEDICATIONS, OTHERS REPOSITIONING. PLAN/GOALS/TREATMENT/INTERVENTION/FOLLOW UP:SEE PLAN NURSING NOTE: -. PAIN CENTER INTAKE QUESTIONS: DO YOU HAVE A HISTORY OF MRSA? :NO DO YOU TAKE A BLOOD THINNERS? :NO DO YOU HAVE ANY BLEEDING DISORDERS? :NO ANY NEW NUMBNESS OR WEAKNESS IN YOUR LEGS OR ARMS? :YES INCREASED WEAKNESS IN LEFT LEG ANY PACEMAKER,DEFIBRILLATOR, OR DORSAL COLUMN STIMULATOR? :NO DO YOU HAVE ANY RASHES OR OPEN SORES? :NO ARE YOU ALLERGIC TO IV DYE? :NO ARE YOU DIABETIC? :NO ANY NEW PROBLEMS WITH YOUR MEDICATIONS? :NO HAVE YOU RECEIVED A VACCINE IN THE PAST 30 DAYS? :NO DO YOU PLAN TO RECEIVE A VACCINE IN THE NEXT 21 DAYS? :NO DO YOU NEED ANY PRESCRIPTION? :NO DO YOU TAKE ANY IMMUNOSUPPRESSIVE MEDICATIONS? :NO ANY HISTORY OF SEIZURES? :NO ANY HISTORY OF CARDIAC ISSUES OR EVENTS? :NO DO YOU HAVE ANY KIDNEY OR LIVER DISEASE? :NO DO YOU HAVE SLEEP APNEA? :NO ANY RECENT HEAD INJURY? :NO DO YOU HAVE ANY NEW INFECTIONS? :NO IS THERE A CHANCE YOU COULD BE ? :NO ARE YOU BREAST FEEDING? :NO CURRENT MEDICATIONS TAKING ACETAMINOPHEN-CODEINE #4 300-60 MG TABLET 1 TABLET NEEDED ORALLY BID TAKING VIAGRA 100 MG TABLET 1 TABLET NEEDED ORALLY ONCE A DAY, NOTES: NEVER TAKING SUCRALFATE 1 GM TABLET 1 TABLET ON AN EMPTY STOMACH ORALLY FOUR TIMES DAILY DAILY TAKING OMEPRAZOLE 40 MG CAPSULE DELAYED RELEASE 1 CAP ORALLY TWICE DAILY TAKING LISINOPRIL 20 MG TABLET 1 TABLET ORALLY ONCE A DAY TAKING CYCLOBENZAPRINE HCL 5 MG TABLET 1 TABLET ORALLY NEEDED FOR SPASMS AND PAIN DAILY MAY REPEAT IN 5 HRS MDD2 TAKING VITAMIN D-3 1000 UNIT CAPSULE 2 CAPSULE ORALLY ONCE A DAY TAKING TYLENOL EXTRA STRENGTH 500 MG TABLET 1 TABLET NEEDED ORALLY EVERY 6 HRS TAKING TYLENOL 8 HOUR ARTHRITIS PAIN 650 MG TABLET EXTENDED RELEASE 2 TABLETS NEEDED ORALLY EVERY 8 HRS TAKING BASILIA 1 CAP ORALLY ONCE DAILY NEEDED TAKING FLONASE 1 SPRAY IN EACH NOSTRIL DAILY TAKING MULTIVITAL NOT-TAKING MUCINEX 600 MG TABLET EXTENDED RELEASE 12 HOUR 1 TABLET NEEDED ORALLY EVERY 12 HRS NOT-TAKING SOMA 350 MG TABLET 1 TABLET NEEDED ORALLY AT BEDTIME NOT-TAKING CLINDAMYCIN HCL 150 MG CAPSULE 1 CAP ORALLY QID NOT-TAKING CEFDINIR 300 MG CAPSULE 1 CAP ORALLY BID NOT-TAKING OXYBUTYNIN CHLORIDE 5 MG TABLET 1 TAB(S) ORALLY EVERY 8 HOURS NEEDED FOR BLADDER SPASMS NOT-TAKING CIPROFLOXACIN HCL 500 MG TABLET 1 TABLET ORALLY EVERY 12 HRS NOT-TAKING PROBIOTIC - CAPSULE DIRECTED ORALLY NOT-TAKING KEFLEX 500 MG CAPSULE 1 CAPSULE 1 HOUR PRIOR TO YOUR CYSTOSCOPY ORALLY ONCE NOT-TAKING MULTIVITAMIN ADULT - TABLET ORALLY ONCE DAILY NOT-TAKING KEFLEX 500 MG CAPSULE 1 CAPSULE ORALLY TO START ONE HOUR BEFORE REZUM PROCEDURE EVERY 12 HRS NOT-TAKING CIPROFLOXACIN HCL 500 MG TABLET 1 TABLET 1 HOUR PRIOR TO YOUR CYSTOSCOPY ORALLY ONCE NOT-TAKING CIPRO 500 MG TABLET 1 TABLET ORALLY TWICE A DAY NOT-TAKING MYRBETRIQ 50 MG TABLET 1 TABLET ORALLY ONCE A DAY, NOTES: HAS NOT STARTED NOT-TAKING TYLENOL 325 MG CAPSULE 2 CAPSULES NEEDED ORALLY EVERY 6 HRS, NOTES: 11/12/17 1200 NOT-TAKING PREDNISONE 20 MG TABLET 1 TABLET ORALLY TAKE 1 TAB TWICE A DAY WITH FOOD X 3 DAYS ATHEN 1/2 TAB TWICE A DAY X 3 DAYS, NOTES: FINISHED 07/09/17 NOT-TAKING DICLOFENAC SODIUM 1 % GEL DIRECTED TRANSDERMAL APPLY 4 GRAMS TO LOW BACK Q 6 HRS NOT-TAKING GABAPENTIN 100 MG CAPSULE DIRECTED ORALLY TID FOR PAIN MDD3 NOT-TAKING VALIUM 5 MG TABLET 1 TABLET ORALLY TAKE 2 TABS ON ARRIVAL TO CLINIC FOR PROCEDURE MDD=2, NOTES: 10/12/16 1002 NOT-TAKING ACETAMINOPHEN EXTRA STRENGTH 500 MG TABLET 2 TABLET NEEDED ORALLY EVERY 6 HRS NEEDED, NOTES: 10/02/19 0800 NOT-TAKING VALIUM 5 MG TABLET 1 TABLET ORALLY TAKE ON ARRIVAL TO CLINIC FOR PROCEDURE MDD=1, NOTES: DUPLICATE MEDICATION LIST REVIEWED AND RECONCILED WITH THE PATIENT PAST MEDICAL HISTORY GERD HYPERTENSION LOW BACK PAIN AFTER INJURY STRESS TEST CLEARED WITH DR OSBORNE FIBROMYLAGIA BPH ED CARPAL TUNNEL BILATERALLY ALLERGIES ASPIRIN: FACE SWELLING - ALLERGY SULFA (FOR ALLERGY USE ONLY): NAUSEA/VOMITING - SIDE EFFECTS PLASTIC TAPE: RASH - SIDE EFFECTS LYRICA: DEPRESSION, ANXIETY - SIDE EFFECTS GABAPENTIN: MENTAL STATUS - SIDE EFFECTS OXYBUTYNIN: DIARRHEA/ SEVERE STOMACH UPSET - SIDE EFFECTS DARIFENACIN HYDROBROMIDE: HEADACHE / STOMACH UPSET - SIDE EFFECTS MYRBETRIQ: SEVERE HEARTBURN / HEADACHE - SIDE EFFECTS CIPRO: HEADACHE/DIZZY - SIDE EFFECTS OXYCODONE HCL: ITCHING - SIDE EFFECTS HYDROCODONE: ITCHING - SIDE EFFECTS SOCIAL HISTORY GENERAL: TOBACCO USE ARE YOU A: NONSMOKER. LATEX QUESTIONNAIRE LATEX ALLERGY : HAVE YOU EVER DEVELOPED ANY TYPE OF REACTION AFTER HANDLING LATEX PRODUCTS SUCH RUBBER GLOVES, CONDOMS, DIAPHRAGMS, BALLOONS, SOCKS, OR UNDERWEAR?NO LATEX ALLERGY : HAVE YOU EVER DEVELOPED ANY TYPE OF REACTION DURING OR AFTER DENTAL APPOINTMENT, VAGINAL/RECTAL EXAMINATION, SURGICAL PROCEDURE, OR ANY OTHER EXPOSURE?NO LATEX RISK : HAVE YOU EVER HAD ANY DIFFICULTY BREATHING OR HIVES AFTER EATING OR HANDLING ANY FRUITS, OR VEGETABLES; SUCH KIWI, BANANAS, STONE FRUITS, OR CHESTNUTSNO LATEX RISK : DO YOU HAVE A PREVIOUS PERSONAL HISTORY OF MORE THAN NINE SURGERIES, SPINA BIFIDA, OR REPEATED CATHERIZATIONS? NO LATEX RISK : ARE YOU FREQUENTLY EXPOSED TO LATEX PRODUCTS IN YOUR OCCUPATION?NO DATE ASKED : 04/18/2021 ALCOHOL USE: YES,ONCE IN A WHILE. ALCOHOL SCREENING DID YOU HAVE A DRINK CONTAINING ALCOHOL IN THE PAST YEAR?YES HOW OFTEN DID YOU HAVE SIX OR MORE DRINKS ON ONE OCCASION IN THE PAST YEAR?LESS THAN MONTHLY (1 POINT) HOW MANY DRINKS DID YOU HAVE ON A TYPICAL DAY WHEN YOU WERE DRINKING IN THE PAST YEAR?3 OR 4 (1 POINT) HOW OFTEN DID YOU HAVE A DRINK CONTAINING ALCOHOL IN THE PAST YEAR?TWO TO FOUR TIMES A MONTH (2 POINTS) POINTS4 INTERPRETATIONPOSITIVE RECREATIONAL DRUG USE DRUG USE?NO CAFFEINE CAFFEINE USE?YES COFFEE = 2-3 PER DAY TRIES TO DRINK DECAF SEXUAL HX HAD SEX IN THE LAST 12 MONTHS (VAGINAL, ORAL, OR ANAL)?YES WITHWOMEN ONLY USE PROTECTION?NO HAVE YOU EVER HAD AN STD?NO BUDDHISM [id number] SCIENTOLOGY NO ADVENTIST BELIEFS THAT WOULD IMPACT HEALTH CARE. LANGUAGE LANGUAGES SPOKEN:FAROESE LEARNING BARRIERS / SPECIAL NEEDS BARRIERS TO LEARNING?NO HEARING IMPAIRED?NO VISION IMPAIRED?YES COGNITIVELY IMPAIRED?NO :CORRECTIVE LENSES READINESS TO LEARN?YES LEARNING PREFERENCES?NO LEARNING CAPABILITIES PRESENT?YES EMOTIONAL BARRIERS?NO SPECIAL DEVICES?NO PLASTIC PARTS DESIGNER NEEDED?NO DOMESTIC VIOLENCE DO YOU FEEL SAFE IN YOUR ENVIRONMENT?YES DIET: REGULAR. EXERCISE: NO REGULAR EXERCISE. MARITAL STATUS: . - PFS REFERRAL NEEDED?NO CLERGY REFERRAL NEEDED?NO PUBLIC HEALTH REFERRAL NEEDED?NO HAS THE PATIENT BEEN EDUCATED REGARDING HIS/HER PLAN OF CARE?YES HAS THE PATIENT BEEN EDUCATED REGARDING PAIN, THE RISK FOR PAIN, THE IMPORTANCE OF EFFECTIVE PAIN MANAGEMENT, AND THE PAIN ASSESSMENT PROCESS?YES ADVANCE DIRECTIVE ADVANCE DIRECTIVE DISCUSSED WITH PATIENT:YES ASHVIN LINDQUIST IS HIS HCP REVIEW OF SYSTEMS CONSTITUTIONAL: ANY RECENT FEVER NO . CHILLS NO . WEIGHT CHANGE OF UNKNOWN REASONS NO . GASTROENTEROLOGY: NEW UNEXPLAINABLE CHANGES IN BOWEL CONTROL NO . CONSTIPATION NO . GENITOURINARY: ANY NEW CHANGE IN BLADDER CONTROL? NO . NEUROLOGY: NEW ONSET DIZZINESS OR NEUROLOGICAL CHANGES NOT MENTIONED NO . NEW NUMBNESS OR PAIN PATTERNS NOT MENTIONED AND PERTINENT TO TODAY'S VISIT NO . CARDIOLOGY: NEW CHEST PRESSURE NO . PATIENT DENIES NO . RESPIRATORY: UNEXPLAINABLE COUGH NO . NEW SHORTNESS OF BREATH NO . VITAL SIGNS WT 207 LBS, HT 69 IN, BMI 30.57 INDEX, BP 151/92 MM HG, HR 79 /MIN, RR 18 /MIN, TEMP 97.7 F, OXYGEN SAT % 97%, SAFE IN ENV? (Y/N) YES, NA INITIALS SC 10:53, REVIEWED BY: Chiquis ORR RN BSN. EXAMINATION GENERAL EXAMINATION: GENERALNO ACUTE DISTRESS, WELL NOURISHED AND HYDRATED. PSYCHAPPROPRIATE MOOD AND AFFECT . LUNGS:CLEAR TO AUSCULTATION BILATERALLY, NO WHEEZES, RHONCHI, RALES. HEART:NO MURMURS, REGULAR RATE AND RHYTHM. ASSESSMENTS OTHER CHRONIC PAIN - G89.29 (PRIMARY) MYALGIA, OTHER SITE - M79.18 TREATMENT OTHER CHRONIC PAIN PAIN PROCEDURE LOGDATE OF [id number]/2021PROCEDURE:TRIGGER POINT INJECTIONS BILATERAL LOW BACKAMOUNT OF PRE SEDATEVALIUM 10MGRESULT:UNSUCCESSFUL MYALGIA, OTHER SITE NOTES: 65-YEAR-OLD MALE IN FOR POST TREATMENT POINT ACTION FOLLOW-UP. GIVEN PRESENTING SYMPTOMS AND RESULTS OF PROCEDURE RECOMMENDED PATIENT FOLLOW-UP WITH DR. BROWN TO DISCUSS POTENTIAL MEDICATIONS AND/OR PROCEDURES FOR PATIENT'S SYMPTOMS. PATIENT HAS EXPRESSED UNDERSTANDING OF AND WAS IN AGREEMENT WITH TREATMENT PLAN. GIVEN TIME TO ASK QUESTIONS AND EXPRESS CONCERNS. PROCEDURES PN WORKMANS' COMP OPINION IN YOUR OPINION, WAS THE INCIDENT THAT THE PATIENT DESCRIBED THE COMPETENT MEDICAL CAUSE OF THIS INJURY/ILLNESS? YES ARE THE PATIENT'S COMPLAINTS CONSISTENT WITH HIS/HER HISTORY OF THE INJURY/ILLNESS? YES IS THE PATIENT'S HISTORY OF THE INJURY/ILLNESS CONSISTENT WITH YOUR OBJECTIVE FINDING? YES WHAT IS THE PERCENTAGE OF TEMPORARY IMPAIRMENT? MODERATE TO MARKED = 66.7% IS THE PATIENT WORKING? NO DOCTOR ON SITE: EVA DEGROOT MD , EVA DEGROOT MD PROCEDURE CODES FA211 ESTABILISHED PATIENT [facility] CHARGE DISPOSITION & COMMUNICATION FOLLOW UP WITH DR. BROWN (REASON: DISCUSS TREATMENT OPTIONS ) ELECTRONICALLY SIGNED BY OLLIE LOPEZ ON 04/19/2021 AT 08:42 AM EDT DISCLAIMER : THIS IS A VISIT SUMMARY EXTRACTED FROM THE [email or web address] CHART. IT IS NOT A COPY OF THE [email or web address] PROGRESS NOTE. SOMMER
== END ==
LOC: M PAIN 10:45
PROVIDERS: ATTEND Family Medicine
DX: G89.29 Other chronic pain (principal); M79.18 Myalgia, other site; K21.9 Gastro-esophageal reflux disease without esophagitis; I10 Essential (primary) hypertension; M79.7 Fibromyalgia; N40.0 Benign prostatic hyperplasia without lower urinary tract symptoms; N52.9 Male erectile dysfunction, unspecified; M54.5 Low back pain; Z79.899 Other long term (current) drug therapy; Z88.1 Allergy status to other antibiotic agents; Z88.2 Allergy status to sulfonamides; Z88.5 Allergy status to narcotic agent; Z88.6 Allergy status to analgesic agent; Z88.8 Allergy status to other drugs, medicaments and biological substances; Z91.048 Other nonmedicinal substance allergy status

== ENCOUNTER → 2021-05-13 | Outpatient (CLI) | payer OTHER ==
--- NOTE | 2021-05-18 02:30 | ECWPNPC ---
PATIENT NAME: BRANDY LINDQUIST : 1955 GENDER: MALE VISIT DATE: 05/13/2021 DISCHARGE DATE: 05/13/21 1349 VISIT LOCKED DATE TIME: PHYSICIAN: EVA BROWN MD RESOURCE: EVA BROWN MD REASON FOR APPOINTMENT 1. DISCUSS TREATMENT OPTIONS / LOW BACK PAIN HISTORY OF PRESENT ILLNESS GENERAL: 65-YEAR-OLD MALE PATIENT WITH A HISTORY OF CHRONIC LOW BACK AND MAINLY LEFT LEG PAIN. THE PATIENT DESCRIBES THE PAIN ACHING, SHOOTING AND CONSTANT WITH A PAIN SCORE RANGING FROM 6-8/10. THIS IS AFFECTING HIS ABILITY TO DO ACTIVITIES SUCH CLEANING HIS HOUSE AND GROCERY SHOPPING. HE SUFFERED A WORK RELATED INJURY. FALL RISK SCREENING: SCREENING : NO FALLS REPORTED IN THE LAST YEAR. PAIN SCREENING: PATIENT HAS A COMPLAINT OF ACUTE OR CHRONIC PAIN :YES LOCATION OF PAIN:LOW BACK, LEG(S) INTENSITY OF PAIN (SCALE OF 1 TO 10):7 WHAT DOES YOUR PAIN FEEL LIKE:ACHING, SHOOTING DURATION:CONTINOUS, CONSTANT, ALL DAY PAIN IS INCREASED BY:ACTIVITIES PAIN IS DECREASED BY:OTHERS HEAT AND ICE NURSING NOTE: -. PAIN CENTER INTAKE QUESTIONS: DO YOU HAVE A HISTORY OF MRSA? :NO DO YOU TAKE A BLOOD THINNERS? :NO DO YOU HAVE ANY BLEEDING DISORDERS? :NO ANY NEW NUMBNESS OR WEAKNESS IN YOUR LEGS OR ARMS? :YES BOTH LEGS BUT MORE SO ON THE LEFT- THE BACK OF THE LEG ANY PACEMAKER,DEFIBRILLATOR, OR DORSAL COLUMN STIMULATOR? :NO DO YOU HAVE ANY RASHES OR OPEN SORES? :NO ARE YOU ALLERGIC TO IV DYE? :NO ARE YOU DIABETIC? :NO ANY NEW PROBLEMS WITH YOUR MEDICATIONS? :NO HAVE YOU RECEIVED A VACCINE IN THE PAST 30 DAYS? :NO DO YOU PLAN TO RECEIVE A VACCINE IN THE NEXT 21 DAYS? :NO DO YOU NEED ANY PRESCRIPTION? :NO DO YOU TAKE ANY IMMUNOSUPPRESSIVE MEDICATIONS? :NO DO YOU HAVE ANY KIDNEY OR LIVER DISEASE? :NO IS THERE A CHANCE YOU COULD BE ? :NO ARE YOU BREAST FEEDING? :NO CURRENT MEDICATIONS TAKING ACETAMINOPHEN-CODEINE #4 300-60 MG TABLET 1 TABLET NEEDED ORALLY BID TAKING VIAGRA 100 MG TABLET 1 TABLET NEEDED ORALLY ONCE A DAY TAKING SUCRALFATE 1 GM TABLET 1 TABLET ON AN EMPTY STOMACH ORALLY FOUR TIMES DAILY DAILY TAKING OMEPRAZOLE 40 MG CAPSULE DELAYED RELEASE 1 CAP ORALLY TWICE DAILY TAKING LISINOPRIL 20 MG TABLET 1 TABLET ORALLY ONCE A DAY TAKING CYCLOBENZAPRINE HCL 5 MG TABLET 1 TABLET ORALLY NEEDED FOR SPASMS AND PAIN DAILY MAY REPEAT IN 5 HRS MDD2 TAKING VITAMIN D-3 1000 UNIT CAPSULE 2 CAPSULE ORALLY ONCE A DAY TAKING TYLENOL EXTRA STRENGTH 500 MG TABLET 1 TABLET NEEDED ORALLY EVERY 6 HRS TAKING TYLENOL 8 HOUR ARTHRITIS PAIN 650 MG TABLET EXTENDED RELEASE 2 TABLETS NEEDED ORALLY EVERY 8 HRS TAKING BASILIA 1 CAP ORALLY ONCE DAILY NEEDED TAKING FLONASE 1 SPRAY IN EACH NOSTRIL DAILY TAKING MULTIVITAL NOT-TAKING MUCINEX 600 MG TABLET EXTENDED RELEASE 12 HOUR 1 TABLET NEEDED ORALLY EVERY 12 HRS NOT-TAKING SOMA 350 MG TABLET 1 TABLET NEEDED ORALLY AT BEDTIME NOT-TAKING CLINDAMYCIN HCL 150 MG CAPSULE 1 CAP ORALLY QID NOT-TAKING CEFDINIR 300 MG CAPSULE 1 CAP ORALLY BID NOT-TAKING OXYBUTYNIN CHLORIDE 5 MG TABLET 1 TAB(S) ORALLY EVERY 8 HOURS NEEDED FOR BLADDER SPASMS NOT-TAKING CIPROFLOXACIN HCL 500 MG TABLET 1 TABLET ORALLY EVERY 12 HRS NOT-TAKING PROBIOTIC - CAPSULE DIRECTED ORALLY NOT-TAKING KEFLEX 500 MG CAPSULE 1 CAPSULE 1 HOUR PRIOR TO YOUR CYSTOSCOPY ORALLY ONCE NOT-TAKING MULTIVITAMIN ADULT - TABLET ORALLY ONCE DAILY NOT-TAKING KEFLEX 500 MG CAPSULE 1 CAPSULE ORALLY TO START ONE HOUR BEFORE REZUM PROCEDURE EVERY 12 HRS NOT-TAKING CIPROFLOXACIN HCL 500 MG TABLET 1 TABLET 1 HOUR PRIOR TO YOUR CYSTOSCOPY ORALLY ONCE NOT-TAKING CIPRO 500 MG TABLET 1 TABLET ORALLY TWICE A DAY NOT-TAKING MYRBETRIQ 50 MG TABLET 1 TABLET ORALLY ONCE A DAY, NOTES: HAS NOT STARTED NOT-TAKING TYLENOL 325 MG CAPSULE 2 CAPSULES NEEDED ORALLY EVERY 6 HRS, NOTES: 11/12/17 1200 NOT-TAKING PREDNISONE 20 MG TABLET 1 TABLET ORALLY TAKE 1 TAB TWICE A DAY WITH FOOD X 3 DAYS ATHEN 1/2 TAB TWICE A DAY X 3 DAYS, NOTES: FINISHED 07/09/17 NOT-TAKING DICLOFENAC SODIUM 1 % GEL DIRECTED TRANSDERMAL APPLY 4 GRAMS TO LOW BACK Q 6 HRS NOT-TAKING GABAPENTIN 100 MG CAPSULE DIRECTED ORALLY TID FOR PAIN MDD3 NOT-TAKING VALIUM 5 MG TABLET 1 TABLET ORALLY TAKE 2 TABS ON ARRIVAL TO CLINIC FOR PROCEDURE MDD=2, NOTES: 10/12/16 1002 NOT-TAKING ACETAMINOPHEN EXTRA STRENGTH 500 MG TABLET 2 TABLET NEEDED ORALLY EVERY 6 HRS NEEDED, NOTES: 10/02/19 0800 NOT-TAKING VALIUM 5 MG TABLET 1 TABLET ORALLY TAKE ON ARRIVAL TO CLINIC FOR PROCEDURE MDD=1, NOTES: DUPLICATE MEDICATION LIST REVIEWED AND RECONCILED WITH THE PATIENT PAST MEDICAL HISTORY GERD HYPERTENSION LOW BACK PAIN AFTER INJURY STRESS TEST CLEARED WITH DR OSBORNE FIBROMYLAGIA BPH ED CARPAL TUNNEL BILATERALLY ALLERGIES ASPIRIN: FACE SWELLING - ALLERGY SULFA (FOR ALLERGY USE ONLY): NAUSEA/VOMITING - SIDE EFFECTS PLASTIC TAPE: RASH - SIDE EFFECTS LYRICA: DEPRESSION, ANXIETY - SIDE EFFECTS GABAPENTIN: MENTAL STATUS - SIDE EFFECTS OXYBUTYNIN: DIARRHEA/ SEVERE STOMACH UPSET - SIDE EFFECTS DARIFENACIN HYDROBROMIDE: HEADACHE / STOMACH UPSET - SIDE EFFECTS MYRBETRIQ: SEVERE HEARTBURN / HEADACHE - SIDE EFFECTS CIPRO: HEADACHE/DIZZY - SIDE EFFECTS OXYCODONE HCL: ITCHING - SIDE EFFECTS HYDROCODONE: ITCHING - SIDE EFFECTS SOCIAL HISTORY GENERAL: TOBACCO USE ARE YOU A: NONSMOKER. LATEX QUESTIONNAIRE LATEX ALLERGY : HAVE YOU EVER DEVELOPED ANY TYPE OF REACTION AFTER HANDLING LATEX PRODUCTS SUCH RUBBER GLOVES, CONDOMS, DIAPHRAGMS, BALLOONS, SOCKS, OR UNDERWEAR?NO LATEX ALLERGY : HAVE YOU EVER DEVELOPED ANY TYPE OF REACTION DURING OR AFTER DENTAL APPOINTMENT, VAGINAL/RECTAL EXAMINATION, SURGICAL PROCEDURE, OR ANY OTHER EXPOSURE?NO LATEX RISK : HAVE YOU EVER HAD ANY DIFFICULTY BREATHING OR HIVES AFTER EATING OR HANDLING ANY FRUITS, OR VEGETABLES; SUCH KIWI, BANANAS, STONE FRUITS, OR CHESTNUTSNO LATEX RISK : DO YOU HAVE A PREVIOUS PERSONAL HISTORY OF MORE THAN NINE SURGERIES, SPINA BIFIDA, OR REPEATED CATHERIZATIONS? NO LATEX RISK : ARE YOU FREQUENTLY EXPOSED TO LATEX PRODUCTS IN YOUR OCCUPATION?NO DATE ASKED : 05/13/2021 ALCOHOL USE: YES,ONCE IN A WHILE. ALCOHOL SCREENING DID YOU HAVE A DRINK CONTAINING ALCOHOL IN THE PAST YEAR?YES HOW OFTEN DID YOU HAVE SIX OR MORE DRINKS ON ONE OCCASION IN THE PAST YEAR?LESS THAN MONTHLY (1 POINT) HOW MANY DRINKS DID YOU HAVE ON A TYPICAL DAY WHEN YOU WERE DRINKING IN THE PAST YEAR?3 OR 4 (1 POINT) HOW OFTEN DID YOU HAVE A DRINK CONTAINING ALCOHOL IN THE PAST YEAR?TWO TO FOUR TIMES A MONTH (2 POINTS) POINTS4 INTERPRETATIONPOSITIVE RECREATIONAL DRUG USE DRUG USE?NO CAFFEINE CAFFEINE USE?YES COFFEE = 2-3 PER DAY TRIES TO DRINK DECAF SEXUAL HX HAD SEX IN THE LAST 12 MONTHS (VAGINAL, ORAL, OR ANAL)?YES WITHWOMEN ONLY USE PROTECTION?NO HAVE YOU EVER HAD AN STD?NO CHRISTIAN [id number] SABIANISM NO SAMARITAN BELIEFS THAT WOULD IMPACT HEALTH CARE. LANGUAGE LANGUAGES SPOKEN:SYRIAN LEARNING BARRIERS / SPECIAL NEEDS BARRIERS TO LEARNING?NO HEARING IMPAIRED?NO VISION IMPAIRED?YES :CORRECTIVE LENSES COGNITIVELY IMPAIRED?NO READINESS TO LEARN?YES LEARNING PREFERENCES?NO LEARNING CAPABILITIES PRESENT?YES EMOTIONAL BARRIERS?NO SPECIAL DEVICES?NO GUEST SERVICE REPRESENTATIVE NEEDED?NO DOMESTIC VIOLENCE DO YOU FEEL SAFE IN YOUR ENVIRONMENT?YES DIET: REGULAR. EXERCISE: NO REGULAR EXERCISE. MARITAL STATUS: . - PFS REFERRAL NEEDED?NO CLERGY REFERRAL NEEDED?NO PUBLIC HEALTH REFERRAL NEEDED?NO HAS THE PATIENT BEEN EDUCATED REGARDING HIS/HER PLAN OF CARE?YES HAS THE PATIENT BEEN EDUCATED REGARDING PAIN, THE RISK FOR PAIN, THE IMPORTANCE OF EFFECTIVE PAIN MANAGEMENT, AND THE PAIN ASSESSMENT PROCESS?YES ADVANCE DIRECTIVE ADVANCE DIRECTIVE DISCUSSED WITH PATIENT:YES ASHVIN LINDQUIST IS HIS HCP VITAL SIGNS WT 211.4 LBS, HT 69 IN, BMI 31.21 INDEX, BP 164/84 MM HG, HR 54 /MIN, RR 18 /MIN, TEMP 98.0 F, OXYGEN SAT % 99%, SAFE IN ENV? (Y/N) YES, REVIEWED BY: Dora DE LA FUENTE, RNT.GOLD DOZIER, PATIENT STATED THAT HE DOES TAKE BLOOD PRESSURE MEDICATION, BUT TAKE IT AT NIGHT TIME. EXAMINATION GENERAL EXAMINATION: THE PATIENT IS ALERT, ORIENTED TIMES THREE AND COOPERATIVE. LUNGS ARE CLEAR TO AUSCULTATION. HEART SHOWS REGULAR RHYTHM, NO MURMURS AND NO GALLOPS. HE IS LIMPING FROM HIS LEFT LEG WHICH IS WEAKER THAN THE RIGHT LEG ON FLEXION AND EXTENSION. STRAIGHT LEG RAISE IS POSITIVE AT 40 DEGREES. MRI OF THE LUMBAR SPINE DATED 02/20/2020 IS SHOWING BULGING DISC AT L4-L5, L5-S1. ASSESSMENTS INTERVERTEBRAL DISC DISORDERS WITH RADICULOPATHY, LUMBOSACRAL REGION - M51.17 (PRIMARY) TREATMENT INTERVERTEBRAL DISC DISORDERS WITH RADICULOPATHY, LUMBOSACRAL REGION CLINICAL NOTES: I DISCUSSED ALTERNATIVES WITH MR. LINDQUIST. I WILL REQUEST AUTHORIZATION FOR AN EPIDURAL AT L5-S1, BOOK AFTER APPROVED. I AM LOOKING FOR LONG LASTING PAIN RELIEF WITH THIS INTERVENTION AND INCREASE FUNCTIONALITY. THE PATIENT REPORTS UNDERSTANDING AND AGREES WITH THE PLAN. I, CORTEZ MCKINNON, DOCUMENTED THE ABOVE INFORMATION ACTING A SCRIBE FOR DR. BROWN. I HAVE REVIEWED THE ABOVE DOCUMENT, WRITTEN BY CORTEZ MCKINNON, [employer] EMPLOYEE, AND I VERIFY THAT IT IS ACCURATE. OTHERS NOTES: PRINTED PRE PROCEDURE INFORMATION ZULEIMA DOZIER PATIENT IS GIVEN PRINTED INFORMATION ON TRANSFORAMINAL PROCEDURE, WELL PRE PROCEDURE INSTRUCTIONS. PATIENT V/U OF PROCEDURE AND EXPECTATIONS, NPO AND MEDICATIONS DAY OF PROCEDURE. DENIES QUESTIONS OR CONCERNS. IS GIVEN PAIN TREATMENT PHONE NUMBER TO CALL WITH ANY QUESTIONS THAT ARISE. . PROCEDURES PN WORKMANS' COMP OPINION IN YOUR OPINION, WAS THE INCIDENT THAT THE PATIENT DESCRIBED THE COMPETENT MEDICAL CAUSE OF THIS INJURY/ILLNESS? YES ARE THE PATIENT'S COMPLAINTS CONSISTENT WITH HIS/HER HISTORY OF THE INJURY/ILLNESS? YES IS THE PATIENT'S HISTORY OF THE INJURY/ILLNESS CONSISTENT WITH YOUR OBJECTIVE FINDING? YES WHAT IS THE PERCENTAGE OF TEMPORARY IMPAIRMENT? MODERATE TO MARKED = 66.7% IS THE PATIENT WORKING? NO DOCTOR ON SITE: EVA DEGROOT MD PROCEDURE CODES FA211 ESTABILISHED PATIENT [facility] FACILITY CHARGE [address] OFFICE/OUTPATIENT VISIT EST DISPOSITION & COMMUNICATION FOLLOW UP REQUEST AUTH FOR LUMBAR EPIDURAL STEROID INJECTION (REASON: REQUEST AUTH FOR LUMBAR EPIDURAL STEROID INJECTION ) ELECTRONICALLY SIGNED BY EVA BROWN MD, MD ON 05/17/2021 AT 02:11 PM EDT DISCLAIMER : THIS IS A VISIT SUMMARY EXTRACTED FROM THE [employer] CHART. IT IS NOT A COPY OF THE [employer] PROGRESS NOTE. MTDD
== END ==
LOC: M PAIN 12:30
PROVIDERS: ATTEND Anesthesiology
DX: M51.17 Intervertebral disc disorders with radiculopathy, lumbosacral region (principal); K21.9 Gastro-esophageal reflux disease without esophagitis; I10 Essential (primary) hypertension; M79.7 Fibromyalgia; N40.0 Benign prostatic hyperplasia without lower urinary tract symptoms; N52.9 Male erectile dysfunction, unspecified; G56.03 Carpal tunnel syndrome, bilateral upper limbs; Z79.899 Other long term (current) drug therapy; Z88.2 Allergy status to sulfonamides; Z88.6 Allergy status to analgesic agent; Z88.5 Allergy status to narcotic agent; Z88.8 Allergy status to other drugs, medicaments and biological substances

== ENCOUNTER → 2021-06-15 | Outpatient (CLI) | payer OTHER | LOC: M LABSMTC 10:00 | PROVIDERS: ATTEND Anesthesiology | DX: Z11.52 Encounter for screening for COVID-19 (principal) ==

== ENCOUNTER → 2021-06-20 | Outpatient (CLI) | payer OTHER ==
[~2021-06-20] MED LIST changes: +ISOVUE-M 300 61% 15ML VIAL As Ordered ONE; +LIDOCAINE 1% SDV 30ML VIAL As Ordered ONE; +NORCO, ANEXSIA 5/325MG TABLET (HYDROcodone/ACETAMINOPHEN) As Ordered ONE; +diazePAM 5MG TABLET As Ordered ONE; +diphenhydrAMINE 25MG CAP As Ordered ONE; +methylPREDNISolone SUSP 40MG/ML 1ML VIAL (DEPO MEDROL) As Ordered ONE
--- NOTE | 2021-06-20 12:01 | REP ---
INDICATION: LESI. COMPARISON: None. TECHNIQUE: Two views. 27.0 seconds of fluoroscopy time is reported. FINDINGS: A sequence of 2 last image hold fluoroscopically obtained spot radiograph(s) of the lumbar spine document(s) needle position(s) and contrast injection associated with injection procedure. IMPRESSION: Procedural imaging. <Electronically signed by Kevin Anguiano > 06/20/21 1557
--- NOTE | 2021-06-25 03:15 | ECWPNPC ---
PATIENT NAME: BRANDY LINDQUIST : 1955 GENDER: MALE VISIT DATE: 06/20/2021 DISCHARGE DATE: 06/20/21 1459 VISIT LOCKED DATE TIME: PHYSICIAN: EVA BROWN MD RESOURCE: EVA BROWN MD REASON FOR APPOINTMENT 1. LUMBAR EPIDURAL STEROID INJECTION HISTORY OF PRESENT ILLNESS GENERAL: -. FALL RISK SCREENING: SCREENING : NO FALLS REPORTED IN THE LAST YEAR. PAIN SCREENING: PATIENT HAS A COMPLAINT OF ACUTE OR CHRONIC PAIN :YES LOCATION OF PAIN:MID BACK, LOW BACK INTENSITY OF PAIN (SCALE OF 1 TO 10):6 WHAT DOES YOUR PAIN FEEL LIKE:STABBING "FEELS SWOLLEN ", GOES DOWN LEFT LEG DURATION:CONTINOUS, RHYTHMIC, PERIODIC PAIN IS INCREASED BY:ACTIVITIES PAIN IS DECREASED BY:OTHERS "NOTHING SEEMS TO BE HELPING" NURSING NOTE: -. PAIN CENTER INTAKE QUESTIONS: DO YOU HAVE A HISTORY OF MRSA? :NO DO YOU TAKE A BLOOD THINNERS? :NO DO YOU HAVE ANY BLEEDING DISORDERS? :NO ANY NEW NUMBNESS OR WEAKNESS IN YOUR LEGS OR ARMS? :YES LEFT LEG WEAKNESS ANY PACEMAKER,DEFIBRILLATOR, OR DORSAL COLUMN STIMULATOR? :NO DO YOU HAVE ANY RASHES OR OPEN SORES? :NO ARE YOU ALLERGIC TO IV DYE? :NO ARE YOU DIABETIC? :NO ANY NEW PROBLEMS WITH YOUR MEDICATIONS? :NO HAVE YOU RECEIVED A VACCINE IN THE PAST 30 DAYS? :NO DO YOU PLAN TO RECEIVE A VACCINE IN THE NEXT 21 DAYS? :NO DO YOU TAKE ANY IMMUNOSUPPRESSIVE MEDICATIONS? :NO ANY HISTORY OF SEIZURES? :NO ANY HISTORY OF CARDIAC ISSUES OR EVENTS? :NO DO YOU HAVE ANY KIDNEY OR LIVER DISEASE? :NO DO YOU HAVE SLEEP APNEA? :NO ANY RECENT HEAD INJURY? :NO DO YOU HAVE ANY NEW INFECTIONS? :NO IS THERE A CHANCE YOU COULD BE ? :NO ARE YOU BREAST FEEDING? :NO WHEN DID YOU LAST EAT? : 06/19/21 1900 WHEN DID YOU LAST DRINK? : 0730 WHAT DID YOU LAST DRINK? : WATER NAME OF PERSON DRIVING YOU HOME? : ASHVIN- DO YOU HAVE ANY OTHER QUESTIONS OR CONCERNS? : NO CURRENT MEDICATIONS TAKING ACETAMINOPHEN-CODEINE #4 300-60 MG TABLET 1 TABLET NEEDED ORALLY BID, NOTES: OVER TWO WEEKS TAKING VIAGRA 100 MG TABLET 1 TABLET NEEDED ORALLY ONCE A DAY, NOTES: NONE RECENTLY TAKING SUCRALFATE 1 GM TABLET 1 TABLET ON AN EMPTY STOMACH ORALLY FOUR TIMES DAILY DAILY TAKING OMEPRAZOLE 40 MG CAPSULE DELAYED RELEASE 1 CAP ORALLY TWICE DAILY TAKING LISINOPRIL 20 MG TABLET 1 TABLET ORALLY ONCE A DAY, NOTES: 06/19/21 2200 TAKING CYCLOBENZAPRINE HCL 5 MG TABLET 1 TABLET ORALLY NEEDED FOR SPASMS AND PAIN DAILY MAY REPEAT IN 5 HRS MDD2, NOTES: NONE RECENTLY TAKING VITAMIN D-3 1000 UNIT CAPSULE 2 CAPSULE ORALLY ONCE A DAY TAKING TYLENOL EXTRA STRENGTH 500 MG TABLET 1 TABLET NEEDED ORALLY EVERY 6 HRS TAKING TYLENOL 8 HOUR ARTHRITIS PAIN 650 MG TABLET EXTENDED RELEASE 2 TABLETS NEEDED ORALLY EVERY 8 HRS TAKING BASILIA 1 CAP ORALLY ONCE DAILY NEEDED TAKING FLONASE 1 SPRAY IN EACH NOSTRIL DAILY TAKING MULTIVITAL NOT-TAKING MUCINEX 600 MG TABLET EXTENDED RELEASE 12 HOUR 1 TABLET NEEDED ORALLY EVERY 12 HRS NOT-TAKING SOMA 350 MG TABLET 1 TABLET NEEDED ORALLY AT BEDTIME NOT-TAKING CLINDAMYCIN HCL 150 MG CAPSULE 1 CAP ORALLY QID NOT-TAKING CEFDINIR 300 MG CAPSULE 1 CAP ORALLY BID NOT-TAKING OXYBUTYNIN CHLORIDE 5 MG TABLET 1 TAB(S) ORALLY EVERY 8 HOURS NEEDED FOR BLADDER SPASMS NOT-TAKING CIPROFLOXACIN HCL 500 MG TABLET 1 TABLET ORALLY EVERY 12 HRS NOT-TAKING PROBIOTIC - CAPSULE DIRECTED ORALLY NOT-TAKING KEFLEX 500 MG CAPSULE 1 CAPSULE 1 HOUR PRIOR TO YOUR CYSTOSCOPY ORALLY ONCE NOT-TAKING MULTIVITAMIN ADULT - TABLET ORALLY ONCE DAILY NOT-TAKING KEFLEX 500 MG CAPSULE 1 CAPSULE ORALLY TO START ONE HOUR BEFORE REZUM PROCEDURE EVERY 12 HRS NOT-TAKING CIPROFLOXACIN HCL 500 MG TABLET 1 TABLET 1 HOUR PRIOR TO YOUR CYSTOSCOPY ORALLY ONCE NOT-TAKING CIPRO 500 MG TABLET 1 TABLET ORALLY TWICE A DAY NOT-TAKING MYRBETRIQ 50 MG TABLET 1 TABLET ORALLY ONCE A DAY, NOTES: HAS NOT STARTED NOT-TAKING TYLENOL 325 MG CAPSULE 2 CAPSULES NEEDED ORALLY EVERY 6 HRS, NOTES: 11/12/17 1200 NOT-TAKING PREDNISONE 20 MG TABLET 1 TABLET ORALLY TAKE 1 TAB TWICE A DAY WITH FOOD X 3 DAYS ATHEN 1/2 TAB TWICE A DAY X 3 DAYS, NOTES: FINISHED 07/09/17 NOT-TAKING DICLOFENAC SODIUM 1 % GEL DIRECTED TRANSDERMAL APPLY 4 GRAMS TO LOW BACK Q 6 HRS NOT-TAKING GABAPENTIN 100 MG CAPSULE DIRECTED ORALLY TID FOR PAIN MDD3 NOT-TAKING VALIUM 5 MG TABLET 1 TABLET ORALLY TAKE 2 TABS ON ARRIVAL TO CLINIC FOR PROCEDURE MDD=2, NOTES: 10/12/16 1002 NOT-TAKING ACETAMINOPHEN EXTRA STRENGTH 500 MG TABLET 2 TABLET NEEDED ORALLY EVERY 6 HRS NEEDED, NOTES: 10/02/19 0800 NOT-TAKING VALIUM 5 MG TABLET 1 TABLET ORALLY TAKE ON ARRIVAL TO CLINIC FOR PROCEDURE MDD=1, NOTES: DUPLICATE MEDICATION LIST REVIEWED AND RECONCILED WITH THE PATIENT PAST MEDICAL HISTORY GERD HYPERTENSION LOW BACK PAIN AFTER INJURY STRESS TEST CLEARED WITH DR OSBORNE FIBROMYLAGIA BPH ED CARPAL TUNNEL BILATERALLY ALLERGIES ASPIRIN: FACE SWELLING - ALLERGY SULFA (FOR ALLERGY USE ONLY): NAUSEA/VOMITING - SIDE EFFECTS PLASTIC TAPE: RASH - SIDE EFFECTS LYRICA: DEPRESSION, ANXIETY - SIDE EFFECTS GABAPENTIN: MENTAL STATUS - SIDE EFFECTS OXYBUTYNIN: DIARRHEA/ SEVERE STOMACH UPSET - SIDE EFFECTS DARIFENACIN HYDROBROMIDE: HEADACHE / STOMACH UPSET - SIDE EFFECTS MYRBETRIQ: SEVERE HEARTBURN / HEADACHE - SIDE EFFECTS CIPRO: HEADACHE/DIZZY - SIDE EFFECTS OXYCODONE HCL: ITCHING - SIDE EFFECTS HYDROCODONE: ITCHING - SIDE EFFECTS SOCIAL HISTORY GENERAL: TOBACCO USE ARE YOU A: NONSMOKER. LATEX QUESTIONNAIRE LATEX ALLERGY : HAVE YOU EVER DEVELOPED ANY TYPE OF REACTION AFTER HANDLING LATEX PRODUCTS SUCH RUBBER GLOVES, CONDOMS, DIAPHRAGMS, BALLOONS, SOCKS, OR UNDERWEAR?NO LATEX ALLERGY : HAVE YOU EVER DEVELOPED ANY TYPE OF REACTION DURING OR AFTER DENTAL APPOINTMENT, VAGINAL/RECTAL EXAMINATION, SURGICAL PROCEDURE, OR ANY OTHER EXPOSURE?NO LATEX RISK : HAVE YOU EVER HAD ANY DIFFICULTY BREATHING OR HIVES AFTER EATING OR HANDLING ANY FRUITS, OR VEGETABLES; SUCH KIWI, BANANAS, STONE FRUITS, OR CHESTNUTSNO LATEX RISK : DO YOU HAVE A PREVIOUS PERSONAL HISTORY OF MORE THAN NINE SURGERIES, SPINA BIFIDA, OR REPEATED CATHERIZATIONS? NO LATEX RISK : ARE YOU FREQUENTLY EXPOSED TO LATEX PRODUCTS IN YOUR OCCUPATION?NO DATE ASKED : 05/13/2021 ALCOHOL USE: YES,ONCE IN A WHILE. ALCOHOL SCREENING DID YOU HAVE A DRINK CONTAINING ALCOHOL IN THE PAST YEAR?YES HOW OFTEN DID YOU HAVE A DRINK CONTAINING ALCOHOL IN THE PAST YEAR?TWO TO FOUR TIMES A MONTH (2 POINTS) HOW MANY DRINKS DID YOU HAVE ON A TYPICAL DAY WHEN YOU WERE DRINKING IN THE PAST YEAR?3 OR 4 (1 POINT) HOW OFTEN DID YOU HAVE SIX OR MORE DRINKS ON ONE OCCASION IN THE PAST YEAR?LESS THAN MONTHLY (1 POINT) POINTS4 INTERPRETATIONPOSITIVE RECREATIONAL DRUG USE DRUG USE?NO CAFFEINE CAFFEINE USE?YES COFFEE = 2-3 PER DAY TRIES TO DRINK DECAF SEXUAL HX HAD SEX IN THE LAST 12 MONTHS (VAGINAL, ORAL, OR ANAL)?YES WITHWOMEN ONLY USE PROTECTION?NO HAVE YOU EVER HAD AN STD?NO ISLAM [id number] DENOMINATIONAL NO EPISCOPAL BELIEFS THAT WOULD IMPACT HEALTH CARE. LANGUAGE LANGUAGES SPOKEN:UPPER SORBIAN LEARNING BARRIERS / SPECIAL NEEDS CHANGE FROM LAST VISIT?NO BARRIERS TO LEARNING?NO HEARING IMPAIRED?NO VISION IMPAIRED?YES :CORRECTIVE LENSES COGNITIVELY IMPAIRED?NO READINESS TO LEARN?YES LEARNING PREFERENCES?NO LEARNING CAPABILITIES PRESENT?YES EMOTIONAL BARRIERS?NO SPECIAL DEVICES?NO RADIO STATION AUDIO ENGINEER NEEDED?NO DOMESTIC VIOLENCE DO YOU FEEL SAFE IN YOUR ENVIRONMENT?YES DIET: REGULAR. EXERCISE: NO REGULAR EXERCISE. MARITAL STATUS: . - PFS REFERRAL NEEDED?NO CLERGY REFERRAL NEEDED?NO PUBLIC HEALTH REFERRAL NEEDED?NO HAS THE PATIENT BEEN EDUCATED REGARDING HIS/HER PLAN OF CARE?YES HAS THE PATIENT BEEN EDUCATED REGARDING PAIN, THE RISK FOR PAIN, THE IMPORTANCE OF EFFECTIVE PAIN MANAGEMENT, AND THE PAIN ASSESSMENT PROCESS?YES ADVANCE DIRECTIVE ADVANCE DIRECTIVE DISCUSSED WITH PATIENT:YES ASHVIN LINDQUIST IS HIS HCP VITAL SIGNS WT 206.4 LBS, WT-KG 93.62 KG, HT 69 IN, BMI 30.48 INDEX, BP 158/96 MM HG, HR 81 /MIN, RR 18 /MIN, TEMP 98.0 F, OXYGEN SAT % 98%, SAFE IN ENV? (Y/N) YES, NA INITIALS AW 0925, REVIEWED BY: APA. MARTÍNEZ RN. EXAMINATION GENERAL: THE PATIENT IS ALERT, ORIENTED TIMES THREE AND COOPERATIVE. LUNGS ARE CLEAR TO AUSCULTATION. HEART SHOWS REGULAR RHYTHM, NO MURMURS AND NO GALLOPS. ASSESSMENTS INTERVERTEBRAL DISC DISORDERS WITH RADICULOPATHY, LUMBAR REGION - M51.16 (PRIMARY) TREATMENT INTERVERTEBRAL DISC DISORDERS WITH RADICULOPATHY, LUMBAR REGION START HYDROCODONE-ACETAMINOPHEN TABLET, 5-325 MG, 1 TABLET NEEDED, ORALLY, EVERY 8 HRS PRN FOR PAIN MDD3, 3 DAYS, 9, REFILLS 0 [facility] FLUORO GUIDE SPINE INJECTION (PAIN)[id number] MEDICATION: PAIN VALIUM TAB 10MG ORALLY (DIAZEPAM)[id number],NICOLE 06/20/2021 9:58:35 AM > VERIFIED ANDRES SOLIZ 06/20/2021 10:00:42 AM > ADMINISTERED IV LACTATED RINGER'S WIDE [id number],CORTEZ 06/20/2021 11:01:01 AM > GIVE 1000 ML ANDRES SOLIZ R 06/20/2021 11:14:28 AM > 20G INSERTED INTO LEFT FOREARM ON 1ST ATTEMPT, FLUSHING WELL, BLOOD RETURN PRESENT. CHINEDU ORR 06/20/2021 12:05:49 PM > SECOND ORDER RECEIVED AND VERIFIED BY DR. BROWN, ADMINISTER A TOTAL OF 1500CCS OF LR. KRUPA ACOSTA 06/20/2021 3:19:49 PM > 1405 1500 CC TOTAL OF LR INFUSED WITHOUT DIFFICULTY COMPLETION OF PROCEDURAL VISIT WHEN MEETS [id number],NICOLE 06/20/2021 3:18:45 PM > 1500 CRITERIA MET MED: PAIN BENADRYL TAB 25MG ORALLY [id number],NICOLE 06/20/2021 9:58:48 AM > VERIFIED MARTÍNEZANDRES R 06/20/2021 10:00:58 AM > ADMINISTERED MED: PAIN NORCO TABLET 5MG/325MG ORALLY HYDROCODONE/[id number],ANITA 06/20/2021 11:07:51 AM > VERIFIED KRUPA ACOSTA 06/20/2021 11:09:28 AM > ADMINISTERED CHINEDU ORR 06/20/2021 12:06:52 PM > SECOND ORDER RECEIVED AND VERIFIED BY DR. BROWN, ADMINISTER ADDITIONAL DOSE OF NORCO 5/325MG MARTÍNEZANDRES R 06/20/2021 12:07:50 PM > VERIFIED 2ND DOSE KRUPA ACOSTA 06/20/2021 12:11:38 PM > 2ND DOSE ADMINISTERED CLINICAL NOTES: ISTOP NUMBER [id number] CHECKED. POSSIBLE POSTSPINAL HEADACHE TREATED. PROCEDURES PAIN NURSING RECORD PROCEDURE IN ROOM 1016, PHYSICIAN IN ROOM 1026, START 1029, FINISH 1043, PHYSICIAN OUT OF ROOM 1046, OUT OF ROOM 1054, ECG NORMAL SINUS, PATIENT SHIELDED YES, SAFETY STRAP YES, PREP BETADINE Yeni DE LA FUENTE RN, DRESSING TEGADERM DR. BROWN LOC: MARTÍNEZANDRES R 06/20/2021 10:29:46 AM > , 1. ALERT, ORIENTED RESP: PETRAS,ANDRES R 06/20/2021 10:29:48 AM > , 1. REGULAR, NO DYSPNEA COLOR: PETRAS,ANDRES R 06/20/2021 10:29:51 AM > , 1. PINK SKIN: PETRAS,ANDRES R 06/20/2021 10:29:53 AM > , 1. WARM, DRY POSITION: PETRAS,ANDRES R 06/20/2021 10:29:56 AM > , 1. PRONE VITALS: 06/20/2021 1015 AM 138/87-62-96% Dora DE LA FUENTE RN PETRAS,ANDRES R 06/20/2021 10:20:32 AM > 138/90, 62, 18, 96% PETRAS,ANDRES R 06/20/2021 10:23:56 AM > 143/96, 72, 18, 96% PETRAS,ANDRES R 06/20/2021 10:36:42 AM >131/87, 70, 18, 95% PETRAS,ANDRES R 06/20/2021 10:46:38 AM > 137/94, 78, 18, 97% , PETRAS,ANDRES R 06/20/2021 10:59:16 AM > 142/94, 65., 18, 95% , PETRAS,ANDRES R 06/20/2021 11:05:40 AM > 139/75, 58, 18, 94% , PETRAS,ANDRES R 06/20/2021 11:14:14 AM > 142/77, 58, 93% , PETRAS,ANDRES R 06/20/2021 11:21:13 AM > 150/90, 58, 18, 98% , PETRAS,ANDRES R 06/20/2021 11:25:11 AM >142/74, 64, 18, 96% , PETRAS,ANDRES R 06/20/2021 11:31:46 AM > 137/72, 55, 18, 96% , PETRAS,ANDRES R 06/20/2021 11:36:15 AM > 149/79/ 61, 18, 97% , PETRAS,ANDRES R 06/20/2021 11:41:19 AM > 151/82, 60, 18, 97% 06/20/2021 1200 149/70-60-18-97% N TORSTEN DE LA FUENTE LOUISE 06/20/2021 12:22:59 PM > HR 97 02 70% BP 138/86 06/20/2021 1230 137/80-75-18-94% N TORSTEN DE LA FUENTE 06/20/2021 1245 141/77-68-18-99% N TORSTEN SINHA 06/20/2021 1300 132/70-61-18-95% N TORSTEN DE LA FUENTE 06/20/2021 1315 136/82-61-18-97% N TORSTEN DE LAF UENTE 06/20/2021 1330 135/66-69-18-93% N TORSTEN DE LA FUENTE LOUISE 06/20/2021 1:51:22 PM > HR 72 02 98% BP 145/70 06/20/2021 1500 142/76-61-18-97% N TORSTEN DE LA FUENTE NOTES PATIENT REPORTING 10/10 HEADACHE IMMEDIATLEY POST PROCEDURE. REPORTING THIS PAIN IN RASTAFARIAN AND BASE OF SKULL AREA. DR. BROWN MADE AWARE AND WOULD LIKE TO R/O POST SPINAL HEADACHE. ORDERS OBTAINED FOR IV AND 1000CC LR WELL HYDROCODONE. PATIENT REPORTS REACTION OF ITCHING WITH HYDROCODONE, DR BROWN OKAY WITH ADMINISTERING HYDROCODONE WITH THIS REACTION. VITALS BEING MONITORED Q5 MIN. - ANDRES MORENO RN 06/20/2021 11:45:15 AM > , REPORT GIVEN TO , Yeni DE LA FUENTE RN AT THIS TIME TO ASSUME PATIENT CARE KRUPA ACOSTA 06/20/2021 12:38:30 PM > PATIENT RESTING ON STRETCHER. STATES HEDACHE IS BETTER AFTER 2ND DOSE OF NORCO. TOLERATING PO FLUIDS AND CRACKERS WITHOUT C/O. LR CONTINUES TO INFUSE WITHOUT DIFFICULTY. VITALS BEING MONITORED EVERY 15 MINUTES. PATIENT VOIDED 200 CC CLEAR YELLOW URINE. CALL MARIN IN REACH. PATIENT ENCOURAGED TO CALL WITH NEEDS. PATIENT STATES HIS IS AWARE OF POST PROCEDURE ISSUES. KRUPA ACOSTA 06/20/2021 1:38:47 PM > PATIENT CONTINUES TO REST ON STRETCHER. STATES HE STILL HAS A HEADACHE, BUT STATES IT IS DULL AND FEELS BETTER. LR INFUSING WITHOUT DIFFUCULTY. PATIENT HAS VOIDED 500 ADDITIONAL CC OF CLEAR YELLOW URINE. PATIENT STATES HE HAS BEEN IN CONTACT WITH HIS TO UPDATE ON HIS CONDITION. PATIENT ENCOURAGED TO CALL WITH NEEDS. CALL MARIN WITHIN REACH. KRUPA ACOSTA 06/20/2021 1:57:13 PM > AT BEDSIDE. THIS INFORMATION ASSOC UPDATED PATIENT'S OF PATIENT'S CONDITION. STATUS UNCHANED OTHERWISE. KRUPA ACOSTA 06/20/2021 2:05:18 PM > 1500 CC TOTAL OF LR INFUSED WITHOUT DIFFICULTY. PATIENT ASSISTED WITH SITTIJNG ON EDGE OF STRETCHER AND THEN STANDING. PATIENT DENIES NAUSEA, VERTIGO, NUMBNESS/TINGLING IN BLE. GAIT STAEDY AT THIS TIME. HARSHIL ACOSTALE 06/20/2021 1430- PATIENT DRESSED AND ASSSITED WITH AMBULATING TO ROOM 4 WITH PRESENT. PATIENT'S GAIT STEADY. DENIES BLE NUMBNESS, TINGLING. RATES LOWER BACK PAIN 7/10 AT THIS TIME. STATES HEADACHE IS IMPROVING. Dora ACOSTA RN 06/20/[address] BROWN IN TO SEE PATIENT. POST PROCEDURE INSTRUCTIONS REVIEWED WITH PATIENT AND . BOTH VERBALIZE UNDERTSANDING OF POST PROCEDURE INSTRUCTIONS. SL DISCONTINUED, SITE LEFT FA ASYMPTOMATIC, CATHETER INTACT. PATIENT TOLERATED WELL. PATIENT'S PROCEDURE APPOINTMENT COMPLETED AND PATIENT AMBULATED TO WAITING ROOM WITH WITH STEADY GAIT. COMPLETION OF PROCEDURE APPOINTMENT: POST PAIN 7, DRESSING SITE DRY AND INTACT LOW BACK, IV DISCONTINUED, SITE CLEAR, CATHETER INTACT, GAIT STEADY, TEACHING COMPLETED, PATIENT ACKNOWLEDGES UNDERSTANDING YES PATIENT AND VERBALIZE UNDERSTANDING OF POST PROCEDURE INSTRUCTIONS REVIEWED, PROCEDURE APPOINTMENT COMPLETED AT 1500 BY: Yeni DE LA FUENTE RN PN WORKMANS' COMP OPINION IN YOUR OPINION, WAS THE INCIDENT THAT THE PATIENT DESCRIBED THE COMPETENT MEDICAL CAUSE OF THIS INJURY/ILLNESS? YES ARE THE PATIENT'S COMPLAINTS CONSISTENT WITH HIS/HER HISTORY OF THE INJURY/ILLNESS? YES IS THE PATIENT'S HISTORY OF THE INJURY/ILLNESS CONSISTENT WITH YOUR OBJECTIVE FINDING? YES WHAT IS THE PERCENTAGE OF TEMPORARY IMPAIRMENT? MODERATE TO MARKED = 66.7% IS THE PATIENT WORKING? NO DOCTOR ON SITE: EVA DEGROOT MD PRE PROCEDURE DIAGNOSIS LUMBAR DISC DISORDER WITH RADICULOPATHY POST PROCEDURE DIAGNOSIS LUMBAR DISC DISORDER WITH RADICULOPATHY PROCEDURE LUMBAR EPIDURAL STEROID INJECTION UNDER FLUOROSCOPIC GUIDANCE SURGEON DR. EVA BROWN BUSHING PRESS OPERATOR NONE ANESTHESIA LOCAL PRE PROCEDURE NOTE THE PATIENT HAS A HISTORY OF CHRONIC LOW BACK PAIN. I EVALUATED THE PATIENT AND REVIEWED THE CHART. I WENT OVER THE RISKS, ALTERNATIVES, AND BENEFITS ASSOCIATED WITH THIS PROCEDURE. THE PATIENT WOULD LIKE TO PROCEED AND GIVE CONSENT TO PERFORMED THE PROCEDURE. THE PATIENT DENIES UNEXPLAINABLE WEIGHT LOSS, FEVER, CHILLS, OR NEW CHANGES IN URINARY OR BOWEL CONTROL. THE PATIENT IS COVID-19 NEGATIVE DESCRIPTION OF PROCEDURE THE PATIENT WAS BROUGHT TO THE PROCEDURE ROOM AND PLACED IN THE PRONE POSITION. THE LUMBOSACRAL AREA WAS CLEANED WITH BETADINE SOLUTION AND DRAPED ASEPTICALLY. THE PROCEDURE WAS DONE UNDER STERILE CONDITIONS. A TIMEOUT WAS PERFORMED WHERE THE CONSENTED SITE WAS VERIFIED WITH EVERYONE IN THE ROOM. UNDER FLUOROSCOPIC GUIDANCE, THE TARGET POINT WAS SELECTED AT THE INTERLAMINAR LEVEL OF L5-S1. I CONFIRMED AGAIN THE SITE OF TARGET. LIDOCAINE WAS USED TO NUMB THE SKIN AND THE SUBCUTANEOUS TISSUE BELOW IT. EPIDURAL TUOHY NEEDLE, 17-GAUGE, WAS ADVANCED UNDER FLUOROSCOPIC GUIDANCE AND FOLLOWING PATIENT FEEDBACK UNTIL THE EPIDURAL SPACE WAS REACHED 7 CM DEEP INTO THE SKIN BY THE LOSS OF RESISTANCE TECHNIQUE. ISOVUE-M DYE 30%, 0.25 ML, WAS INJECTED SHOWING ADEQUATE SPREAD OF THE DYE. THEN, A SOLUTION OF 3 ML OF NORMAL SALINE WITH DEPO-MEDROL 40 MG WAS INJECTED SLOWLY FOLLOWING PATIENT FEEDBACK. THE MEDICATIONS WERE VERIFIED WITH THE NURSE. THERE WAS NO EVIDENCE OF BLOOD, PARESTHESIA OR CEREBROSPINAL FLUID DURING THE PROCEDURE. THE PATIENT WAS SENT TO THE RECOVERY ROOM. THE PATIENT WAS MOVING THE EXTREMITIES AND DOING WELL. THERE WERE NO COMPLICATIONS DURING THE PROCEDURE. ESTIMATED BLOOD LOSS WAS LESS THAN 5 ML. FLUOROSCOPY TIME WAS 26 SECONDS POST PROCEDURE NOTE AT L5-S1, I WAS HITTING SOME CALCIUM DEPOSIT. DEPENDING ON THE RESULTS, CONSIDER A LEFT L4-L5, L5-S1 TRANSFORAMINAL EPIDURAL TO AVOID THE CALCIFICATION. THE PATIENT DEVELOPED A HEADACHE AFTER THE PROCEDURE. I GAVE HIM FLUIDS AND HYDROCODONE. THE PATIENT WAS RELEASED TO GO HOME WITHOUT ANY MAJOR EVENTS. I GAVE HIM A PERSCRIPTION OF HYDROCODONE PRN AND WE WILL FOLLOW UP WITH HIM EVERY DAY TO SEE HOW HE IS DOING. I BELIEVE HE HAS A POST SPINAL HEADACHE. I WILL NOT INJECTION HIM AT L5-S12 THROUGH THE INTERLAMINAR ROUTE AGAIN. THE PATIENT WILL BE SEEN IN A FOLLOW UP IN THE NEXT FEW WEEKS. I AM LOOKING FOR LONG LASTING RELIEF FOR THE PATIENT WITH THIS INTERVENTION. INSTRUCTIONS WERE GIVEN, QUESTIONS WERE ANSWERED, AND THE PATIENT EXPRESSED UNDERSTANDING AND AGREES WITH THE PLAN. I, CORTEZ MCKINNON, DOCUMENTED THE ABOVE INFORMATION ACTING A SCRIBE FOR DR. BROWN. I HAVE REVIEWED THE ABOVE DOCUMENT, WRITTEN BY CORTEZ MCKINNON, X RAY INSPECTOR, AND I VERIFY THAT IT IS ACCURATE VISIT CODES PROCEDURE CODES 43531 LUMBAR/SACRAL W/ IMAGING DISPOSITION & COMMUNICATION FOLLOW UP FOLLOW UP WITH ENVIRONMENTAL HEALTH SPECIALIST (REASON: POST LUMBAR EPIDURAL STEROID INJECTION) ELECTRONICALLY SIGNED BY EVA BROWN MD, MD ON 06/24/2021 AT 01:41 PM EDT DISCLAIMER : THIS IS A VISIT SUMMARY EXTRACTED FROM THE [email or web address] CHART. IT IS NOT A COPY OF THE [email or web address] PROGRESS NOTE. MTDD
== END ==
LOC: M PAIN 09:20
PROVIDERS: ATTEND Anesthesiology
DX: M51.16 Intervertebral disc disorders with radiculopathy, lumbar region (principal); K21.9 Gastro-esophageal reflux disease without esophagitis; M79.7 Fibromyalgia; Z88.1 Allergy status to other antibiotic agents; Z88.2 Allergy status to sulfonamides; Z88.5 Allergy status to narcotic agent; Z88.6 Allergy status to analgesic agent; Z88.8 Allergy status to other drugs, medicaments and biological substances; Z91.09 Other allergy status, other than to drugs and biological substances; Z79.899 Other long term (current) drug therapy
CPT/HCPCS: 62323; J1030; Q9967

== ENCOUNTER → 2021-07-20 | Outpatient (REF) | payer MEDICARE, OTHER ==
[~2021-07-20] MED LIST changes: -ISOVUE-M 300 61% 15ML VIAL As Ordered ONE; -LIDOCAINE 1% SDV 30ML VIAL As Ordered ONE; -NORCO, ANEXSIA 5/325MG TABLET (HYDROcodone/ACETAMINOPHEN) As Ordered ONE; -diazePAM 5MG TABLET As Ordered ONE; -diphenhydrAMINE 25MG CAP As Ordered ONE; -methylPREDNISolone SUSP 40MG/ML 1ML VIAL (DEPO MEDROL) As Ordered ONE
[2021-07-20 18:10] LABS: APPEARANCE, URINE CLEAR (CLEAR); BACTERIA, URINE AUTO NEGATIVE (NEGATIVE); BILIRUBIN, URINE AUTO NEGATIVE (NEGATIVE); BLOOD, URINE BLOOD NEGATIVE (NEGATIVE); COLOR, URINE YELLOW (YELLOW); GLUCOSE, URINE (UA) AUTO NEGATIVE (NEGATIVE); KETONE, URINE AUTO NEGATIVE (NEGATIVE); LEUKOCYTE ESTERASE, URINE AUTO NEGATIVE (NEGATIVE); NITRITE, URINE AUTO NEGATIVE (NEGATIVE); PROTEIN, URINE AUTO NEGATIVE (NEGATIVE); RBC, URINE AUTO 0 /HPF (0-3); SPECIFIC GRAVITY URINE AUTO 1.014 (1.002-1.035); SQUAMOUS EPITHELIAL CELL UR AU 0 /HPF (0-6); UROBILINOGEN, URINE AUTO 0.2 mg/dL (0.0-2.0); WBC, URINE AUTO 0 /HPF (0-3)
== END ==
LOC: M SMT 16:53
PROVIDERS: ATTEND Urology
DX: R21 Rash and other nonspecific skin eruption (principal)
CPT/HCPCS: 81001; G0463

== ENCOUNTER → 2021-07-22 | Outpatient (CLI) | payer MEDICARE, OTHER ==
[2021-07-23 20:07] LABS: HSV IgM TYPES 1&2 <0.91 Ratio (0.00-0.90)
== END ==
LOC: M PLALAB 08:53
PROVIDERS: ATTEND Urology
DX: R21 Rash and other nonspecific skin eruption (principal)

== ENCOUNTER → 2021-08-12 | Outpatient (CLI) | payer OTHER, MEDICARE | LOC: M PAIN 13:00 | PROVIDERS: ATTEND Anesthesiology | DX: G89.29 Other chronic pain (principal); M51.16 Intervertebral disc disorders with radiculopathy, lumbar region; K21.9 Gastro-esophageal reflux disease without esophagitis; I10 Essential (primary) hypertension; M79.7 Fibromyalgia; N40.0 Benign prostatic hyperplasia without lower urinary tract symptoms; N52.9 Male erectile dysfunction, unspecified; G56.03 Carpal tunnel syndrome, bilateral upper limbs; Z79.899 Other long term (current) drug therapy; Z88.1 Allergy status to other antibiotic agents; Z88.2 Allergy status to sulfonamides; Z88.6 Allergy status to analgesic agent; Z88.5 Allergy status to narcotic agent; Z88.8 Allergy status to other drugs, medicaments and biological substances; Z91.048 Other nonmedicinal substance allergy status ==

== ENCOUNTER → 2021-08-29 | Outpatient (CLI) | payer MEDICARE ==
[2021-08-29 17:27] LABS: BLOOD UREA NITROGEN 22 MG/DL (7-18); CREATININE FOR GFR 0.79 MG/DL (0.70-1.30); GLOMERULAR FILTRATION RATE > 60.0 (>49)
== END ==
LOC: M LAB 16:08
PROVIDERS: ATTEND Orthopaedic Surgery
DX: M79.672 Pain in left foot (principal)

== ENCOUNTER → 2021-08-30 | Outpatient (CLI) | payer MEDICARE ==
[~2021-08-30] MED LIST changes: +PROHANCE 279.3MG/ML 15ML VIAL As Ordered ONE; +PROHANCE 279.3MG/ML 5ML VIAL As Ordered ONE
--- NOTE | 2021-08-31 08:58 | REP ---
INDICATION: EVAL FOR LESION LT SMALL TOE @ MTP JOINT. COMPARISON: None. TECHNIQUE: Pre and post contrast 3T MRI of the left foot 5th metatarsal phalangeal joint was performed utilizing various sequences. Gadolinium utilized: 19 cc of ProHance FINDINGS: There is no evidence of a mass or mass effect or abnormal enhancement involving any portion of the 5th digit of the left foot including the metatarsal-phalangeal joint. Seen only on the T2 weighted images and in all 3 planes there is a 5 mm sized focus of T2 hyper signal which is plantar to the flexor tendon of that digit. This is seen only on 1 coronal slice, 1 sagittal slice, and 2 axial slices. There is no abnormal enhancement of this region. The tendon itself is of normal appearing low signal and appears to be intact. There is no abnormal Lisha tendinous fluid. There is no evidence of swelling. All imaged flexor and extensor tendons are intact and of normal appearing low signal throughout. Mild degenerative changes are seen throughout the foot. There is no evidence of a joint effusion. IMPRESSION: There is a tiny extra osseous focus of T2 hyper signal in the soft tissues plantar to the 5th digit as described above. This is nonspecific. <Electronically signed by James Gutierrez > 08/31/21 [id number]
== END ==
LOC: M RAD 15:35
PROVIDERS: ATTEND Orthopaedic Surgery
DX: L98.9 Disorder of the skin and subcutaneous tissue, unspecified (principal); R93.6 Abnormal findings on diagnostic imaging of limbs
CPT/HCPCS: 73720; A9576

== ENCOUNTER → 2022-03-13 | Outpatient (CLI) | payer MEDICARE, BC, OTHER ==
[~2022-03-13] MED LIST changes: -D31000TA2 PO; +OMEP-173 PO; -OMEP-218 PO; -PROHANCE 279.3MG/ML 15ML VIAL As Ordered ONE; -PROHANCE 279.3MG/ML 5ML VIAL As Ordered ONE; +VITA100093 PO
== END ==
LOC: M WHC 08:56
PROVIDERS: ATTEND Surgery
DX: R10.11 Right upper quadrant pain (principal)

== ENCOUNTER → 2022-05-28 | Outpatient (CLI) | payer OTHER, MEDICARE, BC | LOC: M LABSMTC 09:02 | PROVIDERS: ATTEND Anesthesiology | DX: Z01.812 Encounter for preprocedural laboratory examination (principal) ==

== ENCOUNTER → 2022-05-30 | Outpatient (CLI) | payer OTHER, MEDICARE ==
[~2022-05-30] MED LIST changes: +BUPIVACAINE HCL 0.25% 30ML VIAL As Ordered ONE; +ISOVUE-M 300 61% 15ML VIAL As Ordered ONE; +LIDOCAINE 1% SDV 30ML VIAL As Ordered ONE; +NORCO, ANEXSIA 5/325MG TABLET (HYDROcodone/ACETAMINOPHEN) As Ordered ONE; +dexameTHASONE 10MG/1ML VIAL PRES.FREE (J1100 PER 1MG) As Ordered ONE; +diazePAM 5MG TABLET As Ordered ONE; +diphenhydrAMINE 25MG CAP As Ordered ONE
== END ==
LOC: M PAIN 13:30
PROVIDERS: ATTEND Anesthesiology
DX: M51.16 Intervertebral disc disorders with radiculopathy, lumbar region (principal); M51.17 Intervertebral disc disorders with radiculopathy, lumbosacral region; K21.9 Gastro-esophageal reflux disease without esophagitis; I10 Essential (primary) hypertension; M79.7 Fibromyalgia; N40.0 Benign prostatic hyperplasia without lower urinary tract symptoms; N52.9 Male erectile dysfunction, unspecified; G56.03 Carpal tunnel syndrome, bilateral upper limbs; Z79.891 Long term (current) use of opiate analgesic; Z79.899 Other long term (current) drug therapy; Z88.1 Allergy status to other antibiotic agents; Z88.2 Allergy status to sulfonamides; Z88.5 Allergy status to narcotic agent; Z88.8 Allergy status to other drugs, medicaments and biological substances; Z91.048 Other nonmedicinal substance allergy status; Z88.6 Allergy status to analgesic agent
CPT/HCPCS: 64483; 64484; J1100; Q9967

== ENCOUNTER → 2022-06-09 | Outpatient (CLI) | payer MEDICARE, OTHER ==
[~2022-06-09] MED LIST changes: -BUPIVACAINE HCL 0.25% 30ML VIAL As Ordered ONE; -ISOVUE-M 300 61% 15ML VIAL As Ordered ONE; -LIDOCAINE 1% SDV 30ML VIAL As Ordered ONE; -NORCO, ANEXSIA 5/325MG TABLET (HYDROcodone/ACETAMINOPHEN) As Ordered ONE; -dexameTHASONE 10MG/1ML VIAL PRES.FREE (J1100 PER 1MG) As Ordered ONE; -diazePAM 5MG TABLET As Ordered ONE; -diphenhydrAMINE 25MG CAP As Ordered ONE
[2022-06-09 12:12] LABS: BASO % 0.2 % (0.0-1.0); HEMATOCRIT 45.6 % (42.0-52.0); HEMOGLOBIN 15.3 g/dl (13.5-17.5); LYMPH # 1.5 10^3/uL (1.5-5.0); LYMPH % 7.6 % (24.0-44.0); MEAN CORPUSCULAR HEMOGLOBIN 29.5 pg (27.0-33.0); MEAN CORPUSCULAR HGB CONC 33.6 g/dl (32.0-36.5); MONO # 0.6 10^3/uL (0.0-0.8); MONO % 3.2 % (2.0-8.0); NEUTROPHILS # 17.4 10^3/uL (1.5-8.5); NEUTROPHILS % 88.3 % (36.0-66.0); PLATELET COUNT, AUTOMATED 315 10^3/uL (150-450); RED BLOOD COUNT 5.18 10^6/uL (4.30-6.10); WHITE BLOOD COUNT 19.6 10^3/uL (4.0-10.0)
[2022-06-09 12:38] LABS: C REACTIVE PROTEIN QUANTITATIV < 0.30 MG/DL (0.00-0.30); RHEUMATOID FACTOR QUANT < 10.0 IU/ML (<15.0); URIC ACID 5.3 MG/DL (3.5-7.2)
[2022-06-09 12:41] LABS: ERYTHROCYTE SEDIMENTATION RATE 5 mm/hr (0-20)
[2022-06-10 12:10] LABS: ANTINUCLEAR ANTIBODIES DIRECT Negative (Negative)
== END ==
LOC: M PLALAB 09:31
PROVIDERS: ATTEND Orthopaedic Surgery
DX: M25.562 Pain in left knee (principal); M79.662 Pain in left lower leg

== ENCOUNTER → 2022-06-16 | Outpatient (CLI) | payer MEDICARE, BC, OTHER ==
[2022-06-16 11:37] LABS: BASO % 0.4 % (0.0-1.0); EOS # 0.2 10^3/uL (0.0-0.5); EOS % 2.9 % (0.0-3.0); HEMATOCRIT 43.6 % (42.0-52.0); HEMOGLOBIN 14.6 g/dl (13.5-17.5); LYMPH # 3.1 10^3/uL (1.5-5.0); LYMPH % 40.5 % (24.0-44.0); MEAN CORPUSCULAR HEMOGLOBIN 30.2 pg (27.0-33.0); MEAN CORPUSCULAR HGB CONC 33.5 g/dl (32.0-36.5); MEAN CORPUSCULAR VOLUME 90.3 fl (80.0-96.0); MONO # 0.8 10^3/uL (0.0-0.8); MONO % 10.2 % (2.0-8.0); NEUTROPHILS # 3.5 10^3/uL (1.5-8.5); NEUTROPHILS % 45.7 % (36.0-66.0); PLATELET COUNT, AUTOMATED 272 10^3/uL (150-450); RED BLOOD COUNT 4.83 10^6/uL (4.30-6.10); WHITE BLOOD COUNT 7.6 10^3/uL (4.0-10.0)
== END ==
LOC: M PLALAB 08:34
PROVIDERS: ATTEND Orthopaedic Surgery
DX: D72.829 Elevated white blood cell count, unspecified (principal)

== ENCOUNTER → 2022-07-07 | Outpatient (CLI) | payer OTHER, MEDICARE | LOC: M PAIN 14:45 | PROVIDERS: ATTEND Anesthesiology | DX: M47.816 Spondylosis without myelopathy or radiculopathy, lumbar region (principal); G89.29 Other chronic pain; K21.9 Gastro-esophageal reflux disease without esophagitis; I10 Essential (primary) hypertension; M79.7 Fibromyalgia; Z88.1 Allergy status to other antibiotic agents; Z88.2 Allergy status to sulfonamides; Z88.5 Allergy status to narcotic agent; Z88.6 Allergy status to analgesic agent; Z88.8 Allergy status to other drugs, medicaments and biological substances; Z91.09 Other allergy status, other than to drugs and biological substances; Z79.899 Other long term (current) drug therapy ==

== ENCOUNTER → 2022-07-10 | Outpatient (CLI) | payer MEDICARE, BC, OTHER | LOC: M PLAIMG 07:55 | PROVIDERS: ATTEND Orthopaedic Surgery | DX: M89.8X6 Other specified disorders of bone, lower leg (principal); M17.12 Unilateral primary osteoarthritis, left knee ==

== ENCOUNTER → 2022-10-09 | Outpatient (CLI) | payer MEDICARE, BC, OTHER | LOC: M LABSMTC 09:17 | PROVIDERS: ATTEND Anesthesiology | DX: Z01.812 Encounter for preprocedural laboratory examination (principal); Z11.52 Encounter for screening for COVID-19 ==

== ENCOUNTER → 2022-10-12 | Outpatient (CLI) | payer OTHER, MEDICARE ==
[~2022-10-12] MED LIST changes: +BUPIVACAINE HCL 0.25% 30ML VIAL As Ordered ONE; +ISOVUE-M 300 61% 15ML VIAL As Ordered ONE; +LIDOCAINE 1% SDV 30ML VIAL As Ordered ONE
== END ==
LOC: M PAIN 08:15
PROVIDERS: ATTEND Anesthesiology
DX: M47.817 Spondylosis without myelopathy or radiculopathy, lumbosacral region (principal); G89.29 Other chronic pain; K21.9 Gastro-esophageal reflux disease without esophagitis; I10 Essential (primary) hypertension; M79.7 Fibromyalgia; Z88.1 Allergy status to other antibiotic agents; Z88.2 Allergy status to sulfonamides; Z88.5 Allergy status to narcotic agent; Z88.6 Allergy status to analgesic agent; Z88.8 Allergy status to other drugs, medicaments and biological substances; Z91.09 Other allergy status, other than to drugs and biological substances; Z79.899 Other long term (current) drug therapy

== ENCOUNTER → 2022-11-08 | Outpatient (CLI) | payer OTHER, MEDICARE ==
[~2022-11-08] MED LIST changes: -BUPIVACAINE HCL 0.25% 30ML VIAL As Ordered ONE; -ISOVUE-M 300 61% 15ML VIAL As Ordered ONE; -LIDOCAINE 1% SDV 30ML VIAL As Ordered ONE
== END ==
LOC: M TMPAIN 10:00 → M PAIN 10:00
PROVIDERS: ATTEND Anesthesiology
DX: G89.29 Other chronic pain (principal); M51.16 Intervertebral disc disorders with radiculopathy, lumbar region; M47.816 Spondylosis without myelopathy or radiculopathy, lumbar region; K21.9 Gastro-esophageal reflux disease without esophagitis; I10 Essential (primary) hypertension; M79.7 Fibromyalgia; Z88.1 Allergy status to other antibiotic agents; Z88.2 Allergy status to sulfonamides; Z88.5 Allergy status to narcotic agent; Z88.6 Allergy status to analgesic agent; Z88.8 Allergy status to other drugs, medicaments and biological substances; Z91.09 Other allergy status, other than to drugs and biological substances; Z79.899 Other long term (current) drug therapy

== ENCOUNTER → 2022-12-07 | Outpatient (CLI) | payer OTHER, MEDICARE, BC | LOC: M PLARAD 14:36 | PROVIDERS: ATTEND Anesthesiology | DX: M51.16 Intervertebral disc disorders with radiculopathy, lumbar region (principal) ==

== ENCOUNTER → 2023-01-18 | Outpatient (REF) | payer OTHER, MEDICARE, BC | LOC: M SFHCDERM 14:30 | PROVIDERS: ATTEND Dermatology | DX: L82.0 Inflamed seborrheic keratosis (principal) ==

== ENCOUNTER → 2023-01-24 | Outpatient (CLI) | payer MEDICARE, OTHER | LOC: M PAIN 09:30 | PROVIDERS: ATTEND Anesthesiology | DX: M51.16 Intervertebral disc disorders with radiculopathy, lumbar region (principal); G03.9 Meningitis, unspecified; K21.9 Gastro-esophageal reflux disease without esophagitis; I10 Essential (primary) hypertension; M79.7 Fibromyalgia; N40.0 Benign prostatic hyperplasia without lower urinary tract symptoms; N52.9 Male erectile dysfunction, unspecified; G56.03 Carpal tunnel syndrome, bilateral upper limbs; Z79.891 Long term (current) use of opiate analgesic; Z79.899 Other long term (current) drug therapy; Z85.828 Personal history of other malignant neoplasm of skin; Z88.2 Allergy status to sulfonamides; Z88.6 Allergy status to analgesic agent; Z88.1 Allergy status to other antibiotic agents; Z91.048 Other nonmedicinal substance allergy status ==

== ENCOUNTER → 2023-01-25 | Outpatient (REF) | payer MEDICARE, BC, OTHER | LOC: M SFHCDERM 14:07 | PROVIDERS: ATTEND Dermatology | DX: L24.A9 Irritant contact dermatitis due friction or contact with other specified body fluids (principal) ==

== ENCOUNTER → 2023-02-21 | Outpatient (CLI) | payer OTHER, MEDICARE | LOC: M PAIN 10:15 | PROVIDERS: ATTEND Anesthesiology | DX: M51.16 Intervertebral disc disorders with radiculopathy, lumbar region (principal); M51.26 Other intervertebral disc displacement, lumbar region; G89.29 Other chronic pain; K21.9 Gastro-esophageal reflux disease without esophagitis; I10 Essential (primary) hypertension; M79.7 Fibromyalgia; Z88.1 Allergy status to other antibiotic agents; Z88.2 Allergy status to sulfonamides; Z88.5 Allergy status to narcotic agent; Z88.6 Allergy status to analgesic agent; Z88.8 Allergy status to other drugs, medicaments and biological substances; Z91.09 Other allergy status, other than to drugs and biological substances; Z79.899 Other long term (current) drug therapy ==

== ENCOUNTER → 2023-03-13 | Outpatient (CLI) | payer MEDICARE, OTHER | LOC: M PAIN 10:30 | PROVIDERS: ATTEND Nurse Practitioner Family | DX: M79.10 Myalgia, unspecified site (principal); M54.6 Pain in thoracic spine; K21.9 Gastro-esophageal reflux disease without esophagitis; I10 Essential (primary) hypertension; M79.7 Fibromyalgia; N40.0 Benign prostatic hyperplasia without lower urinary tract symptoms; N52.9 Male erectile dysfunction, unspecified; Z85.828 Personal history of other malignant neoplasm of skin; Z79.891 Long term (current) use of opiate analgesic; Z79.899 Other long term (current) drug therapy; Z88.2 Allergy status to sulfonamides; Z88.1 Allergy status to other antibiotic agents; Z88.5 Allergy status to narcotic agent; Z88.8 Allergy status to other drugs, medicaments and biological substances ==

== ENCOUNTER → 2023-06-06 | Outpatient (CLI) | payer OTHER, MEDICARE | LOC: M PAIN 10:15 | PROVIDERS: ATTEND Anesthesiology | DX: M51.16 Intervertebral disc disorders with radiculopathy, lumbar region (principal); K21.9 Gastro-esophageal reflux disease without esophagitis; I10 Essential (primary) hypertension; M79.7 Fibromyalgia; N40.0 Benign prostatic hyperplasia without lower urinary tract symptoms; N52.9 Male erectile dysfunction, unspecified; G56.03 Carpal tunnel syndrome, bilateral upper limbs; Z79.891 Long term (current) use of opiate analgesic; Z79.899 Other long term (current) drug therapy; Z88.6 Allergy status to analgesic agent; Z88.2 Allergy status to sulfonamides; Z88.5 Allergy status to narcotic agent; Z88.8 Allergy status to other drugs, medicaments and biological substances; Z88.1 Allergy status to other antibiotic agents; Z91.048 Other nonmedicinal substance allergy status ==

== ENCOUNTER → 2023-06-07 | Outpatient (CLI) | payer OTHER, MEDICARE ==
[~2023-06-07] MED LIST changes: +TRIAMCINOLONE ACETONIDE SUSP 40MG/ML 1ML VIAL As Ordered ONE; +diazePAM 5MG TABLET As Ordered ONE
== END ==
LOC: M PAIN 10:30
PROVIDERS: ATTEND Anesthesiology
DX: M51.16 Intervertebral disc disorders with radiculopathy, lumbar region (principal); M79.18 Myalgia, other site; K21.9 Gastro-esophageal reflux disease without esophagitis; I10 Essential (primary) hypertension; M54.50 Low back pain, unspecified; M79.7 Fibromyalgia; N40.0 Benign prostatic hyperplasia without lower urinary tract symptoms; N52.9 Male erectile dysfunction, unspecified; G56.03 Carpal tunnel syndrome, bilateral upper limbs; Z79.891 Long term (current) use of opiate analgesic; Z79.899 Other long term (current) drug therapy; Z88.2 Allergy status to sulfonamides; Z88.5 Allergy status to narcotic agent; Z88.6 Allergy status to analgesic agent; Z88.8 Allergy status to other drugs, medicaments and biological substances; Z88.1 Allergy status to other antibiotic agents; Z91.048 Other nonmedicinal substance allergy status
CPT/HCPCS: 20552; J0665; J3301

== ENCOUNTER → 2023-06-20 | Outpatient (REF) | payer OTHER, MEDICARE ==
[~2023-06-20] MED LIST changes: -TRIAMCINOLONE ACETONIDE SUSP 40MG/ML 1ML VIAL As Ordered ONE; -diazePAM 5MG TABLET As Ordered ONE
[2023-06-20 15:15] LABS: PERCENT SATURATION 30.5 % (19.7-50.0)
[2023-06-20 15:17] LABS: FERRITIN 131.2 NG/ML (10.5-307.3)
[2023-06-20 15:18] LABS: FOLATE 23.8 NG/ML (>5.4)
== END ==
LOC: M LAB REF 14:17
PROVIDERS: ATTEND Family Medicine
DX: D64.9 Anemia, unspecified (principal)

== ENCOUNTER → 2023-07-11 | Outpatient (CLI) | payer OTHER, MEDICARE | LOC: M PAIN 09:15 | PROVIDERS: ATTEND Anesthesiology | DX: M51.16 Intervertebral disc disorders with radiculopathy, lumbar region (principal); K21.9 Gastro-esophageal reflux disease without esophagitis; I10 Essential (primary) hypertension; M79.7 Fibromyalgia; N40.0 Benign prostatic hyperplasia without lower urinary tract symptoms; N52.9 Male erectile dysfunction, unspecified; G56.03 Carpal tunnel syndrome, bilateral upper limbs; Z85.828 Personal history of other malignant neoplasm of skin; Z79.891 Long term (current) use of opiate analgesic; Z79.899 Other long term (current) drug therapy; Z88.5 Allergy status to narcotic agent; Z88.6 Allergy status to analgesic agent; Z88.2 Allergy status to sulfonamides; Z88.1 Allergy status to other antibiotic agents; Z88.8 Allergy status to other drugs, medicaments and biological substances ==

== ENCOUNTER → 2023-12-19 | Outpatient (CLI) | payer OTHER, MEDICARE | LOC: M PAIN 15:30 | PROVIDERS: ATTEND Anesthesiology | DX: M51.16 Intervertebral disc disorders with radiculopathy, lumbar region (principal); G89.29 Other chronic pain; Z88.1 Allergy status to other antibiotic agents; Z88.2 Allergy status to sulfonamides; Z88.5 Allergy status to narcotic agent; Z88.6 Allergy status to analgesic agent; Z88.8 Allergy status to other drugs, medicaments and biological substances; Z91.040 Latex allergy status; Z79.899 Other long term (current) drug therapy ==

== ENCOUNTER → 2024-02-20 | Outpatient (CLI) | payer OTHER, BC, MEDICARE | LOC: M PAIN 17:00 | PROVIDERS: ATTEND Anesthesiology | DX: M51.16 Intervertebral disc disorders with radiculopathy, lumbar region (principal); I10 Essential (primary) hypertension; Z79.891 Long term (current) use of opiate analgesic; Z79.899 Other long term (current) drug therapy; Z88.1 Allergy status to other antibiotic agents; Z88.2 Allergy status to sulfonamides; Z88.5 Allergy status to narcotic agent; Z88.6 Allergy status to analgesic agent; Z91.048 Other nonmedicinal substance allergy status ==

== ENCOUNTER → 2024-04-02 | Outpatient (CLI) | payer OTHER | LOC: M PAIN 13:30 | PROVIDERS: ATTEND Anesthesiology | DX: M51.16 Intervertebral disc disorders with radiculopathy, lumbar region (principal); M48.061 Spinal stenosis, lumbar region without neurogenic claudication; G89.29 Other chronic pain; K21.9 Gastro-esophageal reflux disease without esophagitis; I10 Essential (primary) hypertension; M79.7 Fibromyalgia; N40.0 Benign prostatic hyperplasia without lower urinary tract symptoms; Z79.891 Long term (current) use of opiate analgesic; Z79.899 Other long term (current) drug therapy; Z88.2 Allergy status to sulfonamides; Z88.1 Allergy status to other antibiotic agents; Z88.5 Allergy status to narcotic agent; Z88.8 Allergy status to other drugs, medicaments and biological substances; Z91.048 Other nonmedicinal substance allergy status ==

== ENCOUNTER → 2024-05-06 | Outpatient (REF) | payer MEDICARE, OTHER ==
[2024-05-06 17:35] LABS: RSV AMPLIFICATION NEGATIVE (NEGATIVE)
== END ==
LOC: M LAB REF 16:05
PROVIDERS: ATTEND Physician Assistant Medical
DX: R19.7 Diarrhea, unspecified (principal); R51.9 Headache, unspecified

== ENCOUNTER → 2024-05-08 | Outpatient (CLI) | payer MEDICARE, BC ==
[~2024-05-08] MED LIST changes: +GASTROGRAFIN SOLUTION 30ML As Ordered ONE; +ISOVUE-370 76% 100ML VIAL As Ordered ONE
== END ==
LOC: M RAD 14:24
PROVIDERS: ATTEND Physician Assistant Medical
DX: R19.7 Diarrhea, unspecified (principal); R10.31 Right lower quadrant pain; R63.4 Abnormal weight loss
CPT/HCPCS: 74177; Q9963; Q9967

== ENCOUNTER → 2024-06-02 | Outpatient (CLI) | payer OTHER ==
[~2024-06-02] MED LIST changes: -GASTROGRAFIN SOLUTION 30ML As Ordered ONE; -ISOVUE-370 76% 100ML VIAL As Ordered ONE
== END ==
LOC: M PAIN 09:15
PROVIDERS: ATTEND Nurse Practitioner Family
DX: M51.16 Intervertebral disc disorders with radiculopathy, lumbar region (principal); M48.061 Spinal stenosis, lumbar region without neurogenic claudication; G89.29 Other chronic pain; K21.9 Gastro-esophageal reflux disease without esophagitis; I10 Essential (primary) hypertension; M79.7 Fibromyalgia; N40.0 Benign prostatic hyperplasia without lower urinary tract symptoms; N52.9 Male erectile dysfunction, unspecified; Z79.891 Long term (current) use of opiate analgesic; Z79.899 Other long term (current) drug therapy; Z88.1 Allergy status to other antibiotic agents; Z88.2 Allergy status to sulfonamides; Z88.5 Allergy status to narcotic agent; Z88.8 Allergy status to other drugs, medicaments and biological substances; Z88.6 Allergy status to analgesic agent

== ENCOUNTER → 2024-09-17 | Outpatient (CLI) | payer OTHER ==
[~2024-09-17] MED LIST changes: +OMEP40CA5 PO
== END ==
LOC: M PAIN 13:00
PROVIDERS: ATTEND Anesthesiology
DX: M51.16 Intervertebral disc disorders with radiculopathy, lumbar region (principal); M79.10 Myalgia, unspecified site; M79.18 Myalgia, other site; G89.29 Other chronic pain; K21.9 Gastro-esophageal reflux disease without esophagitis; I10 Essential (primary) hypertension; N40.0 Benign prostatic hyperplasia without lower urinary tract symptoms; N52.9 Male erectile dysfunction, unspecified; Z79.891 Long term (current) use of opiate analgesic; Z79.899 Other long term (current) drug therapy; Z88.6 Allergy status to analgesic agent; Z88.2 Allergy status to sulfonamides; Z88.8 Allergy status to other drugs, medicaments and biological substances; Z88.1 Allergy status to other antibiotic agents; Z88.5 Allergy status to narcotic agent; Z91.048 Other nonmedicinal substance allergy status

== ENCOUNTER 2024-09-24 06:09 | Day surgery (SDC) | payer MEDICARE, BC ==
[~2024-09-24] VITALS: Ht 172.7 cm; Wt 89.4 kg
[~2024-09-24 06:09] MED LIST changes: +ACET500P3 PO; +ALLE180T33 PO; +PHENYLEPHRINE 10% OPHTH SOL 5ML OD PRN; +THERTAB52 PO; +VIAG100T PO
[2024-09-24] MEDS: PHENYLEPHRINE 2.5% OPHTH SOL 2ML OD SCH (07:10)
[2024-09-24] MEDS: OFLOXACIN 0.3 % (OCUFLOX) OPTH SOL 5ML OD ONE (07:10)
[2024-09-24] MEDS: TROPICAMIDE 1% OPHTH SOLN 15ML OD SCH (07:11)
[2024-09-24] MEDS: ATROPINE SULFATE 1% OPHTH SOLN 2ML BTL OD SCH (07:11)
[2024-09-24] MEDS: LIDOCAINE 3.5 % 1ML OPHTH TOPICAL GEL OU ONE (07:11)
[2024-09-24] MEDS ORDERED: fentaNYL 100 MCG/2 ML INJECTION As Ordered ONE (07:25)
[2024-09-24] MEDS ORDERED: MIDAZOLAM INJ 2MG/2ML VIAL As Ordered ONE (07:25)
[2024-09-24] MEDS ORDERED: dexmedeTOMIDine (4MCG/ML)200MCG/50ML BTL (PRECEDEX) As Ordered ONE (07:25)
[2024-09-24] MEDS: LIDOCAINE 1% SDV 5ML VIAL As Ordered ONE (08:55)
[2024-09-24] MEDS: BSS IRRIG/VANCO(10MG)/TOBRA(5MG)/EPINEPH(1:1000-0.5CC)500ML BAG-ORONLY As Ordered ONE (08:55)
[2024-09-24] MEDS: CEFUROXIME 1MG/0.1ML INTRACAMERAL INJ As Ordered ONE (09:05)
[2024-09-24 09:06] VITALS: BP 133/88; TEMP 96.9; O2SAT 96
== END 2024-09-24 09:25 | disposition home or self-care (01) ==
LOC: M SDC 06:09
PROVIDERS: ATTEND Ophthalmology
DX: H25.9 Unspecified age-related cataract (principal); Z88.6 Allergy status to analgesic agent; Z88.1 Allergy status to other antibiotic agents; Z88.8 Allergy status to other drugs, medicaments and biological substances; Z88.5 Allergy status to narcotic agent; Z88.2 Allergy status to sulfonamides; Z91.048 Other nonmedicinal substance allergy status; Z79.899 Other long term (current) drug therapy; Z87.891 Personal history of nicotine dependence
CPT/HCPCS: 66984; J0697; J2250; J3010; V2632

== ENCOUNTER 2024-10-29 07:34 | Day surgery (SDC) | payer MEDICARE, BC ==
[~2024-10-29] VITALS: Ht 172.7 cm; Wt 87.8 kg
[~2024-10-29 07:34] MED LIST changes: +MIDAZOLAM INJ 2MG/2ML VIAL As Ordered ONE; -PHENYLEPHRINE 10% OPHTH SOL 5ML OD PRN; +PHENYLEPHRINE 10% OPHTH SOL 5ML OS PRN; +fentaNYL 100 MCG/2 ML INJECTION As Ordered ONE
[2024-10-29] MEDS: LIDOCAINE 3.5 % 1ML OPHTH TOPICAL GEL OU ONE (08:50)
[2024-10-29] MEDS: PHENYLEPHRINE 2.5% OPHTH SOL 2ML OS SCH (08:50)
[2024-10-29] MEDS: CYCLOPENTOLATE 1% OPHTH SOLN 2ML BTL OS SCH (08:50)
[2024-10-29] MEDS: TROPICAMIDE 1% OPHTH SOLN 15ML OS SCH (08:50)
[2024-10-29] MEDS ORDERED: OFLOXACIN 0.3 % (OCUFLOX) OPTH SOL 5ML OS ONE (09:10)
[2024-10-29] MEDS: BSS IRRIG/VANCO(10MG)/TOBRA(5MG)/EPINEPH(1:1000-0.5CC)500ML BAG-ORONLY As Ordered ONE (09:13)
[2024-10-29] MEDS: CEFUROXIME 1MG/0.1ML INTRACAMERAL INJ As Ordered ONE (09:13)
[2024-10-29] MEDS: LIDOCAINE 1% SDV 5ML VIAL As Ordered ONE (09:13)
[2024-10-29] MEDS: DUOVISC (0.50ML VISCOAT/0.85ML PROVISC) OPHTH KIT As Ordered ONE (09:41)
[2024-10-29] MEDS: LIDOCAINE 3.5 % 1ML OPHTH TOPICAL GEL As Ordered ONE (09:41)
[2024-10-29] MEDS: CARBACHOL 0.01% OPHTH SOLN 1.5ML VIAL As Ordered ONE (09:41)
[2024-10-29 10:00] VITALS: BP 142/80; TEMP 97.5; O2SAT 99
[2024-10-29] MEDS ORDERED: acetaZOLAMIDE 500MG ER CAP PO ONE (10:05)
[2024-10-29] MEDS: acetaZOLAMIDE 250MG TAB PO ONE (10:37)
== END 2024-10-29 10:45 | disposition home or self-care (01) ==
LOC: M SDC 07:34
PROVIDERS: ATTEND Ophthalmology
DX: H25.9 Unspecified age-related cataract (principal); H40.1121 Primary open-angle glaucoma, left eye, mild stage; Z88.6 Allergy status to analgesic agent; Z88.1 Allergy status to other antibiotic agents; Z88.5 Allergy status to narcotic agent; Z88.2 Allergy status to sulfonamides; Z88.8 Allergy status to other drugs, medicaments and biological substances; Z91.048 Other nonmedicinal substance allergy status; Z98.41 Cataract extraction status, right eye
CPT/HCPCS: 66984; J0697; J2250; J3010; V2632

== ENCOUNTER → 2025-03-04 | Outpatient (CLI) | payer MEDICARE, BC ==
[~2025-03-04] MED LIST changes: -MIDAZOLAM INJ 2MG/2ML VIAL As Ordered ONE; -PHENYLEPHRINE 10% OPHTH SOL 5ML OS PRN; -fentaNYL 100 MCG/2 ML INJECTION As Ordered ONE
== END ==
LOC: M WUC 12:37
PROVIDERS: ATTEND Family Medicine
DX: M54.14 Radiculopathy, thoracic region (principal)